=== PATIENT | female | born 2000 | race Caucasian/White ===

== ENCOUNTER 2020-10-17 14:01 | Emergency (ER) | payer OTHER, SELFPAY ==
--- NOTE | 2020-10-17 14:04 | ED.ABDPAIN ---
HPI - Abdominal Pain General Chief Complaint: Abdominal Pain Stated Complaint: STOMACH PAIN/VOMITING/BLOOD IN STOOL/DIARRHEA/ Time Seen by Provider: 10/17/20 14:04 Source: patient, family and RN notes reviewed History of Present Illness HPI narrative: Patient is a 19-year-old female who presents the urgent care with her mother with complaints of lower abdominal pain, nausea, vomiting and diarrhea. Patient states that she woke up last night with severe lower abdominal pains and bright red stool. Patient states that she has had loose stools all day and the blood has decreased . Patient is currently stating that her pain has improved but she still has 4 out of 10 lower abdominal pain. Patient states that she has had this pain in the past over the last 2 years, approximately 3 times and did go to the emergency room once for the pain. Patient states at that time they suspected she may have had a ruptured ovarian cyst. However, patient states that she has never had of the blood in the stool. Currently denies of any fevers. Patient did have Covid 1 month ago. Denies of any new medications. No other acute complaints. No acute distress noted. Patient and mother aware of the plan of care. Some parts of this dictation were generated by voice recognition software and may contain typographical and/or grammatical inaccuracies. Related Data Home Medications Medication Instructions Recorded Confirmed isotretinoin [Zenatane] 20 mg PO DAILY 10/17/20 10/17/20 Allergies Allergy/AdvReac Type Severity Reaction Status Date / Time No Known Allergies Allergy Unknown Verified 01/18/19 18:02 Review of Systems Review of Systems: CONSTITUTIONAL: Denies fever, chills, or sweats. EYES: Denies visual changes, redness, or discharge. ENT: Denies rhinorrhea, congestion, sore throat, or otalgia. CARDIOVASCULAR: Denies chest pain, palpitations, or edema. RESPIRATORY: Denies cough or dyspnea. GASTROINTESTINAL: Reports of nausea, vomiting, diarrhea and lower abdominal pain. Reports of blood in the stool GENITOURINARY: Denies dysuria or hematuria. SKIN: Denies rash or itching. MUSCULOSKELETAL: Denies back pain, joint pain, or myalgia. NEUROLOGIC: Denies headache, numbness, or weakness. All other systems reviewed are negative, except as documented in HPI. PMFSH Comments At the time of my signature, I reviewed and agree with the nursing past medical, surgical, social, and family history. There is no relevant family history pertinent to the patient complaint. Exam Narrative: GENERAL: This is a well-nourished, well-developed patient, in no apparent distress. HEAD: normocephalic, atraumatic. EYES: PERRL. Sclera clear/white. Vision is grossly intact. EARS: External ears normal NOSE: External nose normal with no obvious nasal discharge, nares without redness, no rhinorrhea. THROAT: Mucous membranes moist, posterior pharynx clear. NECK: Neck supple CARDIOVASCULAR: Regular rate and rhythm without murmurs, gallops, or rubs. RESPIRATORY: Clear to auscultation. Breath sounds equal bilaterally. No wheezes, rales, or rhonchi. GASTROINTESTINAL: Nondistended, diffuse lower abdominal tenderness/suprapubic region. SKIN: warm, intact with no suspicious lesions or rash, good texture and turgor. NEURO: awake, alert, and oriented to person, place and time. There were no obvious focal neurologic abnormalities. EXTREMITIES: No clubbing, cyanosis, or edema. BACK: Negative bilateral CVA tenderness Course Vital Signs Vital signs: Vital Signs Temperature 97.8 F 10/17/20 14:14 Pulse Rate 86 10/17/20 14:14 Respiratory Rate 16 10/17/20 14:14 Blood Pressure 132/75 10/17/20 14:14 Pulse Oximetry 100 10/17/20 14:14 Temperature 97.8 F 10/17/20 14:14 Pulse Rate 86 10/17/20 14:14 Respiratory Rate 16 10/17/20 14:14 Blood Pressure 132/75 10/17/20 14:14 Pulse Oximetry 100 10/17/20 14:14 Reviewed Transfer Transfered to: [facility]
[2020-10-17 14:14] VITALS: BP 132/75; PULSE 86; RESP 16; TEMP 36.6; O2SAT 100
== END 2020-10-17 14:30 | disposition short-term general hospital (02) ==
PROVIDERS: Emergency Provider Nurse Practitioner Family; PCP Nurse Practitioner Family
DX: K92.1 Melena (principal); R10.31 Right lower quadrant pain
CPT/HCPCS: 99212; G0463

== ENCOUNTER 2020-10-17 15:16 | Emergency (ER) | payer OTHER, SELFPAY ==
--- NOTE | ~2020-10-17 | US_ITS ---
EXAMINATION: US pelvic complete DATE: 10/17/2020 18:19 INDICATION: Pelvic pain TECHNIQUE: Multiple transabdominal and endovaginal sonographic images of the pelvis were obtained. COMPARISON: CT from today FINDINGS: The uterus measures 7.2 x 4.0 cm. An IUD is in expected position. The endometrial complex m easures 6 mm. The right ovary measures 8.7 x 6.6 x 8.1 cm and contains a 7.8 x 5.8 x 5.4 cm cyst. The left ovary measures 2.5 x 1.1 x 1.5 cm. There is normal vascular flow in the ovaries. There is no fr ee fluid in the pelvis. IMPRESSION: 1. Cystic lesion of the right ovary which may be benign or malignant. Vascular flow present in the ov alvarez. Follow-up by nonemergent MRI without and with contrast or surgical evaluation is recommended. Reviewed, dictated and finalized at location A. IMPRESSION: 1. Cystic lesion of the right ovary which may be benign or malignant. Vascular flow present in the ovaries. Follow-up by nonemergent MRI without and with cont rast or surgical evaluation is recommended.
--- NOTE | ~2020-10-17 | XR_ITS ---
EXAMINATION: XR chest 2V DATE: 10/17/2020 17:01 INDICATION: Transient alteration of awareness TECHNIQUE: PA and lateral views of the chest are obtained. COMPARISON: None available FINDINGS: The lungs are free of acute opacities. There is no pleural effusion or pneumothorax. The ca rdiomediastinal silhouette is normal. The visualized bones and soft tissues are unremarkable. IMPRESSION: 1. No acute cardiopulmonary abnormality. Reviewed, dictated and finalized at location A.
--- NOTE | ~2020-10-17 | CT_ITS ---
EXAMINATION: CT abdomen pelvis w con INDICATION: Lower abdominal pain TECHNIQUE: Computed tomographic images of the abdomen and pelvis were obtained after the administrati on of 100 cc of Omnipaque 350 intravenous contrast. The dose-length product (DLP) was 202.39 mGy-cm. Automated exposure control and iterative reconstruction technique were employed. COMPARISON: None available FINDINGS: The lung bases are clear. The heart size is normal. The liver, spleen, pancreas, gallbladde r, and adrenal glands are normal. The kidneys are unremarkable. The appendix is normal. No pathologic ally enlarged abdominal or pelvic lymph nodes are identified. There is no free intraperitoneal gas or evidence of bowel obstruction. There is an 8.4 x 6.7 cm cystic lesion of the right adnexa which exte nds into the midline pelvis. An IUD is present in expected position. There is mild circumferential wa ll thickening of the distal transverse/proximal descending colon at the splenic flexure. IMPRESSION: 1. Mild wall thickening of the colon near the splenic flexure which could reflect colitis. 2. 8.4 cm cystic lesion of the right adnexa coursing towards the midline. Further evaluation with pel ana ultrasound is recommended. These findings and recommendations were discussed with Kenyatta Armendariz PA-C in the Emergency Departm ent at 1815 hours on 10/17/2020. Reviewed, dictated and finalized at location A. IMPRESSION: 1. Mild wall thickening of the colon near the splenic flexure which could refle ct colitis. 2. 8.4 cm cystic lesion of the right adnexa coursing towards the midline. Furth er evaluation with pelvic ultrasound is recommended. These findings and recommendations were discussed with Kenyatta Armendariz PA-C in the Emergency Department at 1815 hours on 10/17/2020.
[2020-10-17 15:30] VITALS: BP 114/68; PULSE 88; RESP 16; TEMP 37.3; O2SAT 100
[2020-10-17 16:07] LABS: Basophils Percent Auto 0.3 % (0.2-1.2); Eosinophils Percent Auto 0.2 % (0-4.4); Hematocrit 39.7 % (37.0-47.0); Hemoglobin 13.7 g/dL (12.0-15.0); Immature Granulocyte Absolute 0.05 K/mm3 (0.00-0.031); Immature Granulocyte Percent A 0.3 % (0-0.5); Lymphocytes Absolute Auto 2.51 K/mm3 (0.9-3.2); Lymphocytes Percent Auto 16.5 % (18.3-44.2); Mean Corpuscular HGB Conc 34.5 g/dl (32-36); Mean Corpuscular Hemoglobin 30.3 pg (26-34); Mean Corpuscular Volume 87.8 fl (80-100); Mean Platelet Volume 10.1 fl (7.4-10.4); Monocytes Percent Auto 6.8 % (2.6-8.5); Neutrophils Absolute Auto 11.5 K/mm3 (1.3-6.7); Neutrophils Percent Auto 75.9 % (45.5-73.1); Platelet Count Result 266 k/mm3 (150-375); Red Blood Count 4.52 M/mm3 (4.2-5.4); Red Cell Distribution Width 12.9 % (11.5-14.5); White Blood Count 15.2 K/mm3 (4.5-10.0)
[2020-10-17 16:16] LABS: Partial Thromboplastin Time 25.8 SECONDS (22.3-36.8); Prothrombin Time 12.7 Seconds (11.1-14.7)
--- NOTE | 2020-10-17 16:16 | ECG_ITS ---
Measurements Intervals [place] Rate: 78 P: 47 WI: 120 QRS: 77 QRSD: 80 T: 10 QT: 371 QTc: 423 Interpretive Statements SINUS RHYTHM MINIMAL Q WAVES- INFERIOR LEADS BORDERLINE ST-T WAVE ABNORMALITY- INFERIOR LEADS BORDERLINE ECG Electronically Signed On 10-17-2020 17:36:45 CDT by Yury Nixon D.O.
--- NOTE | 2020-10-17 16:19 | PC.NURSE ---
Called lab to add troponin to labs
[2020-10-17 16:20] LABS: Alanine Aminotransferase 14 U/L (4-35); Albumin Level 4.8 g/dL (3.5-5.1); Alkaline Phosphatase 48 U/L (38-126); Anion Gap 14 mmol/L (8-16); Aspartate Amino Transferase 22 U/L (14-36); Bilirubin,Total 0.6 mg/dL (0.2-1.3); Blood Urea Nitrogen 8 mg/dL (7-17); Calcium 10.1 mg/dL (8.4-10.2); Carbon Dioxide 23 mmol/L (22-30); Chloride 102 mmol/L (98-107); Estimated CRCL calculation 91 ml/min; Estimated Glomerular Filt Rate > 60; Glucose 94 mg/dL (65-110); Lipase 58 U/L (23-300); Potassium 3.5 mmol/L (3.4-5.0); Sodium 139 mmol/L (137-145)
--- NOTE | 2020-10-17 16:21 | ED.ABDPAIN ---
HPI - Abdominal Pain General Chief Complaint: Abdominal Pain Stated Complaint: abdominal pain Time Seen by Provider: 10/17/20 15:37 Source: patient Mode of arrival: ambulatory Limitations: no limitations History of Present Illness HPI narrative: This is a 19 year old female that presents to the ER for low abdominal pain ongoing since last night. Associated with nausea and vomiting. Reports she has been seeing bright red blood in her stool since last night as well. Reports last night she was in so much pain that she started to feel hot and passed out. Has history of similar occurrences when she gets her blood drawn. Denies hitting her head, fever, vision changes, dysuria, hematuria, weakness, or numbness. Related Data Home Medications Medication Instructions Recorded Confirmed isotretinoin [Zenatane] 20 mg PO WEEKLY 10/17/20 10/17/20 Allergies Allergy/AdvReac Type Severity Reaction Status Date / Time No Known Allergies Allergy Unknown Verified 10/17/20 15:39 Review of Systems Review of Systems: CONSTITUTIONAL: Denies fever CARDIOVASCULAR: Denies chest pain RESPIRATORY: Denies dyspnea. GASTROINTESTINAL: Reports abdominal pain, nausea, vomiting GENITOURINARY: Denies dysuria or hematuria. All systems reviewed & are unremarkable except as noted in HPI and below PMFSH Past Medical History Medical History (Updated 10/17/20 @ 20:01 by Kenyatta Armendariz PA-C) No active medical problems Social History Social History (Updated 10/17/20 @ 16:39 by Kenyatta Armendariz PA-C) Substance use: never Exam Narrative: GENERAL: Well-appearing, well-nourished, and in no acute distress. HEAD: Normocephalic, atraumatic. EYES: PERRLA and EOMI. ENT: Nares clear, no rhinorrhea or epistaxis. Mucous membranes moist. Oropharynx without tonsillar hypertrophy exudate or other lesions. Bilateral TMs pearly chino non-bulging NECK: Supple. No adenopathy or masses. CHEST: Clear to auscultation. No respiratory distress. No wheezes rales or rhonchi HEART: Regular rate and rhythm. No murmur heard. Normal peripheral pulses. ABDOMEN: Soft, nondistended, normal active bowel sounds. Mild tenderness to palpation in the lower abdomen, without guarding. No CVA tenderness EXTREMITIES: Normal range of motion. No edema. SKIN: Warm, dry, no rash. NEURO: No focal deficits. Alert and oriented x3. PSYCH: Normal mood and affect RECTAL: Small fissure noted. No active bleeding. Hemoccult negative Course Consultations Consultation #1: Spoke with Dr. Londono about patient and workup who will follow up in clinic Date: 10/17/20 Time: 19:30 Vital Signs Vital signs: Vital Signs Temperature 99.1 F 10/17/20 15:30 Pulse Rate 88 10/17/20 15:30 Respiratory Rate 16 10/17/20 15:30 Blood Pressure 114/68 10/17/20 15:30 Pulse Oximetry 100 10/17/20 15:30 Temperature 99.1 F 10/17/20 15:30 Pulse Rate 86 10/17/20 18:36 Respiratory Rate 12 10/17/20 18:36 Blood Pressure 105/74 10/17/20 18:36 Pulse Oximetry 100 10/17/20 18:36 MDM - Abdominal Pain MDM Narrative Medical decision making narrative: Patient presents to the emergency department for abdominal pain, nausea and vomiting. Also reporting blood in stool. She is afebrile and nontoxic-appearing. Vitals are stable. CBC with leukocytosis to 15.2. Hemoglobin is normal. Metabolic panel and lipase without concerning findings. UA without evidence of infection. Patient also reporting a syncopal episode after being in pain last night. Patient does have history of vasovagal syncope. Denies any chest pain or shortness of breath. Chest x-ray without concerning findings. EKG with nonspecific changes. Baseline troponin is negative. CT scan of the abdomen and pelvis shows mild colitis. Also shows a 0.4 cm cystic lesion of the right adnexa. Recommend pelvic ultrasound. Pelvic ultrasound shows a cystic lesion of the right ovary which may be benign or malignant. Recommend nonemergent MRI and surgical consult. Vascula
[2020-10-17] MEDS: SODIUM CHLORIDE 0.9% IV 1,000 ML 999 ML IV CONT (16:33)
--- NOTE | 2020-10-17 16:40 | PC.NURSE ---
Pt unable to urinate at this time
[2020-10-17 16:42] LABS: Troponin I < 0.012 ng/mL (0.000-0.034)
[2020-10-17 16:44] VITALS: BP 105/65; BP 99/59; PULSE 84; PULSE 95
[2020-10-17 16:45] VITALS: BP 98/60; PULSE 95
--- NOTE | 2020-10-17 16:57 | PC.NURSE ---
Off floor to radiology
[2020-10-17 17:08] LABS: Add Urine Microscopic? YES; Appearance Urine Clear (Clear); Bilirubin Urine 1+ (Negative); Blood Urine Negative (Negative); Color Urine Amber (Yellow); Glucose Urine UA Negative (Negative); Ketones Urine 2+ mg/dL (Negative); Leukocyte Esterase Ur Negative LEU/UL (Negative); Mucus Urine Heavy /lpf; Nitrate Urine Negative (Negative); Protein Urine 2+ mg/dL (Negative); RBC Urine 0-2 /hpf (0-2); Squamous Epithelial Cell Urine Many /hpf (Few); Urobilinogen Urine Negative mg/dL (<2.0); WBC Urine 0-3 /hpf
[2020-10-17 17:09] LABS: Specific Grav Ur 1.035 (1.001-1.035)
--- NOTE | 2020-10-17 18:06 | PC.NURSE ---
Pt off floor to radiology
[2020-10-17 18:36] VITALS: BP 105/74; PULSE 86; RESP 12; O2SAT 100
[2020-10-17 20:20] VITALS: BP 110/70; PULSE 80; RESP 14; O2SAT 98
== END 2020-10-17 20:20 | disposition home or self-care (01) ==
PROVIDERS: Physician Assistant; Emergency Provider Emergency Medicine; PCP Nurse Practitioner Family
DX: K52.9 Noninfective gastroenteritis and colitis, unspecified (principal); N83.201 Unspecified ovarian cyst, right side; R55 Syncope and collapse
CPT/HCPCS: 36415; 71046; 74177; 76856; 80053; 81001; 81025; 83690; 84484; 85025; 85610; 85730; 93005; 96361; 96374; 99284; J0131; J7030; Q9967

== ENCOUNTER 2022-06-16 21:39 | Emergency (ER) | payer OTHER, SELFPAY ==
--- NOTE | ~2022-06-16 | XR_ITS ---
EXAMINATION: XR knee RT min 4V DATE: 06/16/2022 22:13 INDICATION: Right knee pain TECHNIQUE: Four views of the right knee were obtained. COMPARISON: 01/20/2016 FINDINGS: Alignment is normal. No fracture or osteochondral lesion. Joint spaces are normal with no e rosions. No joint effusion/synovitis. Soft tissues are unremarkable. IMPRESSION: 1. No acute osseous abnormality. Reviewed, dictated and finalized at location F.
[2022-06-16 21:43] VITALS: BP 122/75; PULSE 86; RESP 16; TEMP 37.3; O2SAT 100
--- NOTE | 2022-06-17 00:43 | PC.NURSE ---
Patient up to triage desk to notify this RN that her knee was feeling much better and she was able to walk without pain and no longer wanted to be seen. Patient ambulatory with steady gait and no limping upon departure from ER.
== END 2022-06-17 00:43 | disposition left against medical advice (07) ==
PROVIDERS: Emergency Provider Emergency Medicine; PCP Nurse Practitioner Family
DX: S89.91XA Unspecified injury of right lower leg, initial encounter (principal)
CPT/HCPCS: 73564; 99199

== ENCOUNTER 2024-03-20 11:57 | Emergency (ER) | payer OTHER, SELFPAY ==
[2024-03-20 11:59] VITALS: BP 137/74; PULSE 93; RESP 16; TEMP 36.6; O2SAT 100
[2024-03-20] MEDS: FLUCONAZOLE 150 MG TABLET PO (14:01)
[2024-03-20 14:04] LABS: BEDSIDEPREGUCG Negative (Negative)
--- NOTE | 2024-03-20 14:11 | ED.FEMALEGU ---
HPI - Female Genitourinary General Chief complaint: [employer] Stated complaint: i think i have a pelvic floor prolapse Time Seen by Provider: 03/20/24 13:00 Source: patient and RN notes reviewed Mode of arrival: ambulatory Limitations: no limitations History of Present Illness HPI Narrative: This is a 23 year old female who presents for evaluation of abnormal vaginal discharge. She reports she has been having painful sexual intercourse for 1 year and she had her boyfriend to take a look at her vagina yesterday. He states he saw tissue protruding from her vagina. Patient also reports thick yellow vaginal discharge. She reports mild vaginal itching and she completed antibiotics last week to treat UTI. She has appointment with [facility] on Related Data Allergies Allergy/AdvReac Type Severity Reaction Status Date / Time No Known Allergies Allergy Unknown Verified 03/20/24 11:57 PMFSH Past Medical History Medical History No active medical problems Social History Social History Smoking status: Never smoker Alcohol intake: never Substance use: never Exam Const: General: no acute distress and alert Nutritional Appearance: well nourished Orientation/consciousness: patient oriented x3 Limitations: no limitations HENMT: Head: normal to inspection Resp: Effort & Inspection: normal respiratory effort GI: GI Palp: Yes Soft to palpation, No Tenderness to palpation present (GI), No Guarding due to palpation present (GI) and No Rigid due to palpation Auscultation: normal bowel sounds : Speculum Exam - Vagina: abnormal vaginal discharge yellow Speculum Exam - Cervix: normal appearance of the cervix and Cervical os closed Bimanual exam- vagina & uterus: no cervical motion tenderness Bimanual Exam- Adnexa, other: no masses Skin: General skin exam: normal color Rashes: no rashes Wounds: no wounds Neuro: General: patient oriented x3 and moves all extremities Course Reevaluation(s) Reevaluation #1: I discussed with patient it will be 30 minutes for GC chlamydia swab to return but she does not want to wait. She has follow up with gynecology on . Date: 03/20/24 Time: 15:37 Vital Signs Vital signs: Vital Signs Temperature 97.9 F 03/20/24 11:59 Pulse Rate 93 03/20/24 11:59 Respiratory Rate 16 03/20/24 11:59 Blood Pressure 137/74 03/20/24 11:59 Pulse Oximetry 100 03/20/24 11:59 Oxygen Delivery Room Air 03/20/24 11:59 Temperature 97.9 F 03/20/24 11:59 Pulse Rate 93 03/20/24 11:59 Respiratory Rate 16 03/20/24 11:59 Blood Pressure 137/74 03/20/24 11:59 Pulse Oximetry 100 03/20/24 11:59 Oxygen Delivery Room Air 03/20/24 11:59 MDM - Female Genitourinary Differential Diagnosis Differential diagnosis: Likely bacterial vaginosis, trichomoniasis, cervicitis, ovarian cyst and vaginitis Lab Data Attestation: I reviewed the patient's lab results. Labs: Lab Results 03/20/24 03/20/24 Range/Units 14:02 14:08 POC Urine HCG, Qual Negative (Negative) C. trachomatis (PCR) Pending N. gonorrhoeae (PCR) Pending T. 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 You will given medication to treat yeast infection and possible bacterial vaginosis. Patient Language: Yoruba Prescriptions: New metronidazole 500 mg tablet 500 mg PO Q12H 7 Days Qty: 14 0RF Follow-up/Referrals: Angel Londono MD [Physician] - PHYSICIAN,ENGINEER SECOND ASSISTANT [Primary Care Provider] -
[2024-03-20 15:33] LABS: Trichomonas Vag PCR NOT DETECTED (NOT DETECTE)
--- OUTSIDE RECORDS SUMMARY | 2024-03-27 11:51 | XMS_ITS | Data Portability ---
Author Organization [facility] [place] Address [address] [place] [address] [place] [address] Care Team Providers Care Marzipan Molder Name Role Phone NARA MENDIOLA Primary Care Provider [phone] Assessment Encounter Date Assessment Date Assessment LastModified by Organization Details LastModified Time 12/18/2021 12/18/2021 we discussed that bleeding can be irregular with IUD, and on other BC also, or the first year of menses. we also discussed we can't diagnose pcos by labs or US while on BC. normal exam. declines std testing try more foreplay, relaxation techniques to start. discussed pelvic pt if needed. [email or web address] Not available 12/20/2021 19:39:04 Plan of Treatment Reminders Order Date Submit Date Provider Last Modified By Organization Details Last Modified Time Details Appointments None recorded. Lab urinalysis, dipstick 2022 023 [facility], [address], [address], [place], [address], 3 16:34:14 [facility], [facility] [address], [address], [place], [address], 3 16:34:39 unlisted lab - women's health swab plus, DENISE 2024 025 [facility]), [address], [place], [address], 5 15:37:24 Referral None recorded. Procedures None recorded. Surgeries None recorded. Imaging US, pelvis, complete 2022 023 [facility], [address], [address], [place], [address], 4 05:00:46 US, pelvis [address], [address], [place], [address], 3 21:14:11 US, transvagina l 2022 [address], [address], [place], [address], 3 21:14:11 Medication Orders fluconazole 150 mg tablet 2024 025 [facility], [address], [place], [place], [id number], 5 15:36:48 Patient TargetsNo targets recorded. Patient InstructionsNo instructions recorded. Reason for Referral None Reported. Results Created Date Observation Date Name Description Value Unit Range Abnormal Flag Note LastModifiedBy Organization Detail LastModifiedTime 02/06/2002/05/2023 pregn uzma test, urine HCG negati ve Not Available [place] [address], [place], [address], 02/05/2023 16:34:22 02/06/20 23 02/05/2023 urina lysis , dipst ick Leukocytes + Not Available Paulino moreno [address], [place], [address], 02/05/2023 16:33:14 02/06/20 23 02/05/2023 urina lysis , dipst ick Nitrite Negati ve Not Available [address], [place], [address], 02/05/2023 16:33:14 02/06/20 23 02/05/2023 urina lysis , dipst ick Urobilinogen Negati ve Not Available [place] [address], [place], [address], 02/05/2023 16:33:14 02/06/20 23 02/05/2023 urina lysis , dipst ick Protein Negati ve Not Available [place] [address], [place], [address], 02/05/2023 16:33:14 02/06/20 23 02/05/2023 urina lysis , dipst ick pH 7 Not Available [place] [address], [place], [address], 02/05/2023 16:33:14 02/06/20 23 02/05/2023 urina lysis , dipst ick Blood trace Not Available [place] [address], [place], [address], 02/05/2023 16:33:14 02/06/20 23 02/05/2023 urina lysis , dipst ick Specific [place] 1.010 Not Available [facility] [address], [place], [address], 02/05/2023 16:33:14 02/06/20 23 02/05/2023 urina lysis , dipst ick Ketone Negati ve Not Available [place] [address], [place], [address], 02/05/2023 16:33:14 02/06/20 23 02/05/2023 urina lysis , dipst ick Bilirubin Negati ve Not Available [place] [address], [place], [address], 02/05/2023 16:33:14 02/06/20 23 02/05/2023 urina lysis , dipst ick Glucose Negati ve Not Available [place] [address], [place], [address], 02/05/2023 16:33:14 02/06/20 23 02/05/2023 urina lysis , dipst ick Appearance Clear Not Available [facility] [address], [place], [address], 02/05/2023 16:33:14 02/06/2002/05/2023 urina lysis , dipst ick Color Yellow Not Available [place] [address], [place], [address], 02/05/2023 16:33:14 02/07/20 23 02/06/2023 US, pelvi s No observ ation record ed. [facility] [address], [place], [address], 02/06/2023 12:57:30 02/07/2002/06/2023 US, trans vagariella al No observ ation record ed. [facility] [address], [place], [address], 02/06/2023 12:57:53 02/07/2002/06/2023 US, pelvi s No observ ation record ed. matt Baez [address], [place], [address], 02/10/2023 12:11:14 Result Notes None recorded. Problems Name Problem SNOMED Code Status Onset Date Resolution Date Notes Provider Name and Address Organization Details Recorded Time Insertio n of intraute rine contrace ptive device Completed 201808/28/2020 Encounte r for insertio n of intraute rine contrace ptive device;R ecorded Elsewher e: No [facility]: E[facility] Decorative Engraver dilip: N Practi ce ID: 0001 Storm lable Time: 03:15:00 PM Cora Balbuena MD [address], [place], [address], [facility] 14:44:[address] Concept Completed 201808/28/2020 Encntr for routine child health exam w/o abnormal findings ;Recorde d Elsewher e: No [facility]: E[facility] Decorative Engraver dilip: N Practi ce ID: 0001 Storm lable Time: 03:30:00 PM Cora Balbuena MD [address], [place], [address], [facility] 14:44:13 Acute vaginiti s 58556949 Completed 201608/28/2020 Acute vaginiti s;Practi ce ID: [address], [place], [address], [facility] 14:43:55 Finding of pattern of menstrua l cycle 988983294 Completed 201608/28/2020 Excessiv e and frequent menstrua tion with irregula r cycle;Pr actice ID: [address], [place], [address], [facility] 14:44:[address] Concept Completed 201608/28/2020 Encntr for director of gift planning exam (general ) (routine ) w/o abn findings ;Practic e ID: [address], [place], [address], [facility] 14:44:15 Pregnanc y test negative [id number] Completed 201608/28/2020 Encounte r for pregnanc y test, result negative ;Practic e ID: 0001 Cora Balbuena MD [address], [place], [address], [facility] 14:44:07 Acne 17401214 Completed 201608/28/2020 Acne, unspecif ied;Prac tim ID: 0001 Coar Balbuena MD [address], [place], [address], [facility] 14:43:53 Contrace ptive sheath status 624196478 Completed 201808/28/2020 Encounte r for routine checking of intraute rine contrace p dev;Prac tim ID: 0001 Cora Balbuena MD [address], [place], [address], [facility] 14:44:00 Clinical finding Completed 201808/28/2020 Encounte r for surveill ance of injectab le contrace ptive;Pr actice ID: 0001 Cora Balbuena MD [address], [place], [address], [facility] 14:43:[address] Concept Completed 201608/28/2020 Encntr for general adult medical exam w/o abnormal findings ;Recorde d Elsewher e: No Locat ion: Raudel talavera [facility] S ource: EHR Decorative Engraver dilip: N Practi ce ID: 0001 Storm lable Time: 03:15:00 PM Cora Balbuena MD [address], [place], [address], [facility] 14:44:11 Problem Notes None recorded. Procedures Surgical History Date Name Laterality Status Provider Name and Address Organization Details Recorded Time tonsilectom y/adenoids completed [facility]cl[facility] 08/10/2020 08:56:47 Imaging Results Imaging Date Name Status LastModified by Organization Details LastModified Time 02/06/2023 US, pelvis completed lalo Murphy [address], [place], [address], 02/06/2023 12:57:30 02/06/2023 US, transvaginal completed lalo talavera [address], [place], [address], 02/06/2023 12:57:53 02/06/2023 US, pelvis completed llamaamari Sasha [address], [place], [address], 02/10/2023 12:11:14 Procedure Notes None recorded. Medical Equipment None Reported. Allergies No known drug allergies Medications Name Sig Start Date Stop Date Status Note LastModified by Organization Details LastModified Time Mirena 21 mcg/24 hr (up to 8 years) 52 mg intrauter ine device 2018 active Prescrib ed Elsewher e: Yes Loca tion: Raudel talavera [facility] odify By: kayli Talaver[address] ncounter DateTime : 07/28/19 03:15:00 PM Not Available Not Available Not Available fluconazo le 150 mg tablet Take 1 tablet by oral route for 1 day. 2024 active Not Available Not Available Not Avai lable spironola ctone 100 mg tablet 03/24 completed Not Available Not Available Not Available metronida zole 500 mg tablet active Not Available Not Available No t Available Depo-Prov era 150 mg/mL intramusc ular suspensio n inject 1 millilit er by intramus cular route every 3 months 08/10 completed Prescrib ed Elsewher e: No Locat ion: Raudel talavera [facility] odify By: mario stallworthunter DateTime : 09/11/19 12:41:08 PM Not Available Not Available Not Available isotretin oin 10 mg capsule take by oral route 2 times every day 12/18 completed Prescrib ed Elsewher e: Yes Loca tion: Raudel talavera [facility] odify By: [email or web address] E ncounter DateTime : 07/06/19 03:30:00 PM Not Available Not Available Not Available clobetaso l 0.05 % topical ointment 03/24 completed Not Available Not Available Not Available Ortho Tri-Cycle n LO (28) 0.18 mg/0.215 mg/0.25 mg-25 mcg tablet take 1 tablet by oral route every day 07/05 completed Prescrib ed Elsewher e: No Locat ion: [facility] odify By: haroon Talavera ncounter DateTime : 10/09/19 03:15:00 PM Not Available Not Available Not Available JENNIFER (28) 3 mg-0.02 mg tablet take 1 tablet by oral route every day 10/08 completed Prescrib ed Elsewher e: No Locat ion: [facility] odify By: [email or web address] tz Encou nter DateTime : 09/09/19 09:06:13 AM Not Available Not Available Not Available Vitals Date Recorded Body height Body mass index (BMI) Body weight Systolic blood pressure Diastolic blood pressure Provider Name and Address Organization Details Last Updated DateTime 12/18/2021 170.18 cm 17.5 kg/m2 35354.35 g 111 mm[Hg] 75 mm[Hg] Caitlin Mclaughlin [facility] 2 14:50:46 Date Recorded Body height Body mass index (BMI) Body weight Systolic blood pressure Diastolic blood pressure Provider Name and Address Organization Details Last Updated DateTime 02/05/2023 170.18 cm 17.2 kg/m2 47796.16 g 105 mm[Hg] 67 mm[Hg] Smitha Atwood [facility] 3 16:15:38 Date Recorded Body height Body mass index (BMI) Body weight Systolic blood pressure Diastolic blood pressure Provider Name and Address Organization Details Last Updated DateTime 02/10/2023 170.18 cm 18.2 kg/m2 21717.15 g 102 mm[Hg] 72 mm[Hg] Lizbeth Correia [facility] 3 11:35:01 Date Recorded Body height Body mass index (BMI) Body weight Systolic blood pressure Diastolic blood pressure Provider Name and Address Organization Details Last Updated DateTime 03/24/2024 170.18 cm 19.4 kg/m2 53630.74 g 107 mm[Hg] 66 mm[Hg] AUBREY Evans [facility] 15:19:07 Social History None recorded. Functional Status None recorded. Mental Status None recorded. Family History Nothing Reported. Medical History Condition Response Allergies (Food, seasonal, environmental ) N Other N Breast Cancer N Drug/Latex Allergies/Reactions N Blood Transfusion N Dermatologic Disorders N Lung Disease N Defects or Inherited Disease N Breast Problem N Gestational Diabetes N Hematologic disorders N Anesthesia Complications N History of STI N Deep Vein Thrombosis N Polycystic ovary syndrome N Anxiety Disorder N Autoimmune disease N Arthritis N Infertility N Polyps N Acid Reflux (GERD) N History of abnormal pap N Cancer N Stroke N Varicosities N Neurologic/Epilepsy N Endometriosis N High Cholesterol N Headaches N Fibromyalgia N Kidney Disease N Heart Problems N Kidney or Bladder Problems N Thyroid Problems N GI Problems N Eating Disorder N Anemia N Art (IVF or FET) N Psychiatric Illness N Ovarian Cancer N Diabetes N Pulmonary (TB, Asthma) N Hepatitis/Liver Disease N No Past Medical History N Eczema N Urinary Tract Infection N Abuse/Domestic Violence N Asthma N Trauma/Violence N Depression/ depression N Heart Disease N Pre-Eclampsia N Hypertension N Osteoporosis N Thrombophilias N Gynecological History Statement/Question Response Flow Moderate Date of LMP 02/24/2024 Sexually Active? Y Date of Last Pap Smear Sexual Problems? Y Duration of Flow (days) 15 Current Control Method IUD LMP Approximate Obstetrics History GPAL:G 0 P 0 0 0 0 Past Encounters Encounter ID Performer Location Encounter Start Date Encounter Closed Date Diagnosis/Indication Diagnosis SNOMED-CT Code Diagnosis ICD10 Code [id number] Cora Balbuena MD [place] [address] [address] 08/28/2020 14:35:15 08/29/2020 10:30:45 Break-through bleeding 01380684 N92.1 Venereal d isease screening 184913509 Z11.3 [id number] Angel Londono MD [place] [address] [address] 10/18/2020 18:00:51 10/19/2020 09:35:58 Pain in pelvis 97058755 R10.2 Cyst of ovary 24434956 N 83.209 Colitis 69766057 K52.9 [id number] Cora Balbuena MD [place] [address],[place] [address] 07/30/2021 13:59:00 07/30/2021 14:25:43 Intrauterine contraceptive device in situ 301310833 Z97.5 Lower abdominal pain 545 33305 R10.30 [id number] Cora Balbuena MD [place] [address],[place] [address] 12/18/2021 14:43:16 12/20/2021 16:58:54 Deep pain on intercourse 663044352 N94.12 Irregular periods 818369 07 N92.6 [id number] BRIA Hernández [place] [address],[place] [address] 02/05/2023 15:55:53 02/05/2023 16:51:00 Urinary symptoms 344666169 R39.9 Pain in pelvis 71247040 R10.2 Dyspareunia 72344322 N94 .10 [id number] Leanne Shankar [place] [address],[place] [address] 02/06/2023 09:52:27 02/06/2023 10:24:55 Pain in pelvis 25644906 R10.2 [id number] Saundra Monteiro MIKHAIL [place] [address],[place] [address] 02/10/2023 11:28:52 02/10/2023 11:54:50 Pain in pelvis 74348873 R10.2 Contracept ion care management 372637219 Z30.9 [id number] CASH BLANK NP [place] [address],[place] [address] 03/24/2024 14:58:19 03/24/2024 16:23:11 Vaginal discharge 694674648 N89.8 Venereal d isease screening 293375439 Z11.3 Health Concerns Section Related Observation LastModified by Organization Detai ls LastModified Time None Recorded Concern Status LastModified by Organization Details LastModified Time None Recorded Advance Directives Directive None Recorded Payers Encounter Date Sequence Insurance Name Policy Number Policy Manjarrez Covered Member ID Manjarrez Member ID Guarantor Name 12/18/2021 1 [employer] (PPO) [id number] Hipolito Avila Wolf [id number] America Wolf 02/05/2023 1 [employer]) [id number] Hipolito Avila Wolf [id number] America Wolf 02/06/2023 1 [employer]PPO) [id number] Hipolito Avila Wolf [id number] America Wolf 02/10/2023 1 [employer] (PPO) [id number] Hipolito Avila Wolf [id number] America Wolf 03/24/2024 1 [facility] [id number] Hpiolito Tianerlich [id number] America Wolf Notes Date Note Type Note Provider Name and Address Organization Details Recorded Time 12/18/2021 text/html America is a 21y o G0 here with a couple concerns. She has a history of irregular periods and is worried she has PCOS. She has a Mirena since 07/2018. She was last not on BC age 15. She started her period age 14. She had one gush of blood a month ago with a big cramp but otherwise no bleeding with Mirena. She is worried about why her periods are not regular. She also has a new partner for a few months and sometimes sex is painful- stabbing or cramping deeper. sometimes though it is fine. Cora Balbuena MD [address], [place], [address], [facility] 12/20/2021 19:39:45 02/05/2023 text/html 22yo [id number] for evaluation of pain with ICnoticed sharp pain during IC last night, pain has since resolved. Feels sore treated for a UTI 2 weeks agoMirena IUD for BC, inserted 07/2018SA with steady partnerneg n/v/fneg urinary symptomsneg d/c, odorsneg flank painsbowel movements often irregular (constipation/licha rrhea) BRIA Hernández [address], [place], [address], [facility] 02/05/2023 16:49:12 02/10/2023 text/html 22yopresents for u/s f/upelvic pain has resolved, feels back to normal BRIA Hernández [address], [place], [address], [facility] 02/10/2023 11:52:30 03/24/2024 text/html Patient here wit h c/o vaginal discharge. Patient finished antibiotics for a UTI two weeks ago.Patient states that after she finishing antibiotics, on 03/17 she had painful intercourse with cramping in abdomen.From 03/17 - 03/20 - patient reports that she had vulvar irritation and a lot of thin vaginal discharge.On 03/20 patient went to ER [facility] for copious vaginal discharge - treated for BV and yeast empirically - pt states that tests were negative for trich/BV/yeast and urinary infection per results, stopped Flagyl two days early due to AEs of metallic taste and arm pain. Patient now reports thick vaginal discharge. Denies current pelvic pain, GI/ sx. CASH BLANK, MIKHAIL [address], [place], [address], [facility] 03/24/2024 16:21:00 OBGyn Episode No OBEpisode recorded.
--- OUTSIDE RECORDS SUMMARY | 2024-03-27 11:51 | XMS_ITS | Data Portability ---
Author Organization [place] - [facility], [employer] Address [address] [place] [address] Care Team Providers Care Manager Apple Name Role Phone RENITA RICHMOND Vertical Lathe Operator RAGINI RENDON OTHER Assessment Encounter Date Assessment Date Assessment LastModified by Organization Details LastModified Time 11/10/2019 11/10/2019 Medication Changes Doxycycline 100 mg Vyvanse 30 mg Labs obtained at visit. RADHIKA Obtained. Records requested. Signs and symptoms of when to seek further care reviewed with patient. Patient to follow up with primary care provider or return to clinic for any worsening signs and symptoms. Always present to ER or Urgent Care with any progression of/alarming symptoms, significant changes in symptoms or any concerning or urgent matters. Patient verbalized agreement and understanding of treatment plan. F/U 4 weeks, sooner if needed [email or web address] Not available 11/10/2019 14:44:10 11/08/2020 11/08/2020 Medication Changes Accommodation letter accomplished for school. Discussed tx options regarding colitis. Waiting for GI to do colonoscopy to further differentiate. Signs and symptoms of when to seek further care reviewed with patient. Patient to follow up with primary care provider or return to clinic for any worsening signs and symptoms. Always present to ER or Urgent Care with any progression of/alarming symptoms, significant changes in symptoms or any concerning or urgent matters. Patient verbalized agreement and understanding of treatment plan. F/U as directed, sooner if needed [email or web address] Not available 11/08/2020 12:48:24 11/07/2021 11/07/2021 Medication Changes Needs TDAP for school. [facility]. Signs and symptoms of when to seek further care reviewed with patient. Patient to follow up with primary care provider or return to clinic for any worsening signs and symptoms. Always present to ER or Urgent Care with any progression of/alarming symptoms, significant changes in symptoms or any concerning or urgent matters. Patient verbalized agreement and understanding of treatment plan. F/U 1 year, sooner if needed [email or web address] Not available 11/07/2021 10:48:03 Plan of Treatment Reminders Order Date Submit Date Provider Last Modified By Organization Details Last Modified Time Details Appointments None recorded. Lab TSH + free T4, serum 2019 SRI Not available 0 15:03:57 T3, free, serum or plasma 2019 SRI Not available 0 17:17:14 thyroid peroxidase (tpo) Ab, serum 2019 [facility]RI Not available 0 17:17:13 hCG, qualitativ e, serum 2019 SRI Not available 0 15:03:57 CBC w/ diff 2019 SRI Not available 0 15:03:57 CMP, serum or plasma 2019 SRI Not available 0 17:17:12 lipid panel, serum 2019 SRI Not available 0 17:17:11 Referral None recorded. Procedures None recorded. Surgeries None recorded. Imaging None recorded. Medication Orders doxycyclin e hyclate 100 mg capsule 2019 INTERFACE [facility], [address] [place] [address] Sudheer Luis, [place], [place], [id number], 0 09:03:50 Vyvanse 30 mg capsule 2019 INTERFACE [facility], [address] [place] [address] Sudheer Luis, [place], [place], [id number], 0 09:13:19 Patient TargetsNo targets recorded. Patient Instructions Encounter Date Encounter Id Patient Instructions Last Modified By Organization Details Last Modified Time 11/08/2020 [id number] functional ovarian cysts in teens: care instructions Not available 11/08/2020 12:48:56 colitis: care instructions [email or web address] Not available 11/08/2020 12:48:56 Reason for Referral None Reported. Results Created Date Observation Date Name Description Value Unit Range Abnormal Flag Note LastModifiedBy Organization Detail LastModifiedTime 11/10/19 20 11/11/2019 lipid panel , serum cholesterol, total 166 mg/dL <170 normal Not Available [facility] [address], [address], 11/11/2019 17:17:16 11/10/19 20 11/11/2019 lipid panel , serum HDL cholesterol 71 mg/dL >45 normal Not Available [facility] [employer] [address], [address], 11/11/2019 17:17:16 11/10/19 20 11/11/2019 lipid panel , serum triglyceride s 89 mg/dL <90 normal Not Available [facility] [address] [place], [address], 11/11/2019 17:17:16 11/10/19 20 11/11/2019 lipid panel , serum LDL-choleste rol 78 mg/dL _(lynne c) <110 normal LDL-C is now calcu lated using the Francoise n-Hop [facility] felipeu janeen n, which is a valid ated novel metho d provi sherita trimble r accur acy than the Fried beltran equat ion in the estim ation of LDL-C . Francoise abbasi SS et al. MARIANO. 2013; 310(1 9): 2061- 2068 (http ://ed ucati on.Qu Blaise Firethorn. com/f aq/FA Q164) Not Available [facility] [id number] [place], [place] [id number], [address], 11/11/2019 17:17:16 11/10/19 20 11/11/2019 lipid panel , serum chol/HDLC ratio 2.3 (calc ) <5.0 normal Not Available [facility] [address], [address], 11/11/2019 17:17:16 11/10/19 20 11/11/2019 lipid panel , serum non HDL cholesterol 95 mg/dL _(lynne c) <120 normal For patie nts with diabe buzz plus 1 major ASCVD risk facto r, treat ing to a non-H DL-C goal of <100 mg/dL (LDL- C of <70 mg/dL ) is consi nishantd a ewaa mando ruiz optio n. Not Available [address] [address] [place], [address], 11/11/2019 17:17:16 11/10/19 20 11/11/2019 CMP, serum or plasm a glucose 87 mg/dL 65-139 normal Non-f astin g refer ence inter jaqueline Not Available [address] [address] [place], [address], 11/11/2019 17:17:17 11/10/19 20 11/11/2019 CMP, serum or plasm a urea nitrogen (BUN) 12 mg/dL 7-20 normal Not Available [address] [address] [place], [address], 11/11/2019 17:17:17 11/10/19 20 11/11/2019 CMP, serum or plasm a creatinine 0.76 mg/dL 0.50-1 .00 normal Not Available [address] [address] [place], [address], 11/11/2019 17:17:17 11/10/19 20 11/11/2019 CMP, serum or plasm a eGFR non-afr. sammarinese 114 mL/mi n/1.7 3m2 > or = 60 normal Not Available [facility] [address] [address] [place], [address], 11/11/2019 17:17:17 11/10/19 20 11/11/2019 CMP, serum or plasm a eGFR 132 mL/mi n/1.7 3m2 > or = 60 normal Not Available [facility] [address], [address], 11/11/2019 17:17:17 11/10/19 20 11/11/2019 CMP, serum or plasm a BUN/creatini ne ratio NOT APPLIC ABLE (calc ) 6-22 Not Available [address], [address], 11/11/2019 17:17:17 11/10/19 20 11/11/2019 CMP, serum or plasm a sodium 141 mmol/ L 135-14 6 normal Not Available [address], [address], 11/11/2019 17:17:17 11/10/19 20 11/11/2019 CMP, serum or plasm a potassium 4.5 mmol/ L 3.8-5. 1 normal Not Available [address], [address], 11/11/2019 17:17:17 11/10/19 20 11/11/2019 CMP, serum or plasm a chloride 103 mmol/ L 98-110 normal Not Available [address], [address], 11/11/2019 17:17:17 11/10/19 20 11/11/2019 CMP, serum or plasm a carbon dioxide 25 mmol/ L 20-32 normal Not Available [address], [address], 11/11/2019 17:17:17 11/10/19 20 11/11/2019 CMP, serum or plasm a calcium 10.6 mg/dL 8.9-10 .4 high Not Available [address], [address], 11/11/2019 17:17:17 11/10/19 20 11/11/2019 CMP, serum or plasm a protein, total 7.9 g/dL 6.3-8. 2 normal Not Available [address] [place], [address], 11/11/2019 17:17:17 11/10/19 20 11/11/2019 CMP, serum or plasm a albumin 5.2 g/dL 3.6-5. 1 high Not Available [address], [address], 11/11/2019 17:17:17 11/10/19 20 11/11/2019 CMP, serum or plasm a globulin 2.7 g/dL_ (calc ) 2.0-3. 8 normal Not Available [address], [address], 11/11/2019 17:17:17 11/10/19 20 11/11/2019 CMP, serum or plasm a albumin/glob ulin ratio 1.9 (calc ) 1.0-2. 5 normal Not Available [address], [address], 11/11/2019 17:17:17 11/10/19 20 11/11/2019 CMP, serum or plasm a bilirubin, total 0.7 mg/dL 0.2-1. 1 normal Not Available [address], [address], 11/11/2019 17:17:17 11/10/19 20 11/11/2019 CMP, serum or plasm a alkaline phosphatase 52 U/L 36-128 normal Not Available [facility] [employer] [address], [address], 11/11/2019 17:17:17 11/10/19 20 11/11/2019 CMP, serum or plasm a AST 14 U/L 12-32 normal Not Available [address], [address], 11/11/2019 17:17:17 11/10/19 20 11/11/2019 CMP, serum or plasm a ALT 8 U/L 5-32 normal Not Available [address], [address], 11/11/2019 17:17:17 11/10/19 20 11/11/2019 CBC w/ auto diff white blood cell count 8.4 thous and/u L 3.8-10 .8 normal Not Available [address], [address], 11/11/2019 17:17:17 11/10/19 20 11/11/2019 CBC w/ auto diff red blood cell count 4.82 kyleigh on/uL 3.80-5 .10 normal Not Available [address], [address], 11/11/2019 17:17:17 11/10/19 20 11/11/2019 CBC w/ auto diff hemoglobin 14.5 g/dL 11.7-1 5.5 normal Not Available [address], [address], 11/11/2019 17:17:17 11/10/19 20 11/11/2019 CBC w/ auto diff hematocrit 45.8 % 35.0-4 5.0 high Not Available [address], [address], 11/11/2019 17:17:17 11/10/19 20 11/11/2019 CBC w/ auto diff MCV 95.0 fL 80.0-1 00.0 normal Not Available [address], [address], 11/11/2019 17:17:17 11/10/19 20 11/11/2019 CBC w/ auto diff MCH 30.1 pg 27.0-3 3.0 normal Not Available [address], [address], 11/11/2019 17:17:17 11/10/19 20 11/11/2019 CBC w/ auto diff MCHC 31.7 g/dL 32.0-3 6.0 low Not Available [address], [address], 11/11/2019 17:17:17 11/10/19 20 11/11/2019 CBC w/ auto diff RDW 12.0 % 11.0-1 5.0 normal Not Available [address], [address], 11/11/2019 17:17:17 11/10/19 20 11/11/2019 CBC w/ auto diff platelet count 331 thous and/u L 140-40 0 normal Not Available [address], [address], 11/11/2019 17:17:17 11/10/19 20 11/11/2019 CBC w/ auto diff MPV 10.6 fL 7.5-12 .5 normal Not Available [address], [address], 11/11/2019 17:17:17 11/10/19 20 11/11/2019 CBC w/ auto diff absolute neutrophils 4141 cells /uL 1500-7 800 normal Not Available [address], [address], 11/11/2019 17:17:17 11/10/19 20 11/11/2019 CBC w/ auto diff absolute lymphocytes 3452 cells /uL 850-39 00 normal Not Available [address], [address], 11/11/2019 17:17:17 11/10/19 20 11/11/2019 CBC w/ auto diff absolute monocytes 580 cells /uL 200-95 0 normal Not Available [address], [address], 11/11/2019 17:17:17 11/10/19 20 11/11/2019 CBC w/ auto diff absolute eosinophils 160 cells /uL 15-500 normal Not Available [address] [address] [place], [address], 11/11/2019 17:17:17 11/10/19 20 11/11/2019 CBC w/ auto diff absolute basophils 67 cells /uL 0-200 normal Not Available [address] [address] [place], [address], 11/11/2019 17:17:17 11/10/1911/11/2019 CBC w/ auto diff neutrophils 49.3 % normal Not Available [address] [address] [place], [address], 11/11/2019 17:17:17 11/10/1911/11/2019 CBC w/ auto diff lymphocytes 41.1 % normal Not Available [address] [place], [address], 11/11/2019 17:17:17 11/10/19 20 11/11/2019 CBC w/ auto diff monocytes 6.9 % normal Not Available [address] [address] [place], [address], 11/11/2019 17:17:17 11/10/19 20 11/11/2019 CBC w/ auto diff eosinophils 1.9 % normal Not Available [address] [address] [place], [address], 11/11/2019 17:17:17 11/10/19 20 11/11/2019 CBC w/ auto diff basophils 0.8 % normal Not Available [address] [address] [place], [address], 11/11/2019 17:17:17 11/10/1911/11/2019 thyro id perox idase (tpo) Ab, serum thyroid peroxidase antibodies 14 IU/mL <9 high Not Available [address] [address] [place], [address], 11/11/2019 17:17:17 08/20/11/11/2019 T4, free, serum T4, free 1.4 NG/dL 0.8-1. 4 normal Not Available [address] [address] [place], [address], 11/11/2019 17:17:18 11/10/1911/11/2019 TSH, serum or plasm a TSH 1.28 mIU/L normal Refer ence Range 1-19 Years 0.50- 4.30 Pregn uzma Range s First trime ster 0.26- 2.66 Secon d trime ster 0.55- 2.73 Third trime ster 0.43- 2.91 Not Available [address] [address] [place], [address], 11/11/2019 17:17:18 11/10/1911/11/2019 beta- HCG, quali tativ e, serum or plasm a HCG, total, ql NEGATI VE see note: normal Refer ence Range : Refer ence Range Non-P regna nt: Negat keerthi Pregn ant: Posit keerthi Not Available [address] [address] [place], [address], 11/11/2019 17:17:18 11/10/1911/11/2019 T3, free, serum or plasm a T3, free 3.8 pg/mL 3.0-4. 7 normal Not Available [address], [address], 11/11/2019 17:17:18 01/25/2002/12/2021 ANACH OICE( R) PANEL 1 WITH REFLE XES anachoice(R) screen NEGATI VE negati ve A negat keerthi ANAch oice( TM) indic ates the absen ce of detec table antib odies to compo nent bull buzz consi sting of dsDNA , Chrom atin, BREAD SUPERVISOR, Sm/RN P, Sm, SSA, SSB, Jolene-1, Centr omere B, Scl-7 0 and Ribos omal P. A negat keerthi ANAch oice( TM) shoul d be inter prete d in the fadia xt of the clini lynne and labor atory findi ngs, and does not rule out autoi mmune disea se rachael cteri zed by other autoa ntibo dy speci ficit ies inclu ding autoi mmune hepat itis and prima ry bilia ry cirrh osis. For addit ional infor juvenal ureña e refer to http: //counts include 234 beds at the [facility] elroy.Que stDia gnost ics.c om/fa q/FAQ 177 (This link is being provi ded for infor maria isabel abbasi/[facility] cattal nal purpo ses only. ) Not Available [address], [address], 02/12/2021 01:10:31 01/25/20 21 02/12/2021 ANACH OICE( R) PANEL 1 WITH REFLE XES rheumatoid factor <14 IU/mL <14 Not Available [address], [address], 02/12/2021 01:10:31 01/25/20 21 02/12/2021 ANACH OICE( R) PANEL 1 WITH REFLE XES DNA Ab (ds) crithidia,if a NEGATI VE negati ve Not Available [address], [address], 02/12/2021 01:10:31 01/25/20 21 02/12/2021 ANACH OICE( R) PANEL 1 WITH REFLE XES sm antibody <1.0 NEG ai <1.0 negati ve Not Available [address], [address], 02/12/2021 01:10:31 01/25/20 21 02/12/2021 ANACH OICE( R) PANEL 1 WITH REFLE XES sm/logistics technician antibody <1.0 NEG ai <1.0 negati ve Not Available [address], [address], 02/12/2021 01:10:31 01/25/20 21 02/12/2021 ANACH OICE( R) PANEL 1 WITH REFLE XES sjogren's antibody (ss-A) <1.0 NEG ai <1.0 negati ve Not Available [address] [address] [place], [address], 02/12/2021 01:10:31 01/25/20 21 02/12/2021 ANACH OICE( R) PANEL 1 WITH REFLE XES sjogren's antibody (ss-B) <1.0 NEG ai <1.0 negati ve Not Available [address] [address] [place], [address], 02/12/2021 01:10:31 01/25/20 21 02/12/2021 ANACH OICE( R) PANEL 1 WITH REFLE XES scl-70 antibody <1.0 NEG ai <1.0 negati ve Not Available [address] [address] [place], [address], 02/12/2021 01:10:31 01/25/20 21 02/12/2021 INFLA MMATO RY BOWEL DISEA SE DIFFE RENTI ATION PANEL anca screen NEGATI VE negati ve ANCA Scree n inclu erica evalu ation for p-ANC A, c-ANC A and atypi lynne p-ANC A. A posit keerthi ANCA scree n refle xes to titer and amador rn(s) , e.g., cytop lasmi c amador rn (c-AN CA), perin uclea r amador rn (p-AN CA), or atypi lynne p-ANC A amador rn. c-ANC A and p-ANC A are obser [place] in vascu litis , where as atypi lynne p-ANC A is obser [place] in IBD (Infl ammat ory Bowel Disea se). Atypi lynne p-ANC A is detec beatris in about 55% to 80% of patie nts with ulcer ative colit is but only 5% to 25% of patie nts with Crohn 's disea se. Not Available [facility] [address] [place], [address], 02/12/2021 01:10:31 01/25/20 21 02/12/2021 INFLA MMATO RY BOWEL DISEA SE DIFFE RENTI ATION PANEL myeloperoxid ase antibody <1.0 ai <1.0 Value Inter preta tion <1.0 AI: No Antib den Detec beatris >or=1 .0 AI: Antib den Detec beatris Autoa ntibo dies to myelo perox idase (MPO) are commo nly assoc iated with the follo wing small -vess el vascu litid es: micro scopi c polya ngiit is, polya rteri tis nodos a, [place] -Stra uss syndr ome, necro tizin g and cresc entic glome rulon ephri tis and occas ional ly granu lomat osis with polya ngiit is (Sierra RENNER er's) . The perin uclea r SUZAN english rn, (p-AN CA) is based large ly on autoa ntibo dy to myelo perox idase which serve s as the prima ry antig en. These autoa ntibo dies are prese nt in activ e disea se. Not Available [facility] [id number], [place], [address], 02/12/2021 01:10:31 01/25/20 21 02/12/2021 INFLA MMATO RY BOWEL DISEA SE DIFFE RENTI ATION PANEL proteinase-3 antibody <1.0 ai <1.0 Value Inter preta tion <1.0 AI: No Antib den Detec beatris >or=1 .0 AI: Antib den Detec beatris Autoa ntibo dies to prote inase -3 (LA-3 ) are accep beatris as rachael cteri stic for granu lomat osis with polya ngiit is (Sierra RENNER er's) , and are detec table in 95% of the histo logic ally prove n cases . The cytop lasmi sara english rn, (c-AN CA), is based large ly on autoa ntibo dy to LA-3 which serve s as the prima ry antig en. These autoa ntibo dies are prese nt in activ e disea se. Not Available [facility] [address] [place], [address], 02/12/2021 01:10:31 01/25/20 21 02/12/2021 INFLA MMATO RY BOWEL DISEA SE DIFFE RENTI ATION PANEL saccharomyce s cerevisiae Ab (asca) (IgG) 10.6 U <=20.0 Refer ence range (s): Negat keerthi: <=20. 0 Equiv ocal: 20.1 - 29.9 Posit keerthi: >=30. 0 Antib odies to Sacch aromy nicolasa cerev isiae are found in appro ximat zoë 75% of patie nts with Crohn 's disea se, 15% of patie nts with ulcer ative colit is, and 5% of the healt hy popul ation . High antib den titer s incre ase the likel ihood of disea se, espec ially Crohn 's disea se, and are assoc iated with more aggre ssive disea se. As the infla mmati on in Crohn 's disea se is focus ed at the gut mucos a, most patie nts have IgA antib odies to S cerev isiae and half of these also have IgG antib odies . A minor ity of patie nts have only IgG antib odies to S cerev isiae . Not Available [facility] [address] [address], [place], [address], 02/12/2021 01:10:31 01/25/20 21 02/12/2021 INFLA MMATO RY BOWEL DISEA SE DIFFE RENTI ATION PANEL saccharomyce s cerevisiae Ab (asca) (IgA) 11.7 U <=20.0 Refer ence range (s): Negat keerthi : <=20. 0 Equiv ocal: 20.1 - 24.9 Posit keerthi: >=25. 0 Antib odies to Sacch aromy nicolasa cerev isiae are found in appro ximat zoë 75% of patie nts with Crohn 's disea se, 15% of patie nts with ulcer ative colit is, and 5% of the healt hy popul ation . High antib den titer s incre ase the likel ihood of disea se, espec ially Crohn 's disea se, and are assoc iated with more aggre ssive disea se. As the infla mmati on in Crohn 's disea se is focus ed at the gut mucos a, most patie nts have IgA antib odies to S cerev isiae and half of these also have IgG antib odies . A minor ity of patie nts have only IgG antib odies to S cerev isiae . Not Available [address] [place], [address], 02/12/2021 01:10:31 01/25/20 21 02/12/2021 SED RATE BY MODIF IED WESTNoam RGREN sed rate by modified westsofyren 8 mm/h < or = 20 normal Not Available [facility] [address] [address] [place], [address], 02/12/2021 01:10:32 01/25/20 21 02/12/2021 C-ANNA CTIVE PROTE IN C-reactive protein 1.1 mg/L <8.0 normal Not Available [facility] [address] [address] [place], [address], 02/12/2021 01:10:32 01/25/20 21 02/12/2021 T3, FREE T3, free 3.8 pg/mL 2.3-4. 2 normal Not Available [facility] [address] [place], [address], 02/12/2021 01:10:33 01/25/20 21 02/12/2021 VITAM IN D,25- OH,TO ADRY,I A vitamin D,25-oh,tota l,ia 63 NG/mL 30-100 normal Vitam in D Statu s 25-OH Vitam in D: Defic iency : <20 ng/mL Insuf ficie ncy: 20 - 29 ng/mL Optim al: > or = 30 ng/mL For 25-OH Vitam in D testi ng on patie nts on D2-li pplem entat ion and patie nts for whom quant itati on of D2 and D3 fract ions is requi red, the [facility](TM ) 25-OH VIT D, (D2,D 3), LC/MS /MS is recom lay d: order code 81032 (isa ents >2yrs ). See Note 1 Note 1 For addit ional infor juvenal ureña refer to http: //[facility] nanda Vaz gnmichele ics.c om/fa q/FAQ 199 (This link is being provi ded for infor maria isabel thomson/ [facility] kelly purpo ses only. ) Not Available [facility] [address] [address] [place], [address], 02/12/2021 01:10:33 01/25/20 21 02/12/2021 AMYLA SE amylase 57 U/L 21-101 normal Not Available [facility] [address] [address] [place], [address], 02/12/2021 01:10:34 01/25/20 21 02/12/2021 LIPAS E lipase 30 U/L 7-60 normal Not Available [facility] [address] [address] [place], [address], 02/12/2021 01:10:34 10/31/19 22 11/01/2021 LIPID PANEL , STAND FRANCOIS cholesterol, total 143 mg/dL <200 normal Not Available [facility] [address] [address] [place], [address], 11/02/2021 06:07:19 10/31/19 22 11/01/2021 LIPID PANEL , STAND FRANCOIS HDL cholesterol 51 mg/dL > or = 50 normal Not Available [facility] [address] [address] [place], [address], 11/02/2021 06:07:19 10/31/19 22 11/01/2021 LIPID PANEL , STAND FRANCOIS triglyceride s 55 mg/dL <150 normal Not Available [address], [address], 11/02/2021 06:07:19 10/31/19 22 11/01/2021 LIPID PANEL , STAND FRANCOIS LDL-choleste rol 78 mg/dL _(lynne c) normal Refer ence range : <100 Belle able range <100 mg/dL for prima ry preve ntion ; <70 mg/dL for patie nts with CHD or diabe tic patie nts with > or = 2 CHD risk facto rs. LDL-C is now calcu lated using the Francoise n-Hop kins calcu janeen n, which is a valid ated novel metho d provi ding nai r accur acy than the Fried beltran equat ion in the estim ation of LDL-C . Francoise abbasi SS et al. MARIANO. 2013; 310(1 9): 2061- 2068 (http ://ed ucati on.Qu esttipple.me. com/f aq/FA Q164) Not Available [address], [address], 11/02/2021 06:07:19 10/31/19 22 11/01/2021 LIPID PANEL , STAND FRANCOIS chol/HDLC ratio 2.8 (calc ) <5.0 normal Not Available [address], [address], 11/02/2021 06:07:19 10/31/19 22 11/01/2021 LIPID PANEL , STAND FRANCOIS non HDL cholesterol 92 mg/dL _(lynne c) <130 normal For patie nts with diabe buzz plus 1 major ASCVD risk facto r, treat ing to a non-H DL-C goal of <100 mg/dL (LDL- C of <70 mg/dL ) is consi dered a thera peuti c optio n. Not Available [address], [address], 11/02/2021 06:07:19 10/31/19 22 11/01/2021 TSH+F REE T4 TSH 1.16 mIU/L normal Refer ence Range > or = 20 Years 0.40- 4.50 Pregn uzma Range s First trime ster 0.26- 2.66 Secon d trime ster 0.55- 2.73 Third trime ster 0.43- 2.91 Not Available [address], [address], 11/02/2021 06:07:20 10/31/19 22 11/01/2021 TSH+F REE T4 T4, free 1.4 NG/dL 0.8-1. 8 normal Not Available [address], [address], 11/02/2021 06:07:20 10/31/19 22 11/01/2021 COMPR EHENS KEERTHI METAB OLIC PANEL glucose 85 mg/dL 65-139 normal Non-f astin g refer ence inter jaqueline Not Available [address], [address], 11/02/2021 06:07:21 10/31/19 22 11/01/2021 COMPR EHENS KEERTHI METAB OLIC PANEL urea nitrogen (BUN) 19 mg/dL 7-25 normal Not Available [address], [address], 11/02/2021 06:07:21 10/31/19 22 11/01/2021 COMPR EHENS KEERTHI METAB OLIC PANEL creatinine 0.78 mg/dL 0.50-0 .96 normal Not Available [address], [address], 11/02/2021 06:07:21 10/31/19 22 11/01/2021 COMPR EHENS KEERTHI METAB OLIC PANEL eGFR 111 mL/mi n/1.7 3m2 > or = 60 normal The eGFR is based on the CKD-E PI 2020 equat ion. To calcu late the new eGFR from a previ ous Creat inine or Cysta johnnie C resul t, go to https ://bertha fernandez.o bean/camelia parksal s/ kdoqi /gfr% 5Fcal culat or Not Available [address] [address] [place], [address], 11/02/2021 06:07:21 10/31/19 22 11/01/2021 COMPR EHENS KEERTHI METAB OLIC PANEL BUN/creatini ne ratio NOT APPLIC ABLE (calc ) 6-22 Not Available [address], [address], 11/02/2021 06:07:21 10/31/19 22 11/01/2021 COMPR EHENS KEERTHI METAB OLIC PANEL sodium 139 mmol/ L 135-14 6 normal Not Available [address] [place], [address], 11/02/2021 06:07:21 10/31/19 22 11/01/2021 COMPR EHENS KEERTHI METAB OLIC PANEL potassium 4.2 mmol/ L 3.5-5. 3 normal Not Available [address] [address] [place], [address], 11/02/2021 06:07:21 10/31/19 22 11/01/2021 COMPR EHENS KEERTHI METAB OLIC PANEL chloride 105 mmol/ L 98-110 normal Not Available [address], [address], 11/02/2021 06:07:21 10/31/19 22 11/01/2021 COMPR EHENS KEERTHI METAB OLIC PANEL carbon dioxide 28 mmol/ L 20-32 normal Not Available [address] [address] [place], [address], 11/02/2021 06:07:21 10/31/19 22 11/01/2021 COMPR EHENS KEERTHI METAB OLIC PANEL calcium 9.8 mg/dL 8.6-10 .2 normal Not Available [address], [address], 11/02/2021 06:07:21 10/31/19 22 11/01/2021 COMPR EHENS KEERTHI METAB OLIC PANEL protein, total 7.2 g/dL 6.1-8. 1 normal Not Available [address], [address], 11/02/2021 06:07:21 10/31/19 22 11/01/2021 COMPR EHENS KEERTHI METAB OLIC PANEL albumin 4.7 g/dL 3.6-5. 1 normal Not Available [address], [address], 11/02/2021 06:07:21 10/31/19 22 11/01/2021 COMPR EHENS KEERTHI METAB OLIC PANEL globulin 2.5 g/dL_ (calc ) 1.9-3. 7 normal Not Available [address], [address], 11/02/2021 06:07:21 10/31/19 22 11/01/2021 COMPR EHENS KEERTHI METAB OLIC PANEL albumin/glob ulin ratio 1.9 (calc ) 1.0-2. 5 normal Not Available [address], [address], 11/02/2021 06:07:21 10/31/19 22 11/01/2021 COMPR EHENS KEERTHI METAB OLIC PANEL bilirubin, total 0.4 mg/dL 0.2-1. 2 normal Not Available [address], [address], 11/02/2021 06:07:21 10/31/19 22 11/01/2021 COMPR EHENS KEERTHI METAB OLIC PANEL alkaline phosphatase 39 U/L 31-125 normal Not Available [address], [address], 11/02/2021 06:07:21 10/31/19 22 11/01/2021 COMPR EHENS KEERTHI METAB OLIC PANEL AST 14 U/L 10-30 normal Not Available [address], [address], 11/02/2021 06:07:21 10/31/19 22 11/01/2021 COMPR EHENS KEERTHI METAB OLIC PANEL ALT 11 U/L 6-29 normal Not Available [address], [address], 11/02/2021 06:07:21 10/31/19 22 11/01/2021 CBC (INCL UDES DIFF/ PLT) white blood cell count 6.5 thous and/u L 3.8-10 .8 normal Not Available [address], [address], 11/02/2021 06:07:21 10/31/19 22 11/01/2021 CBC (INCL UDES DIFF/ PLT) red blood cell count 4.31 kyleigh on/uL 3.80-5 .10 normal Not Available [address], [address], 11/02/2021 06:07:21 10/31/19 22 11/01/2021 CBC (INCL UDES DIFF/ PLT) hemoglobin 13.1 g/dL 11.7-1 5.5 normal Not Available [address], [address], 11/02/2021 06:07:21 10/31/19 22 11/01/2021 CBC (INCL UDES DIFF/ PLT) hematocrit 40.7 % 35.0-4 5.0 normal Not Available [address], [address], 11/02/2021 06:07:21 10/31/19 22 11/01/2021 CBC (INCL UDES DIFF/ PLT) MCV 94.4 fL 80.0-1 00.0 normal Not Available [address], [address], 11/02/2021 06:07:21 10/31/19 22 11/01/2021 CBC (INCL UDES DIFF/ PLT) MCH 30.4 pg 27.0-3 3.0 normal Not Available [address], [address], 11/02/2021 06:07:21 10/31/19 22 11/01/2021 CBC (INCL UDES DIFF/ PLT) MCHC 32.2 g/dL 32.0-3 6.0 normal Not Available [address], [address], 11/02/2021 06:07:21 10/31/19 22 11/01/2021 CBC (INCL UDES DIFF/ PLT) RDW 11.9 % 11.0-1 5.0 normal Not Available [address], [address], 11/02/2021 06:07:21 10/31/19 22 11/01/2021 CBC (INCL UDES DIFF/ PLT) platelet count 258 thous and/u L 140-40 0 normal Not Available [address], [address], 11/02/2021 06:07:21 10/31/19 22 11/01/2021 CBC (INCL UDES DIFF/ PLT) MPV 10.5 fL 7.5-12 .5 normal Not Available [address], [address], 11/02/2021 06:07:21 10/31/19 22 11/01/2021 CBC (INCL UDES DIFF/ PLT) absolute neutrophils 3367 cells /uL 1500-7 800 normal Not Available [address], [address], 11/02/2021 06:07:21 10/31/19 22 11/01/2021 CBC (INCL UDES DIFF/ PLT) absolute lymphocytes 2418 cells /uL 850-39 00 normal Not Available [address], [address], 11/02/2021 06:07:21 10/31/19 22 11/01/2021 CBC (INCL UDES DIFF/ PLT) absolute monocytes 507 cells /uL 200-95 0 normal Not Available [address], [address], 11/02/2021 06:07:21 10/31/19 22 11/01/2021 CBC (INCL UDES DIFF/ PLT) absolute eosinophils 150 cells /uL 15-500 normal Not Available [address], [address], 11/02/2021 06:07:21 10/31/19 22 11/01/2021 CBC (INCL UDES DIFF/ PLT) absolute basophils 59 cells /uL 0-200 normal Not Available [address], [address], 11/02/2021 06:07:21 10/31/19 22 11/01/2021 CBC (INCL UDES DIFF/ PLT) neutrophils 51.8 % normal Not Available [address], [address], 11/02/2021 06:07:21 10/31/19 22 11/01/2021 CBC (INCL UDES DIFF/ PLT) lymphocytes 37.2 % normal Not Available [address], [address], 11/02/2021 06:07:21 10/31/19 22 11/01/2021 CBC (INCL UDES DIFF/ PLT) monocytes 7.8 % normal Not Available [address], [address], 11/02/2021 06:07:21 10/31/19 22 11/01/2021 CBC (INCL UDES DIFF/ PLT) eosinophils 2.3 % normal Not Available [address], [address], 11/02/2021 06:07:21 10/31/19 22 11/01/2021 CBC (INCL UDES DIFF/ PLT) basophils 0.9 % normal Not Available [address], [address], 11/02/2021 06:07:21 10/31/19 22 11/01/2021 THYRO ID PEROX IDASE ANTIB ODIES thyroid peroxidase antibodies 6 IU/mL <9 normal Not Available [address], [address], 11/02/2021 06:07:22 10/31/19 22 11/01/2021 T3, FREE T3, free 3.7 pg/mL 2.3-4. 2 normal Not Available [address], [address], 11/02/2021 06:07:22 10/31/19 22 11/01/2021 QUANT IFERO N(R)- TB GOLD PLUS, 1 TUBE quantiferon( R)-TB gold plus, 1 tube NEGATI VE negati ve normal Negat keerthi test resul t. M. tuber culos is compl ex infec tion unlik zoë. Not Available [address], [address], 11/02/2021 06:07:22 10/31/19 22 11/01/2021 QUANT IFERO N(R)- TB GOLD PLUS, 1 TUBE nil 0.04 IU/mL normal Not Available [address] [address] [place], [address], 11/02/2021 06:07:22 10/31/19 22 11/01/2021 QUANT IFERO N(R)- TB GOLD PLUS, 1 TUBE mitogen-nil >10.00 IU/mL normal Not Available [address] [address] [place], [address], 11/02/2021 06:07:22 10/31/19 22 11/01/2021 QUANT IFERO N(R)- TB GOLD PLUS, 1 TUBE TB1-nil 0.00 IU/mL normal Not Available [facility] [address], [address], 11/02/2021 06:07:22 10/31/19 22 11/01/2021 QUANT IFERO N(R)- TB GOLD PLUS, 1 TUBE TB2-nil <0.00 IU/mL normal The Nil tube value refle cts the backg round inter feron gamma immun e respo nse of the patie nt's blood sampl e. This value has been subtr acted from the patie nt's displ ayed TB and Mitog en resul ts. Lower than expec beatris resul ts with the Mitog en tube preve nt false -nega tive Quant ifero n readi ngs by detec ting a patie nt with a poten tial immun e suppr essiv e condi tion and/o r subop timal pre-a nalyt ical speci men handl ing. The TB1 Antig en tube is coate d with the M. tuber culos is-sp ecifi c antig ens desig nav to elici t respo nses from TB antig en prime d CD4+ helpe r T-lym phocy buzz. The TB2 Antig en tube is coate d with the M. tuber culos is-sp ecifi c antig ens desig nav to elici t respo nses from TB antig en prime d CD4+ helpe r and CD8+ cytot oxic T-lym phocy buzz. For addit ional infor maria isabel n, juvenal e refer to https ://ed ucati on.qu blaise lamEvident Healths. com/f aq/FA Q204 (This link is being provi ded for simran thomson/ toshia kelly purpo ses only. ) Not Available [facility] [address], [place], [address], 11/02/2021 06:07:22 10/26/19 21 10/17/2020 XR, chest , 2 view No observ ation record ed. [email or web address] Not Available 2020 12:51:13 10/26/19 21 10/17/2020 US, pelvi s, compl ete No observ ation record ed. [email or web address] Not Available 2020 12:51:52 10/26/19 21 10/17/2020 CT, abdom en + pelvi s, w/ contr ast No observ ation record ed. [email or web address] Not Available 2020 12:52:31 06/18/19 23 06/16/2022 XR, knee, 4 or more view No observ ation record ed. [email or web address] [facility] [address], [place], [address], 06/17/2022 10:57:27 Result Notes None recorded. Problems Name Problem SNOMED Code Status Onset Date Resolution Date Notes Provider Name and Address Organization Details Recorded Time Colitis 60929406 Active 2020 DUANE Burnett, PMHNP-BC [address] [place], [address], [facility] 12:47:21 Cyst of right ovary [id number] 9108 Active 2020 DUANE Burnett, PMHNP-BC [address] [place], [address], [facility] 12:47:22 Hypothyroid ism due to Nehal's thyroiditis 893748303 Active 2021 DUANE Burnett, PMHNP-BC [address] [place], [address], [facility] 10:47:02 Problem Notes None recorded. Procedures Surgical History Date Name Laterality Status Provider Name and Address Organization Details Recorded Time Remove tonsils and adenoids completed Yamilet Villegas, CD MANUFACTURING SUPERVISOR-BC, PMHNP-BC [address] [place], [address], [facility] 11/09/2019 17:08:04 Myringotomy laser-assist completed Yamilet Villegas, [facility]-, PMHNP-BC [address] [place], [address], [facility] 11/09/2019 17:10:49 Imaging Results Imaging Date Name Status LastModified by Organiz ation Details LastModified Time 10/17/2020 XR, chest, 2 view completed [email or web address] Information not available 10/25/2020 12:51:13 10/17/2020 US, pelvis, complete completed Information not available 10/25/2020 12:51:52 10/17/2020 CT, abdomen + pelvis, w/ contrast completed [email or web address] Information not available 10/25/2020 12:52:31 06/16/2022 XR, knee, 4 or more view completed [address], [place], [address], 06/17/2022 10:57:27 Procedure Notes None recorded. Medical Equipment None Reported. Medications Name Sig Start Date Stop Date Status Note LastModified by Organization Details LastModified Time Mirena 21 mcg/24 hr (up to 8 years) 52 mg intrauterine device active Not Available Not Available Not Available doxycycline hyclate 100 mg capsule Take 1 capsule twice a day by oral route for 30 days. active Not Available Not Available No t Available metronidazol e 500 mg tablet active Not Available Not Available Not Available ciprofloxaci n 500 mg tablet active Not Available Not Available Not Available dextroamphet amine-amphet amine ER 20 mg 24hr capsule,exte nd release 11/09 completed Not Available Not Available Not Available dicyclomine 20 mg tablet 11/09 completed Not Available Not Available Not Available methylphenid ate ER 18 mg tablet,exten ded release 24 hr 11/09 completed Not Available Not Available Not Available clindamycin- tretinoin 1.2 %-0.025 % topical gel active Not Available Not Available Not Available Vyvanse 30 mg capsule Take 1 capsule every day by oral route for 30 days. active Not Available Not Available No t Available Gavilyte-C 240 gram-22.72 gram-6.72 gram-5.84 gram oral solution active Not Available Not Available Not Available Zenatane 20 mg capsule active Not Available Not Available N ot Available Onexton 1.2 % (1 % base)-3.75 % topical gel with pump active Not Available Not Available No t Available Vitals Date Recorded Body height Body mass index (BMI) Percentile per age and sex Body mass index (BMI) Body weight Heart rate Respiratory rate Oxygen saturation Oxygen saturation in Arterial blood by Pulse oximetry Body temperature Systolic blood pressure Diastolic blood pressure Provider Name and Address Organization Details Last Updated DateTime 0 172.72 cm 4 % 17.7 kg/m2 98235.1 5 g 88 /min 16 /min 98 % 98 % 98.1 [degF] 108 mm[Hg] 70 mm[Hg] Yamilet Villegas, CD MANUFACTURING SUPERVISOR-BC, PMHNP-BC [address] [place], [address] [place], [place] - [facility] 0 09:04:14 Social History Question Answer Notes LastModified by Organizat ion Details LastModified Time Tobacco Smoking Status Never Smoker Not Available [facility] 01/17/2020 03:13:59 Do You Have An Advance Directive? No [email or web address] Information not available 11/07/2021 What Is Your Level Of Alcohol Consumption? None [id number] Information not available 01/17/2020 Do You Wear A Helmet When Biking? Yes [email or web address] Information not available 11/07/2021 Are You Blind Or Do You Have Difficulty Seeing? No [email or web address] Information not available 11/07/2021 Is Blood Transfusion Acceptable In An Emergency? Yes [email or web address] Information not available 11/07/2021 What Is Your Level Of Caffeine Consumption? Occasional [id number] Information not available 01/17/2020 Can Child Swim? Yes [email or web address] Informati on not available 11/09/2019 How Much Tobacco Do You Chew? None [id number] Information not available 01/17/2020 What Type Of Administrative Sales Assistant Do You Use? None [email or web address] Information not available 11/07/2021 Are You Currently Employed? No [email or web address] Information not available 11/07/2021 Are You Deaf Or Do You Have Serious Difficulty Hearing? No [email or web address] Information not available 11/07/2021 What Type Of Diet Are You Following? REGULAR [id number] Information not available 01/17/2020 Which Illicit Or Recreational Drugs Have You Used? None [id number] Information not available 01/17/2020 Do You Or Have You Ever Used E-cigarettes Or Vape? Never Used Electronic Cigarettes [id number] Information not available 01/17/2020 Education 2 Year College [email or web address] Informatio n not available 11/09/2019 What Is The Highest Grade Or Level Of School You Have Completed Or The Highest Degree You Have Received? 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 Student [id number] Information not available 01/17/2020 How Many Times Per Week Do You Exercise? 1-2 Times Per Week [email or web address] Information not available 11/07/2021 Swimming/diving Yes [email or web address] Informati on not available 11/09/2019 Have There Been Any Changes To Your Family Or Social Situation? No [email or web address] Information no t available 11/07/2021 Hard Of Hearing Or Deaf In One Or Both Ears? No [email or web address] Information not available 11/09/2019 Legally Blind In One Or Both Eyes? No [email or web address] Information no t available 11/09/2019 Do You Have A Medical Power Of Refrigeration Mechanic Helper? No Information not available 11/07/2021 What Was The Date Of Your Most Recent Tobacco Screening? 11/07/2021 [email or web address] Information not available 11/07/2021 How Many Children Do You Have? 0 [id number] Information not available 01/17/2020 Do You Have Any Pets? Yes [email or web address] Information not available 11/07/2021 What Is Your Relationship Status? Single [email or web address] Information not available 11/07/2021 Do You Use Your Seat Belt Or Car Seat Routinely? Yes [email or web address] Information not available 11/07/2021 Seat Belts Used Routinely Yes [email or web address] Information not available 11/09/2019 Are You Sexually Active? No [id number] Information not available 01/17/2020 Smoke Alarm In Home Yes [email or web address] Information not available 11/09/2019 Do You Have Smoke And Carbon Monoxide Detectors In Your Home? Yes Information not available 11/07/2021 Are You Passively Exposed To Smoke? No [email or web address] Information no t available 11/09/2019 Do You Or Have You Ever Used Smokeless Tobacco? Never Used Smokeless Tobacco [id number] Information not available 01/17/2020 How Much Tobacco Do You Smoke? No [id number] Information not available 01/17/2020 Do You Participate In Social Media? Yes [email or web address] Information not available 11/07/2021 Do You Feel Stressed (tense, Restless, Nervous, Or Anxious, Or Unable To Sleep At Night)? [id number] Information not available 11/07/2021 Do You Use Any Illicit Or Recreational Drugs? No [email or web address] Information not available 11/07/2021 Do You Use Sunscreen Routinely? Yes [id number] Information not available 01/17/2020 How Many Years Have You Smoked Tobacco? 0 [id number] Information not available 01/17/2020 Are You Currently In School? Yes Information not available 11/07/2021 Do You Have Any Dietary Restrictions? No [email or web address] Information not available 11/07/2021 Do You Or Have You Ever Used Any Other Forms Of Tobacco Or Nicotine? No [email or web address] Information not available 11/07/2021 Sex: Female Functional Status Question Answer Note LastModified by Organizat ion Details LastModified Time Do you have difficulty walking or climbing stairs? No [email or web address] Information not available 11/07/2021 Do you have transportation difficulties? No [email or web address] Information not available 11/07/2021 Are you able to walk? YESWOREST [id number] Information not available 01/17/2020 Do you have difficulty doing errands alone? No [email or web address] Information not available 11/07/2021 Are you able to care for yourself? Yes [email or web address] Information n ot available 11/07/2021 Do you have difficulty dressing or bathing? No [email or web address] Information not available 11/07/2021 What is your exercise level? Occasional [id number] Information not available 01/17/2020 Mental Status Question Answer Note LastModified by Organization D etails LastModified Time Do you have difficulty concentrating, remembering or making decisions? No Information no t available 11/07/2021 Family History Relationship Description Onset Age of this Age Resolved Age Notes LastModified by Organization Details LastModified Time Unspecified Relation Family history of Neahl thyroiditis [email or web address] Not available 10/21 17:01:56 Father Atrial fibrillation [email or web address] Not available 17:03:12 Father Hyperlipidem ia [email or web address] Not available 2019 17:03:20 Father Essential hypertension Not available 17:03:37 Mother Fibromyalgia [email or web address] Not avail able 11/09/2019 17:04:01 Mother Small fiber neuropathy [email or web address] Not available 11/08 17:04:20 Mother Osteoarthrit is [email or web address] Not available 2019 17:04:38 Mother Rheumatoid arthritis [email or web address] Not available 2019 17:06:09 Brother Small fiber neuropathy [email or web address] Not available 11/08 17:04:20 Medical History Condition Response Gastrointestinal Diseases / Disorders Y Gynecological Diseases / Disorders Y Attention Deficit Disorder (ADD/ADHD) Y Skin Diseases / Disorders Y Gynecological HistoryNo gynecological history recorded. Obstetrics History GPAL:G 0 P 0 0 0 0 Immunizations Vaccine Type Date Status Note Provider Nam e and Address Organization Details Recorded Time DTaP 0 completed DUANE Burnett, PMHNP-BC [address] [address], [facility] 08/28/2021 19:44:51 DTaP 1 completed DUANE Burnett, PMHNP-BC [address], [place], [address] [place] [address], [facility] 08/28/2021 19:44:57 DTaP 1 completed DUANE Burnett, PMHNP-BC [address], [place], [address] [place] [address], [place] - [facility] 08/28/2021 19:45:08 Tdap 2 completed Crystal L. DESHAWN VillegasP-BC, PMHNP-BC [address], [place], [address] [place] [address], [facility] - [facility] 08/28/2021 19:45:20 IPV 0 completed Crystal L. DESHAWN VillegasP-BC, PMHNP-BC [address], [place], [address] [place] [address], [facility] - [facility] 08/28/2021 19:45:33 IPV 1 completed Crystal L. Bakari CD MANUFACTURING SUPERVISOR-BC, PMHNP-BC [address], [place], [address] [place] [address], [facility] 08/28/2021 19:45:40 IPV 1 completed Crystal L. DESHAWN VillegasP-BC, PMHNP-BC [address], [place], [address] [place] [address], [facility] 08/28/2021 19:45:45 IPV 4 completed Crystal L. DESHAWN VillegasP-BC, PMHNP-BC [address], [place], [address] [place] [address], [facility] 08/28/2021 19:45:49 Hib, unspecified formulation 0 completed Crystal L. DESHAWN VillegasP-BC, PMHNP-BC [address], [place], [address] [place] [address], [facility] - [facility] 08/28/2021 19:46:15 Hib, unspecified formulation 1 completed Crystal L. Bakari CD MANUFACTURING SUPERVISOR-BC, PMHNP-BC [address], [place], [address] [place] [address], [facility] - [facility] 08/28/2021 19:46:19 Hib, unspecified formulation 1 completed Crystal L. Bakari CD MANUFACTURING SUPERVISOR-BC, PMHNP-BC [address], [place], [address] [place] [address], [facility] - [facility] 08/28/2021 19:46:24 Hib, unspecified formulation 1 completed Crystal L. BakariNIKOLAI-BC, PMHNP-BC [address], [place], [address] [place] [address], [facility] 08/28/2021 19:46:29 Hep A, ped/adol, 2 dose 2 completed Crystal L. BakariDESHAWNP-BC, PMHNP-BC [address], [place], [address] [place] [address], [facility] 08/28/2021 19:49:37 Hep A, ped/adol, 2 dose 3 completed Crystal L. DESHAWN VillegasP-BC, PMHNP-BC [address], [place], [address] [place] [address], [facility] 08/28/2021 19:49:43 Hep B, adolescent or pediatric 0 completed Crystal L. DESHAWN VillegasP-BC, PMHNP-BC [address], [place], [address] [place] [address], [facility] 08/28/2021 19:50:02 Hep B, adolescent or pediatric 0 completed Crystal L. DESHAWN VillegasP-BC, PMHNP-BC [address], [place], [address] [place] [address], [facility] 08/28/2021 19:50:08 Hep B, adolescent or pediatric 1 completed Crystal L. DESHAWN VillegasP-BC, PMHNP-BC [address], [place], [address] [place] [address], [facility] 08/28/2021 19:50:15 HPV, quadrivalent 2 completed Crystal L. DESHAWN VillegasP-BC, PMHNP-BC [address], [place], [address] [place] [address], [facility] 08/28/2021 19:50:32 HPV, quadrivalent 3 completed Crystal L. DESHAWN VillegasP-BC, PMHNP-BC [address], [place], [address] [place] [address], [facility] 08/28/2021 19:50:38 HPV, quadrivalent 4 completed Yamilet Villegas CD MANUFACTURING SUPERVISOR-BC, PMHNP-BC [address], [place], [address] [place] [address], [facility] 08/28/2021 19:50:45 MMR 1 completed Yamilet Mccabe Bakari CD MANUFACTURING SUPERVISOR-BC, PMHNP-BC [address], [place], [address] [place] [address], [facility] 08/28/2021 19:50:59 MMR 4 completed Yamilet KellyAlysha Bakari CD MANUFACTURING SUPERVISOR-BC, PMHNP-BC [address], [place], [address] [place] [address], [facility] 08/28/2021 19:51:12 meningococcal ACWY, unspecified formulation 2 completed Yamilet KellyAlysha Bakari CD MANUFACTURING SUPERVISOR-BC, PMHNP-BC [address], [address] [place] [address], [facility] 08/28/2021 19:53:04 meningococcal ACWY, unspecified formulation 8 completed Yamilet Mccabe Bakari CD MANUFACTURING SUPERVISOR-BC, PMHNP-BC [address], [place], [address] [place] [address], [facility] 08/28/2021 19:53:13 pneumococcal conjugate PCV 7 0 completed Yamilet Estelle Bakari CD MANUFACTURING SUPERVISOR-BC, PMHNP-BC [address], [address] [place] [address], [facility] 08/28/2021 19:53:33 pneumococcal conjugate PCV 7 1 completed Yamilet KellyAlysha Bakari CD MANUFACTURING SUPERVISOR-BC, PMHNP-BC [address], [place], [address] [place] [address], [facility] 08/28/2021 19:53:39 pneumococcal conjugate PCV 7 1 completed Yamilet Villegas CD MANUFACTURING SUPERVISOR-BC, PMHNP-BC [address], [place], [address] [place] [address], [facility] 08/28/2021 19:53:47 Pneumococcal conjugate PCV 13 1 completed DESHAWN BurnettP-BC, PMHNP-BC [address] [place], [address], [facility] 08/28/2021 19:54:02 varicella 1 completed NIKOLAI Burnett-BC, PMHNP-BC [address] [place], [address], [facility] 08/28/2021 19:54:26 varicella 2 completed DESHAWN BurnettP-BC, PMHNP-BC [address] [place], [address], [facility] 08/28/2021 19:54:32 Past Encounters Encounter ID Performer Location Encounter Start Date Encounter Closed Date Diagnosis/Indication Diagnosis SNOMED-CT Code Diagnosis ICD10 Code [id number] Yamilet Villegas CD MANUFACTURING SUPERVISOR-BC, PMHNP-BC Main Office [address] [place] [address] 11/10/2019 07:05:12 11/10/2019 14:47:34 Hypothyroidism due to Nehal's thyroiditis [id number] E06.3 Adult [facility] th examination [id number] Z00.00 Acne vulgaris [id number] L 70.0 Attention deficit hyperactivity disorder [id number] F90.9 [id number] Yamilet VillegasDESHAWNP-BC, PMHNP-BC Main Office [address] [place] [address] 11/08/2020 11:58:26 11/08/2020 13:43:30 Colitis [id number] K52.9 Cyst of right ovary [id number] N83.201 [id number] Yamilet Villegas CD MANUFACTURING SUPERVISOR-BC, PMHNP-BC Telemedic ine [address] [place] [address] 11/07/2021 10:40:13 11/07/2021 11:07:30 Hypothyroidism due to Nehal's thyroiditis [id number] E06.3 Colitis [id number] K52.9 Health Concerns Section Related Observation LastModified by Organization Detai ls LastModified Time None Recorded Concern Status LastModified by Organization Details LastModified Time None Recorded Advance Directives Directive N: Payers Encounter Date Sequence Insurance Name Policy Number Policy Manjarrez Covered Member ID Manjarrez Member ID Guarantor Name 11/10/2019 1 [employer]PPO[employer] Hipolito Riversnderlich [id number] Sherin Tianerlich 11/08/2020 1 [employer] Hipolito Riversnderlich [id number] Sherin Wolf 11/07/2021 1 [employer]PP[employer]) Hipolito Tianerlich [id number] Sherin Wolf Notes Date Note Type Note Provider Name and Address Organization Details Recorded Time 11/10/2019 text/html 18 y/o female he re to establish care. Patient was previously seeing a machine quilt stuffer, & [facility]. ADHD - Patient c/o symptoms of inattention, restlessness, resulting in functional impairment. Reports symptoms since {{adolescence* ear ly adulthood}}. No attention to details, difficulty sustaining attention, forgetful. Often fidgets, unable to engage in leisure activities quietly, interrupts. Has been on Adderall and Ritalin previously without an improvement in symptoms. Acne - was seeing [facility] for severe acne. Patient had been on Accutane several times which had helped with clearing up her face as other things were not working. Reports has been having intermittent breakouts. Reports that would like to start and try low dose Accutane. Nehal's - Not on any medications. Denies any side effects like palpitations. Denies any fatigue, weight gain, cold intolerance, constipation, or dry skin. LMP - Mirena in place Yamilet Villegas, CD MANUFACTURING SUPERVISOR-BC, PMHNP-BC [address] [place], [address], [place] [facility] 11/10/2019 14:44:59 11/08/2020 text/html Patient Verification & Telemedicine Based Consent. Today's visit was conducted virtually due to COVID-19 countermeasures. The patient has given verbal consent to have today's visit conducted by this same means with treatment provided remotely. The patient verbally consents to the billing and collection practices of the provider's medical group. Requested telemedicine visit due to COVID-19 and provided verbal consent prior to visit. Video and audio conferencing performed. Sought care at [facility] 10/17/20 d/t low abd pain for almost 24 hours with N/V and BPR in stools. 8.4 cystic lesion found of the R adnexa along with colitis. Patient has appointments with [facility] OPERATOR and GI for further evaluation and tx. Patient is still having BPR. DUANE Burnett, YVETTE [address] [place], [address], [facility] 11/08/2020 12:50:57 11/07/2021 text/html Patient Verification & Telemedicine Based Consent. Today's visit was conducted virtually due to COVID-19 countermeasures. The patient has given verbal consent to have today's visit conducted by this same means with treatment provided remotely. The patient verbally consents to the billing and collection practices of the provider's medical group. Requested telemedicine visit due to COVID-19 and provided verbal consent prior to visit. Video and audio conferencing performed. Nehal's thyroiditis - labs done and were normal. no new sxs. not taking any medications and doing well.Colitis - has been doing better and to follow up with GI. DUANE Burnett, HERMES-DULCE [address] [place], [address], [facility] 11/07/2021 10:48:06 OBGyn Episode No OBEpisode recorded.
--- OUTSIDE RECORDS SUMMARY | 2024-03-27 11:52 | XMS_ITS | Referral Summary ---
Author Organization [facility] Address [address] [place] [address] Care Team Providers Care Director Franchise Sales Name Role Phone Yamilet Villegas NP Primary Care Provider [phone] Kimberlee Hernandez DO Unavailable [phone] Kaitlyn Puentes SVP MONETIZATION Unavailable [phone] Allergies No known active allergies Medications naproxen (NAPROSYN) 500 mg tabletIndication s:Pain Take 1 tablet (500 mg total) by mouth 2 (two) times a day with meals for 5 days 10 tablet 11/19/2023 Active Active Problems Problem Noted Date Diagnosed Date Rectal bleeding 10/19/2020 Overview (10/19/2020): Added automatically from request for surgery [id number] Assessment & Plan (03/12/2021 2:15 PM MAINS AND SERVICE SUPERVISOR): -will check CBC Deviated nasal septum 03/18/2019 Overview (03/18/2019): Added automatically from request for surgery [id number] Refractory obstruction of nasal airway 9 Overview (03/18/2019): Added automatically from request for surgery [id number] Encounter for cosmetic surgery 03/18/2019 Overview (03/18/2019): Added automatically from request for surgery [id number] Hypertriglyceridemia 11/03/2017 Dyslipidemia 11/03/2017 Abdominal pain 04/08/2016 Overview (07/03/2017): Description: --most likely related to IBS. Rule out Celiac disease. Doubt IBD. Assessment & Plan (03/12/2021 2:14 PM MAINS AND SERVICE SUPERVISOR): -chronic, associated with bloating and loose stools. -check celiac panel, CRP, stool calprotectin, ova and parasites and C diff. -will get EGD to evaluate nausea and abdominal pain. Nausea 04/08/2016 Overview (07/03/2017): Description: -consider acid peptic disease or nonulcer dypepsia. 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 2-4 times a month 05/06/2021 Q2: How many drinks containi ng alcohol do you have on a typical day when you are drinking? 5 or 6 05/06/2021 Q3: How often do you have si x or more drinks on one occasion? Monthly 05/06/2021 Personal Safety Answer Date Recorded Have you ever been in or are you currently in a harmful physical or emotional relationship or is someone making you feel afraid or unsafe? Denies 11/19/2023 Comments No Sex and Gender Information Value Date Recorded Sex Assigned at Not on file Legal Sex Female 11:02 AM MAINS AND SERVICE SUPERVISOR Gender Identity Not on file Sexual Orientation Not on file Last Filed Vital Signs Vital Sign Reading Time Taken Comments Blood Pressure 117/79 11/19/2023 7:55 PM CDT Pulse 91 11/19/2023 7:55 PM CDT Temperature 36.5 ??C (97.7 ??F) 11/19/2023 3:33 PM CD T Respiratory Rate 18 11/19/2023 6:15 PM CDT Oxygen Saturation 100% 11/19/2023 7:55 PM CDT Inhaled Oxygen Concentration - - Weight 55.9 kg (123 lb 3.8 oz) 11/19/2023 3:33 P M CDT Height 172.7 cm (5' 8 ) 05/06/2021 11:13 AM MAINS AND SERVICE SUPERVISOR Body Mass Index 18.74 05/06/2021 11:13 AM MAINS AND SERVICE SUPERVISOR Plan of Treatment Not on file Insurance Urge PPO Urge PPO [employer] PPO [employer] PPO Advance Directives For more information, please contact: [phone] * Full Code (Latest Code Status on File) Date Activated Date Inactivated Comments 05/06/2021 11:15 AM 05/06/2021 5:27 PM Care Teams Director Franchise Sales Relationship Specialty Start Date End Date Yamilet Villegas NP [address] [place] [address] PCP - General Nurse Practitioner 03/12/21 Kimberlee Hernandez DO [address] [place] [address] [facility] 11/21/22 Kaitlyn Puentes NP [address] [place] [id number] Nurse Practitioner Obstetrics and Gynecology 03/04/23
--- OUTSIDE RECORDS SUMMARY | 2024-03-27 11:52 | XMS_ITS | Encounter Summary ---
Author Organization [facility] Address [address] [place] [address] Care Team Providers Care Dirt Shoveler Name Role Phone Yamilet Villegas MANAGER OF COMPLIANCE Primary Care Provider [phone] Encounter Details Date Type Department Care Team (Late st Contact Info) Description 03/28/2021 5:35 PM ACADEMIC ADVISING DIRECTOR Lab [address] [address] Colitis; Rectal bleeding Social History Tobacco Use Types Packs/Day Years Used Date Smoking Tobacco: Never Smokeless Tobacco: Never AUDIT-C Answer Date Recorded Q1: How often do you have a drink containing alc ohol? 2-4 times a month 12/10/2020 Q2: How many drinks containi ng alcohol do you have on a typical day when you are drinking? 3 or 4 12/10/2020 Q3: How often do you have si x or more drinks on one occasion? Less than monthly 12/10/2020 Comments No Sex and Gender Information Value Date Recorded Sex Assigned at Not on file Legal Sex Female 11:02 AM ACADEMIC ADVISING DIRECTOR Gender Identity Not on file Sexual Orientation Not on file documented as of this encounter Miscellaneous Notes * Result Encounter Note - Shirin Mahmood MD - 04/01/2021 8:36 AM CST No evidence of infections based on testing above EMIC ADVISING DIRECTOR documented in this encounter Plan of Treatment Not on file documented as of this encounter Procedures Procedure Name Priority Date/Time Associated Diagnosis Comments CAlysha DIFFICILE TESTING Routine 03/28/2021 9:00 AM ACADEMIC ADVISING DIRECTOR Colitis Rectal bleeding CALPROTECTIN, FECAL Routine 03/28/2021 9 :00 AM ACADEMIC ADVISING DIRECTOR Colitis Rectal bleeding OVA AND PARASITE EXAMINATION Routine 03/28/2021 9:00 AM ACADEMIC ADVISING DIRECTOR Colitis Rectal bleeding CRYPTOSPORIDIUM AND GIARDIA ANTIGEN ASSAY Routine 03/28/2021 9:00 AM ACADEMIC ADVISING DIRECTOR Colitis Rectal bleeding documented in this encounter Results * Ova and parasite examination Stool (03/28/2021 9:00 AM ACADEMIC ADVISING DIRECTOR) Report Final Report: No parasites detected. Note: treatment with antibiotics; e.g., Clindamycin, Metronidazole, Tetracycline, and Trimethoprim-s ulfa can adversely affect the detection of ova and parasites. Test performed by [facility], [address] [place] [address], [id number]. [facility] Stool 03/28/2021 9:00 AM ACADEMIC ADVISING DIRECTOR 03/28/2021 6:04 PM ACADEMIC ADVISING DIRECTOR us Shirin Mahmood MD LAB MICROBIOLOGY - GENERAL ORD ERABLES Final Result [facility] [place] [address] * Cryptosporidium and giardia antigen assay Stool (03/28/2021 9:00 AM ACADEMIC ADVISING DIRECTOR) Report Final Report: Negative for Giardia lamblia antigen Negative for Cryptosporidium antigen [facility] Organism NEGATIVE FOR GIARDIA LAMBLIA ANTIGEN [facility] Organism NEGATIVE FOR CRYPTOSPORIDIUM ANTIGEN [facility] Stool 03/28/2021 9:00 AM ACADEMIC ADVISING DIRECTOR 03/28/2021 6:04 PM ACADEMIC ADVISING DIRECTOR Narrative [facility] - 03/29/2021 8:22 AM ACADEMIC ADVISING DIRECTOR Interpretive data: Testing performed by the [facility] using an immunoassay that detects Cryptosporidium and Giardia antigens in stool specimens. If comprehensive examination for ova and parasites is required, please request Ova and Parasite Examination . Current interpretative data was revised April 2020. Shirin Mahmood MD LAB MICROBIOLOGY - GENERAL ORD ERABLES Final Result Performing Organization Address [facility] Co [place] [address] * C. difficile testing Stool (03/28/2021 9:00 AM ACADEMIC ADVISING DIRECTOR) Pathologist [facility] C. diff result Negative, free toxin Negative , free toxin [facility] C. diff interp Negative for toxigenic Clostridioides (Clostridium) difficile. Analysis was performed using an enzyme immunoassay that detects C. difficile toxin(s) in feces. [facility] Stool 03/28/2021 9:00 AM ACADEMIC ADVISING DIRECTOR 03/28/2021 6:05 PM ACADEMIC ADVISING DIRECTOR Shirin Mahmood MD LAB MICROBIOLOGY - GENERAL ORD ERABLES Final Result Performing Organization Address [facility] de [place] [address] * Calprotectin, fecal (03/28/2021 9:00 AM ACADEMIC ADVISING DIRECTOR) Pathologist [facility] Calprotectin, fecal <50.0 <50.0 (Normal) mcg/g [facility] Comment: ADDITIONAL INFORMATION On 03/07/2021, [facility] implemented a new fecal calprotectin method with an expanded measuring range. If patient was tested on previous method and is undergoing serial monitoring, rebaselining may be indicated. Rebaselining, or testing the current sample on the previous method, is available at no charge, subject to reagent availability. The rebaseline result will be added to this report. Contact [facility] at within 7 days of initial report issuance to request this service. For [facility] patients, call [phone]. Test Performed by: [facility] [address] [place] [address] Quality Control Head: Jacob Quintanilla M.D. Ph.D.; CLIA# [id number] Stool 03/28/2021 9:00 AM ACADEMIC ADVISING DIRECTOR 03/28/2021 6:52 PM ACADEMIC ADVISING DIRECTOR us Shirin Mahmood MD LAB BODY FLUIDS AND STOOLS ORD ERABLES Final Result [facility] Department [place] [address] documented in this encounter Visit Diagnoses Diagnosis Colitis Other and unspecified noninfectious gastroenteritis and colitis Rectal bleeding Hemorrhage of rectum and anus documented in this encounter Care Teams Dirt Shoveler Relationship Specialty Start Date End Date Yamilet Villegas [place] [facility] [place] [address] PCP - General Nurse Practitioner 03/12/21 documented as of this encounter
--- OUTSIDE RECORDS SUMMARY | 2024-03-27 11:52 | XMS_ITS | Encounter Summary ---
Author Organization [facility] Healthcare Address [address] [place] [address] Care Team Providers Care Director Trade Name Role Phone Nunu Wilson MD Primary Care Provider + Encounter Details Date Type Department Care Team (Late st Contact Info) Description 12/10/2020 9:00 AM CDT - 12/10/2020 9:45 AM CDT Surgery [facility] [id number] [place] [address] Kaleb Negron MD [address] [facility] [phone] [place], [place] [id number] COLONOSCOPY Surgery Details Date/Time Status Location OR Service Patient Class Case Class Case Type Trauma Case? 12/10/2020 9:00 AM Posted [facility] ENDOSCOPY Endo 03 Colorectal Outpatient Elective Panel 1 Procedure LRB Anes Op Region Wound Class Comments COLONOSCOPY N/A Choice Colon N/A Surgeon Surgeon Role Service Panel Kaleb Negron MD Primary Colorectal 1 Abe Arias MD Fellow Colorectal 1 documented in this encounter Social History Tobacco Use Types Packs/Day Years [...] on file Legal Sex Female 11:02 AM CHIEF TECHNICAL OFFICER Gender Identity Not on file Sexual Orientation Not on file documented as of this encounter Last Filed Vital Signs Vital Sign Reading Time Taken Comments Blood Pressure 114/64 12/10/2020 9:40 AM CDT Pulse 74 12/10/2020 9:40 AM CDT Temperature 36.1 ??C (97 ??F) 12/10/2020 9:20 AM CDT Respiratory Rate 16 12/10/2020 9:40 AM CDT Oxygen Saturation 100% 12/10/2020 9:40 AM CDT Inhaled Oxygen Concentration - - Weight 52.2 kg (115 lb) 12/10/2020 8:03 AM CDT Height 175.3 cm (5' 9 ) 12/10/2020 8:03 AM CDT Body Mass Index 16.98 12/10/2020 8:03 AM CDT documented in this encounter Discharge Instructions * Discharge Instructions* Abe Arias MD - 12/10/2020 9:23 AM CDT SCOPE DISCHARGE INSTRUCTIONS You have had a Colonoscopy (Colon) procedure. Sedation: You were given medication for sedation. You may feel drowsy or tired for a few hours. We recommend you not be alone today. Please do not participate in activities that require good coordination or concentration such as driving a car or operating machinery for the next 24 hours. Protect yourself against falls, especially on the stairs or when walking long distances. Delay making businessdecisions that require the signing of legal documents for a minimum of 24 hours. No alcoholic beverages for 24 hours. IV: If the IV site swells or bleeds, please apply direct pressure for 5 minutes. If the site becomes red, you may apply warm, moist compresses to the site. Please see a healthcare professional if youhave concerns about your IV site. Abdomen: Following the procedure called colonoscopy, you may be aware of a bloated appearance andfeeling of your abdomen. You may also experience some cramping or gas pains . The distention and discomfort should subside as you pass the air. If you are unable to pass the air, please contact your physician. Pain/Bleeding: You have had no interventions performed during the procedure. You may expect a little bleeding from the site. Within the next 48 hours, if the bleeding becomes excessive or is accompanied by abdominal or chest pain, please call your physician immediately. If no follow-up appointment is required, you may receive a letter or phone call from the physician regarding your test/biopsy results within the next two weeks. A note will also be sent to your referring physician. If you have any questions, call your physician's office. documented in this encounter Medications at Time of Discharge ISOtretinoin (ABSORCA,ACCUTAN E) 40 mg capsule Take one tablet daily as directed 03/12/2021 polyethylene glycol (COLYTE) 240-22.72-6.72 -5.84 gram solution Drink first half of prep at 6:00pm the night before procedure. Drink second half of prep 4 hours prior to leaving home for procedure. 4000 mL 11/14/2020 03/12/2021 acetaminophen-co deine (TYLENOL with CODEINE #3) 300-30 mg per tablet Take 1-2 tablets by mouth every 4 (four) hours as needed. 0 08/18/2017 05/06/2021 drospirenone-eth inyl estradiol (SLAVA, 28,) 3-0.03 mg per tablet Take 1 tablet by mouth daily. 05/06/2021 sodium, potassium & mag sulfates (SUPREP BOWEL KIT) 17.5-3.13-1.6 gram recon solnIndications: Bowel Evacuation Drink first half of prep at 6:00pm the night before procedure. Drink second half of prep 4 hours prior to leaving home for procedure. 354 mL 10/19/2020 03/12/2021 documented as of this encounter Discharge Disposition Disposition Code Departure Means Destination Discharge to home or self care documented in this encounter H&P Notes * Abe Arias MD - 12/10/2020 8:42 AM CDT GI ENDOSCOPY HISTORY AND PHYSICAL Procedure: Colonoscopy Indication: History of chronic diarrhea. Recently having blood per rectum and symptomatic anemia. Significant Past Medical History: Allergies: Reviewed in EMR Current Medications: Reviewed in EMR Physical Exam: General: NAD Neuro: Alert and Oriented X 3 Pulmonary: Non-labored breathing Abdomen: Unremarkable ASA Scale: Refer to Anesthesia Record Plan for Sedation: Per Anesthesia I have discussed the risks, benefits, and alternatives in addition to sedation/anesthesia with the patient or his/her entry level marketing representative and have documented his/her understanding of these in the appropriate consent form. Abe Arias MD 12/10/2020 8:42 AM Cosigned by Kaleb Negron MD at 12/10/2020 10:52 AM CDT documented in this encounter Procedure Notes * Kaleb Negron MD - 12/10/2020 8:40 AM CDTAssociated Order(s): COLONOSCOPY ENDOSCOPY LAB Patient Name: America Bloom Procedure Date: 12/10/2020 8:40 AM Date of : 2000 Admit Type: Outpatient Age: 20 Gender: Female Attending MD: Kaleb Negron M.D. Room: [facility] ENDOSCOPY ROOM 03 Note Status: Finalized Procedure: Colonoscopy Indications: Rectal bleeding Providers: Kaleb Negron M.D. Referring MD: Nunu Wilson M.D. Medicines: Monitored Anesthesia Care Complications: No immediate complications. Estimated Blood Loss: Estimated blood loss: none. Procedure: Pre-Anesthesia Assessment: - Immediately prior to administration of medications, the patient was re-assessed for adequacy to receive sedatives. The benefits, risks and alternatives of the procedure and sedation were discussed and informed consent was obtained. All questions were answered. Please refer to the signed informed consent document in the medical record. The scope was passed under direct vision. The [id number] was introduced through the anus and advanced to the cecum, identified by appendiceal orifice and ileocecal valve. The colonoscopy was performed without difficulty. The patient tolerated the procedure well. The quality of the bowel preparation was evaluated using the BBPS ([place] Bowel Preparation Scale) with scores of: Right Colon = 3, Transverse Colon = 3 and Left Colon = 3 (entire mucosa seen well with no residual staining, small fragments of stool or opaque liquid). The total BBPS score equals 9. The bowel preparation used was SUPREP via split dose instruction. Findings: The entire examined colon appeared normal. Very small physiologic internal hemorrhoids. Impression: - The entire examined colon is normal. - No specimens collected. Recommendation: - Repeat colonoscopy for screening purposes at age 44. Kaleb Negron MD Kaleb Negron M.D. 12/10/2020 9:19:23 AM Number of Addenda: 0 Note Initiated On: 12/10/2020 8:40 AM documented in this encounter Miscellaneous Notes * Pre-Procedure Instructions - Ciara Aviles RN - 12/07/2020 9:44 AM CDT Please follow any instructions you were given re: Bowel prep When you arrive, come to [facility] hospital entrance. As you enter there will be an information desk, let them know you are here for a procedure and theywill direct you to the registration area. Dress comfortable, leave any valuables at home-specifically grace, jewelry. If you wear contacts, please wear eye glasses day of procedure. For your safety, due to the anesthesia you will not be able to drive. Please have a ride arranged to and from the hospital with a responsible adult(Must be at least 18y/o) Please no form of public transportation or medical transport by yourself will be allowed At any entrance to the building you will be screened for Covid symptoms, Covid exposure, and have your temp. taken. You are required to wear a mask at all times. I want to reassure you all staff are screened daily as we come in and we do wear masks at all times. You are allowed one person to accompany you into the building This person can chose to wait for you in the car if they do not want to come inside. If they come inside, they will be screened, required to wear mask at all times My number is [phone] documented in this encounter Plan of Treatment Not on file documented as of this encounter Procedures Procedure Name Priority Date/Time Associated Diagnosis Comments COLONOSCOPY 12/10/2020 8:45 AM CDT Rectal bleeding Screening for malignant neoplasm of colon COLONOSCOPY 12/10/2020 8:40 AM CDT POCT HCG, URINE Routine 12/10/2020 8:16 AM CDT documented in this encounter Results * COLONOSCOPY (12/10/2020 8:40 AM CDT) Anatomical Region Laterality Modality Other Narrative Procedure Note Silviera, Kaleb Evan, MD - 12/10/2020 8:40 AM CDT ENDOSCOPY LAB Patient Name: America Bloom Procedure Date: 12/10/2020 8:40 AM Date of : 2000 Admit Type: Outpatient Age: 20 Gender: Female Attending MD: Kaleb Negron M.D. Room: [facility] ENDOSCOPY ROOM 03 Note Status: Finalized Procedure: Colonoscopy Indications: Rectal bleeding Providers: Kaleb Negron M.D. Referring MD: Nunu Wilson M.D. Medicines: Monitored Anesthesia Care Complications: No immediate complications. Estimated Blood Loss: Estimated blood loss: none. Procedure: Pre-Anesthesia Assessment: - Immediately prior to administration ofmedications, the patient was re-assessed for adequacy to receive sedatives. The benefits, risks and alternatives of theprocedure and sedation were discussed and informed consentwas obtained. All questions were answered. Please referto the signed informed consent document in the medical record. The scope was passed under direct vision.The [id number] was introduced through the anusand advanced to the cecum, identified by appendiceal orifice and ileocecal valve. The colonoscopy was performed without difficulty. The patient tolerated the procedure well. The quality of the bowel preparation was evaluated using the BBPS (BostonBowel Preparation Scale) with scores of: Right Colon = 3, Transverse Colon = 3 and Left Colon = 3 (entiremucosa seen well with no residual staining, smallfragments of stool or opaque liquid). The total BBPS score equals 9. The bowel preparation used was SUPREP via split dose instruction. Findings: The entire examined colon appeared normal. Very small physiologic internal hemorrhoids. Impression: - The entire examined colon is normal. - No specimens collected. Recommendation: - Repeat colonoscopy for screening purposes at age44. Kaleb Negron MD Kaleb Negron M.D. 12/10/2020 9:19:23 AM Number of Addenda: 0 Note Initiated On: 12/10/2020 8:40 AM Kaleb Negron MD ENDOSCOPY PROCEDURES Fi nal Result * POCT hCG, urine (12/10/2020 8:16 AM CDT) HCG, ur, POC Negative Lot Number [id number] QC Backgroud Clear Acceptable QC Control Line Acceptable Urine 12/10/2020 8:16 AM CDT Kaleb Negron MD POINT OF CARE TEST GIUSEPPE REID Final Result documented in this encounter Visit Diagnoses Diagnosis Encounter for cosmetic surgery Rectal bleeding Hemorrhage of rectum and anus Rectal bleeding Hemorrhage of rectum and anus Screening for malignant neoplasm of colon documented in this encounter Admitting Diagnoses Diagnosis Encounter for cosmetic surgery Rectal bleeding Hemorrhage of rectum and anus documented in this encounter Administered Medications Inactive Administered Medications - up to 3 most recent administrations Medication Order MAR Action Action Date Dose Rate Site ondansetron (ZOFRAN) 4 mg/2 mL injection - ADS Override Pull Starting on 12/10/20 at 0830, For 1 dose, Created by cabinet override ondansetron (ZOFRAN) injection 4 mg 4 mg, intravenous, Administer over 2 Minutes, Once, On Thu12/10/20 at 0900, For 1 dose, Pre-Op Given 12/10/2020 8:37 AM CDT 4 mg sodium chloride 0.9% 0.9% infusion - ADS Override Pull Starting on Thu12/10/20 at 0810, For 1 dose, Created by cabinet override sodium chloride 0.9% infusion 50 mL/hr, intravenous, Continuous, Starting on Thu12/10/20 at 0900, Pre-Op New Bag 12/10/2020 8:37 AM CDT 50 mL/hr 50 mL/h r documented in this encounter Active and Recently Administered Medications Times are shown in CDT. Scheduled Medication Order 12/08/2020 12/09/2020 12/10/2020 ondansetron (ZOFRAN) injection 4 mg (COMPLETED) 4 mg, intravenous, Administer over 2 Minutes, Once, On Thu12/10/20 at 0900, For 1 dose, Pre-Op 0837 (Given - Provid er: Yaritza Vance RN) Continuous Medication Order 12/08/2020 12/09/2020 12/10/2020 sodium chloride 0.9% infusion 50 mL/hr, intravenous, Continuous, Starting on Thu12/10/20 at 0900, Pre-Op 0837 (New Bag - Prov ider: Yaritza Vance RN)0928 (Stopped - Provider: Amelia Waldrop RN) documented in this encounter Care Teams Director Trade Relationship Specialty Start Date End Date Nunu Wilson MD [address] [place] [address] PCP - General 12/10/20 03/11/21 documented as of this encounter
--- OUTSIDE RECORDS SUMMARY | 2024-03-27 11:52 | XMS_ITS | Encounter Summary ---
Author Organization [facility] Healthcare Address [address] [place] [address] Care Team Providers Care Knowledge Management Consultant Name Role Phone Yamilet Villegas MIKHAIL Primary Care Provider [phone]- [phone] Encounter Details Date Type Department Care Team (Late st Contact Info) Description 03/12/2021 1:50 PM ROVING TECHNICIAN Lab [facility] Advanced Medicine ([facility]) [address] [place] [id number] Shirin Mahmood MD [address] [facility] [address] [place] [address] Colitis; Rectal bleeding Discharge Disposition: Discharge to home or self care Social History Tobacco Use Types Packs/Day Years [...] on file Legal Sex Female 11:02 AM ROVING TECHNICIAN Gender Identity Not on file Sexual Orientation Not on file documented as of this encounter Discharge Disposition Disposition Code Departure Means Destination Discharge to home or self care documented in this encounter Miscellaneous Notes * Result Encounter Note - Shirin Mahmood MD - 03/13/2021 8:42 AM CST Please let her know All labs are normal. NG TECHNICIAN documented in this encounter Plan of Treatment Not on file documented as of this encounter Procedures Procedure Name Priority Date/Time Associated Diagnosis Comments EGFR Routine 03/12/2021 1:47 PM ROVING TECHNICIAN Colitis Rectal bleeding DIFFERENTIAL AUTO Routine 03/12/2021 1:4 7 PM ROVING TECHNICIAN Colitis Rectal bleeding CBC WITH AUTO DIFFERENTIAL Routine 03/12/2021 1:47 PM ROVING TECHNICIAN Colitis Rectal bleeding TISSUE TRANSGLUTAMINASE, IGA Routine 03/12/2021 1:47 PM ROVING TECHNICIAN Colitis Rectal bleeding CRP (ACUTE PHASE) Routine 03/12/2021 1:4 7 PM ROVING TECHNICIAN Colitis Rectal bleeding IGA Routine 03/12/2021 1:47 PM ROVING TECHNICIAN Colitis Rectal bleeding COMPREHENSIVE METABOLIC PANEL Routine 03/12/2021 1:47 PM ROVING TECHNICIAN Colitis Rectal bleeding documented in this encounter Results * eGFR (03/12/2021 1:47 PM ROVING TECHNICIAN) eGFR >90 90 - 130 mL/min/1. 73 m2 [facility] Comment: Interpretive Data Reference Interval Normal ?>/= 90 mL/min/1.73m2 Mildly decreased* ? 60 - 89 mL/min/1.73m2 Mildly to moderately decreased ?45 - 59 mL/min/1.73m2 Moderately to severely decreased ??30 - 44 mL/min/1.73m2 Severely decreased ?15 - 29 mL/min/1.73m2 Kidney Failure ?< 15 ??mL/min/1.73m2 *Relative to young adult level Estimated glomerular filtration rate is determined by the 2020 CKD-EPI equation recommended by the National Kidney Foundation (A Unifying Approach to GFR Estimation: Recommendations of the NKF-ASK Task Force on Reassessing the Inclusion of Race in Diagnosing Kidney Disease, JASN 2020). The CKD-EPI equation should not be used for patients with unstable renal function and has not been validated in children and those over 70. Current interpretive data was last reviewed 2021. Blood 03/12/2021 1:47 PM ROVING TECHNICIAN 03/12/2021 2:13 PM ROVING TECHNICIAN us Shirin Mahmood MD LAB BLOOD ORDERABLES Final Res ult [facility] One [facility] [place] [address] * Differential, auto (03/12/2021 1:47 PM ROVING TECHNICIAN) Neutrophil abs 4.1 1.7 - 6.5 K/cumm [facility] Imm gran abs 0.1 0.0 - 0.1 K/cumm [facility] Lymphocyte abs 1.9 0.8 - 3.3 K/cumm [facility] Monocyte abs 0.7 0.2 - 0.8 K/cumm [facility] Eosinophil abs 0.2 0.0 - 0.5 K/cumm [facility] Basophil abs 0.0 0.0 - 0.1 K/cumm [facility] Neutrophil pct 59.2 % [facility] Comment: Interpretive Data Percent cell count reference ranges are not reported, since discordance with absolute values may lead to misinterpretation of CBC data. Current Interpretive Data was last revised on 2017. Imm gran pct 0.7 % [facility] Comment: Interpretive Data Percent cell count reference ranges are not reported, since discordance with absolute values may lead to misinterpretation of CBC data. Current Interpretive Data was last revised on 2017. Lymphocyte pct 27.1 % [facility] Comment: Interpretive Data Percent cell count reference ranges are not reported, since discordance with absolute values may lead to misinterpretation of CBC data. Current Interpretive Data was last revised on 2017. Monocyte pct 9.7 % [facility] Comment: Interpretive Data Percent cell count reference ranges are not reported, since discordance with absolute values may lead to misinterpretation of CBC data. Current Interpretive Data was last revised on 2017. Eosinophil pct 2.7 % [facility] Comment: Interpretive Data Percent cell count reference ranges are not reported, since discordance with absolute values may lead to misinterpretation of CBC data. Current Interpretive Data was last revised on 2017. Basophil pct 0.6 % [facility] Comment: Interpretive Data Percent cell count reference ranges are not reported, since discordance with absolute values may lead to misinterpretation of CBC data. Current Interpretive Data was last revised on 2017. Blood 03/12/2021 1:47 PM ROVING TECHNICIAN 03/12/2021 2:01 PM ROVING TECHNICIAN Shirin Mahmood MD LAB BLOOD ORDERABLES Final Res ult Performing Organization Address City/[facility]/ZIP Co de Phone Number [facility] [place] [address] * CRP (acute phase) (03/12/2021 1:47 PM ROVING TECHNICIAN) CRP 1.0 <=10.0 mg/L [facility] Blood 03/12/2021 1:47 PM ROVING TECHNICIAN 03/12/2021 2:01 PM ROVING TECHNICIAN Shirin Mahmood MD LAB BLOOD ORDERABLES Final Res ult [facility] [place] [place] [address] * Comprehensive metabolic panel (03/12/2021 1:47 PM ROVING TECHNICIAN) Sodium 140 135 - 145 mmol/L [facility] Potassium, pl 4.1 3.3 - 4.9 mmol/L [facility] Chloride 103 97 - 110 mmol/L [facility] CO2 27 22 - 32 mmol/L [facility] Anion gap 10 2 - 15 mmol/L [facility] BUN 9 8 - 25 mg/dL [facility] Creatinine 0.72 0.60 - 1.10 mg/dL [facility] Glucose 97 70 - 199 mg/dL [facility] Comment: Interpretive Data Fasting glucose >/= 126 mg/dl is diagnostic for diabetes. ?? Fasting is defined as no caloric intake for at least 8 hours. Fasting glucose between 100 mg/dl to 125 mg/dl is diagnostic of prediabetes. In a patient with classic symptoms of hyperglycemia or hyperglycemic crisis, a random glucose >/= 200 mg/dl is diagnostic for diabetes. In the absence of unequivocal hyperglycemia, results should be confirmed by repeat testing. The classification and Diagnosis of Diabetes Diabetes Care 2017;40 (Suppl. 1):S11. Current interpretive data was last revised 2017. Calcium 9.5 8.5 - 10.3 mg/dL [facility] Bilirubin, total 0.6 0.1 - 1.2 mg/dL [facility] Protein, pl 8.0 6.5 - 8.5 g/dL [facility] Albumin 4.8 3.5 - 5.0 g/dL [facility] Alk phos 53 40 - 130 Units/L [facility] ALT 14 7 - 45 Units/L [facility] AST 22 10 - 45 Units/L [facility] Blood 03/12/2021 1:47 PM ROVING TECHNICIAN 03/12/2021 2:01 PM ROVING TECHNICIAN us Shirin Mahmood MD LAB BLOOD ORDERABLES Final Res ult [facility] One [facility] [place] [address] * IgA (03/12/2021 1:47 PM ROVING TECHNICIAN) Immunoglobulin A 148.0 70.0 - 400.0 mg/dL [facility] Blood 03/12/2021 1:47 PM ROVING TECHNICIAN 03/12/2021 2:01 PM ROVING TECHNICIAN Shirin Mahmood MD LAB BLOOD ORDERABLES Final Res ult Performing Organization Address [facility] Co de Phone Number [facility] [place] [address] * Tissue transglutaminase IgA (TGG-IgA Ab) (03/12/2021 1:47 PM ROVING TECHNICIAN) [facility] TTG ab, IgA <0.5 <=14.9 units/mL [facility] Comment: Interpretive data Negative: <15 units/mL Positive: > or equal to 15 units/mL Current interpretive data was last revised on 2016. Blood 03/12/2021 1:47 PM ROVING TECHNICIAN 03/12/2021 2:01 PM ROVING TECHNICIAN Shirin Mahmood MD LAB BLOOD ORDERABLES Final Res ult Performing Organization Address [facility] Co de Phone Number [facility] [place] [address] * CBC with auto differential (03/12/2021 1:47 PM ROVING TECHNICIAN) [facility] WBC 6.9 3.8 - 9.9 K/cumm [facility] Hgb 13.8 11.9 - 15.5 g/dL [facility] Hct 41.5 35.6 - 45.5 % [facility] Plt 299 150 - 400 K/cumm [facility] MPV 10.0 9.1 - 12.3 fL [facility] RBC 4.56 3.90 - 5.20 M/cumm [facility] MCV 91.0 81.3 - 96.4 fL [facility] MCH 30.3 27.1 - 33.3 pg [facility] MCHC 33.3 32.3 - 35.7 g/dL [facility] RDW CV 13.0 11.1 - 14.9 % [facility] RDW SD 42.7 35.7 - 48.1 fL [facility] NRBC abs 0.00 0.00 - 0.01 K/cumm [facility] Blood 03/12/2021 1:47 PM ROVING TECHNICIAN 03/12/2021 2:01 PM ROVING TECHNICIAN us Shirin Mahmood MD LAB BLOOD ORDERABLES Final Res ult [facility] One [facility] Department [place] [address] documented in this encounter Visit Diagnoses Diagnosis Colitis Other and unspecified noninfectious gastroenteritis and colitis Rectal bleeding Hemorrhage of rectum and anus documented in this encounter Care Teams Knowledge Management Consultant Relationship Specialty Start Date End Date Yamilet Villegas NP [facility] [place] [address] PCP - General Nurse Practitioner 03/12/21 documented as of this encounter
--- OUTSIDE RECORDS SUMMARY | 2024-03-27 11:52 | XMS_ITS | Encounter Summary ---
Author Organization [facility] Healthcare Address [address] [place] [address] Care Team Providers Care Transformer Maker Name Role Phone BakariYamilet NP Primary Care Provider +1- [phone] Encounter Details Date Type Department Care Team (Late st Contact Info) Description 05/06/2021 12:13 PM IS ARCHITECT Anesthesia Event [facility] [place] [address] [place] [address] Jaye Quispe MD [address] [place] [address] Kermit Boone CRNA [address] [place] [address] Anesthesia Record Procedure Summary Procedure Name Responsible Anesthesiologist Anesthesia Start Time Anesthesia Stop Time ESOPHAGOGASTRODUODENOSCOPY BIOPSY (Left) Jaye Quispe MD 05/06/21 1213 05/06/21 1242 Events Date Time Event Comment 05/06/2021 1131 1213 An Start 1214 An Start Data 1214 In Room 1216 Start Supplemental O2 1219 Patient Positioned Laterally 1219 Bite Block Placed 1219 An Induction The patient was reevaluated immediately before moderate or deep sedation use and before anesthesia induction. 1219 Anesthesia Ready 1220 Proc Start 1227 Proc Fin 1237 Out of Room 1237 an stop data 1242 Handoff to RN I completed my handoff to the receiving nurse during which we: 1. Patient identified 2. Responsible provider identified 3. Pertinent medical history reviewed 4. Procedure type and surgical course discussed 5. Intraoperative anesthetic management and any significant issues discussed 6. Expectations and concerns for postop period discussed 7. Questions solicited from receiving nurse 8. Patient disposition at the time of handoff: phase II 1242 An Stop 1300 Release from care Meds Name Total fentaNYL 50 mcg lidocaine (cardiac) syringe 2 % 60 mg propofol 100 mg propofol 49.9 mg sodium chloride 0.9% infusion 700 mL * Agents Name O2% N2O O2 * Blood No blood administrations on file. Lines, Drains, and Airways Type Details Placement Removal Peripheral IV Placement Date: 04/23 07/12; Placement Time: 1119; Catheter Size: 22 G; Orientation: Posterior, Right; Location: Forearm; Inserted by: crow; Patient Tolerance: Anxious; Removal Date: 05/06/21; Removal Time: 1303 05/06/21 1119 by Crow Cardona RN 05/06/21 1303 by Yossi Hawkins RN documented in this encounter Social History Tobacco [...] more drinks on one occasion? Monthly 05/06/2021 Comments No Sex and Gender Information Value Date Recorded Sex Assigned at Not on file Legal Sex Female 11:02 AM IS ARCHITECT Gender Identity Not on file Sexual Orientation Not on file documented as of this encounter OR Notes * Anesthesia Postprocedure Evaluation - Alison Zendejas MLT - 05/06/2021 1:00 PM CST Patient: America Bloom Procedure Summary Date: 05/06/21 Room / Location: [facility] ROOM 3 / [facility] Anesthesia Start: 1213 Anesthesia Stop: 1242 Procedure: ESOPHAGOGASTRODUODENOSCOPY BIOPSY (Left ) Diagnosis: Abdominal pain Nausea and vomiting, intractability of vomiting not specified, unspecified vomiting type (Abdominal pain [R10.9]) (Nausea and vomiting, intractability of vomiting not specified, unspecified vomiting type [R11.2]) Providers: Shirin Mahmood MD Responsible Provider: Jaye Quispe MD Anesthesia Type: MAC ASA Status: 1 Anesthesia Type: MAC Last vitals BP 93/64 (BP Location: Left arm, Patient Position: Lying) Pulse 83 Temp 36.2 ??C (97.2 ??F) (Temporal) Resp 17 SpO2 99% Anesthesia Post Evaluation Patient location during evaluation: PACU Patient participation: complete - patient participated Level of consciousness: fully awake Pain score: 0 Pain management: adequate Airway patency: adequate Evidence of recall: no Cardiovascular status: acceptable and hemodynamically stable Respiratory status: acceptable and room air Hydration status: acceptable Pt is: normothermic Nausea/Vomiting status: none No complications documented. Cosigned by Jaye Quispe MD at 05/06/2021 1:00 PM IS ARCHITECT ARCHITECT ARCHITECT * Anesthesia Preprocedure Evaluation - Jaye Quispe MD - 05/06/2021 11:31 AM CST Anesthesia Evaluation America Bloom is a 20 y.o. female Procedure(s): ESOPHAGOGASTRODUODENOSCOPY Pre-Op Diagnosis Codes: * Abdominal pain [R10.9] * Nausea and vomiting, intractability of vomiting not specified, unspecified vomiting type [R11.2] Patient Active Problem List Diagnosis ??? Anti-TPO antibodies present ??? Oligomenorrhea ??? Knee pain ??? Abdominal pain ??? Nausea ??? Tenesmus ??? Hypertriglyceridemia ??? Dyslipidemia ??? Deviated nasal septum ??? Refractory obstruction of nasal airway ??? Encounter for cosmetic surgery ??? Rectal bleeding Past Medical History: Diagnosis Date ??? Goiter ??? Ovarian cyst ??? Patellar dislocation 03/27/2016 ??? Personal history of other endocrine, nutritional and metabolic disease H/O Nehal thyroiditis - (Added by TW Conv) Past Surgical History: Procedure Laterality Date ??? COLONOSCOPY ??? TONSILECTOMY, ADENOIDECTOMY, BILATERAL MYRINGOTOMY AND TUBES ??? TONSILLECTOMY/ADENOIDECTOMY OB History No obstetric history on file. No Known Allergies No medications reported. Current Facility-Administered Medications: ??? ondansetron (ZOFRAN) injection 4 mg, 4 mg, intravenous, Q6H PRN ??? sodium chloride 0.9% flush 0.5-20 mL, 0.5-20 mL, intra-catheter, PRN ??? sodium chloride 0.9% infusion, 30 mL/hr, intravenous, Continuous, Last Rate: 30 mL/hr at 05/06/21 1120, 30 mL/hr at 05/06/21 1120 Social History Tobacco Use Smoking Status Never Smoker Smokeless Tobacco Never Used Substance and Sexual Activity Alcohol Use Not on file Substance and Sexual Activity Drug Use Never Family History Problem Relation Age of Onset ??? Nehal's thyroiditis Mother Family history of Nehal thyroiditis - (Added by TW Conv) ??? Autoimmune disease Mother Family history of autoimmune disorder - (Added by TW Conv) ??? Arthritis Mother Family history of arthritis - (Added by TW Conv) ??? Polycystic ovary syndrome Mother ??? Heart disease Father Family history of cardiac disorder - (Added by TW Conv) ??? Hypertension Father Family history of hypertension - (Added by TW Conv) ??? Hyperlipidemia Father ??? Heart disease Maternal Grandfather Family history of cardiac disorder - Relation: Grandfather (Added by TW Conv) ??? Hypertension Maternal Grandfather Family history of hypertension - Relation: Grandfather (Added by TW Conv) ??? Cancer Maternal Grandfather Family history of malignant neoplasm - Relation: Grandfather (Added by TW Conv) ??? Hypertension Other Family history of hypertension - Relation: Grandmother (Added by TW Conv) ??? Arthritis Other Family history of arthritis - Relation: Grandmother (Added by TW Conv) ??? Seizures Other Seizure - Relation: Grandmother (Added by TW Conv) Vitals: 05/06/21 1113 BP: 113/76 Pulse: 78 Resp: 16 Temp: 36.8 ??C (98.2 ??F) SpO2: 99% PT: No results found for requested labs within last 720 hours. INR: No results found for requested labs within last 720 hours. APTT: No results found for requested labs within last 720 hours. Hgb A1C: No results found for requested labs within last 720 hours. CBC RBC: No results found for requested labs within last 720 hours. RDW: No results found for requested labs within last 720 hours. MCHC: No results found for requested labs within last 720 hours. MCH: No results found for requested labs within last 720 hours. MCV: No results found for requested labs within last 720 hours. Hct: No results found for requested labs within last 720 hours. Hgb: No results found for requested labs within last 720 hours. WBC: No results found for requested labs within last 720 hours. MPV: No results found for requested labs within last 720 hours. Platelets: No results found for requested labs within last 720 hours. RDW CV: No results found for requested labs within last 720 hours. RDW Sd: No results found for requested labs within last 720 hours. BMP Glucose: No results found for requested labs within last 720 hours. Calcium: No results found for requested labs within last 720 hours. Sodium: No results found for requested labs within last 720 hours. Potassium: No results found for requested labs within last 720 hours. CO2: No results found for requested labs within last 720 hours. Chloride: No results found for requested labs within last 720 hours. BUN: No results found for requested labs within last 720 hours. Creatinine: No results found for requested labs within last 720 hours. DOS Physical Exam Medical history, medications, and allergies reviewed. Attestation: This PAT evaluation 05/06/2021. Airway Exam: Mallampati: II Cervical ROM: FROM TM distance: >4 Cardiovascular Exam: Rate: regular Rhythm: regular Negative for Murmur Pulmonary Exam: LCTA, bilat EENT Exam: trachea midline Dental Exam: Appears intact Current state: Patient's current state is cooperative. Anesthesia Plan ASA 1 My patient is approved for the Anesthesia Controlled Medication protocol when under care of a [facility] Planned anesthesia: MAC Informed Consent: Discussed plan with [facility]. Anesthesia plan and risks discussed with patient. Consent and Attending signature: I and/or my designee have discussed the anesthesia plan, benefits, possible alternatives, parental presence at time of induction (if indicated), and clinically relevant risks that may include dental injury, unintentional awareness, and/or other complications. The patient and/or parent/legal guardian understand, and agree to proceed. All questions answered. ARCHITECT documented in this encounter Plan of Treatment Not on file documented as of this encounter Visit Diagnoses Not on filedocumented in this encounter Administered Medications Inactive Administered Medications - up to 3 most recent administrations Medication Order MAR Action Action Date Dose Rate Site fentaNYL (SUBLIMAZE) preservative free injection intravenous, As needed, Starting on Thu05/06/21 at 1219, Anesthesia Intra-op Given 05/06/2021 12:19 PM IS ARCHITECT 50 mcg lidocaine (cardiac) (XYLOCAINE) preservative free injection intravenous, As needed, Starting on Thu05/06/21 at 1221, Anesthesia Intra-op, Indications: Ventricular ArrhythmiasIndications :Ventricular Arrhythmias Given 05/06/2021 12:21 PM IS ARCHITECT 60 mg propofoL (DIPRIVAN) 10 mg/mL IV intravenous, Continuous PRN, Starting on Thu05/06/21 at 1219, Anesthesia Intra-op New Bag 05/06/2021 12:19 PM IS ARCHITECT 125 mcg/kg/min 37.425 mL/hr propofoL (DIPRIVAN) 10 mg/mL IV intravenous, As needed, Starting on Thu05/06/21 at 1219, Anesthesia Intra-op Given 05/06/2021 12:19 PM IS ARCHITECT 100 mg sodium chloride 0.9% infusion 30 mL/hr, intravenous, Continuous, Starting on Thu05/06/21 at 1145, Pre-Procedure (GI) Rate/Dose Verify 05/06/2021 12:13 PM IS ARCHITECT 30 mL/hr New Bag 05/06/2021 11:20 AM IS ARCHITECT 30 mL/hr 30 mL/hr documented in this encounter Care Teams Transformer Maker Relationship Specialty Start Date End Date Yamilet Villegas [place] [address] PCP - General Nurse Practitioner 03/12/21 documented as of this encounter
--- OUTSIDE RECORDS SUMMARY | 2024-03-27 11:52 | XMS_ITS | Encounter Summary ---
Author Organization [facility] Address [address] [place] [address] Phone Care Team Providers Care Eviscerator Name Role Phone Nunu Wilson MD Primary Care Provider + Reason for Visit * Reason Onset Date Comments Colonoscopy 11/06/2020 Encounter Details Date Type Department Care Team (Late st Contact Info) Description 11/06/2020 Telephone [facility] Surgery [facility] [address] [place] [address] [place] [address] Natty Pinto B.A. Colonoscopy Social History Tobacco Use Types Packs/Day Years Used Date Smoking Tobacco: Never Smokeless Tobacco: Never Comments Unknown Sex and Gender Information Value Date Recorded Sex Assigned at Not on file Legal Sex Female 11:02 AM MILITARY LOGISTICS SPECIALIST Gender Identity Not on file Sexual Orientation Not on file documented as of this encounter Miscellaneous Notes * Telephone Encounter - Chyna Montgomery - 11/06/2020 10:16 AM CDT Cancelled 11/29/[address] Lori Dotson , rescheduled to 12/10/[address] Natividad Negron [address] [facility]. * Telephone Encounter - Natty Pinto B.A. - 11/06/2020 10:04 AM CDT Pt's mother called and wanted to know if there was any openings for scopes with another provider any day other than . She will call back if 12/10 works for her daughter with Dr. Negron. documented in this encounter Plan of Treatment Not on file documented as of this encounter Visit Diagnoses Not on filedocumented in this encounter Care Teams Eviscerator Relationship Specialty Start Date End Date Nunu Wilson MD [address] [place] [address] PCP - General 04/01/17 12/09/20 documented as of this encounter
--- OUTSIDE RECORDS SUMMARY | 2024-03-27 11:52 | XMS_ITS | Encounter Summary ---
Author Organization [facility] Address [address] [place] [address] Phone Care Team Providers Care Fire Prevention Engineer Name Role Phone Yamilet Villegas Ce ELIZONDO Primary Care Provider +1- [phone] Reason for Visit * Reason Onset Date Comments Scheduling Additional Testing 05/14/2021 Encounter Details Date Type Department Care Team (Late st Contact Info) Description 05/14/2021 Telephone [facility] Gastroenterology [address] [place] [address] [place] [address] Mary Lou Gan LPN Scheduling Additional Testing Social History Tobacco Use Types Packs/Day Years [...] on file Legal Sex Female 11:02 AM ZYGLO INSPECTOR Gender Identity Not on file Sexual Orientation Not on file documented as of this encounter Miscellaneous Notes * Telephone Encounter - Shirin Mahmood MD - 05/16/2021 1:32 PM CST Sounds good, thank you. O INSPECTOR * Telephone Encounter - Mary Lou Gan LPN - 05/16/2021 11:58 AM ZYGLO INSPECTOR Received call from mother stating that America does not wish to pursue further testing at this time. She was inquiring what additional testing was ordered so that maybe she could convince America to have them completed as America felt the EGD/Colon was too invasive of a procedure in addition to requiring IV's. Discussed with mother the imaging would not be invasive but would require an IV for contrast. Provided the names of the testing as well. Mother reports America feels frustrated that all of her testing has come back normal. Discussed that it can take time to find the right diagnosis and that patient's often have to undergo several tests in order to figure out what is wrong. Mother does understand this and tried to convey to America but she is unwilling to pursue anything further at this time. Mother requests future appointments be cancelled. Advised mother to contact our office if she needs anything. O INSPECTOR * Telephone Encounter - Mary Lou Gan LPN - 05/14/2021 2:54 PM ZYGLO INSPECTOR Received voicemail from mother, Sherin, who inquired if America's upcoming appointment should be cancelled with Dr. Mahmood until further testing obtained. She also states that America has no voicemail and that arrangements for testing should go through her to ensure they get scheduled. Left voicemail for mother to inquire if she would like our office to schedule the additional testing or if she would like the phone number to schedule herself. O INSPECTOR documented in this encounter Plan of Treatment Not on file documented as of this encounter Visit Diagnoses Not on filedocumented in this encounter Care Teams Fire Prevention Engineer Relationship Specialty Start Date End Date Yamilet Villegas NP [facility] [place] [address] PCP - General Nurse Practitioner 03/12/21 documented as of this encounter
--- OUTSIDE RECORDS SUMMARY | 2024-03-27 11:52 | XMS_ITS | Encounter Summary ---
Author Organization [facility] Healthcare Address [address] [place] [address] Care Team Providers Care Plane Tableman Name Role Phone Yamilet Villegas MIKHAIL Primary Care Provider [phone]- [phone] Encounter Details Date Type Department Care Team (Latest Contact Info) Description 05/06/2021 10:00 AM WHEEL INSPECTOR - 05/06/2021 1:20 PM WHEEL INSPECTOR Hospital Encounter [facility] [address] [facility] [place] [address] Shirin Mahmood MD [address] [facility] [address] [place], [place] [id number] Abdominal pain; Nausea and vomiting, intractability of vomiting not specified, unspecified vomiting type Discharge Disposition: Discharge to home or self [...] on file Legal Sex Female 11:02 AM WHEEL INSPECTOR Gender Identity Not on file Sexual Orientation Not on file documented as of this encounter Last Filed Vital Signs Vital Sign Reading Time Taken Comments Blood Pressure 101/62 05/06/2021 1:00 PM WHEEL INSPECTOR Pulse 79 05/06/2021 1:00 PM WHEEL INSPECTOR Temperature 36.2 ??C (97.2 ??F) 05/06/2021 12:[address] Respiratory Rate 19 05/06/2021 1:00 PM WHEEL INSPECTOR Oxygen Saturation 100% 05/06/2021 1:00 PM WHEEL INSPECTOR Inhaled Oxygen Concentration - - Weight 49.9 kg (110 lb) 05/06/2021 11:13 AM WHEEL INSPECTOR Height 172.7 cm (5' 8 ) 05/06/2021 11:13 AM WHEEL INSPECTOR Body Mass Index 16.73 05/06/2021 11:13 AM WHEEL INSPECTOR documented in this encounter Discharge Diagnoses Diagnosis Epigastric pain - EPIGASTRIC PAIN Abdominal pain, epigastric documented in this encounter Discharge Disposition Disposition Code Departure Means Destination Discharge to home or self care documented in this encounter Procedure Notes * Shirin Mahmood MD - 05/06/2021 11:01 AM CSTAssociated Order(s): EGD GI ENDOSCOPY [facility] Patient Name: America Garcia Procedure Date: 05/06/2021 11:01 AM Date of : 2000 Admit Type: Outpatient Age: 20 Gender: Female Attending MD: Shirin Mahmood M.D. Room: [facility] ENDOSCOPY ROOM 3 Note Status: Finalized Procedure: Upper GI endoscopy Indications: Epigastric abdominal pain Referring MD: Shirin Mahmood M.D. Providers: Shirin Mahmood M.D. Complications: No immediate complications. Estimated Blood Loss: Estimated blood loss: none. Procedure: Pre-Anesthesia Assessment: - Prior to the procedure, a History and Physical was performed, and patient medications and allergies were reviewed. The patient is competent. The risks and benefits of the procedure and the sedation options and risks were discussed with the patient. All questions were answered and informed consent was obtained. Patient identification and proposed procedure were verified by the physician. Mental Status Examination: alert and oriented. Airway Examination: normal oropharyngeal airway and neck mobility. Respiratory Examination: clear to auscultation. CV Examination: normal. Prophylactic Antibiotics: The patient does not require prophylactic antibiotics. Prior Anticoagulants: The patient has taken no previous anticoagulant or antiplatelet agents. ASA Grade Assessment: I - A normal, healthy patient. After reviewing the risks and benefits, the patient was deemed in satisfactory condition to undergo the procedure. The anesthesia plan was to use moderate sedation / analgesia (conscious sedation). Immediately prior to administration of medications, the patient was re-assessed for adequacy to receive sedatives. The heart rate, respiratory rate, oxygen saturations, blood pressure, adequacy of pulmonary ventilation, and response to care were monitored throughout the procedure. The physical status of the patient was re-assessed after the procedure. The benefits, risks, and alternatives to the procedure and sedation were discussed and informed consent was obtained. The scope was passed under direct vision. The GIF H190 [id number] endoscope was introduced through the mouth, and advanced to the second part of duodenum. The scope was passed under direct vision. The GIF Q180 [id number] endoscope was introduced through the mouth, and advanced to the second part of duodenum. The upper GI endoscopy was accomplished without difficulty. The patient tolerated the procedure well. Findings: The esophagus was normal. The stomach was normal. Biopsies were taken with a cold forceps for histology. The exam of the stomach was otherwise normal. Esophagogastric landmarks were identified: the gastroesophageal junction was found at 43 cm from the incisors. A moderate narrowing was found in the distal second portion of the duodenum. This appeared to be extrinsic. Recommendation: - Resume previous diet. - Continue present medications. - Will order imaging to rule out SMA syndrome given endoscopic appearance of duodenum and Meckel scan. Electronically signed by Shirin Mahmood MD Shirin Mahmood M.D. 05/06/2021 12:34:00 PM . Number of Addenda: 0 Note Initiated On: 05/06/2021 11:01 AM Recognized by the [place] for promoting quality in endoscopy L INSPECTOR documented in this encounter Plan of Treatment Not on file documented as of this encounter Procedures Procedure Name Priority Date/Time Associated Diagnosis Comments SURGICAL PATHOLOGY Routine 05/06/2021 12:24 PM WHEEL INSPECTOR Abdominal pain Nausea and vomiting, intractability of vomiting not specified, unspecified vomiting type ESOPHAGOGASTRODUODENOSCOPY BIOPSY 05/06/2021 12:14 PM WHEEL INSPECTOR Abdominal pain Nausea and vomiting, intractability of vomiting not specified, unspecified vomiting type POCT HCG, URINE Routine 05/06/2021 11:53 AM WHEEL INSPECTOR EGD 05/06/2021 11:01 AM WHEEL INSPECTOR documented in this encounter Results * Surgical pathology (05/06/2021 12:24 PM WHEEL INSPECTOR) Tissue (Duodenum, Biopsy) 05/06/2021 12:24 PM WHEEL INSPECTOR Tissue (Gastric/Stomach biopsy) 05/06/2021 12:24 PM WHEEL INSPECTOR Narrative PATHOLOGY [facility] - 05/07/2021 2:18 PM WHEEL INSPECTOR EPIC results best viewed via link to PDF [facility] of Surgical [place] [address] Note to Patients: This report may contain a detailed description of human tissue sent by a health care provider to the laboratory for pathologic evaluation. The content of this report is essential for diagnosis and may provide important critical findings. This information may be unfamiliar to patients to review without a medical professional present. It is advised that the patient review this report in the presence of a health care provider who can answer questions and explain the details. SURGICAL PATHOLOGY REPORT FINAL Patient Name: ?? AMERICA GARCIA Gender: ??F : ??2000 (Age: 20) Address: ??[facility] [address] [place], [place] ??[address] Hospital #: ??[id number] Taken:05/06/2021 Received:05/06/2021 Reported: 05/07/2021 Patient Type: [facility] SDS ?? Service: Gastroenterology Location: [facility] Physician(s): ??Sayda Garcia RN,MSN Diagnosis: A. ??Small bowel, random duodenum, biopsy ? -Duodenal mucosa with no histopathologic abnormality B. ??Stomach, random, biopsy ? -Oxyntic and antral mucosa with no histopathologic abnormality axwe/05/07/2021 13:47 By this signature, I attest that the above diagnosis is based upon my personal examination of the slides(and/or other material indicated in the diagnosis). Hesham Lopez M.D. Report Electronically Reviewed and Signed Out By ??Hesham Lopez M.D. 05/07/2021 14:18:44 Microscopic Description and Comment: Microscopic examination substantiates the above cited diagnosis. Dave Morales M.D., PhD History: The patient is a 20-year-old woman presenting a clinical history of abdominal pain and nausea and vomiting. ??Procedure: Upper GI endoscopy biopsy. Specimen(s) Received: A: Cold bxs random duodenum B: Cold bxs random gastric Gross Description: The specimens are received in two formalin filled containers each labeled with the patient's name. A. ??The first container is received labeled with A. cold biopsies random duodenum and consists of three connor-pink irregular fragment(s) of soft tissue measuring 0.3-0.5 cm in length by 0.1 cm in diameter. ??Labeled A1. ??Jar 0. B. ??The second container is received labeled with B. cold biopsies random gastric and consists of three connor-pink irregular fragment(s) of soft tissue measuring 0.2-0.4 cm in length by 0.1 cm in diameter. ??Labeled B1. ??Jar 0. [facility]/05/06/2021 14:59 PA(s): Ruddy Gomez By this signature, I attest that the above diagnosis is based upon my personal examination of the slides(and/or other material). Addenda/Procedures The performance characteristics of some immunohistochemical stains, fluorescence in-situ hybridization tests and immunophenotyping by flow cytometry cited in this report (if any) were determined by the Surgical Pathology and Flow Cytometry Departments at [facility] as part of an ongoing production quality manager program and in compliance with federally mandated regulations drawn from the Clinical Laboratory Improvement Act of 1988 (CLIA '88). ??Some of these tests rely on the use of analyte specific reagents and are subject to specific labeling requirements by the US Food and Drug Administration. ??Such diagnostic tests may only be performed in a facility that is certified by the Department of Health and Human Services as a high complexity laboratory under CLIA '88. ??The FDA has determined that such clearance or approval is not necessary. ??This test is used for clinical purposes. ??It should not be regarded as investigational or for research. ??Nevertheless, federal rules concerning the medical use of analyte specific reagents require that the following disclaimer be attached to the report: This test was developed and its performance characteristics determined by the Surgical Pathology and Flow Cytometry Departments of [facility]. ??It has not been cleared or approved by the U. S. Food and Drug Administration. IMAGES AND SCANNED DOCUMENTS, IF INCLUDED, ONLY VIEWABLE IN PDF VERSION OF REPORT us Shirin Mahmood MD LAB PATHOLOGY ORDERABLES Final Result PATHOLOGY [facility] 3rd Floor [place], [place] [phone] * POCT hCG, urine (05/06/2021 11:53 AM WHEEL INSPECTOR) HCG, ur, POC Negative Lot Number [id number] QC Backgroud Clear Acceptable QC Control Line Acceptable Urine 05/06/2021 11:5 3 AM WHEEL INSPECTOR us Shirin Mahmood MD POINT OF CARE TEST ORDERABLES Final Result * EGD (05/06/2021 11:01 AM WHEEL INSPECTOR) Anatomical Region Laterality Modality Other Narrative Procedure Note Shirin Mahmood MD - 05/06/2021 11:01 AM CST GI ENDOSCOPY [facility] Patient Name: America Garcia Procedure Date: 05/06/2021 11:01 AM Date of : 2000 Admit Type: Outpatient Age: 20 Gender: Female Attending MD: Shirin Mahmood M.D. Room: [facility] ENDOSCOPY ROOM 3 Note Status: Finalized Procedure: Upper GI endoscopy Indications: Epigastric abdominal pain Referring MD: Shirin Mahmood M.D. Providers: Shirin Mahmood M.D. Complications: No immediate complications. Estimated Blood Loss: Estimated blood loss: none. Procedure: Pre-Anesthesia Assessment: - Prior to the procedure, a History and Physicalwas performed, and patient medications and allergieswere reviewed. The patient is competent. The risks and benefits of the procedure and the sedation optionsand risks were discussed with the patient. Allquestions were answered and informed consent was obtained. Patient identification and proposed procedure were verified by the physician. Mental StatusExamination: alert and oriented. Airway Examination: normal oropharyngeal airway and neck mobility. Respiratory Examination: clear to auscultation. CV Examination: normal. Prophylactic Antibiotics: The patient doesnot require prophylactic antibiotics. Prior Anticoagulants: The patient has taken no previous anticoagulant or antiplatelet agents. ASA Grade Assessment: I - A normal, healthy patient. After reviewing the risks and benefits, the patient was deemed in satisfactory condition to undergo the procedure. The anesthesia plan was to use moderate sedation / analgesia (conscious sedation).Immediately prior to administration of medications, the patient was re-assessed for adequacy to receive sedatives.The heart rate, respiratory rate, oxygen saturations, blood pressure, adequacy of pulmonary ventilation,and response to care were monitored throughout the procedure. The physical status of the patient was re-assessed after the procedure. The benefits, risks, and alternatives to theprocedure and sedation were discussed and informed consentwas obtained. The scope was passed under direct vision. The GIF H190 [id number] endoscope was introducedthrough the mouth, and advanced to the second part of duodenum. The scope was passed under direct vision. The GIF Q180 [id number] endoscope was introducedthrough the mouth, and advanced to the second part of duodenum. The upper GI endoscopy was accomplished without difficulty. The patient tolerated the procedure well. Findings: The esophagus was normal. The stomach was normal. Biopsies were taken with a cold forceps for histology. The exam of the stomach was otherwise normal. Esophagogastric landmarks were identified: the gastroesophagealjunction was found at 43 cm from the incisors. A moderate narrowing was found in the distal second portion of the duodenum. This appeared to be extrinsic. Recommendation: - Resume previous diet. - Continue present medications. - Will order imaging to rule out SMA syndrome given endoscopic appearance of duodenum and Meckelscan. Electronically signed by Shirin Mahmood MD Shirin Mahmood M.D. 05/06/2021 12:34:00 PM . Number of Addenda: 0 Note Initiated On: 05/06/2021 11:01 AM Recognized by the [place] [employer] for promoting quality in endoscopy Shirin Mahmood MD ENDOSCOPY PROCEDURES Final Res ult documented in this encounter Visit Diagnoses Diagnosis Abdominal pain Abdominal pain, unspecified site Nausea and vomiting, intractability of vomiting not specified, unspecified vomiting type Nausea Nausea alone documented in this encounter Admitting Diagnoses Diagnosis Lower abdominal pain Abdominal pain, other specified site Nausea Nausea alone documented in this encounter Administered Medications Inactive Administered Medications - up to 3 most recent administrations Medication Order MAR Action Action Date Dose Rate Site ondansetron (ZOFRAN) injection 4 mg 4 mg, intravenous, Administer over 2 Minutes, Every 6 hours PRN, nausea, vomiting, Starting on Thu05/06/21 at 1114, Pre-Procedure (GI) sodium chloride 0.9% flush 0.5-20 mL 0.5-20 mL, intra-catheter, As needed, line care, Starting on Thu05/06/21 at 1114, Pre-Procedure (GI), Flush volume based on line type and size. Flush before and after each use. , Indications: FlushingIndications:Flushin g sodium chloride 0.9% infusion 30 mL/hr, intravenous, Continuous, Starting on Thu05/06/21 at 1145, Pre-Procedure (GI) Rate/Dose Verify 05/06/2021 12:13 PM WHEEL INSPECTOR 30 mL/hr New Bag 05/06/2021 11:20 AM WHEEL INSPECTOR 30 mL/hr 30 mL/hr documented in this encounter Discontinued Medications Medication Sig Discontinue Reason Start Date End Da te acetaminophen-codeine (TYLENOL with CODEINE #3) 300-30 mg per tablet Take 1-2 tablets by mouth every 4 (four) hours as needed. Therapy completed 08/18/2017 05/06/2021 drospirenone-ethinyl estradiol (SLAVA, 28,) 3-0.03 mg per tablet Take 1 tablet by mouth daily. Alternate therapy 05/06/2021 documented as of this encounter Active and Recently Administered Medications Times are shown in WHEEL INSPECTOR. Continuous Medication Order 05/04/2021 05/05/2021 05/06/2021 sodium chloride 0.9% infusion 30 mL/hr, intravenous, Continuous, Starting on Thu05/06/21 at 1145, Pre-Procedure (GI) 1120 (New Bag - Prov ider: Renetta Cardona RN)1213 (Rate/Dose Verify - Provider: Kermit Boone CRNA)1227 (Stopped - Provider: Kermit Boone CRNA) PRN Medication Order 05/04/2021 05/05/2021 05/06/2021 ondansetron (ZOFRAN) injection 4 mg 4 mg, intravenous, Administer over 2 Minutes, Every 6 hours PRN, nausea, vomiting, Starting on Thu05/06/21 at 1114, Pre-Procedure (GI) sodium chloride 0.9% flush 0.5-20 mL 0.5-20 mL, intra-catheter, As needed, line care, Starting on Thu05/06/21 at 1114, Pre-Procedure (GI), Flush volume based on line type and size. Flush before and after each use. , Indications: Flushing documented in this encounter Orders Medications Ordered That Juan ht Not Have Been Administered Count Last Ordered Date First Ordered Date ondansetron (ZOFRAN) injection 4 mg 1 05/06 sodium chloride 0.9% flush 0.5-20 mL 1 04/23 documented in this encounter Care Teams Plane Tableman Relationship Specialty Start Date End Date Yamilet Villegas NP [address] [place] [address] PCP - General Nurse Practitioner 03/12/21 documented as of this encounter
--- OUTSIDE RECORDS SUMMARY | 2024-03-27 11:52 | XMS_ITS | Encounter Summary ---
Author Organization [facility] Address [address] [place] [address] Phone Care Team Providers Care Hvac Lead Name Role Phone Yamilet Villegas MIKHAIL Primary Care Provider [phone]- [phone] Encounter Details Date Type Department Care Team (Late st Contact Info) Description 05/08/2021 Orders Only [facility] Gastroenterology [address] [facility] [address] [place] [address] [place] [address] Mary Lou Gan LPN Abdominal pain (Primary Dx) Social History Tobacco Use Types Packs/Day Years [...] on file Legal Sex Female 11:02 AM PROJECT GEOPHYSICIST Gender Identity Not on file Sexual Orientation Not on file documented as of this encounter Progress Notes * Mary Lou Gan LPN - 05/08/2021 8:09 AM CST Images from the original note were not included. Shirin Mahmood MD Ford, Shawna Nicole, LPN Can we please order CT angiogram of the abdomen to rule out SMA syndrome given duodenal narrowing seen on endoscopy as well as Meckel's scan to rule out Meckel diverticulum ?? ECT GEOPHYSICIST documented in this encounter Plan of Treatment Not on file documented as of this encounter Visit Diagnoses Diagnosis Abdominal pain- Primary Abdominal pain, unspecified site documented in this encounter Care Teams Hvac Lead Relationship Specialty Start Date End Date Yamilet Villegas NP [address] [place] [id number] PCP - General Nurse Practitioner 03/12/21 documented as of this encounter
--- OUTSIDE RECORDS SUMMARY | 2024-03-27 11:52 | XMS_ITS | Encounter Summary ---
Author Organization [facility] Healthcare Address [address] [place] [address] Care Team Providers Care Floor And Wall Applier Liquid Name Role Phone Bakari Yamilet Aguiarelroy ELIZONDO Primary Care Provider [phone] Encounter Details Date Type Department Care Team (Latest Contact Info) Description 05/06/2021 11:00 AM HEALTH DIAGNOSTICS TEACHER - 05/06/2021 11:30 AM HEALTH DIAGNOSTICS TEACHER Surgery [facility] [address] [facility] [address] [place] [address] Shirin Mahmood MD [address] [facility] [address] [place], [place] [id number] ESOPHAGOGASTRODUODENOSCOPY BIOPSY Surgery Details Date/Time Status Location OR Service Patient Class Case Class Case Type Trauma Case? 05/06/2021 11:00 AM Posted [facility] 03 Gastroenterology Outpatient Elective Panel 1 Procedure LRB Anes Op Region Wound Class Comments ESOPHAGOGASTRODUODENOSCOPY BIOPSY Left Monitor Anesthesia Care N/A Surgeon Surgeon Role Service Panel Shirin Mamhood MD Primary Gastroenterology 1 documented in this encounter Social History [...] on file Legal Sex Female 11:02 AM HEALTH DIAGNOSTICS TEACHER Gender Identity Not on file Sexual Orientation Not on file documented as of this encounter Last Filed Vital Signs Vital Sign Reading Time Taken Comments Blood Pressure 113/76 05/06/2021 11:13 AM HEALTH DIAGNOSTICS TEACHER Pulse 78 05/06/2021 11:13 AM HEALTH DIAGNOSTICS TEACHER Temperature 36.8 ??C (98.2 ??F) 05/06/2021 11:[address] Respiratory Rate 16 05/06/2021 11:13 AM HEALTH DIAGNOSTICS TEACHER Oxygen Saturation 99% 05/06/2021 11:13 AM HEALTH DIAGNOSTICS TEACHER Inhaled Oxygen Concentration - - Weight 49.9 kg (110 lb) 05/06/2021 11:13 AM HEALTH DIAGNOSTICS TEACHER Height 172.7 cm (5' 8 ) 05/06/2021 11:13 AM HEALTH DIAGNOSTICS TEACHER Body Mass Index 16.73 05/06/2021 11:13 AM HEALTH DIAGNOSTICS TEACHER documented in this encounter Discharge Disposition Disposition Code Departure Means Destination Discharge to home or self care documented in this encounter Procedure Notes * Shirin Mahmood MD - 05/06/2021 11:01 AM CSTAssociated Order(s): EGD GI ENDOSCOPY [facility] Patient Name: America Garcia Procedure Date: 05/06/2021 11:01 AM Date of : 2000 Admit Type: Outpatient Age: 20 Gender: Female Attending MD: Shirin Mahmood M.D. Room: [facility] 3 Note Status: Finalized Procedure: [...] passed under direct vision. The [id number] endoscope was introduced through the mouth, and [...] On: 05/06/2021 11:01 AM Recognized by the [employer] for promoting quality in endoscopy TH DIAGNOSTICS TEACHER documented in this encounter Plan of Treatment Not on file documented as of this encounter Procedures Procedure Name Priority Date/Time Associated Diagnosis Comments SURGICAL PATHOLOGY Routine 05/06/2021 12:24 PM HEALTH DIAGNOSTICS TEACHER Abdominal pain Nausea and vomiting, intractability of vomiting not specified, unspecified vomiting type ESOPHAGOGASTRODUODENOSCOPY BIOPSY 05/06/2021 12:14 PM HEALTH DIAGNOSTICS TEACHER Abdominal pain Nausea and vomiting, intractability of vomiting not specified, unspecified vomiting type POCT HCG, URINE Routine 05/06/2021 11:53 AM HEALTH DIAGNOSTICS TEACHER EGD 05/06/2021 11:01 AM HEALTH DIAGNOSTICS TEACHER documented in this encounter Results * Surgical pathology (05/06/2021 12:24 PM HEALTH DIAGNOSTICS TEACHER) Tissue (Duodenum, Biopsy) 05/06/2021 12:24 PM HEALTH DIAGNOSTICS TEACHER Tissue (Gastric/Stomach biopsy) 05/06/2021 12:24 PM HEALTH DIAGNOSTICS TEACHER Narrative PATHOLOGY [facility] - 05/07/2021 2:18 PM HEALTH DIAGNOSTICS TEACHER EPIC results best viewed via link to PDF [facility] [place] [address] Note to Patients: This report may contain [...] Gender: ??F : ??2000 (Age: 20) Address: ??[facility] [address], [place], [place] ??[address] Hospital #: ??[id number] Taken:05/06/2021 Received:05/06/2021 Reported: 05/07/2021 Patient Type: BJ SDS ?? Service: Gastroenterology Location: [facility] Physician(s): ??Sayda Garcia RN,MSN Diagnosis: A. ??Small [...] cm in diameter. ??Labeled B1. ??Jar 0. [facility]/05/06/2021 14:59 PA(s): Ruddy Gomez By this signature, I attest that the above diagnosis is based upon my personal examination of the slides(and/or other material). Addenda/Procedures The performance characteristics of some immunohistochemical stains, fluorescence in-situ hybridization tests and immunophenotyping by flow cytometry cited in this report (if any) were determined by the Surgical Pathology and Flow Cytometry Departments at [facility] as part of an ongoing quality review trainer program and in compliance with federally mandated [...] Surgical Pathology and Flow Cytometry Departments of [facility]. ??It has not been cleared or approved by the U. S. Food and Drug Administration. IMAGES AND SCANNED DOCUMENTS, IF INCLUDED, ONLY VIEWABLE IN PDF VERSION OF REPORT us Shirin Mahmood MD LAB PATHOLOGY ORDERABLES Final Result PATHOLOGY [facility] 3rd Floor [place], [place] [phone] * POCT hCG, urine (05/06/2021 11:53 AM HEALTH DIAGNOSTICS TEACHER) [facility], ur, POC Negative Lot Number [id number]\ QC Backgroud Clear Acceptable QC Control Line Acceptable Urine 05/06/2021 11:5 3 AM HEALTH DIAGNOSTICS TEACHER us Shirin Mahmood MD POINT OF CARE TEST ORDERABLES Final Result * EGD (05/06/2021 11:01 AM HEALTH DIAGNOSTICS TEACHER) Anatomical Region Laterality Modality Other Narrative Procedure Note Shirin Mahmood MD - 05/06/2021 11:01 AM CST [facility] ENDOSCOPY [facility] Patient Name: America Garcia Procedure Date: 05/06/2021 11:01 AM Date of : 2000 Admit Type: Outpatient Age: 20 Gender: Female Attending MD: Shirin Mahmood M.D. Room: [facility] 3 Note Status: Finalized Procedure: [...] On: 05/06/2021 11:01 AM Recognized by the [employer] G[employer]oscopy for promoting quality in endoscopy Shirin Mahmood MD ENDOSCOPY PROCEDURES Final Res ult documented in this encounter Visit Diagnoses Diagnosis Abdominal pain Abdominal pain, unspecified site Nausea and vomiting, intractability of vomiting not specified, unspecified vomiting type Nausea Nausea alone Abdominal pain Abdominal pain, unspecified site Nausea and vomiting, intractability of vomiting not specified, unspecified vomiting type documented in this encounter Admitting Diagnoses Diagnosis [...] Pre-Procedure (GI) Rate/Dose Verify 05/06/2021 12:13 PM HEALTH DIAGNOSTICS TEACHER 30 mL/hr New Bag 05/06/2021 11:20 AM HEALTH DIAGNOSTICS TEACHER 30 mL/hr 30 mL/hr documented in this [...] Recently Administered Medications Times are shown in HEALTH DIAGNOSTICS TEACHER. Continuous Medication Order 05/04/2021 05/05/2021 05/06/2021 sodium [...] 04/23 documented in this encounter Care Teams Floor And Wall Applier Liquid Relationship Specialty Start Date End Date Yamilet Villegas NP [facility] [place] [address] PCP - General Nurse Practitioner 03/12/21 documented as of this encounter
--- OUTSIDE RECORDS SUMMARY | 2024-03-27 11:52 | XMS_ITS | Encounter Summary ---
Author Organization [facility] Address [address] [place] [address] Phone Care Team Providers Care Executive Staff Assistant Name Role Phone Yamilet Villegas NP Primary Care Provider [phone] Encounter Details Date Type Department Care Team (Late st Contact Info) Description 02/04/2022 Telephone [facility] Gastroenterology [address] [place] [address] 12th [place] [address] [place] [address] Priscilla Ferreira Social History Tobacco Use Types Packs/Day Years [...] on file Legal Sex Female 11:02 AM DOUGHNUT GLAZIER Gender Identity Not on file Sexual Orientation Not on file documented as of this encounter Miscellaneous Notes * Telephone Encounter - Mary Lou Gan LPN - 02/04/2022 2:39 PM DOUGHNUT GLAZIER CTA abdomen ordered. Left detailed voicemail on mother's phone that order placed, would require an IV and left phone number to radiology scheduling. HNUT GLAZIER * Telephone Encounter - Priscilla Diaz - 02/04/2022 11:42 AM CST Mom called. Would like to complete the prior recommended testing. Do you want to see her in clinic first? HNUT GLAZIER documented in this encounter Plan of Treatment Not on file documented as of this encounter Visit Diagnoses Not on filedocumented in this encounter Care Teams Executive Staff Assistant Relationship Specialty Start Date End Date Yamilet Villegas NP [facility] [place] [address] PCP - General Nurse Practitioner 03/12/21 documented as of this encounter
--- OUTSIDE RECORDS SUMMARY | 2024-03-27 11:52 | XMS_ITS | Clinical Summary ---
Author Organization [facility] Address [address] [place] [address] Care Team Providers Care Hooker On Name Role Phone Yamilet Villegas NP Primary Care Provider [phone] Kimberlee Hernandez DO Unavailable [phone] Kaitlyn Puentes FLATWORK ASSEMBLER Unavailable [phone] Allergies No known active allergies Medications naproxen (NAPROSYN) 500 mg tabletIndication s:Pain Take 1 tablet (500 mg total) by mouth 2 (two) times a day with meals for 5 days 10 tablet 11/19/2023 Active Active Problems Problem Noted Date Diagnosed Date Rectal bleeding 10/19/2020 Overview (10/19/2020): Added automatically from request for surgery [id number] Assessment & Plan (03/12/2021 2:15 PM GRAPHIC ART DESIGNER): -will check CBC Deviated nasal septum 03/18/2019 Overview (03/18/2019): Added automatically from request for surgery [id number] Refractory obstruction of nasal airway 9 Overview (03/18/2019): Added automatically from request for surgery [id number] Encounter for cosmetic surgery 03/18/2019 Overview (03/18/2019): Added automatically from request for surgery [id number] Hypertriglyceridemia 11/03/2017 Dyslipidemia 11/03/2017 Abdominal pain 04/08/2016 Overview (07/03/2017): Description: --most likely related to IBS. Rule out Celiac disease. Doubt IBD. Assessment & Plan (03/12/2021 2:14 PM GRAPHIC ART DESIGNER): -chronic, associated with bloating and loose stools. -check celiac panel, CRP, stool calprotectin, ova and parasites and C diff. -will get EGD to evaluate nausea and abdominal pain. Nausea 04/08/2016 Overview (07/03/2017): Description: -consider acid peptic disease or nonulcer dypepsia. 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 Resolved Problems Problem Noted Date Diagnosed Date Resolved Date Loss of hair 08/16/2014 11/02/2017 Fatigue 08/16/2014 11/02/2017 Surgical History Surgery Date Site/Laterality Comments TONSILECTOMY, ADENOIDECTOMY, BILATERAL MYRINGOTOMY AND TUBES TONSILLECTOMY/ADENOIDECTOMY COLONOSCOPY Medical History Medical History Date Comments Personal history of other en docrine, nutritional and metabolic disease H/O Nehal thyroi ditis - (Added by TW Conv) Goiter Patellar dislocation 03/27/2016 Ovarian cyst Family History Medical History Relation Name Comments Heart disease Father Family history of cardiac disorder - (Added by TW Conv) Hyperlipidemia Father Hypertension Father Family history of hypertension - (Added by TW Conv) Cancer Maternal Grandfather Family history of malignant neoplasm - Relation: Grandfather (Added by TW Conv) Heart disease Maternal Grandfather Family history of cardiac disorder - Relation: Grandfather (Added by TW Conv) Hypertension Maternal Grandfather Family history of hypertension - Relation: Grandfather (Added by TW Conv) Arthritis Mother Family history of arthritis - (Added by TW Conv) Autoimmune disease Mother Family hi story of autoimmune disorder - (Added by TW Conv) Nehal's thyroiditis Mother Fami ly history of Nehal thyroiditis - (Added by TW Conv) Polycystic ovary syndrome Mother Hypertension Other 1 Family history of hypertension - Relation: Grandmother (Added by TW Conv) Arthritis Other 2 Family history of arthritis - Relation: Grandmother (Added by TW Conv) Seizures Other 3 Seizure - Relat ion: Grandmother (Added by TW Conv) Relation Name Status Comments Father Maternal Grandfather Mother Other 1 Other 2 Other 3 Social History Tobacco Use Types Packs/Day Years [...] on file Legal Sex Female 11:02 AM GRAPHIC ART DESIGNER Gender Identity Not on file Sexual Orientation Not on file History Length Weight Head Circum Date/Time Gestation Age D/C Weight APGARs Delivery Method Feeding 18.25 (46.4 cm) 7 lb 2 oz (3.232 kg) 2000 36 wks Vaginal, Spontaneous Obstetrics History Last Filed Vital Signs Vital Sign Reading [...] cm (5' 8 ) 05/06/2021 11:13 AM GRAPHIC ART DESIGNER Body Mass Index 18.74 05/06/2021 11:13 AM GRAPHIC ART DESIGNER Plan of Treatment Health Maintenance Due Date Last Done Comments Cervical Cancer Screening 2000 Depression Screening 2000 Hepatitis C Screening 2000 Regular Well Visit/Exam 18-64 11/22/2017 DTaP/Tdap/Td Vaccine (5 - Td or Tdap) 08/07/2021 08/08/2011, 03/17/2001, 05/27/2000, Additional history exists Influenza Vaccine (#1) 2023 Pneumococcal vaccine <65 Completed 001, 05/27/2000, 03/25/2000, Additional history exists Varicella Vaccines Completed 08/08/2011, 11/24/2000 HPV Vaccines Completed 10/05/2013, 08/22, 08/08/2011 Insurance [employer] PPO [employer] PPO [employer] PPO [employer] PPO Advance Directives For more information, please contact: [phone] * Full Code (Latest Code Status on File) Date Activated Date Inactivated Comments 05/06/2021 11:15 AM 05/06/2021 5:27 PM Care Teams Hooker On Relationship Specialty Start Date End Date Yamilet Villegas NP [address] [place] [address] PCP - General Nurse Practitioner 03/12/21 Kimberlee Hernandez DO [address] [place] [address] Toll Patrolman Obstetrics and Gynecology 11/21/22 Kaitlyn Puentes NP [address] [place] [id number] Nurse Practitioner Obstetrics and Gynecology 03/04/23
--- OUTSIDE RECORDS SUMMARY | 2024-03-27 11:52 | XMS_ITS | Encounter Summary ---
Author Organization [facility] Healthcare Address [address] [place] [address] Care Team Providers Care Production Recorder Name Role Phone Nunu Wilson MD Primary Care Provider + Encounter Details Date Type Department Care Team (Latest Contact Info) Description 12/10/2020 7:49 AM CDT - 12/10/2020 10:01 AM CDT Hospital Encounter [facility] Endoscopy [address] [place] [place] [address] Kaleb Negron MD [address] [facility] [phone] [place], [place] [id number] Discharge Disposition: Discharge to home or self [...] on file Legal Sex Female 11:02 AM RUBBER MOLDER Gender Identity Not on file Sexual Orientation [...] AM CDT documented in this encounter Discharge Diagnoses Diagnosis Hemorrhage of anus and rectum - HEMORRHAGE OF ANUS AND RECTUM Hemorrhage of rectum and anus Other hemorrhoids - OTHER HEMORRHOIDS documented in this encounter Discharge Instructions * [...] to sedation/anesthesia with the patient or his/her event sales representative and have documented his/her understanding of these in the appropriate consent form. Abe Arias MD 12/10/2020 8:42 AM Cosigned by Kaleb Nergon MD at 12/10/2020 10:52 AM CDT documented in this encounter Procedure Notes * Kaleb Negron MD - 12/10/2020 8:40 AM CDTAssociated Order(s): COLONOSCOPY ENDOSCOPY LAB Patient Name: America Bloom Procedure Date: 12/10/2020 8:40 AM Date of : 2000 Admit Type: Outpatient Age: 20 Gender: Female Attending MD: Kaleb Negron M.D. Room: [facility] ROOM 03 Note Status: Finalized [...] scope was passed under direct vision. The [id number] was introduced through the anus and advanced to the cecum, identified by appendiceal orifice and ileocecal valve. The colonoscopy was performed without difficulty. The patient tolerated the procedure well. The quality of the bowel preparation was evaluated using the BBPS ([place] Bowel Preparation Scale) with scores of: Right [...] Bowel prep When you arrive, come to [facility] hospital entrance. As you enter there [...] mask at all times My number is [phone] documented in this encounter Plan of Treatment [...] Region Laterality Modality Other Narrative Procedure Note Kaleb Negron MD - 12/10/2020 8:40 AM CDT ENDOSCOPY LAB Patient Name: America Bloom Procedure Date: 12/10/2020 8:40 AM Date of : 2000 Admit Type: Outpatient Age: 20 Gender: Female Attending MD: Kaleb Negron M.D. Room: [facility] 03 Note Status: Finalized [...] The scope was passed under direct vision.The [id number] was introduced through the anusand advanced to [...] Kaleb Negron MD POINT OF CARE TEST ORDNoam REID Final Result documented in this encounter Visit Diagnoses Diagnosis Encounter for cosmetic surgery Rectal bleeding Hemorrhage of rectum and anus documented in this encounter Admitting Diagnoses Diagnosis Encounter for cosmetic surgery Rectal bleeding Hemorrhage of rectum and anus documented in this encounter Administered Medications Inactive Administered Medications - up to 3 most recent administrations Medication Order MAR Action Action Date Dose Rate Site ondansetron (ZOFRAN) 4 mg/2 mL injection - ADS Override Pull Starting on Thu12/10/20 at 0830, For 1 dose, Created by [...] RN) documented in this encounter Care Teams Production Recorder Relationship Specialty Start Date End Date Nunu Wilson MD [address] [place] [address] PCP - General 12/10/20 03/11/21 documented as of this encounter
--- OUTSIDE RECORDS SUMMARY | 2024-03-27 11:52 | XMS_ITS | Encounter Summary ---
Author Organization [facility] Address [address] [facility] [address] [place] [address] Phone Care Team Providers Care Assistant Professor Of Anthropology Name Role Phone Nunu Wilson MD Primary Care Provider + Encounter Details Date Type Department Care Team (Late st Contact Info) Description 11/14/2020 Orders Only [facility] Surgery [address] [place] [address] Kaleb Negron MD [address] [facility] [phone] [place] [address] Social History Tobacco Use Types Packs/Day Years Used Date Smoking Tobacco: Never Smokeless Tobacco: Never Comments Unknown Sex and Gender Information Value Date Recorded Sex Assigned at Not on file Legal Sex Female 11:02 AM MOLDER PIPE COVERING Gender Identity Not on file Sexual Orientation Not on file documented as of this encounter Ordered Prescriptions Prescription Sig Dispense Quantity Refills Last Filled Start Date End Date polyethylene glycol (COLYTE) 240-22.72-6.72 -5.84 gram solution Drink first half of prep at 6:00pm the night before procedure. Drink second half of prep 4 hours prior to leaving home for procedure. 4000 mL 11/14/2020 documented in this encounter Plan of Treatment Not on file documented as of this encounter Visit Diagnoses Not on filedocumented in this encounter Care Teams Assistant Professor Of Anthropology Relationship Specialty Start Date End Date Didriksen, Nunu H., MD [address] [place] [address] PCP - General 04/01/17 12/09/20 documented as of this encounter
--- OUTSIDE RECORDS SUMMARY | 2024-03-27 11:52 | XMS_ITS | Encounter Summary ---
Author Organization [facility] Healthcare Address [address] [place] [address] Care Team Providers Care Reporter Name Role Phone Nunu Wilson MD Primary Care Provider + Encounter Details Date Type Department Care Team (Late st Contact Info) Description 12/10/2020 8:44 AM CDT Anesthesia Event [facility] Endoscopy [address] [place] [address] Dave Lopez MD [address] [place] [address] Connor Santos MD [address] [place] [address] Anesthesia Record Procedure Summary Procedure Name Responsible Anesthesiologist Anesthesia Start Time Anesthesia Stop Time COLONOSCOPY (Colon) Dave Lopez MD 12/10/20 0 844 12/10/20 0921 Events Date Time Event Comment 12/10/2020 0828 0837 AN Equip Check 0844 An Start 0845 In Room 0845 An Start Data 0846 Start Supplemental O2 0848 Patient Positioned Laterally 0849 An Induction The patient was reevaluated immediately before moderate or deep sedation use and before anesthesia induction. 0850 Anesthesia Ready 0850 Proc Start 0916 Proc Fin 0917 an stop data 0918 Out of Room 0921 Handoff to RN I completed my handoff [...] Patient disposition at the time of handoff: No value filed. 920 An Stop Meds Name Total propofol 550 mg Lidocaine IV 2 % 5 mL * Agents Name O2 * Blood No blood administrations on file. 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 Gender Identity Not on file Sexual Orientation Not on file documented as of this encounter OR Notes * Anesthesia Postprocedure Evaluation - Dave Lopez MD - 12/10/2020 10:48 AM CDT Patient: America Bloom Procedure Summary Date: 12/10/20 Room / Location: [facility] ENDOSCOPY ROOM [facility] END[facility]COPY Anesthesia Start: 843 Anesthesia Stop: 920 Procedure: COLONOSCOPY (N/A Colon) Diagnosis: Rectal bleeding Screening for malignant neoplasm of colon (Rectal bleeding [K62.5]) (Screening for malignant neoplasm of colon [Z12.11]) Providers: Kaleb Negron MD Responsible Provider: Dave Lopez MD Anesthesia Type: general ASA Status: 2 Anesthesia Type: general Last vitals BP 114/64 Pulse 74 Temp 36.1 ??C (97 ??F) (Temporal) Resp 16 SpO2 100% Anesthesia Post Evaluation Patient location during evaluation: PACU Patient participation: complete - patient participated Level of consciousness: fully awake Pain score: 0 Pain management: adequate Airway patency: adequate Evidence of recall: no Cardiovascular status: hemodynamically stable and acceptable Respiratory status: acceptable and room air Hydration status: acceptable Pt is: normothermic Nausea/Vomiting status: none No complications documented. * Anesthesia Preprocedure Evaluation - Connor Santos MD - 12/10/2020 8:28 AM CDT Images from the original note were not included. Anesthesia Evaluation America Bloom is a 20 y.o. female Procedure(s): COLONOSCOPY Pre-Op Diagnosis Codes: * Rectal bleeding [K62.5] * Screening for malignant neoplasm of colon [Z12.11] Patient Active Problem List Diagnosis ??? Anti-TPO antibodies present ??? Oligomenorrhea ??? Knee pain ??? Lower abdominal pain ??? Nausea ??? Tenesmus ??? Hypertriglyceridemia ??? Dyslipidemia ??? Deviated nasal septum ??? Refractory obstruction of nasal airway ??? Encounter for cosmetic surgery ??? Rectal bleeding Past Medical History: Diagnosis Date ??? Goiter ??? Patellar dislocation 03/27/2016 ??? Personal history of other endocrine, nutritional and metabolic disease H/O Nehal thyroiditis - (Added by TW Conv) Past Surgical History: Procedure Laterality Date ??? TONSILECTOMY, ADENOIDECTOMY, BILATERAL MYRINGOTOMY AND TUBES ??? TONSILLECTOMY/ADENOIDECTOMY OB History No obstetric history on file. No Known Allergies Med List Status: Nurse Complete Set By: Yaritza Vance RN at 12/10/2020 8:22 AM Taking? Last Dose Start Date End Date Provider acetaminophen-codeine (TYLENOL with CODEINE #3) 300-30 mg per tablet Unknown 08/18/17 -- Moises Martinez MD ISOtretinoin (ABSORCA,ACCUTANE) 40 mg capsule Past Week -- -- ProviderMoises MD polyethylene glycol (COLYTE) 240-22.72-6.72 -5.84 gram solution 12/10/2020 11/14/20 -- Kaleb Negron MD Drink first half of prep at 6:00pm the night before procedure. Drink second half of prep 4 hours prior to leaving home for procedure. Notes: May substitute for any available PEG 3350 bowel prep. sodium, potassium & mag sulfates (SUPREP BOWEL KIT) 17.5-3.13-1.6 gram recon soln 10/19/20 -- Abby Dotson MD Drink first half of prep at 6:00pm the night before procedure. Drink second half of prep 4 hours prior to leaving home for procedure. Flag for Review Taking? Last Dose Start Date End Date Provider drospirenone-ethinyl estradiol (SLAVA, 28,) 3-0.03 mg per tablet -- -- ProviderMoises MD Current Facility-Administered Medications: ??? sodium chloride 0.9% 0.9% infusion - ADS Override Pull, , , Social History Tobacco Use Smoking Status Never Smoker Smokeless Tobacco Never Used Substance and Sexual Activity Alcohol Use Not on file Substance and Sexual Activity Drug Use Not on file Family History Problem Relation Age of Onset [...] Relation: Grandmother (Added by TW Conv) Vitals: 12/10/20 0803 12/10/20 0810 12/10/20 0815 BP: 124/79 Pulse: 86 90 Resp: 10 16 Temp: 36.2 ??C (97.2 ??F) SpO2: 100% 98% PT: No results found for requested labs [...] for requested labs within last 720 hours. STOP-Bang Total Score: 0 DOS Physical Exam Medical history, medications, and allergies reviewed. Attestation: This PAT evaluation Airway Exam: Mallampati: III Cervical ROM: FROM Cardiovascular Exam: Rate: regular Rhythm: regular Pulmonary Exam: LCTA, bilat Anesthesia Plan ASA 2 My patient is approved for the Anesthesia Controlled Medication protocol when under care of a LANDSCAPE HORTICULTURE INSTRUCTOR Planned anesthesia: General Informed Consent: Anesthesia plan and risks discussed with patient. Consent and Attending signature: I and/or my designee have discussed the anesthesia plan, benefits, possible alternatives, parental presence at time of induction (if indicated), and clinically relevant risks that may include dental injury, unintentional awareness, and/or other complications. The patient and/or parent/legal guardian understand, and agree to proceed. All questions answered. documented in this encounter Plan of Treatment Not on file documented as of this encounter Visit Diagnoses Not on filedocumented in this encounter Administered Medications Inactive Administered Medications - up to 3 most recent administrations Medication Order MAR Action Action Date Dose Rate Site lidocaine (XYLOCAINE) 20 mg/mL (2 %) injection intravenous, As needed, Starting on Thu12/10/20 at 0849, Anesthesia Intra-op, Indications: Administration of Local AnesthesiaIndications:Administratio n of Local Anesthesia Given 12/10/2020 8:49 AM CDT 5 mL propofoL (DIPRIVAN) 10 mg/mL IV intravenous, As needed, Starting on Thu12/10/20 at 0849, Anesthesia Intra-op Given 12/10/2020 9:14 AM CDT 50 mg Given 12/10/2020 9:08 AM CDT 100 mg Given 12/10/2020 9:05 AM CDT 50 mg documented in this encounter Care Teams Reporter Relationship Specialty Start Date End Date Nunu Wilson MD [address] [place] [address] PCP - General 12/10/20 03/11/21 documented as of this encounter
--- OUTSIDE RECORDS SUMMARY | 2024-03-27 11:52 | XMS_ITS | Encounter Summary ---
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 [facility] Advanced Medicine [facility] Advanced Medicine ([facility]) [address] [place] [phone] Social History Tobacco Use Types Packs/Day Years [...] on file 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
--- OUTSIDE RECORDS SUMMARY | 2024-03-27 11:52 | XMS_ITS | Encounter Summary ---
Author Organization [facility] Address [address] [place] [address] Phone Care Team Providers Care Boom Master Name Role Phone Yamilet Villegas NP Primary Care Provider +1- [phone] Encounter Details Date Type Department Care Team (Late st Contact Info) Description 02/04/2022 Orders Only [facility] Gastroenterology [address] [facility] Advanced Medicine 12th [place] [address] Shirin Mhamood MD [address] [place] [address] Abdominal pain (Primary Dx) Social History Tobacco [...] on file 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
--- OUTSIDE RECORDS SUMMARY | 2024-03-27 11:52 | XMS_ITS | Encounter Summary ---
Author Organization [facility] Address [address] [place] [address] Phone Care Team Providers Care Half Section Ironer Name Role Phone Nunu Wilson MD Primary Care Provider + Encounter Details Date Type Department Care Team (Late st Contact Info) Description 12/06/2020 Telephone 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 Calling to confirm her scope on Thursday w/Dr Conrad. documented in this encounter Plan of Treatment Not on file documented as of this encounter Visit Diagnoses Not on filedocumented in this encounter Care Teams Half Section Ironer Relationship Specialty Start Date End Date Nunu Wilson MD [address] [place] [address] PCP - General 04/01/17 12/09/20 documented as of this encounter
--- OUTSIDE RECORDS SUMMARY | 2024-03-27 11:52 | XMS_ITS | Encounter Summary ---
Author Organization [facility] Address [address] [place] [address] Phone Care Team Providers Care Used Building Materials Yard Worker Name Role Phone Yamilet Villegas NP Primary Care Provider +1- [phone] Reason for Visit * Consultation (Routine) - Closed Specialty Diagnoses / Procedures Referred By Nelly t Referred To Contact Gastroenterology Diagnoses Colitis Rectal bleeding Abdominal pain Referral, Self [facility] (All Locations) Referral ID Status Reason Start Date Expiration Date V isits Requested Visits Authorized [id number] Closed Specialty Services Required 01/04/2021 02/03/2022 1 1 Encounter Details Date Type Department Care Team (Latest Contact Info) Description 03/12/2021 1:00 PM INDUSTRIAL TRAINING SPECIALIST Office Visit [facility] Gastroenterology [address] [facility] 12th [place] [address] [place] [address] Shirin Mahmood MD [address] [place] [address] Nausea and vomiting, intractability of vomiting not specified, unspecified vomiting type (Primary Dx); Colitis; Rectal bleeding; Abdominal pain Social History Tobacco Use Types Packs/Day Years [...] on file Legal Sex Female 11:02 AM INDUSTRIAL TRAINING SPECIALIST Gender Identity Not on file Sexual Orientation Not on file documented as of this encounter Last Filed Vital Signs Vital Sign Reading Time Taken Comments Blood Pressure 132/79 03/12/2021 12:46 PM INDUSTRIAL TRAINING SPECIALIST Pulse 75 03/12/2021 12:46 PM INDUSTRIAL TRAINING SPECIALIST Temperature 36.8 ??C (98.2 ??F) 03/12/2021 12:[address] Respiratory Rate - - Oxygen Saturation 100% 03/12/2021 12:46 PM INDUSTRIAL TRAINING SPECIALIST Inhaled Oxygen Concentration - - Weight 51.3 kg (113 lb) 03/12/2021 12:46 PM INDUSTRIAL TRAINING SPECIALIST Height 175.3 cm (5' 9 ) 03/12/2021 12:46 PM INDUSTRIAL TRAINING SPECIALIST Body Mass Index 16.69 03/12/2021 12:46 PM INDUSTRIAL TRAINING SPECIALIST documented in this encounter Progress Notes * Shirin Mahmood MD - 03/12/2021 1:00 PM CST Images from the original note were not included. [facility] DEPARTMENT OF MEDICINE DIVISION OF GASTROENTEROLOGY Clinic Address: [address] [place] [address], [place] [address] Mailing [facility]: [facility] [place] [address] [place] [address] Consult Note NAME: America Bloom : 2000 DOS: 03/12/2021 Reason for referral: Consult requested by: Referral, Self Primary Care Physician: Yamilet Villegas NP Subjective Chief complaint: Abdominal pain, nausea, diarrhea, rectal bleeding HPI Ms. Bloom is a 20 y.o. female with history of Nehal's thyroiditis who presents evaluation of GI symptoms. She has been having these since the age of 6. Around twice a month she has an episode where she has stabbing lower abdominal pain, associated with loose stools, more recently she has begun to have rectal bleeding. Associated with unquantified weight loss. Also has bloating and increased flatulence. Has persistent, longstanding nausea, does not change with the time of the day. Symptoms are worse with dairy. She has tried cutting out gluten from her diet with no improvement in symptoms. More recently she went to the ER in [place] for persistent dizziness, chills, fevers and loose stools, she had a CT scan that she stays showed colitis, I do not have the report available. She was discharged on ciprofloxacin and metronidazole. She had a colonoscopy for these symptoms in November 2020, which was unremarkable. Patient Active Problem List Diagnosis ??? Anti-TPO [...] ADENOIDECTOMY, BILATERAL MYRINGOTOMY AND TUBES ??? TONSILLECTOMY/ADENOIDECTOMY Current Outpatient Medications: ??? acetaminophen-codeine (TYLENOL with CODEINE #3) 300-30 mg per tablet, Take 1-2 tablets by mouthevery 4 (four) hours as needed. , Disp: , Rfl: 0 ??? drospirenone-ethinyl estradiol (SLAVA, 28,) 3-0.03 mg per tablet, Take 1 tablet by mouth daily. (Patient not taking: Reported on 03/12/2021), Disp: , Rfl: No Known Allergies Family History Problem Relation Age of Onset [...] - Relation: Grandmother (Added by TW Conv) Social History Tobacco Use ??? Smoking status: Never Smoker ??? Smokeless tobacco: Never Used Substance Use Topics ??? Alcohol use: Not on file ??? Drug use: Not on file ROS As outlined in HPI. All other systems negative. Objective Vital Signs BP 132/79 Pulse 75 Temp 36.8 ??C (98.2 ??F) (Temporal) Ht 175.3 cm (5' 9 ) Wt 51.3 kg (113 lb) SpO2 100% BMI 16.69 kg/m?? Physical Exam GENERAL: Well-appearing, in no acute distress. HEENT: NC/AT/[place]ET[place] NECK: Supple without lymphadenopathy. LUNGS: Clear to auscultation bilaterally. CARDIOVASCULAR: Regular rate and rhythm with no murmur. ABDOMEN: soft, non-tender; bowel sounds normal; no masses, no organomegaly EXTREMITIES: No clubbing, cyanosis or edema SKIN: No rash or jaundice. NEUROLOGIC: Grossly nonfocal on simple observation with normal insight, memory, affect, and orientation, and no focal weakness evident Results: Labs Lab Results Component Value Date WBC 7.7 06/04/2016 HGB 13.3 06/04/2016 No results found for: SODIUM, POTASSIUM, CHLORIDE, CO2, BUNSER, CREATININE, GLUCOSE, CALCIUM No results found for: PROT, ALBUMIN, BILITOT, ALKPHOS, GGT, AST, ALT Imaging CT results not available, will obtain Endoscopy 12/11 The entire examined colon appeared normal. Very small physiologic internal hemorrhoids. Impression: - The entire examined colon is normal. - No specimens collected. Assessment/Plan 20-year-old female with longstanding history lower abdominal pain, nausea, bloating, loose stools and rectal bleeding, occurring with the cyclic pattern around twice a month. Differentials include irritable bowel syndrome, diarrhea subtype versus inflammatory bowel disease,especially Crohn's disease versus ? Less likely but Meckel's diverticulum Abdominal pain -chronic, associated with bloating and loose stools. -check celiac panel, CRP, stool calprotectin, ova and parasites and C diff. -will get EGD to evaluate nausea and abdominal pain. Nausea -upper GI endoscopy as above -consider empiric PPI trial Rectal bleeding -will check CBC Orders Orders Placed This Encounter Procedures ??? C. difficile testing Stool Standing Status: Future Standing Expiration Date: 03/12/2022 ??? Cryptosporidium and giardia antigen assay Stool Standing Status: Future Standing Expiration Date: 03/12/2022 ??? Ova and parasite examination Stool Standing Status: Future Standing Expiration Date: 03/12/2022 ??? CRP (acute phase) Standing Status: Future Number of Occurrences: 1 Standing Expiration Date: 03/12/2022 ??? Comprehensive metabolic panel Standing Status: Future Number of Occurrences: 1 Standing Expiration Date: 03/12/2022 ??? IgA Standing Status: Future Number of Occurrences: 1 Standing Expiration Date: 03/12/2022 ??? Tissue transglutaminase IgA (TGG-IgA Ab) Standing Status: Future Number of Occurrences: 1 Standing Expiration Date: 03/12/2022 ??? CBC with auto differential Standing Status: Future Number of Occurrences: 1 Standing Expiration Date: 03/12/2022 ??? Calprotectin, fecal Standing Status: Future Standing Expiration Date: 03/12/2022 Return to clinic in 2 months Shirin Mahmood MD Clinical Instructor in [facility] [address] [place] [address] insurance administrative assistant Academic office STRIAL TRAINING SPECIALIST documented in this encounter Miscellaneous Notes * Assessment & Plan Note - Shirin Mahmood MD - 03/12/2021 2:15 PM INDUSTRIAL TRAINING SPECIALIST Associated Problem(s): Rectal bleeding -will check CBC STRIAL TRAINING SPECIALIST * Assessment & Plan Note - Shirin Mahmood MD - 03/12/2021 2:14 PM INDUSTRIAL TRAINING SPECIALIST Associated Problem(s): Nausea -upper GI endoscopy as above -consider empiric PPI trial STRIAL TRAINING SPECIALIST * Assessment & Plan Note - Shirin Mahmood MD - 03/12/2021 2:14 PM INDUSTRIAL TRAINING SPECIALIST Associated Problem(s): Abdominal pain -chronic, associated with bloating and loose stools. -check celiac panel, CRP, stool calprotectin, ova and parasites and C diff. -will get EGD to evaluate nausea and abdominal pain. STRIAL TRAINING SPECIALIST documented in this encounter Plan of Treatment Not on file documented as of this encounter Results * Ova and parasite examination Stool (03/28/2021 9:00 AM INDUSTRIAL TRAINING SPECIALIST) Report Final Report: No parasites detected. Note: treatment with antibiotics; e.g., Clindamycin, Metronidazole, Tetracycline, and Trimethoprim-s ulfa can adversely affect the detection of ova and parasites. Test performed by [facility], [address] [place] [address], [id number]. [facility] Stool 03/28/2021 9:00 AM INDUSTRIAL TRAINING SPECIALIST 03/28/2021 6:04 PM INDUSTRIAL TRAINING SPECIALIST Shirin Mahmood MD LAB MICROBIOLOGY - GENERAL ORD ERABLES Final Result [facility] Department [place] [address] * Cryptosporidium and giardia antigen assay Stool (03/28/2021 9:00 AM INDUSTRIAL TRAINING SPECIALIST) Report Final Report: Negative for Giardia lamblia antigen Negative for Cryptosporidium antigen [facility] Organism NEGATIVE FOR GIARDIA LAMBLIA ANTIGEN [facility] Organism NEGATIVE FOR CRYPTOSPORIDIUM ANTIGEN [facility] Stool 03/28/2021 9:00 AM INDUSTRIAL TRAINING SPECIALIST 03/28/2021 6:04 PM INDUSTRIAL TRAINING SPECIALIST Narrative [facility] - 03/29/2021 8:22 AM INDUSTRIAL TRAINING SPECIALIST Interpretive data: Testing performed by the [facility] using an immunoassay that detects Cryptosporidium and Giardia antigens in stool specimens. If comprehensive examination for ova and parasites is required, please request Ova and Parasite Examination . Current interpretative data was revised April 2020. Shirin Mahmood MD LAB MICROBIOLOGY - GENERAL ORD ERABLES Final Result Performing Organization Address [facility] [place] [address] * C. difficile testing Stool (03/28/2021 9:00 AM INDUSTRIAL TRAINING SPECIALIST) Pathologist [facility] C. diff result Negative, free toxin Negative , free toxin [facility] C. diff interp Negative for toxigenic Clostridioides (Clostridium) difficile. Analysis was performed using an enzyme immunoassay that detects C. difficile toxin(s) in feces. [facility] Stool 03/28/2021 9:00 AM INDUSTRIAL TRAINING SPECIALIST 03/28/2021 6:05 PM INDUSTRIAL TRAINING SPECIALIST Shirin Mahmood MD LAB MICROBIOLOGY - GENERAL ORD ERABLES Final Result Performing Organization Address [facility] [place] [address] * Calprotectin, fecal (03/28/2021 9:00 AM INDUSTRIAL TRAINING SPECIALIST) Pathologist [facility] Calprotectin, fecal <50.0 <50.0 (Normal) mcg/g [facility] Comment: ADDITIONAL INFORMATION On 03/07/2021, [facility] [employer] implemented a new fecal calprotectin method with an expanded measuring range. If patient was tested on previous method and is undergoing serial monitoring, rebaselining may be indicated. Rebaselining, or testing the current sample on the previous method, is available at no charge, subject to reagent availability. The rebaseline result will be added to this report. Contact [facility] [employer] at within 7 days of initial report issuance to request this service. For [facility] patients, call [phone]. Test Performed by: [facility] [address] [place] [address] Cafeteria Manager: Jacob Quintanilla M.D. Ph.D.; IA# [id number] Stool 03/28/2021 9:00 AM INDUSTRIAL TRAINING SPECIALIST 03/28/2021 6:52 PM INDUSTRIAL TRAINING SPECIALIST us Shirin Mahmood MD LAB BODY FLUIDS AND STOOLS ORD ERABLES Final Result [facility] [address] [facility] Department [place] [address] * CBC with auto differential (03/12/2021 1:47 PM INDUSTRIAL TRAINING SPECIALIST) WBC 6.9 3.8 - 9.9 K/cumm [facility] Hgb 13.8 11.9 - 15.5 g/dL [facility] Hct 41.5 35.6 - 45.5 % [facility] Plt 299 150 - 400 K/cumm [facility] MPV 10.0 9.1 - 12.3 fL [facility] RBC 4.56 3.90 - 5.20 M/cumm [facility] MCV 91.0 81.3 - 96.4 fL [facility] MCH 30.3 27.1 - 33.3 pg [facility] MCHC 33.3 32.3 - 35.7 g/dL [facility] RDW CV 13.0 11.1 - 14.9 % [facility] RDW SD 42.7 35.7 - 48.1 fL [facility] NRBC abs 0.00 0.00 - 0.01 K/cumm [facility] Blood 03/12/2021 1:47 PM INDUSTRIAL TRAINING SPECIALIST 03/12/2021 2:01 PM INDUSTRIAL TRAINING SPECIALIST us Shirin Mahmood MD LAB BLOOD ORDERABLES Final Res ult Performing Organization Address [facility] de Phone Number [facility] [place] [place] [address] * Tissue transglutaminase IgA (TGG-IgA Ab) (03/12/2021 1:47 PM INDUSTRIAL TRAINING SPECIALIST) [facility] TTG ab, IgA <0.5 <=14.9 units/mL [facility] Comment: Interpretive data Negative: <15 units/mL Positive: > or equal to 15 units/mL Current interpretive data was last revised on 2016. Blood 03/12/2021 1:47 PM INDUSTRIAL TRAINING SPECIALIST 03/12/2021 2:01 PM INDUSTRIAL TRAINING SPECIALIST Shirin Mahmood MD LAB BLOOD ORDERABLES Final Res ult Performing Organization Address [facility] de Phone Number [facility] [place] [address] * IgA (03/12/2021 1:47 PM INDUSTRIAL TRAINING SPECIALIST) [facility] Immunoglobulin A 148.0 70.0 - 400.0 mg/dL [facility] Blood 03/12/2021 1:47 PM INDUSTRIAL TRAINING SPECIALIST 03/12/2021 2:01 PM INDUSTRIAL TRAINING SPECIALIST Result [facility] Shirin Mahmood MD LAB BLOOD ORDERABLES Final Res ult Performing Organization Address [facility] de Phone Number [facility] [place] [address] * Comprehensive metabolic panel (03/12/2021 1:47 PM INDUSTRIAL TRAINING SPECIALIST) [facility] Sodium 140 135 - 145 mmol/L [facility] Potassium, pl 4.1 3.3 - 4.9 mmol/L [facility] Chloride 103 97 - 110 mmol/L [facility] CO2 27 22 - 32 mmol/L [facility] Anion gap 10 2 - 15 mmol/L [facility] BUN 9 8 - 25 mg/dL [facility] Creatinine 0.72 0.60 - 1.10 mg/dL [facility] Glucose 97 70 - 199 mg/dL [facility] Comment: Interpretive Data Fasting [...] 2017. Calcium 9.5 8.5 - 10.3 mg/dL [facility] Bilirubin, total 0.6 0.1 - 1.2 mg/dL [facility] Protein, pl 8.0 6.5 - 8.5 g/dL [facility] Albumin 4.8 3.5 - 5.0 g/dL [facility] Alk phos 53 40 - 130 Units/L [facility] ALT 14 7 - 45 Units/L [facility] AST 22 10 - 45 Units/L [facility] Blood 03/12/2021 1:47 PM INDUSTRIAL TRAINING SPECIALIST 03/12/2021 2:01 PM INDUSTRIAL TRAINING SPECIALIST us Shirin Mahmood MD LAB BLOOD ORDERABLES Final Res ult Performing Organization Address [facility]/ZIP Co de Phone Number [facility] [address] [facility] Department [place] [address] * CRP (acute phase) (03/12/2021 1:47 PM INDUSTRIAL TRAINING SPECIALIST) CRP 1.0 <=10.0 mg/L [facility] Blood 03/12/2021 1:47 PM INDUSTRIAL TRAINING SPECIALIST 03/12/2021 2:01 PM INDUSTRIAL TRAINING SPECIALIST Shirin Mahmood MD LAB BLOOD ORDERABLES Final Res ult Performing Organization Address City/[facility]/ZIP Co de Phone Number [facility] [place] [address] documented in this encounter Visit Diagnoses Diagnosis Nausea and vomiting, intractability of vomiting not specified, unspecified vomiting type- Primary Colitis Other and unspecified noninfectious gastroenteritis and colitis Rectal bleeding Hemorrhage of rectum and anus Abdominal pain Abdominal pain, unspecified site Colitis Other and unspecified noninfectious gastroenteritis and colitis Rectal bleeding Hemorrhage of rectum and anus documented in this encounter Discontinued Medications Medication Sig Discontinue Reason Start Date End Da te polyethylene glycol (COLYTE) 240-22.72-6.72 -5.84 gram solution Drink first half of prep at 6:00pm the night before procedure. Drink second half of prep 4 hours prior to leaving home for procedure. 11/14/2020 03/12/2021 sodium, potassium & mag sulfates (SUPREP BOWEL KIT) 17.5-3.13-1.6 gram recon solnIndications:Bowel Evacuation Drink first half of prep at 6:00pm the night before procedure. Drink second half of prep 4 hours prior to leaving home for procedure. 10/19/2020 03/12/2021 ISOtretinoin (ABSORCA,ACCUTANE) 40 mg capsule Take one tablet daily as directed 03/12/2021 documented as of this encounter Orders Outpatient Referral Count Last Ordered Date Fir st Ordered Date AMB REFERRAL TO GASTROENTEROLOGY 1 03/12/20 Case Request Count Last Ordered Date First Orde red Date CASE REQUEST GI 1 03/12/2021 documented in this encounter Care Teams Used Building Materials Yard Worker Relationship Specialty Start Date End Date Yamilet Villegas NP [facility] [place] [address] PCP - General Nurse Practitioner 03/12/21 documented as of this encounter
--- OUTSIDE RECORDS SUMMARY | 2024-03-27 11:52 | XMS_ITS | Encounter Summary ---
Author Organization [facility] Address [address] [place] [address] Phone Care Team Providers Care Anesthesiology Technologist Name Role Phone Nunu Wilson MD Primary Care Provider + Encounter Details Date Type Department Care Team (Late st Contact Info) Description 12/06/2020 Telephone [facility] Surgery [facility] 8th [place] [address] [place] [id number] Micheline Edwards Social History Tobacco Use Types Packs/Day Years Used Date Smoking Tobacco: Never Smokeless Tobacco: Never Comments Unknown Sex and Gender Information Value Date Recorded Sex Assigned at Not on file Legal Sex Female 11:02 AM TANK BUILDER AND ERECTOR Gender Identity Not on file Sexual Orientation Not on file documented as of this encounter Miscellaneous Notes * Telephone Encounter - Micheline Edwards - 12/06/2020 3:40 PM CDT Spoke to patient and confirmed Colonoscopy and prep scheduled for 12/10/20. Confirmation Letter: Received via Mail Reviewed Letter: Yes Responsible individual available for day of procedure: Yes Bowel Prep: Suprep Blood Thinners: No Currently Taking: n/a Patient was made aware to stop taking all blood thinning medications prior to procedure. Confirmed arrival time of 8:00AM at [facility], report to Main Entrance. Patient was made aware of current visitor policy and verbalized understanding. documented in this encounter Plan of Treatment Not on file documented as of this encounter Visit Diagnoses Not on filedocumented in this encounter Care Teams Anesthesiology Technologist Relationship Specialty Start Date End Date Nunu Wilson MD [address] [facility] [place] [address] PCP - General 04/01/17 12/09/20 documented as of this encounter
--- OUTSIDE RECORDS SUMMARY | 2024-03-27 11:52 | XMS_ITS | Encounter Summary ---
Author Organization [facility] Address [address] [place] [address] Phone Care Team Providers Care Bar Machine Operator Production Name Role Phone Yamilet Villegas NP Primary Care Provider +1- [phone] Encounter Details Date Type Department Care Team (Late st Contact Info) Description 05/30/2021 Telephone [facility] Gastroenterology [facility] Medicine 12th [place] [address] [place] [address] Shirin Mahmood MD [address] [place] [address] Social History Tobacco Use Types Packs/Day Years [...] on file Legal Sex Female 11:02 AM IT SECURITY PROJECT MANAGER Gender Identity Not on file Sexual Orientation Not on file documented as of this encounter Miscellaneous Notes * Telephone Encounter - Shirin Mahmood MD - 05/30/2021 11:48 AM CST I attempted to call her to offer an ultrasound to evaluate for SMA syndrome which would not requireIV placement. My phone call went to [email or web address]. I will have my nurse try again SECURITY PROJECT MANAGER documented in this encounter Plan of Treatment Not on file documented as of this encounter Visit Diagnoses Not on filedocumented in this encounter Care Teams Bar Machine Operator Production Relationship Specialty Start Date End Date Yamilet Villegas NP [address] [place] [address] PCP - General Nurse Practitioner 03/12/21 documented as of this encounter
--- OUTSIDE RECORDS SUMMARY | 2024-03-27 11:52 | XMS_ITS | Encounter Summary ---
Author Organization [facility] Healthcare Address [address] [place] [address] Care Team Providers Care Lead Generation Specialist Name Role Phone Yamilet Villegas RESEARCH INTERN Primary Care Provider [phone] ReginoKimberlee jenkins DO Unavailable Kaitlyn Puentes RESEARCH INTERN Unavailable [phone] Reason for Visit * Reason Comments Abdominal Pain Back Pain Encounter Details Date Type Department Care Team (Late st Contact Info) Description 11/19/2023 3:57 PM CDT - 11/19/2023 7:59 PM CDT Emergency [facility] Emergency Department [address] [place] [id number] Cyst of right ovary (Primary Dx) Discharge Disposition: Discharge to home or self [...] on file 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 Your ultrasound shows that you do have a cyst on your right ovary. It is recommended you get a repeat follow-up ultrasound in 8-12 weeks. I have prescribed you some naproxen for pain. Please take as prescribed. Do not take this with ibuprofen. If you develop any worsening of symptoms please return to the emergency department. Follow up with your primary care doctor and OBGYN promptly. Follow-up as recommended is mandatory. You have received emergency care only at your visit today. This is not a substitute for ongoing care, further evaluation and treatment and therefore follow-up as directed is not optional but mandatory You MUST follow up for further evaluation of all incidental abnormal radiographic and laboratory findings, Have your physician obtain records from this visit and address all the incidental abnormal findings. This may include final results of lab testing, cultures, final x-ray reports which may nothave been available during the time of the visit. You must not drive or walk home. Besides the medical condition that may preclude this it is quite likely you may have been given medications that may impair your ability to do so causing a danger to yourself. Return immediately for any new symptoms, worsening of symptoms, or persistent symptoms documented in this encounter Medications at Time of Discharge naproxen (NAPROSYN) 500 mg tabletIndications :Pain Take 1 tablet (500 mg total) by mouth 2 (two) times a day with meals for 5 days 10 tablet 11/19/2023 documented as of this encounter Ordered Prescriptions Prescription Sig Dispense Quantity Refills Last Filled Start Date End Date naproxen (NAPROSYN) 500 mg tabletIndications:P ain Take 1 tablet (500 mg total) by mouth 2 (two) times a day with meals for 5 days 10 tablet 11/19/2023 documented in this encounter Discharge Disposition Disposition Code Departure Means Destination Comment s Discharge to home or self care documented in this encounter ED Notes * Kemi Corey PA - 11/19/2023 5:31 PM CDT CHIEF COMPLAINT: Chief Complaint Patient presents with Abdominal Pain Back Pain HPI 2:21 PM America Bloom is a 22 y.o. female ovarian cyst, Mirena IUD x 5 years presenting to the ED c/o pelvic pain x 2 days. Pt reports menstrual cycle started approximately 3 days ago and was having pelvic pain the following morning. States pain was 10/10 during onset that lasted 24 hours, without relief of Tylenol. She has not tried Ibuprofen. Periods are irregular with IUD. Reports pain with periods but goes away with Tylenol. Denies any possibility of STD. Denies any surgeries on abd.No changes to stool or blood in stool. Denies nausea, vomiting, fevers, chills, back pain, urinary symptoms. Has been eating and drinking normall. History provided by patient PCP: Yamilet Villegas NP PAST MEDICAL HISTORY Past Medical History: Diagnosis Date Goiter Ovarian cyst Patellar dislocation 03/27/2016 Personal history of other endocrine, nutritional and metabolic disease H/O Nehal thyroiditis - (Added by ODALYS Conv) PAST SURGICAL HISTORY Past Surgical History: Procedure Laterality Date COLONOSCOPY TONSILECTOMY, ADENOIDECTOMY, BILATERAL MYRINGOTOMY AND TUBES TONSILLECTOMY/ADENOIDECTOMY FAMILY HISTORY Family History Problem Relation Age of Onset Nehal's thyroiditis Mother Family history of Nehal thyroiditis - (Added by TW Conv) Autoimmune disease Mother Family history of autoimmune disorder - (Added by TW Conv) Arthritis Mother Family history of arthritis - (Added by TW Conv) Polycystic ovary syndrome Mother Heart disease Father Family history of cardiac disorder - (Added by TW Conv) Hypertension Father Family history of hypertension - (Added by TW Conv) Hyperlipidemia Father Heart disease Maternal Grandfather Family history of cardiac disorder - Relation: Grandfather (Added by TW Conv) Hypertension Maternal Grandfather Family history of hypertension - Relation: Grandfather (Added by TW Conv) Cancer Maternal Grandfather Family history of malignant neoplasm - Relation: Grandfather (Added by TW Conv) Hypertension Other Family history of hypertension - Relation: Grandmother (Added by TW Conv) Arthritis Other Family history of arthritis - Relation: Grandmother (Added by TW Conv) Seizures Other Seizure - Relation: Grandmother (Added by TW Conv) MEDICATIONS GIVEN IN THE ED Medications ketorolac (TORADOL) 30 mg/mL injection 15 mg (15 mg intravenous Given 11/19/231812) sodium chloride 0.9% bolus 1,000 mL (0 mL intravenous Stopped 11/19/231958) CURRENT HOME MEDICATIONS No current facility-administered medications for this encounter. Current Outpatient Medications: naproxen (NAPROSYN) 500 mg tablet, Take 1 tablet (500 mg total) by mouth 2 (two) times a day with meals for 5 days, Disp: 10 tablet, Rfl: 0 ALLERGIES No Known Allergies SOCIAL HISTORY Social History Tobacco Use Smoking status: Never Smokeless tobacco: Never Substance and Sexual Activity Drug use: Never Sexual activity: Not on file Alcohol Use: Alcohol Misuse (05/06/2021) AUDIT-C Frequency of Alcohol Consumption: 2-4 times a month Average Number of Drinks: 5 or 6 Frequency of Binge Drinking: Monthly PHYSICAL EXAM TRIAGE VITAL SIGNS: ED Triage Vitals [11/19/23 1533] Temp Pulse Resp BP SpO2 36.5 ??C (97.7 ??F) 77 18 108/75 98 % Temp src Heart Rate Source Patient Position BP Location FiO2 (%) Oral -- -- -- -- Height Height Method Weight Weight Method -- -- 55.9 kg (123 lb 3.8 oz) Standing scale Physical Exam Vitals and nursing note reviewed. Constitutional: General: She is not in acute distress. Appearance: Normal appearance. She is normal weight. She is not ill-appearing, toxic-appearing or diaphoretic. HENT: Head: Normocephalic and atraumatic. Eyes: Pupils: Pupils are equal, round, and reactive to light. Cardiovascular: Rate and Rhythm: Normal rate and regular rhythm. Heart sounds: No murmur heard. No friction rub. No gallop. Pulmonary: Effort: Pulmonary effort is normal. No respiratory distress. Breath sounds: Normal breath sounds. No stridor. No wheezing, rhonchi or rales. Abdominal: General: Abdomen is flat. There is no distension. Palpations: Abdomen is soft. There is no mass. Tenderness: There is abdominal tenderness in the right lower quadrant, suprapubic area and left lower quadrant. There is no guarding or rebound. Negative signs include Becker's sign, Rovsing's sign and McBurney's sign. Skin: General: Skin is warm and dry. Neurological: General: No focal deficit present. Mental Status: She is alert and oriented to person, place, and time. Mental status is at baseline. Psychiatric: Mood and Affect: Mood normal. LABS Labs Reviewed COMPREHENSIVE METABOLIC PANEL - Abnormal Result Value Sodium 140 Potassium, pl 4.0 Chloride 106 CO2 26 Anion gap 8 BUN 8 Creatinine 0.60 Glucose 91 Calcium 9.7 Bilirubin, total 0.5 Protein, pl 7.6 Albumin 4.5 Alk phos 35 (*) ALT 17 AST 17 URINALYSIS AND REFLEX TO MICROSCOPIC AND CULTURE Color, ur Straw Clarity, ur Clear Specific gravity, ur 1.008 pH, urine 5.5 Protein, ur ql Negative Glucose, ur ql Negative Ketones, ur Negative Bilirubin, ur Negative Blood, ur Negative Urobilinogen, ur <2.0 Nitrite, ur Negative Leukocyte esterase, ur Negative UA reflex comment Value: Reflex conditions for microscopic UA and culture not met. CBC WITH AUTO DIFFERENTIAL WBC 7.6 Hgb 13.7 Hct 40.6 Plt 267 MPV 9.8 RBC 4.55 MCV 89.2 MCH 30.1 MCHC 33.7 RDW CV 12.2 RDW SD 39.6 NRBC abs 0.00 LIPASE Lipase 37 DIFFERENTIAL AUTO Neutrophil abs 3.9 Imm gran abs 0.0 Lymphocyte abs 2.6 Monocyte abs 0.8 Eosinophil abs 0.2 Basophil abs 0.1 Neutrophil pct 51.7 Imm gran pct 0.4 Lymphocyte pct 34.5 Monocyte pct 10.1 Eosinophil pct 2.6 Basophil pct 0.7 EGFR eGFR >90 HCG, BLOOD, QUANTITATIVE hCG, quant <5.0 HCG, BLOOD, QUANTITATIVE RADIOLOGY No results found. ED COURSE/MEDICAL DECISION MAKING Differential diagnosis included but not limited to dysmenorrhea, ovarian torsion, follicular cyst rupture, , menstrual cramps, UTI, other Patient's medical records were reviewed. I discussed management or test interpretation with the following outside physician, caregiver, intermediate staff: n/a ED Course as of 11/20/23 1421 Time: 11/18 1929 Comment: Recheck on patient. Non toxic appearing, vitals stable. Patient stable for discharge home. Discussed with patient work up, relevant results, and plan for discharge. Patient was given ED warnings, discharge instructions, and follow up instructions. Patient understands and agrees with plan for discharge. Patient was informed and verbalizes understanding to return to ER immediately if sympto ms worsen or persist, new concerns arise, new symptoms develop or if follow up cannot be obtained. Any questions have been addressed. Patient feels comfortable going home at this time. By: Kemi Corey PA Time: 11/19 1416 Comment: The patient is a 22 year old female with a PMH of ovarian cysts who presented to the ED with complaints of pelvic pain. She has started her period a few days ago and has had pain since. Painis not worse on one side. Labs within normal limits. Transvaginal US shows cyst on the right side. She does not have exquisite tenderness on one side or the other. She has good doppler flow to both ovaries and pain completely resolved. Pt has been able to tolerate PO. She is stable for discharge home with close follow up with her PCP. Advised she will need repeat US in the next 8-12 weeks. Strictreturn precautions given for any worsening of sx. By: Kemi Corey PA Procedures FINAL IMPRESSION Cyst of right ovary DISPOSITION: Home PATIENT INSTRUCTED TO FOLLOW UP Yamilet Villegas, MIKHAIL [address] [facility] [address] Schedule an appointment as soon as possible for a visit in 3 days [facility] [place], OBGYN Schedule an appointment as soon as possible for a visit DISCHARGE MEDICATIONS Your medication list START taking these medications Instructions Last Dose Given Next Dose Due naproxen 500 mg tablet Commonly known as: NAPROSYN Take 1 tablet (500 mg total) by mouth 2 (two) times a day with meals for 5 days Where to Get Your Medications These medications were sent to [facility], [place] - [address] [facility] [id number] naproxen 500 mg tablet This examination was transcribed using the [employer] voice recognition system without human central melt specialist. In an effort to expedite patient care, this report has not been adjusted for typographical, grammatical, and syntax by a trained medical numerical control operator. Kemi Corey PA 11/20/23 1422 Cosigned by Shorty Arguello MD at 11/20/2023 4:07 PM CDT Associated attestation - Shorty Arguello MD - 11/20/2023 4:07 PM CDT ED Attestation I was present in the emergency department for consultation on this patient. This patient was not presented to me nor was I asked to evalute the patient before they were discharged. I reviewed the RESEARCH INTERN/PA note briefly. * Mely Clarke, RN - 11/19/2023 3:30 PM CDT Pt reports started period approx 2 days ago and noted the next day began having low abd pain that radiated into low back. Pt reports now feels bloated with tenderness upon palpation to low abd regionbilaterally and still has low back pain. Denies any vomiting or diarrhea. documented in this encounter Plan of Treatment Pending Results Name Type Priority Associated Diagnoses Date /Time hCG, blood, quantitative Lab STAT 11/19/2023 3:37 PM CDT Scheduled Orders Name Type Priority Associated Diagnoses Orde r Schedule hCG, blood, quantitative Lab STAT Once for 1 Occurrences starting 11/19/2023 until 11/19/2023 documented as of this encounter Procedures Procedure Name Priority Date/Time Associated Diagnosis Comments US TRANSVAGINAL ED 11/19/2023 6:45 PM CDT URINALYSIS AND REFLEX TO MICROSCOPIC AND CULTURE STAT 11/19/2023 4:57 PM CDT EGFR STAT 11/19/2023 3:37 PM CDT DIFFERENTIAL AUTO STAT 11/19/2023 3:3 7 PM CDT CBC WITH AUTO DIFFERENTIAL STAT 11/19/2023 3:37 PM CDT HCG, BLOOD, QUANTITATIVE STAT 11/19/2023 3:37 PM CDT LIPASE STAT 11/19/2023 3:37 PM CDT COMPREHENSIVE METABOLIC PANEL STAT 11/19/2023 3:37 PM CDT documented in this encounter Results * US Transvaginal (11/19/2023 6:45 PM CDT) Anatomical Region Laterality Modality Pelvis N/A Ultrasound 11/19/2023 7:06 PM CDT Narrative 11/19/2023 7:11 PM CDT EXAM DESCRIPTION: ?? US TRANSVAGINAL REASON FOR STUDY: ?? ovarian cyst ?Lower abdominal/back pain for 24 hours. ??Currently on menstrual cycle. ?? Patient has IUD. TECHNIQUE: Grayscale and color doppler ultrasound of the pelvic contents was performed with ??transvaginal ??transducer. ??Spectral doppler analysis was also utilized. ?? COMPARISON: None. FINDINGS: UTERUS: ?? Anteflexed. ?? Homogenous ??in echotexture and measures ??4.3 x 5.2 x 9.4 ??cm. ??No discrete measurable fibroid identified. ?? Intrauterine device in place. ENDOMETRIUM: Measures ??0.4 ??cm in thickness. RIGHT OVARY: Measures ??2.6 x 3.1 x 4.2 ??cm. ?? Mildly complex thick-walled cystic lesion with internal echogenicity measures 1.7 x 1.9 x 1.3 cm.. ? There is documentation of color Doppler flow in the right ovary. LEFT OVARY: Measures ??1.7 x 1.9 x 3.5 ??cm. ?? No concerning lesions. ?? There is documentation of color Doppler flow in the left ovary. PELVIC FLUID: ?? No significant free fluid identified. OTHER: ?? None. IMPRESSION: Probable corpus luteum versus hemorrhagic cyst within the right ovary. ??Consider follow-up pelvic ultrasound in 8-12 weeks to demonstrate resolution. ??Intrauterine device in place. ??Otherwise, unremarkable pelvic ultrasound. THIS IS AN ELECTRONICALLY VERIFIED FINAL REPORT 11/19/2023 7:11 PM - Electronically signed by ??Jeffry Mesa M.D. NS: LING D: ??11/19/2023 7:11 PM T: ??11/19/2023 7:11 PM Report ID: [id number] Reading Location: ??[id number] Procedure Note Jeffry Mesa MD - 11/19/2023 EXAM DESCRIPTION: US TRANSVAGINAL REASON FOR STUDY: ovarian cyst Lower abdominal/back pain for 24 hours. Currently on menstrual cycle. Patient has IUD. TECHNIQUE: Grayscale and color doppler ultrasound of the pelvic contentswas performed with transvaginal transducer. Spectral doppler analysis wasalso utilized. COMPARISON: None. FINDINGS: UTERUS: Anteflexed. Homogenous in echotexture and measures4.3 x 5.2 x 9.4 cm. No discrete measurable fibroid identified.Intrauterine device in place. ENDOMETRIUM: Measures 0.4 cm in thickness. RIGHT OVARY: Measures 2.6 x 3.1 x 4.2 cm. Mildly complex thick-walled cystic lesion with internal echogenicity measures 1.7 x 1.9 x 1.3 cm.. There is documentation of color Doppler flow in the right ovary. LEFT OVARY: Measures 1.7 x 1.9 x 3.5 cm. No concerning lesions.There is documentation of color Doppler flow in the left ovary. PELVIC FLUID: No significant free fluid identified. OTHER: None. IMPRESSION: Probable corpus luteum versus hemorrhagic cyst within theright ovary. Consider follow-up pelvic ultrasound in 8-12 weeks to demonstrate resolution. Intrauterine device in place. Otherwise, unremarkable pelvic ultrasound. THIS IS AN ELECTRONICALLY VERIFIED FINAL REPORT 11/19/2023 7:11 PM - Electronically signed by Jeffry Mesa M.D. NS: NS Report ID: [id number] Reading Location: [place] [address] us Kemi MONTALVO [facility] US PROCEDURES Final Result * Urinalysis reflex to microscopic and culture Urine (11/19/2023 4:57 PM CDT) Color, ur Straw Yellow Comment:Testing performed by : [address] [address] Clarity, ur Clear Clear OVIDIO Comment:Testing performed by : [address] [address] Specific gravity, ur 1.008 1.003 - 1.030 OVIDIO Comment:Testing performed by : [address] [address] pH, urine 5.5 OVIDIO Comment: Interpretive Data ? Urine pH is affected by diet, medications, systemic acid-base disturbances, and renal tubular function. ??pH may affect urinary stone formation. ??For example, urine pH below 6.0 may help reduce the tendency for calcium phosphate stones and pH greater than 6.0 may reduce the tendency for uric acid stone formation. Source: Enclarity Current Interpretive Data was last revised on 2017 Testing performed by: [facility], [address] [place] [address], [place]., [address] Protein, ur ql Negative Negative OVIDIO Comment:Testing performed by : [address], [place]., [address] Glucose, ur ql Negative Negative OVIDIO Comment:Testing performed by : [address], [place]., [address] Ketones, ur Negative Negative OVIDIO Comment:Testing performed by : [address], [place]., [address] Bilirubin, ur Negative Negative OVIDIO Comment:Testing performed by : [address], [place]., [address] Blood, ur Negative Negative OVIDIO Comment:Testing performed by : [address], [place]., [address] Urobilinogen, ur <2.0 <2.0 mg/dL OVIDIO Comment:Testing performed by : [address], [place]., [address] Nitrite, ur Negative Negative OVIDIO Comment:Testing performed by : [address], [place]., [address] Leukocyte esterase, ur Negative Negative OVIDIO Comment:Testing performed by : [address], [place]., [address] UA reflex comment Reflex conditions for microscopic UA and culture not met. OVIDIO Comment:Testing performed by : [address], [place]., [address] Urine 11/19/2023 4:57 PM CDT 11/19/2023 4:59 PM CDT us Kemi MONTALVO LAB MICROBIOLOGY - GENERAL ORDER SUDHAKAR Final Result OIVDIO MCCABE [address] [facility] Department of Laboratories [place], [place] [id number] * hCG, blood, quantitative (11/19/2023 3:37 PM CDT) hCG, quant <5.0 0.0 - 5.0 IUnits/L Comment: Interpretive Data Male: < 5 IU/L Non- premenopausal Female: <5 IU/L The Saman hCG Beta Quant assay procedure was used. Results from different manufacturers or methods may not be comparable. ??Serial testing should be performed using the same method. Interpretive Data was last revised on 2023 Testing performed by: [facility], [address] [place] [address], [place]., [address] Blood 11/19/2023 3:37 PM CDT 11/19/2023 3:41 PM CDT us Kemi MONTALVO LAB BLOOD ORDERABLES Final Resul t OVIDIO [address] [facility] Department [place] [address] * eGFR (11/19/2023 3:37 PM CDT) eGFR >90 >=60 mL/min/1. 73 m2 Comment: Interpretive Data Reference Interval Normal ?>/= [...] of Race in Diagnosing Kidney Disease, JASN 202). The CKD-EPI equation should not be used for patients with unstable renal function and has not been validated in children and those over 70. Current interpretive data was last reviewed 2021. Testing performed by: [address] [address] Blood 11/19/2023 3:37 PM CDT 11/19/2023 3:41 PM CDT us Kemi MONTALVO LAB BLOOD ORDERABLES Final Resul t [facility] [address] [facility] Department [place] [address] * Differential, auto (11/19/2023 3:37 PM CDT) Neutrophil abs 3.9 1.5 - 6.5 K/cumm Comment:Testing performed by : [address] [address] Imm gran abs 0.0 0.0 - 0.1 K/cumm OVIDIO Comment:Testing performed by : [address] [address] Lymphocyte abs 2.6 0.8 - 3.3 K/cumm OVIDIO Comment:Testing performed by : [address] [address] Monocyte abs 0.8 0.2 - 0.8 K/cumm OVIDIO Comment:Testing performed by : [address] [address] Eosinophil abs 0.2 0.0 - 0.5 K/cumm OVIDIO Comment:Testing performed by : [address] [address] Basophil abs 0.1 0.0 - 0.1 K/cumm OVIDIO Comment:Testing performed by : [address] [address] Neutrophil pct 51.7 % OVIDIO Comment: Interpretive Data Percent cell count reference ranges are not reported, since discordance with absolute values may lead to misinterpretation of CBC data. Current Interpretive Data was last revised on 2017. Testing performed by: [address] [address] Imm gran pct 0.4 % [facility] Comment: Interpretive Data Percent cell count reference ranges are not reported, since discordance with absolute values may lead to misinterpretation of CBC data. Current Interpretive Data was last revised on 2017. Testing performed by: [address] [address] Lymphocyte pct 34.5 % [facility] Comment: Interpretive Data Percent cell count reference ranges are not reported, since discordance with absolute values may lead to misinterpretation of CBC data. Current Interpretive Data was last revised on 2017. Testing performed by: [address] [address] Monocyte pct 10.1 % [facility] Comment: Interpretive Data Percent cell count reference ranges are not reported, since discordance with absolute values may lead to misinterpretation of CBC data. Current Interpretive Data was last revised on 2017. Testing performed by: [address] [address] Eosinophil pct 2.6 % [facility] Comment: Interpretive Data Percent cell count reference ranges are not reported, since discordance with absolute values may lead to misinterpretation of CBC data. Current Interpretive Data was last revised on 2017. Testing performed by: [address] [address] Basophil pct 0.7 % [facility] Comment: Interpretive Data Percent cell count reference ranges are not reported, since discordance with absolute values may lead to misinterpretation of CBC data. Current Interpretive Data was last revised on 2017. Testing performed by: [address] [address] Blood 11/19/2023 3:37 PM CDT 11/19/2023 3:41 PM CDT us Kemi MONTALVO LAB BLOOD ORDERABLES Final Resul t [place] [address] [facility] Department of Laboratories [place], [place] [id number] * Lipase (11/19/2023 3:37 PM CDT) Lipase 37 10 - 99 Units/L Comment:Testing performed by : [address] [address] Blood (Blood, Venous) 11/19/2023 3:37 PM CDT 11/19/2023 3:41 PM CDT us Kemi MONTALVO LAB BLOOD ORDERABLES Final Resul t [facility] [address] [facility] [place] [address] * (ABNORMAL) Comprehensive metabolic panel (11/19/2023 3:37 PM CDT) Pathologist [facility] Sodium 140 135 - 145 mmol/L Comment:Testing performed by : [address] [address] Potassium, pl 4.0 3.3 - 4.9 mmol/L OVIDIO Comment:Testing performed by : [address] [address] Chloride 106 97 - 110 mmol/L OVIDIO Comment:Testing performed by : [address] [address] CO2 26 22 - 32 mmol/L OVIDIO Comment:Testing performed by : [address] [address] Anion gap 8 2 - 15 mmol/L OVIDIO Comment:Testing performed by : [address] [address] BUN 8 6 - 25 mg/dL OVIDIO Comment:Testing performed by : [address] [address] Creatinine 0.60 0.60 - 1.10 mg/dL OVIDIO Comment:Testing performed by : [address] [address] Glucose 91 70 - 199 mg/dL OVIDIO Comment: Interpretive Data Fasting glucose >/= 126 [...] classification and Diagnosis of Diabetes Diabetes Care 2021; 46: S19-S40. Current interpretive data was last revised 2022. Testing performed by: [address] [address] Calcium 9.7 8.5 - 10.3 mg/dL OVIDIO Comment:Testing performed by : [address] [address] Bilirubin, total 0.5 0.1 - 1.2 mg/dL OVIDIO Comment:Testing performed by : [address] [address] Protein, pl 7.6 6.5 - 8.5 g/dL OVIDIO Comment:Testing performed by : [address] [address] Albumin 4.5 3.5 - 5.0 g/dL OVIDIO Comment:Testing performed by : [address] [address] Alk phos 35(L) 40 - 130 Units/L [facility] Comment:Testing performed by : [address] [address] ALT 17 7 - 45 Units/L [facility] Comment:Testing performed by : [address] [address] AST 17 10 - 45 Units/L [facility] Comment:Testing performed by : [address] [address] Blood 11/19/2023 3:37 PM CDT 11/19/2023 3:41 PM CDT us Kemi MONTALVO LAB BLOOD ORDERABLES Final Resul t [facility] [address] [facility] [place] [address] * CBC with auto differential (11/19/2023 3:37 PM CDT) [facility] WBC 7.6 3.8 - 9.9 K/cumm Comment:Testing performed by : [address] [address] Hgb 13.7 11.9 - 15.5 g/dL [facility] Comment:Testing performed by : [address] [address] Hct 40.6 35.6 - 45.5 % [facility] Comment:Testing performed by : [address] [address] Plt 267 150 - 400 K/cumm [facility] Comment:Testing performed by : [address] [address] MPV 9.8 9.1 - 12.3 fL [facility] Comment:Testing performed by : [address], [address] RBC 4.55 3.90 - 5.20 M/cumm [facility] Comment:Testing performed by : [address] [address] MCV 89.2 81.3 - 96.4 fL [facility] Comment:Testing performed by : [address], [address] MCH 30.1 27.1 - 33.3 pg [facility] Comment:Testing performed by : [address], [address] MCHC 33.7 32.3 - 35.7 g/dL [facility] Comment:Testing performed by : [address], [address] RDW CV 12.2 11.1 - 14.9 % [facility] Comment:Testing performed by : [address], [address] RDW SD 39.6 35.7 - 48.1 fL [facility] Comment:Testing performed by : [address], [address] NRBC abs 0.00 0.00 - 0.01 K/cumm [facility] Comment:Testing performed by : [place] [address], [place]., [address] Blood (Blood, Venous) 11/19/2023 3:37 PM CDT 11/19/2023 3:41 PM CDT us Kemi MONTALVO LAB BLOOD ORDERABLES Final Resul t [facility] [address] [facility] Department [place] [address] documented in this encounter Visit Diagnoses Diagnosis Cyst of right ovary- Primary Other and unspecified ovarian cyst documented in this encounter Administered Medications Inactive Administered Medications - up to 3 most recent administrations Medication Order MAR Action Action Date Dose Rate Site ketorolac (TORADOL) 30 mg/mL injection 15 mg 15 mg, intravenous, Once, On Stephanie 11/19/23 at 1801, For 1 dose, For Adult IV push, administer over 15 seconds Given 11/19/2023 6:13 PM CDT 15 mg sodium chloride 0.9% bolus 1,000 mL 1,000 mL, intravenous, Once, On Stephanie 11/19/23 at 1801, For 1 dose New Bag 11/19/2023 6:15 PM CDT 1,000 mL documented in this encounter Active and Recently Administered Medications Times are shown in CDT. Scheduled Medication Order 11/17/2023 11/18/2023 11/19/2023 ketorolac (TORADOL) 30 mg/mL injection 15 mg (COMPLETED) 15 mg, intravenous, Once, On Stephanie 11/19/23 at 1801, For 1 dose, For Adult IV push, administer over 15 seconds 1812 (Given - Provid er: MARY Formna) sodium chloride 0.9% bolus 1,000 mL (COMPLETED) 1,000 mL, intravenous, Once, On Stephanie 11/19/23 at 1801, For 1 dose 1814 (New Bag - Prov ider: MARY oFrman)1958 (Stopped - Provider: Harsh Eduardo RN) documented in this encounter Orders Nursing Count Last Ordered Date First Orde red Date MISCELLANEOUS NURSING CARE ORDER (SPECIFY) 1 11/19/2023 IV Count Last Ordered Date First Orde red Date SALINE LOCK IV 1 11/19/2023 documented in this encounter Care Teams Lead Generation Specialist Relationship Specialty Start Date End Date Yamilet Villegas NP [address] [place] [address] PCP - General Nurse Practitioner 03/12/21 Kimberlee Hernandez DO [address] [place] [id number] Net Wpf Developer Obstetrics and Gynecology 11/21/22 Kaitlyn Puentes NP [address] [place] [address] Nurse Practitioner Obstetrics and Gynecology 03/04/23 documented as of this encounter
--- OUTSIDE RECORDS SUMMARY | 2024-03-27 11:53 | XMS_ITS | Encounter Summary ---
Author Organization [facility] Address [address] [facility] [address] [place] [address] Phone Care Team Providers Care Director Corporate Compliance Name Role Phone Nunu Wilson MD Primary Care Provider + Encounter Details Date Type Department Care Team (Late st Contact Info) Description 10/19/2020 Orders Only [facility] [address] [facility] [address] 2nd [address] [place] [address] Abby Dotson MD [address] [facility] [phone] [place] [address] Social History Tobacco Use Types Packs/Day Years Used Date Smoking Tobacco: Never Smokeless Tobacco: Never Comments Unknown Sex and Gender Information Value Date Recorded Sex Assigned at Not on file 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 Drink second half of prep 4 hours prior to leaving home for procedure. 354 mL 10/19/2020 documented in this encounter Plan of Treatment Not on file documented as of this encounter Visit Diagnoses Not on filedocumented in this encounter Care Teams Director Corporate Compliance Relationship Specialty Start Date End Date Nunu Wilson MD [address] [place] [address] PCP - General 04/01/17 12/09/20 documented as of this encounter
--- OUTSIDE RECORDS SUMMARY | 2024-03-27 11:53 | XMS_ITS | Encounter Summary ---
Author Organization [facility] Address [address] [place] [address] Phone Care Team Providers Care Internet Retailer Name Role Phone Nunu Wilson MD Primary Care Provider + Encounter Details Date Type Department Care Team (Late st Contact Info) Description 03/25/2019 Telephone [place] [facility] [address] [facility] Advanced Medicine 11th [place] [address] [place] [address] Erin Hoover Social History Tobacco Use Types Packs/Day Years Used Date Smoking Tobacco: Never Smokeless Tobacco: Never Comments Unknown Sex and Gender Information Value Date Recorded Sex Assigned at Not on file Legal Sex Female 11:02 AM RECONSTRUCTIVE SURGEON Gender Identity Not on file Sexual Orientation Not on file documented as of this encounter Miscellaneous Notes * Telephone Encounter - Erin Hoover - 03/25/2019 9:03 AM CST TT PT SCHEDULED SX AND POV MAILED PACKET AND UPDATED CALENDAR. By Erin Hoover NSTRUCTIVE SURGEON documented in this encounter Plan of Treatment Not on file documented as of this encounter Visit Diagnoses Not on filedocumented in this encounter Care Teams Internet Retailer Relationship Specialty Start Date End Date Nunu Wilson MD [address] [place] [address] PCP - General 04/01/17 12/09/20 documented as of this encounter
--- OUTSIDE RECORDS SUMMARY | 2024-03-27 11:53 | XMS_ITS | Encounter Summary ---
Author Organization [facility] Address [address] [place] [address] Phone Care Team Providers Care Terminal Gauger Supervisor Name Role Phone Nunu Wilson MD Primary Care Provider + Encounter Details Date Type Department Care Team (Late st Contact Info) Description 04/06/2019 Telephone [place] [facility] [address] [facility] Advanced Medicine 11th [place] [address] [place] [address] Erin Hoover Social History Tobacco Use Types Packs/Day Years Used Date Smoking Tobacco: Never Smokeless Tobacco: Never Comments Unknown Sex and Gender Information Value Date Recorded Sex Assigned at Not on file Legal Sex Female 11:02 AM LIVESTOCK AUCTIONEER Gender Identity Not on file Sexual Orientation Not on file documented as of this encounter Miscellaneous Notes * Telephone Encounter - Erin Hoover - 04/06/2019 9:21 AM CST left 2nd vm for pt to call and set up sx. By Erin Hoover STOCK AUCTIONEER documented in this encounter Plan of Treatment Not on file documented as of this encounter Visit Diagnoses Not on filedocumented in this encounter Care Teams Terminal Gauger Supervisor Relationship Specialty Start Date End Date Nuun Wilson MD [address] [place] [address] PCP - General 04/01/17 12/09/20 documented as of this encounter
--- OUTSIDE RECORDS SUMMARY | 2024-03-27 11:53 | XMS_ITS | Encounter Summary ---
Author Organization [facility] Address [address] [place] [address] Phone Care Team Providers Care Embalmer Apprentice Name Role Phone Nunu Wilson MD Primary Care Provider + Encounter Details Date Type Department Care Team (Late st Contact Info) Description 04/26/2019 Telephone [place] [facility] [address] [facility] Advanced Medicine [address]th [place] [address] [place] [address] Erin Hoover Social History Tobacco Use Types Packs/Day Years Used Date Smoking Tobacco: Never Smokeless Tobacco: Never Comments Unknown Sex and Gender Information Value Date Recorded Sex Assigned at Not on file Legal Sex Female 11:02 AM FRAME COVERER Gender Identity Not on file Sexual Orientation Not on file documented as of this encounter Miscellaneous Notes * Telephone Encounter - Erin Hoover - 04/26/2019 10:06 AM CST tt pt mom, states they arent ready to set up sx. they have another DrAlysha to consult with next week, then they will make a decision as to who to proceed with. By Erin Hoover E COVERER documented in this encounter Plan of Treatment Not on file documented as of this encounter Visit Diagnoses Not on filedocumented in this encounter Care Teams Embalmer Apprentice Relationship Specialty Start Date End Date Nunu Wilson MD [address] [place] [address] PCP - General 04/01/17 12/09/20 documented as of this encounter
--- OUTSIDE RECORDS SUMMARY | 2024-03-27 11:53 | XMS_ITS | Encounter Summary ---
Author Organization [facility] Address [address] [place] [address] Phone Care Team Providers Care Shadow Graph Weight Operator Name Role Phone Nunu Wilson MD Primary Care Provider + Encounter Details Date Type Department Care Team (Late st Contact Info) Description 04/21/[address] [place] [facility] [address] [facility] Advanced Medicine 11th [place] [address] [place] [address] Erin Hoover Social History Tobacco Use Types Packs/Day Years Used Date Smoking Tobacco: Never Smokeless Tobacco: Never Comments Unknown Sex and Gender Information Value Date Recorded Sex Assigned at Not on file Legal Sex Female 11:02 AM FAIRGROUND OPERATOR Gender Identity Not on file Sexual Orientation Not on file documented as of this encounter Miscellaneous Notes * Telephone Encounter - Erin Hoover - 04/21/2019 11:25 AM CST Left Message - left vm for pt to call and set up sx. By Erin Hoover GROUND OPERATOR documented in this encounter Plan of Treatment Not on file documented as of this encounter Visit Diagnoses Not on filedocumented in this encounter Care Teams Shadow Graph Weight Operator Relationship Specialty Start Date End Date Nunu Wilson MD [address] [place] [address] PCP - General 04/01/17 12/09/20 documented as of this encounter
--- OUTSIDE RECORDS SUMMARY | 2024-03-27 11:53 | XMS_ITS | Encounter Summary ---
Author Organization [facility] Address [address] [place] [address] Phone Care Team Providers Care Clerk Rating Name Role Phone Nunu Wilson MD Primary Care Provider + Encounter Details Date Type Department Care Team (Late st Contact Info) Description 03/31/2019 Telephone [place] [facility] [address] [facility] Advanced Medicine [address]th [place] [address] [place] [address] Erin Hoover Social History Tobacco Use Types Packs/Day Years Used Date Smoking Tobacco: Never Smokeless Tobacco: Never Comments Unknown Sex and Gender Information Value Date Recorded Sex Assigned at Not on file Legal Sex Female 11:02 AM FORMING MACHINE UPKEEP MECHANIC HELPER Gender Identity Not on file Sexual Orientation Not on file documented as of this encounter Miscellaneous Notes * Telephone Encounter - Erin Hoover - 03/31/2019 11:07 AM CST Left Message - left vm for pt to call and set up sx. By Erin Hoover ING MACHINE UPKEEP MECHANIC HELPER documented in this encounter Plan of Treatment Not on file documented as of this encounter Visit Diagnoses Not on filedocumented in this encounter Care Teams Clerk Rating Relationship Specialty Start Date End Date Nunu Wilson MD [address] [place] [address] PCP - General 04/01/17 12/09/20 documented as of this encounter
--- OUTSIDE RECORDS SUMMARY | 2024-03-27 11:53 | XMS_ITS | Encounter Summary ---
Author Organization [facility] Address [address] [place] [address] Phone Care Team Providers Care Director Of Dance Name Role Phone Nunu Wilson MD Primary Care Provider + Encounter Details Date Type Department Care Team (Late st Contact Info) Description 09/09/2019 Telephone [place] [facility] [address] [facility] Advanced Medicine [address]th [place] [address] [place] [address] Erin Hoover Social History Tobacco Use Types Packs/Day Years Used Date Smoking Tobacco: Never Smokeless Tobacco: Never Comments Unknown Sex and Gender Information Value Date Recorded Sex Assigned at Not on file Legal Sex Female 11:02 AM AIRPORT MAINTENANCE LABORER Gender Identity Not on file Sexual Orientation Not on file documented as of this encounter Miscellaneous Notes * Telephone Encounter - Erin Hoover - 09/09/2019 9:27 AM CDT Left Message - left vm for mom to let mek now if they have chosen another surgeon or not.?will cancel until she calls back. By Erin Hoover documented in this encounter Plan of Treatment Not on file documented as of this encounter Visit Diagnoses Not on filedocumented in this encounter Care Teams Director Of Dance Relationship Specialty Start Date End Date Nunu Wilson MD [address] [place] [address] PCP - General 04/01/17 12/09/20 documented as of this encounter
--- OUTSIDE RECORDS SUMMARY | 2024-03-27 11:53 | XMS_ITS | Encounter Summary ---
Author Organization [facility] Address [address] [place] [address] Phone Care Team Providers Care Dictaphone Transcriber Name Role Phone Nunu Wilson MD Primary Care Provider + Encounter Details Date Type Department Care Team (Late st Contact Info) Description 05/18/2019 Telephone [place] [facility] [address] [facility] Advanced Medicine 11th [place] [address] [place] [address] Erin Hoover Social History Tobacco Use Types Packs/Day Years Used Date Smoking Tobacco: Never Smokeless Tobacco: Never Comments Unknown Sex and Gender Information Value Date Recorded Sex Assigned at Not on file Legal Sex Female 11:02 AM STRUCTURAL FITTER Gender Identity Not on file Sexual Orientation Not on file documented as of this encounter Miscellaneous Notes * Telephone Encounter - Erin Hoover - 05/18/2019 1:03 PM CST Left Message - left vm for mom to see if they were ready to proceed or if they had chosen to proceed with their other physician. By Erin Hoover CTURAL FITTER documented in this encounter Plan of Treatment Not on file documented as of this encounter Visit Diagnoses Not on filedocumented in this encounter Care Teams Dictaphone Transcriber Relationship Specialty Start Date End Date Nunu Wilson MD [address] [facility] [place] [address] PCP - General 04/01/17 12/09/20 documented as of this encounter
--- OUTSIDE RECORDS SUMMARY | 2024-03-27 11:53 | XMS_ITS | Encounter Summary ---
Author Organization [facility] Address [address] [place] [address] Phone Care Team Providers Care Research Quality Assurance Specialist Name Role Phone Nunu Wilson MD Primary Care Provider + Encounter Details Date Type Department Care Team (Late st Contact Info) Description 03/25/2019 Telephone [place] [facility] [facility] [address] [facility] Advanced Medicine 11th [place] [address] [place] [address] Erin Hoover Social History Tobacco Use Types Packs/Day Years Used Date Smoking Tobacco: Never Smokeless Tobacco: Never Comments Unknown Sex and Gender Information Value Date Recorded Sex Assigned at Not on file Legal Sex Female 11:02 AM CONCRETE PAVING SUPERVISOR Gender Identity Not on file Sexual Orientation Not on file documented as of this encounter Miscellaneous Notes * Telephone Encounter - Erin Hoover - 03/25/2019 11:20 AM CST Left Message - left vm for pt to call and set up photo review and sx. By Erin Hoover RETE PAVING SUPERVISOR documented in this encounter Plan of Treatment Not on file documented as of this encounter Visit Diagnoses Not on filedocumented in this encounter Care Teams Research Quality Assurance Specialist Relationship Specialty Start Date End Date Nunu Wilson MD [address] [place] [address] PCP - General 04/01/17 12/09/20 documented as of this encounter
--- OUTSIDE RECORDS SUMMARY | 2024-03-27 11:54 | XMS_ITS | Encounter Summary ---
Author Organization [facility] Address [address] [place] [address] Care Team Providers Care Special Projects Manager Name Role Phone Unavailable Primary Care Provider Unavailabl e Encounter Details Date Type Department Care Team (Latest Contact Info) Description 05/26/2016 4:17 PM CABLE MECHANIC - 05/26/2016 11:59 PM CABLE MECHANIC Hospital Encounter [facility] [phone] [place] [address] [place] [address] Discharge Disposition: Discharge to home or self care Social History Tobacco Use Types Packs/Day Years Used Date Smoking Tobacco: Never Assessed Comments Unknown Sex and Gender Information Value Date Recorded Sex Assigned at Not on file Legal Sex Female 11:02 AM CABLE MECHANIC Gender Identity Not on file Sexual Orientation Not on file documented as of this encounter Discharge Disposition Disposition Code Departure Means Destination Discharge to home or self care documented in this encounter Plan of Treatment Not on file documented as of this encounter Visit Diagnoses Not on filedocumented in this encounter
--- OUTSIDE RECORDS SUMMARY | 2024-03-27 11:54 | XMS_ITS | Encounter Summary ---
Author Organization [facility] Facility Care Team Providers Care Varnisher Plasticoater Name Role Phone Unavailable Primary Care Provider Unavailabl e Encounter Details Date Type Department Care Team (Late st Contact Info) Description 02/12/2016 2:56 PM SUPERVISOR PUMPING - 02/12/2016 11:59 PM SUPERVISOR PUMPING [facility] [place] [id number] [place] [address] Lateral dislocation of right patella; Exposure to other specified factors, initial encounter; Engages in activity; Unspecified place or not applicable; Closed displaced fracture of lateral condyle of right femur (CMS/HCC); Strain of right quadriceps muscle, fascia and tendon, initial encounter; Closed fracture of right patella; Patellofemoral disorder of right knee Social History Tobacco Use Types Packs/Day Years Used Date Smoking Tobacco: Never Assessed Comments Unknown Sex and Gender Information Value Date Recorded Sex Assigned at Not on file Legal Sex Female 11:02 AM SUPERVISOR PUMPING Gender Identity Not on file Sexual Orientation Not on file documented as of this encounter Plan of Treatment Not on file documented as of this encounter Procedures Procedure Name Priority Date/Time Associated Diagnosis Comments MRI LOWER EXTREMITY JOINT WO CONTRAST Routine 02/12/2016 4:08 PM SUPERVISOR PUMPING documented in this encounter Results * MRI Lower Extremity Joint WO Contrast (02/12/2016 4:08 PM SUPERVISOR PUMPING) Anatomical Region Laterality Modality N/A Magnetic Resonan ce 02/12/2016 4:08 PM SUPERVISOR PUMPING Narrative 02/12/2016 4:34 PM SUPERVISOR PUMPING DOROTHY MIRAMONTES M.D. YANDEL SARGENT M.D. FINAL REPORT The radiology attending physician has personally reviewed this study, and has reviewed and/or edited this written report and agrees with it. ACC# ??Date Time ??Exam [id number] Feb 12, 2016 16:08:00 [id number] MR Knee without cont R ACC# ??Date Time ??Exam [id number] Feb 12, 2016 16:08:00 [id number] MR Knee without cont R EXAMINATION: ?? Right knee MRI without contrast HISTORY: Right lateral patellar dislocation-relocation injury FINDINGS: Comparison radiographs from 01/24/2016 demonstrate avulsion fracture of the medial patella. MR examination of the right knee is performed with an extremity coil. Sagittal fast spin-echo images, coronal short TR/TE and fast spin-echo images, and transverse fast spin-echo images are obtained. In the medial compartment, the meniscus is intact. There is no focal chondrosis or subchondral edema. In the lateral compartment, the meniscus is intact. ??There is no focal chondrosis or subchondral edema. In the patellofemoral compartment, the articular cartilage appears normal without subchondral edema. There is a sprain of the medial patellofemoral ligament, with minimally distracted avulsion fracture at its superomedial patellar origin. The medial patellofemoral ligament is intact at its femoral origin. There is a severe impaction fracture of the anterolateral lateral femoral condyle and mild impaction fracture of the inferomedial patella. 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 Tibial tubercle trochlear groove (TT-TG) measures 18 mm. The cruciate ligaments are normal. Remainder of collateral ligaments are intact. There is mild prepatellar and infrapatellar bursitis. There is a small knee joint effusion, without osteochondral loose body. ?? IMPRESSION: 1. Lateral right patellar dislocation-relocation injury, with matching impaction fractures of the anterolateral lateral femoral condyle and inferomedial patella. There is an associated sprain of the medial patellofemoral ligament, with minimally distracted avulsion fracture at its superomedial patellar origin. 2. Moderate right trochlear dysplasia. Tibial tubercle trochlear groove (TT-TG) measures 18 mm and the tibial tubercle posterior cruciate ligament interval (TT-PCL) measures 24 mm. 3. Small right knee effusion. ?? Requested By: Dictated By: ?? YANDEL SARGENT M.D. ??on Feb 12 2016 ??4:31P This document has been electronically signed by: DOROTHY MIRAMONTES M.D. on Feb 12 2016 ??4:34P [id number] Procedure Note Provider, MD Moises - 07/28/2016 DOROTHY MIRAMONTES M.D. YANDEL SARGENT M.D. FINAL REPORT The radiology attending physician has personally reviewed this study, and has reviewed and/or edited this written report and agrees with it. ACC# Date Time Exam [id number] Feb 12, 2016 16:08:00 [id number] MR Knee without cont R ACC# Date Time Exam [id number] Feb 12, 2016 16:08:00 [id number] MR Knee without cont R EXAMINATION: Right knee MRI without contrast HISTORY: Right lateral patellar dislocation-relocation injury FINDINGS: Comparison radiographs from 01/24/2016 demonstrate avulsion fracture of the medial patella. MR examination of the right knee is performed with an extremity coil. Sagittal fast spin-echo images, coronal short TR/TE and fast spin-echo images, and transverse fast spin-echo images are obtained. In the medial compartment, the meniscus is intact. There is no focal chondrosis or subchondral edema. In the lateral compartment, the meniscus is intact. There is no focal chondrosis or subchondral edema. In the patellofemoral compartment, the articular cartilage appears normal without subchondral edema. There is a sprain of the medial patellofemoral ligament, with minimally distracted avulsion fracture at its superomedial patellar origin. The medial patellofemoral ligament is intact at its femoral origin. There is a severe impaction fracture of the anterolateral lateral femoral condyle and mild impaction fracture of the inferomedial patella. 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 Tibial tubercle trochlear groove (TT-TG) measures 18 mm. The cruciate ligaments are normal. Remainder of collateral ligaments are intact. There is mild prepatellar and infrapatellar bursitis. There is a small knee joint effusion, without osteochondral loose body. IMPRESSION: 1. Lateral right patellar dislocation-relocation injury, with matching impaction fractures of the anterolateral lateral femoral condyle and inferomedial patella. There is an associated sprain of the medial patellofemoral ligament, with minimally distracted avulsion fracture at its superomedial patellar origin. 2. Moderate right trochlear dysplasia. Tibial tubercle trochlear groove (TT-TG) measures 18 mm and the tibial tubercle posterior cruciate ligament interval (TT-PCL) measures 24 mm. 3. Small right knee effusion. Requested By: Dictated By: YANDEL SARGENT M.D. on Feb 12 2016 4:31P This document has been electronically signed by: DOROTHY MIRAMONTES M.D. on Feb 12 2016 4:34P [id number] us Historical Provider MD [facility] MRI PROCEDURES Final Result documented in this encounter Visit Diagnoses Diagnosis Lateral dislocation of right patella Exposure to other specified factors, initial encounter Engages in activity Unspecified place or not applicable Closed displaced fracture of lateral condyle of right femur (HCC) Strain of right quadriceps muscle, fascia and tendon, initial encounter Closed fracture of right patella Patellofemoral disorder of right knee documented in this encounter
--- OUTSIDE RECORDS SUMMARY | 2024-03-27 11:54 | XMS_ITS | Encounter Summary ---
Author Organization [facility] Address [address] [place] [address] Phone Care Team Providers Care Tassel Making Machine Operator Name Role Phone Nunu Wilson MD Primary Care Provider + Reason for Visit * Reason Comments Cosmetic Surgery * ENT (Routine) - Closed Specialty Diagnoses / Procedures Referred By Contac t Referred To Contact Otolaryngology Diagnoses EVAL DEVATED SEPTUM/TROUBLE BREATHING-ALSO DISCUSS POSS NASAL SURGERY AWARE OF [facility] [place] LOC Procedures NEW Nunu Wilson MD [address] [place] [address] Phone: tel: fax: Chris Gordon MD [address] [place] [address] Phone: tel: fax: Referral ID Status Reason Start Date Expiration Date Visits Re quested Visits Authorized [id number] Closed 03/18/2019 09/26/2020 1 1 Encounter Details Date Type Department Care Team (Late st Contact Info) Description 03/18/2019 10:30 AM BOX BRANDER Office Visit [facility] Otolaryngology [facility] [address] [place] [address] Chris Gordon MD [address] [place] [address] Deviated nasal septum (Primary Dx); Refractory obstruction of nasal airway Social History Tobacco Use Types Packs/Day Years Used Date Smoking Tobacco: Never Smokeless Tobacco: Never Comments Unknown Sex and Gender Information Value Date Recorded Sex Assigned at Not on file Legal Sex Female 11:02 AM BOX BRANDER Gender Identity Not on file Sexual Orientation Not on file documented as of this encounter Last Filed Vital Signs Vital Sign Reading Time Taken Comments Blood Pressure 108/64 03/18/2019 10:57 AM BOX BRANDER Pulse - - Temperature - - Respiratory Rate - - Oxygen Saturation - - Inhaled Oxygen Concentration - - Weight 54.3 kg (119 lb 9.6 oz) 03/18/2019 10:57 AM BOX BRANDER Height 172.7 cm (5' 8 ) 03/18/2019 10:57 AM BOX BRANDER Body Mass Index 18.19 03/18/2019 10:57 AM BOX BRANDER documented in this encounter Progress Notes * Chris Gordon MD - 03/18/2019 10:30 AM CST Images from the original note were not included. Facial Plastic & Reconstructive Surgery Rhinoplasty Consultation Chief Complaint Rhinoplasty Consultation History of Present Illness America Bloom is a 18 y.o. female presenting with nasal airway obstruction worse on the left. This is been present for many years. Mother relates that when she was born her nose was shifted significantly off to the left. She has never had any nasal surgery she does not have allergies and takes no allergy medications. She did have allergy testing and was negative. She doesn't have frequent sinus infections. Past Medical History Past Medical History: Diagnosis Date ??? Goiter ??? Patellar dislocation 03/27/2016 ??? Personal history of other endocrine, nutritional and metabolic disease H/O Nehal thyroiditis - (Added by TW Conv) Past Surgical History Past Surgical History: Procedure Laterality Date ? ? [place] REMOVAL ADENOIDS,PRIMARY,<11 Y/O Adenoidectomy - (Added by TW Conv) ? ? [place] REMOVAL OF TONSILS,<11 Y/O Tonsillectomy - (Added by TW Conv) ??? TONSILECTOMY, ADENOIDECTOMY, BILATERAL MYRINGOTOMY AND TUBES Family History Family History Problem Relation Age of Onset [...] Grandmother (Added by TW Conv) Social History Social History Socioeconomic History ??? Marital status: Single Spouse name: Not on file ??? Number of children: Not on file ??? Years of education: Not on file ??? Highest education level: Not on file Occupational History ??? Not on file Social Needs ??? Financial resource strain: Not on file ??? Food insecurity: Worry: Not on file Inability: Not on file ??? Transportation needs: Medical: Not on file Non-medical: Not on file Tobacco Use ??? Smoking status: Never Smoker ??? Smokeless tobacco: Never Used Substance and Sexual Activity ??? Alcohol use: Not on file ??? Drug use: Not on file ??? Sexual activity: Not on file Lifestyle ??? Physical activity: Days per week: Not on file Minutes per session: Not on file ??? Stress: Not on file Relationships ??? Social connections: Talks on phone: Not on file Gets together: Not on file Attends congregation service: Not on file Active member of club or organization: Not on file Attends meetings of clubs or organizations: Not on file Relationship status: Not on file ??? Intimate partner violence: Fear of current or ex partner: Not on file Emotionally abused: Not on file Physically abused: Not on file Forced sexual activity: Not on file Other Topics Concern ??? Not on file Social History Narrative ??? Not on file Patient Active Problem List Diagnosis Date Noted ??? Hypertriglyceridemia 11/03/2017 ??? Dyslipidemia 11/03/2017 ??? Lower abdominal pain 04/08/2016 Class: Chronic Description: --most likely related to IBS. Rule out Celiac disease. Doubt IBD. ??? Nausea 04/08/2016 Class: Chronic Description: -consider acid peptic disease or nonulcer dypepsia. ??? Tenesmus 04/08/2016 Class: Chronic ??? Knee pain 01/23/2016 Class: Chronic ??? Oligomenorrhea 02/19/2015 Class: Chronic ??? 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 All review of systems not otherwise marked on the form are negative. The Patient History Form can be found in the electronic medical record as a scanned document. Review of Data / Films / Records Not applicable Physical Exam Physical Exam Constitutional: Appearance: Normal appearance. She is normal weight. HENT: Head: Normocephalic and atraumatic. Nose: Comments: Nasal deformity: Tip: deviated to the left with the slight widening of the nasal tip. Dorsum: deviated to left, Normal External Valve: collapses on inspiration Internal Valve: Normal SSTE:normal Nasal bones:deviated to left There is approximately 85% obstruction of the left nasal vault and 60% obstruction of the right nasal vault due to the septal deviation and turbinate hypertrophy. Mouth/Throat: Mouth: Mucous membranes are moist. Pharynx: Oropharynx is clear. Eyes: Extraocular Movements: Extraocular movements intact. Conjunctiva/sclera: Conjunctivae normal. Pupils: Pupils are equal, round, and reactive to light. Pulmonary: Effort: Pulmonary effort is normal. Skin: General: Skin is warm and dry. Neurological: General: No focal deficit present. Mental Status: She is alert. Psychiatric: Mood and Affect: Mood normal. Behavior: Behavior normal. Assessment: 18 y.o. female presenting with nasal septal deviation with inferior turbinate hypertrophy bilaterally. Patient does not have inhalant allergies. I recommended to her that she undergo septoplasty withbilateral inferior turbinate reduction for her structural deformities. Because she does not have recurrent sinusitis or nasal allergies trial of nasal steroids or antihistamine decongestants would not be medically indicated. It is my opinion that she would benefit from septoplasty with turbinate reduction to correct her nasal obstruction since this is structural in nature and not related to a mucosal defect such as allergic or nonallergic rhinitis. Patient has leftward deviated external nasal deformity that is both bony and cartilaginous in nature. She would like to have this corrected as well as a dorsal convexity. She understands that this iscosmetic in nature and would not be covered by insurance company. Plan: Will be seeing a predetermination of benefits for septoplasty and bilateral inferior turbinate reduction from her insurance company. Once approved of she will undergo computerized imaging and preop consultation for the cosmetic portion of her procedure. I have reviewed with extensively the proposedsurgical plan there is understanding and a desire to proceed. The risks, benefits, alternatives, wound healing, potential complications and postoperative healing course have been discussed with the patient and there is understanding verbalized by the patient of these. There was an opportunity to have all questions asked and answered by the patient. The note in its entirety has been confirmed by me, the attending physician. Parts of the note were initially recorded by my staff. Chris Gordon M.D. Professor and Chief Facial Plastic and Reconstructive Surgery [facility] 03/18/2019 BRANDER documented in this encounter Plan of Treatment Not on file documented as of this encounter Visit Diagnoses Diagnosis Deviated nasal septum- Primary Refractory obstruction of nasal airway documented in this encounter Care Teams Tassel Making Machine Operator Relationship Specialty Start Date End Date Nunu Wilson MD [address] [place] [address] PCP - General 04/01/17 12/09/20 documented as of this encounter
--- OUTSIDE RECORDS SUMMARY | 2024-03-27 11:54 | XMS_ITS | Encounter Summary ---
Author Organization [facility] Address [address] [place] [address] Phone Care Team Providers Care Fire Alarm Repairer Name Role Phone Nunu Wilson MD Primary Care Provider + Reason for Visit * Reason Comments Hyperlipidemia Thyroid Problem * Endocrinology (Routine) - Closed Specialty Diagnoses / Procedures Referred By Contac t Referred To Contact Pediatric Endocrinology Diagnoses Appt Comment: F/U Procedures ENDO RETURN Nunu Wilson MD Phone: tel: fax: Daysi Lopez MD [address] [place] [address] Phone: tel: fax: Referral ID Status Reason Start Date Expiration Date Visits Re quested Visits Authorized [id number] Closed 11/02/2017 05/14/2019 1 1 Encounter Details Date Type Department Care Team (Late st Contact Info) Description 11/02/2017 2:00 PM CDT Office Visit [facility] Pediatric Endocrinology [facility] 2nd [place] [address] [place] [phone] Daysi Lopez MD [address] [id number] Secondary oligomenorrhea (Primary Dx); Anti-TPO antibodies present; Hypertriglyceridemia; Dyslipidemia Social History Tobacco Use Types Packs/Day Years Used Date Smoking Tobacco: Never Smokeless Tobacco: Never Comments Unknown Sex and Gender Information Value Date Recorded Sex Assigned at Not on file Legal Sex Female 11:02 AM FAMILY PRACTICE MD Gender Identity Not on file Sexual Orientation Not on file documented as of this encounter Last Filed Vital Signs Vital Sign Reading Time Taken Comments Blood Pressure 108/64 11/02/2017 2:13 PM CDT Pulse 77 11/02/2017 2:13 PM CDT Temperature 36.6 ??C (97.8 ??F) 11/02/2017 2:13 PM CD T Respiratory Rate 21 11/02/2017 2:13 PM CDT Oxygen Saturation - - Inhaled Oxygen Concentration - - Weight 53.8 kg (118 lb 9.7 oz) 11/02/2017 2:13 P M CDT Height 172.1 cm (5' 7.76 ) 11/02/2017 3:10 PM CD T Body Mass Index 18.16 11/02/2017 2:13 PM CDT Body Mass Index Percentile 9.99% 11/02/2017 3:1 0 PM CDT Growth Chart: CDC (Girls, 2- 20 Years) documented in this encounter Progress Notes * Cinthya Husain, RD - 11/02/2017 2:00 PM CDT Demographics America Smiley Wolf 2000 11/02/2017 16 y.o. Assessment Diagnosis Plan 1. Secondary oligomenorrhea Reason for Nutrition Counseling: Lipid management Current Outpatient Prescriptions Medication Sig Dispense Refill ??? acetaminophen-codeine (TYLENOL with CODEINE #3) 300-30 mg per tablet Take 1- 2 tablets by mouth every 4 (four) hours as needed. 0 ??? drospirenone-ethinyl estradiol (SLAVA, 28,) 3-0.03 mg per tablet Take 1 tablet by mouth daily. ??? ISOtretinoin (ABSORCA,ACCUTANE) 40 mg capsule Take one tablet daily as directed No current facility-administered medications for this visit. Personal Hx Nutrition/Diet History America eats 2 meals per day. She skips meals. Typical daily intake: Skips breakfast, Lunch is grilled cheese, PM snack is smoothie or mac n cheese, Dinner last night was grilled cheese. Her fruit intake is adequate and vegetable intake is adequate. America Bloom gets her exercise/activity through no regular exercise . She participates in this activity 0 times a week. Results/Labs T Vital signs Vitals: 11/02/17 1413 BP: 108/64 Pulse: 77 Resp: 21 Temp: 36.6 ??C (97.8 ??F) Wt Readings from Last 3 Encounters: 11/02/17 53.8 kg (118 lb 9.7 oz) (39 %, Z= -0.28)* 04/27/17 54 kg (119 lb 0.8 oz) (43 %, Z= -0.19)* 04/08/16 52.4 kg (115 lb 8.3 oz) (41 %, Z= -0.23)* * Growth percentiles are based on CDC 2-20 Years data. Ht Readings from Last 3 Encounters: 11/02/17 172.1 cm (5' 7.76 ) (92 %, Z= 1.39)* 04/27/17 171.9 cm (5' 7.68 ) (92 %, Z= 1.37)* 04/08/16 172 cm (5' 7.72 ) (92 %, Z= 1.43)* * Growth percentiles are based on CDC 2-20 Years data. Body mass index is 18.16 kg/m??. 10 %ile (Z= -1.28) based on CDC 2-20 Years BMI-for-age data using vitals from 11/02/2017. 39 %ile (Z= -0.28) based on CDC 2-20 Years dyvfnf-zpr-sit data using vitals from 11/02/2017. 92 %ile (Z= 1.39) based on CDC 2-20 Years ppugvun-gwn-dmd data using vitals from 11/02/2017. [place] body weight: 63.3 kg (139 lb 10.2 oz) Weight change: 1.4 kg weight gain over the past 7 months Estimated Energy Needs: 6920-4245 kcal/day Counseling/Education Met with America and her mom in endocrine clinic to educate on heart healthy diet secondary to her elevated triglycerides. Provided handout on managing triglycerides by decreasing sugary drinks, sweets and refined grains. Mom states America eats healthier than anyone else in the family. Her weight for height is in the normal range so I encouraged her to continue staying within her calorie range. I did mention how alcohol can effect triglycerides, but am unsure if America drinks alcohol or not. I also provided a handout of foods to choose daily/weekly/monthly, but America didn't even look at it. America was very quiet during the education and did not ask any questions. Plan/Goals 1. Avoid sugary drinks and sweets 2. Ensure more [place]-3 fatty acids Time: :15 * Daysi Lopez MD - 11/02/2017 2:00 PM CDT NAME:America Bloom : 2000 DATE of VISIT:11/03/2017 REFERRING PHYSCIAN:Nunu Wilson MD Reason for Referral: America is a 16 y.o. 11 m.o. female sent for evaluation of Hyperlipidemia and Thyroid Problem HPI:Amreica is a 16 y.o. 11 m.o. female referred for evaluation of Hyperlipidemia and Thyroid Problem . She is accompanied to clinic today by her mother. America has been followed here for goiter and moderately positive anti thyroid antibodies. She has been euthryoid and is not on thyroid medications. She denies symptoms of hypo- or hyperthyroidism. They think that she has recently had thyroid labsdone, but don't have those with them. The last thyroid labs I have are from April and those werenormal. She was taking Accutane for acne and has been having lipids drawn as Accutane is known to elevate triglycerides and LDL. She had these on 09/08/17: Chol 170 Trig 242 LDL 90 She is going into 12th grade. She has not yet taken the ACT or started thinking where she might want to go to college, but says she does want to go. They say that she did poorly in school last year due to acne - she says she didn't want to go when her acne was visible. She says she likes to hang out with friends for fun and that they just drive around while hanging out. I attempted to get a diet history and it was not possible to nail them down on what she eats. Her mother says that she won't eat in front of the rest of the family, she says they eat at times that she doesn't prefer. Mom at times said she is the healthiest eater in the family, and at othert times that she picks up snacks with her friends instead of eating meals. In terms of exercise, as best I could determine she is mostly sedentary. She stays up all night andsleeps during the day. Review of Systems: Constitutional: No fevers, normal appetite, normal activity level, no significant weight change. Eyes: No eye complaints. Head, Ears, Nose, Throat: No rhinorrhea, congestion, ear ache, or sore throat. Respiratory: No cough, shortness of breath, tachypnea. Cardiovascular: No chest pain, palpitation, or syncope. Gastroenterology: No abdominal pain, nausea, emesis, or diarrhea. Female: Adequate urine output. No dysuria or hematuria. Menses: regular Musculoskeletal: No joint pain or swelling. No extremity pain. Skin: No rashes. Heme: No bruising or petechiae. Neuro: No headache. No visual changes. Denies weakness. Psychiatry: often argues with mother, refuses to answer questions, rolls eyes. Admits school refusal, says it is due to fear of going to school with acne. Past Medical History: Past Medical History: Diagnosis Date ??? Goiter ??? Patellar dislocation 03/27/2016 ??? Personal history of other endocrine, nutritional and metabolic disease H/O Nehal thyroiditis - (Added by Conv) Family History Family History Problem Relation Age [...] - Relation: Grandmother (Added by TW Conv) Past Surgical History: Past Surgical History: Procedure Laterality Date ? ? MA REMOVAL ADENOIDS,PRIMARY,<12 Y/O Adenoidectomy - (Added by TW Conv) ? ? MA REMOVAL OF TONSILS,<12 Y/O Tonsillectomy - (Added by TW Conv) ??? TONSILECTOMY, ADENOIDECTOMY, BILATERAL MYRINGOTOMY AND TUBES History: History ??? Length: 46.4 cm (18.25 ) Weight: 3.232 kg (7 lb 2 oz) ??? Delivery Method: Vaginal, Spontaneous Delivery ??? Gestation Age: 36 wks Immunization Status: stated as up to date, no records available There is no immunization history on file for this patient. Developmental History:normal, but had a bad year at school last year due to school refusal. Medications Current Outpatient Prescriptions Medication Sig Dispense Refill ??? acetaminophen-codeine (TYLENOL with CODEINE #3) 300-30 mg per tablet Take 1- 2 tablets by mouth every 4 (four) hours as needed. 0 ??? drospirenone-ethinyl estradiol (SLAVA, 28,) 3-0.03 mg per tablet Take 1 tablet by mouth daily. ??? ISOtretinoin (ABSORCA,ACCUTANE) 40 mg capsule Take one tablet daily as directed No current facility-administered medications for this visit. Physical Exam: Wt Readings from Last 1 Encounters: 11/02/17 53.8 kg (118 lb 9.7 oz) (39 %, Z= -0.28)* * Growth percentiles are based on [facility] 2-20 Years data. Ht Readings from Last 1 Encounters: 11/02/17 172.1 cm (5' 7.76 ) (92 %, Z= 1.39)* * Growth percentiles are based on CDC 2-20 Years data. Body mass index is 18.16 kg/m??. 10 %ile (Z= -1.28) based on CDC 2-20 Years BMI-for-age data using vitals from 11/02/2017. 39 %ile (Z= -0.28) based on CDC 2-20 Years dczdgu-bki-mei data using vitals from 11/02/2017. 92 %ile (Z= 1.39) based on CDC 2-20 Years shasagm-qrq-ede data using vitals from 11/02/2017. General: alert, well appearing and no acute distress Head: Normocephalic, atraumatic Eye: conjunctivae clear, PERRL Ear: normal Left TM and external ear canal and normal Right TM and external ear canal Nose: nares patent, no drainage Oropharynx: mucous membranes moist Neck: neck supple, no lymphadenopathy and thyroid palpable, soft, no nodules, 5 cm bilaterally Back: spine straight Lungs: clear to auscultation bilaterally, normal WOB and good air movement Breast: Nishant 5 Heart: regular rate and rhythm, normal S1 and S2 and no murmur, rubs, or gallops Abdomen: bowel sounds present, no masses, no organomegaly and non-distended : deferred Extremity: extremities warm and well perfused Pulses: radial 2/2 Skin: no rashes or lesions Lab/Radiology/Diagnostic Review: Laboratory review: Lipids: No results found for: CHOL, CHLPL, HDL, LDLCALC, TRIG, CHOLHDL They brought in labs from their assembler installer general. It was 4 lipid panels, three of which they were not sure if they were fasting. The most recent they think was fastin09/08/17: Chol 170 Trig 242 LDL 90 GGT 13 Laboratory Data: No results found for this or any previous visit (from the past 2688 hour(s)). Impression: America is a 16 y.o. 11 m.o. female here for an evaluation of : 1. Secondary oligomenorrhea 2. Anti-TPO antibodies present 3. Hypertriglyceridemia 4. Dyslipidemia She is clinically euthyroid and had labs 6 months ago that were normal. I advised that she should have a TSH and Free T4 or Total T4 once a year of if she develops symptoms of hypo- or hyperthyroidism. I reviewed those symptoms with her. For the lipids, she is not willing to take any medications and her levels are not in a range to require meds now. I had her meet with our RD to review heart healthy eating. She mostly has high triglycerides, but, it was not really clear that she was fasting when she had those and in addition, she had been recently on Accutane..I recommended 60 min a day of exercise. Plan: 1. Heart healthy diet 2. 60 min a day of exercise. 3. Labs: have a TSH and FT4 at primary care visits annually. 4. Return if labs abnormal 5. I am again concerned that she may have depression and anxiety but she declines to talk to a psychologist and says she has refused to take medication for anxiety. Return to Pediatric Endocrinology Clinic if her thyroid labs become abnormal on annual screening. The family has been provided with our contact information should they have any questions in the interim. Thank you for allowing us to assist in America Smiley Wolf's care. Sincerely yours John William M.D documented in this encounter Plan of Treatment Not on file documented as of this encounter Visit Diagnoses Diagnosis Secondary oligomenorrhea- Primary [place] or infrequent menstruation Anti-TPO antibodies present Hypertriglyceridemia Pure hyperglyceridemia Dyslipidemia Other and unspecified hyperlipidemia documented in this encounter Historical Medications * This list may reflect changes made after this encounter. drospirenone-eth inyl estradiol (SLAVA, 28,) 3-0.03 mg per tablet Take 1 tablet by mouth daily. 05/06/2021 acetaminophen-co deine (TYLENOL with CODEINE #3) 300-30 mg per tablet Take 1-2 tablets by mouth every 4 (four) hours as needed. 0 08/18/2017 05/06/2021 ISOtretinoin (ABSORCA,ACCUTAN E) 40 mg capsule Take one tablet daily as directed 03/12/2021 added in this encounter Care Teams Fire Alarm Repairer Relationship Specialty Start Date End Date Nunu Wilson MD [address] [place] [address] PCP - General 04/01/17 12/09/20 documented as of this encounter
--- OUTSIDE RECORDS SUMMARY | 2024-03-27 11:54 | XMS_ITS | Encounter Summary ---
Author Organization [facility] Care Team Providers Care Correctional Therapy Director Name Role Phone Unavailable Primary Care Provider Unavailabl e Encounter Details Date Type Department Care Team (Latest Contact Info) Description 01/24/2016 9:15 AM CDT - 01/24/2016 11:59 PM CDT 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 FINAL REPORT ACC# ??Date Time ??Exam [id number] Jan 24, 2016 09:34:00 [id number] Knee 1 or 2 views R EXAMINATION: ?Right knee 1 or 2 views HISTORY: ??Right knee pain FINDINGS: ?? A single merchant view of the right knee is obtained including the left knee in the dwobc-fa-xhlf. There are no prior studies available for comparison. Patellofemoral joint spaces appear intact. Alignment appears anatomic on this single view examination. The trochlear grooves appear shallow bilaterally. There is a small osseous fragment seen just medial to the medial margin of the right patella. IMPRESSION: ?? 1. Small osseous fragment just medial to the medial margin of the right patella. This is suspicious for an avulsion fracture in the setting of prior patellar dislocation relocation injury. Please correlate with the patient's clinical presentation. 2. Shallow bilateral trochlear grooves. Requested By: Dictated By: ?? JAVIER OLIVAS M.D. ??on Jan ??2015 ??9:55A This document has been electronically signed by: JAVIER OLIVAS M.D. on Jan?2015 ??9:55A [id number] Procedure Note Provider, MD Moises - 07/28/2016 JAVIER OLIVAS M.D. FINAL REPORT ACC# Date Time Exam [id number] Jan 24, 2016 09:34:00 [id number] Knee 1 or 2 views R EXAMINATION: Right knee 1 or 2 views HISTORY: Right knee pain FINDINGS: A single merchant view of the right knee is obtained including the left knee in the obezj-np-bgbo. There are no prior studies available for comparison. Patellofemoral joint spaces appear intact. Alignment appears anatomic on this single view examination. The trochlear grooves appear shallow bilaterally. There is a small osseous fragment seen just medial to the medial margin of the right patella. IMPRESSION: 1. Small osseous fragment just medial to the medial margin of the right patella. This is suspicious for an avulsion fracture in the setting of prior patellar dislocation relocation injury. Please correlate with the patient's clinical presentation. 2. Shallow bilateral trochlear grooves. Requested By: Dictated By: JAVIER OLIVAS M.D. on Jan 24 2016 9:55A This document has been electronically signed by: JAVIER OLIVAS M.D. on Jan 24 2016 9:55A [id number] us Historical Provider MD MCKEON XR PROCEDURES Final R esult documented in this encounter Visit Diagnoses Diagnosis Abnormal findings on diagnostic imaging of other parts of musculoskeletal system documented in this encounter
--- OUTSIDE RECORDS SUMMARY | 2024-03-27 11:56 | XMS_ITS | Encounter Summary ---
Author Organization [facility] Address [address] [place] [address] Care Team Providers Care Efficiency Expert Name Role Phone Unavailable Primary Care Provider Unavailabl e Encounter Details Date Type Department Care Team (Late st Contact Info) Description 12/08/2023 External Device Data [facility] ABSTRACTION Provider, Abstract NO ADDRESS ON FILE Social History Tobacco Use Types Packs/Day Years Used Date Smoking Tobacco: Never Assessed Sex and Gender Information Value Date Recorded Sex Assigned at Not on file Gender Identity Not on file Sexual Orientation Not on file documented as of this encounter Plan of Treatment Not on file documented as of this encounter Visit Diagnoses Not on filedocumented in this encounter
--- OUTSIDE RECORDS SUMMARY | 2024-03-27 11:56 | XMS_ITS | Encounter Summary ---
Author Organization [facility] Address [address] [place] [address] Care Team Providers Care Founding Partner Name Role Phone Unavailable Primary Care Provider Unavailabl e Encounter Details Date Type Department Care Team (Late st Contact Info) Description 11/11/2023 External Device Data STL ABSTRACTION Provider, Abstract [...]
--- OUTSIDE RECORDS SUMMARY | 2024-03-27 11:56 | XMS_ITS | Clinical Summary ---
Author Organization [facility] e Building Address [address] [place] [address] Care Team Providers Care Cloth Mercerizer Back Tender Name Role Phone Unavailable Primary Care Provider Unavailabl e Medications Medication Sig Dispensed Refills Start Date End Date Status spironolactone (ALDACTONE) 100 mg tablet Take 1 Tablet (100 mg) by mouth daily. 90 Tablet 3 07/09/2022 Active tretinoin (RETIN-A) 0.025 % Gel Apply a pea sized amount to whole face at bedtime ( start slow ). 45 Gram 11 07/09/2022 Active clobetasoL (TEMOVATE) 0.05 % Ointment Apply to rash areas on leg 2 times daily for 4 weeks for flare ups, then apply 2 times weekly for maintenance for 2 months. (No face) 45 Gram 1 04/01/2023 Active naproxen (NAPROSYN) 500 mg tablet Take 1 tablet (500 mg total) by mouth 2 (two) times a day with meals for 5 days 10 Tablet 11/19/2023 Active metroNIDAZOLE (FLAGYL) 500 mg tablet Take 1 Tablet (500 mg) by mouth every 12 hours for 7 days. 14 Tablet 03/20/2024 03/28/2024 Active fluconazole (DIFLUCAN) 150 mg tablet Take 1 Tablet (150 mg) by mouth one time only for 1 dose. 1 Tablet 03/24/2024 03/25/2024 Social History Tobacco Use Types Packs/Day Years Used Date Smoking Tobacco: Never Assessed Sex and Gender Information Value Date Recorded Sex Assigned at Not on file Gender Identity Not on file Sexual Orientation Not on file Plan of Treatment Health Maintenance Due Date Last Done Comments HPV VACCINES (1 - 3-dose series) 11/22/2014 DTAP/TDAP/TD VACCINES (1 - Tdap) 11/22/2018 HEPATITIS B VACCINES (1 of 3 - 19+ 3-dose series) 11/22/2018 CERVICAL CANCER SCREENING 11/22/2020 INFLUENZA VACCINE (#1) 2023 PNEUMOCOCCAL VACCINE 0-64 YEARS Aged Out No longer eligible based on patient's age to complete [place] [address]
--- OUTSIDE RECORDS SUMMARY | 2024-03-27 11:56 | XMS_ITS | Encounter Summary ---
Author Organization [facility] Address [address] [place] [address] Care Team Providers Care Inspector Air Carrier Name Role Phone Unavailable Primary Care Provider Unavailabl e Encounter Details Date Type Department Care Team (Late st Contact Info) Description 11/12/2023 External Device Data STL ABSTRACTION Provider, Abstract [...]
--- OUTSIDE RECORDS SUMMARY | 2024-03-27 11:56 | XMS_ITS | Encounter Summary ---
Author Organization [facility] Address [address] [place] [address] Care Team Providers Care Facilities Manager Name Role Phone Unavailable Primary Care [...]
--- OUTSIDE RECORDS SUMMARY | 2024-03-27 11:56 | XMS_ITS | Encounter Summary ---
Author Organization [facility] Address [address] [place] [address] Care Team Providers Care Mental Health Orderly Name Role Phone Unavailable Primary Care Provider [...]
--- OUTSIDE RECORDS SUMMARY | 2024-03-27 11:56 | XMS_ITS | Encounter Summary ---
Author Organization [facility] Address [address] [place] [address] Care Team Providers Care Auto Clocks Repairer Name Role Phone Unavailable Primary Care Provider [...]
--- OUTSIDE RECORDS SUMMARY | 2024-03-27 11:57 | XMS_ITS | Encounter Summary ---
Author Organization [facility] Address [address] [place] [address] Care Team Providers Care Member Service Representative Name Role Phone Noah Santos DO Primary Care Provider Unavail able Encounter Details Date Type Department Care Team (Late st Contact Info) Description 12/11/2003 Outpatient Historical [facility] [address] [place] [phone] Priscilla Raines MD NO ADDRESS ON FILE Social History Tobacco [...] on filedocumented in this encounter Care Teams Member Service Representative Relationship Specialty Start Date End Date Noah Santos DO NO ADDRESS ON FILE PCP - General 06/17/02 08/04/18 documented as of this encounter
--- OUTSIDE RECORDS SUMMARY | 2024-03-27 11:57 | XMS_ITS | Encounter Summary ---
Author Organization [facility] Address [address] [place] [address] Care Team Providers Care Contact Printer Dry Film Name Role Phone Unavailable Primary Care Provider Unavailabl e Encounter Details Date Type Department Care Team (Late st Contact Info) Description 03/31/2023 External Device Data STL ABSTRACTION Provider, Abstract [...]
--- OUTSIDE RECORDS SUMMARY | 2024-03-27 11:57 | XMS_ITS | Encounter Summary ---
Author Organization [facility] Address [address] [place] [address] Care Team Providers Care Pump Installer Name Role Phone Noah Santos DO Primary Care Provider Unavail able Encounter Details Date Type Department Care Team (Late st Contact Info) Description 01/09/2003 Outpatient Historical [facility] [id number] [place] [address] [place] [phone] [place] [id number] [place] [address] [address] [place] [address] Social History Tobacco Use Types Packs/Day Years Used Date Smoking Tobacco: Never Assessed Sex and Gender Information Value Date Recorded Sex Assigned at Not on file Gender Identity Not on file Sexual Orientation Not on file documented as of this encounter Plan of Treatment Not on file documented as of this encounter Visit Diagnoses Not on filedocumented in this encounter Care Teams Pump Installer Relationship Specialty Start Date End Date Noah Santos DO NO ADDRESS ON FILE PCP - General 06/17/02 08/04/18 documented as of this encounter
--- OUTSIDE RECORDS SUMMARY | 2024-03-27 11:57 | XMS_ITS | Encounter Summary ---
Author Organization [facility] Address [address] [place] [address] Care Team Providers Care Clay Preparation Supervisor Name Role Phone Noah Santos DO Primary Care Provider Unavail able Encounter Details Date Type Department Care Team (Late st Contact Info) Description 01/11/2003 Outpatient Historical [facility] [address] [place] [address] [place] [address] [place]ito [place] [id number] [place] [address] [address] [place] [address] Social History Tobacco Use Types [...] on filedocumented in this encounter Care Teams Clay Preparation Supervisor Relationship Specialty Start Date End Date Noah Santos DO NO ADDRESS ON FILE PCP - General 06/17/02 08/04/18 documented as of this encounter
--- OUTSIDE RECORDS SUMMARY | 2024-03-27 11:57 | XMS_ITS | Encounter Summary ---
Author Organization [facility] Address [address] [place] [address] Care Team Providers Care Chief Executive Or Managing Director Name Role Phone Unavailable Primary Care Provider Unavailabl e Encounter Details Date Type Department Care Team (Late st Contact Info) Description 09/22/2023 External Device Data STL ABSTRACTION Provider, Abstract [...]
--- OUTSIDE RECORDS SUMMARY | 2024-03-27 11:57 | XMS_ITS | Encounter Summary ---
Author Organization [facility] Address [address] [place] [address] Care Team Providers Care Bobbin Winder Name Role Phone Noah Santos DO Primary Care Provider Unavail able Encounter Details Date Type Department Care Team (Late st Contact Info) Description 02/10/2003 Outpatient Historical [facility] [address] [place] [address] [place] [address] Hip[place]ito Benjamin [place] [id number] [place] [address] [address] [place] [address] Social History Tobacco Use Types [...] on filedocumented in this encounter Care Teams Bobbin Winder Relationship Specialty Start Date End Date Noah Santos DO NO ADDRESS ON FILE PCP - General 06/17/02 08/04/18 documented as of this encounter
--- OUTSIDE RECORDS SUMMARY | 2024-03-27 11:57 | XMS_ITS | Encounter Summary ---
Author Organization [facility] Address [address] [place] [address] Care Team Providers Care Quality Measurement Specialist Name Role Phone Noah Santos DO Primary Care Provider Unavail able Encounter Details Date Type Department Care Team (Late st Contact Info) Description 04/24/2003 Outpatient Historical [facility] [address] [place] [address] [place] [address] Hipolito Benjamin [place] [id number] [place] [address] [address] [place] [address] Social History Tobacco Use Types [...] on filedocumented in this encounter Care Teams Quality Measurement Specialist Relationship Specialty Start Date End Date Noah Santos DO NO ADDRESS ON FILE PCP - General 06/17/02 08/04/18 documented as of this encounter
--- OUTSIDE RECORDS SUMMARY | 2024-03-27 11:57 | XMS_ITS | Encounter Summary ---
Author Organization [facility] Address [address] [place] [address] Care Team Providers Care Outpatient Phlebotomist Name Role Phone Noah Santos DO Primary Care Provider Unavail able Encounter Details Date Type Department Care Team (Late st Contact Info) Description 01/31/2004 Outpatient Historical [facility] [address] [place] [phone] Priscilla Raines MD NO ADDRESS ON FILE [...] on filedocumented in this encounter Care Teams Outpatient Phlebotomist Relationship Specialty Start Date End Date Noah Santos DO NO ADDRESS ON FILE PCP - General 06/17/02 08/04/18 documented as of this encounter
--- OUTSIDE RECORDS SUMMARY | 2024-03-27 11:57 | XMS_ITS | Encounter Summary ---
Author Organization [facility] Address [address] [place] [address] Care Team Providers Care Assembler Tubing Name Role Phone Noah Santos DO Primary Care Provider Unavail able Encounter Details Date Type Department Care Team (Late st Contact Info) Description 01/10/2005 Outpatient Historical [facility] Pediatrics [address] [place] [phone] Priscilla Raines MD NO ADDRESS ON FILE [...] on filedocumented in this encounter Care Teams Assembler Tubing Relationship Specialty Start Date End Date Noah Santos DO NO ADDRESS ON FILE PCP - General 06/17/02 08/04/18 documented as of this encounter
--- OUTSIDE RECORDS SUMMARY | 2024-03-27 11:57 | XMS_ITS | Encounter Summary ---
Author Organization [facility] Address [address] [place] [address] Care Team Providers Care Sole Trimmer Name Role Phone Noah Santos DO Primary Care Provider Unavail able Encounter Details Date Type Department Care Team (Late st Contact Info) Description 07/06/2000 Outpatient Historical [facility] [address] [place] [address] [place] [address] Hipolito Benjamin MD [id number] [place] [address] [address] [place] [address] Social History Tobacco Use Types [...] on filedocumented in this encounter Care Teams Sole Trimmer Relationship Specialty Start Date End Date Noah Santos DO NO ADDRESS ON FILE PCP - General 06/17/02 08/04/18 documented as of this encounter
--- OUTSIDE RECORDS SUMMARY | 2024-03-27 11:57 | XMS_ITS | Encounter Summary ---
Author Organization [facility] Address [address] [place] [address] Care Team Providers Care Instrumentation Technologist Name Role Phone Noah Santos DO Primary Care Provider Unavail able Encounter Details Date Type Department Care Team (Late st Contact Info) Description 09/03/2004 Outpatient Historical [facility] [address] [place] [address] [place] [address] [place]ito Benjamin [place] [address] [place] [address] [address] [place] [address] Social History Tobacco Use Types [...] on filedocumented in this encounter Care Teams Instrumentation Technologist Relationship Specialty Start Date End Date Noah Santos DO NO ADDRESS ON FILE PCP - General 06/17/02 08/04/18 documented as of this encounter
--- OUTSIDE RECORDS SUMMARY | 2024-03-27 11:57 | XMS_ITS | Encounter Summary ---
Author Organization [facility] Address [address] [place] [address] Care Team Providers Care Pay Agent Name Role Phone Noah Santos DO Primary Care Provider Unavail able Encounter Details Date Type Department Care Team (Late st Contact Info) Description 12/11/2003 Outpatient Historical [facility] Pediatrics [address] [place] [phone] Priscilla Raines MD NO ADDRESS ON FILE [...] on filedocumented in this encounter Care Teams Pay Agent Relationship Specialty Start Date End Date Noah Santos DO NO ADDRESS ON FILE PCP - General 06/17/02 08/04/18 documented as of this encounter
--- OUTSIDE RECORDS SUMMARY | 2024-03-27 11:57 | XMS_ITS | Encounter Summary ---
Author Organization [facility] Address [address] [place] [address] Care Team Providers Care Auditor Internal Name Role Phone Unavailable Primary Care Provider [...]
--- OUTSIDE RECORDS SUMMARY | 2024-03-27 11:57 | XMS_ITS | Encounter Summary ---
Author Organization [facility] Address [address] [place] [address] Care Team Providers Care Cork Tile Floor Layer Name Role Phone Unavailable Primary Care Provider Unavailabl e Encounter Details Date Type Department Care Team (Late st Contact Info) Description 11/10/2023 External Device Data STL ABSTRACTION Provider, Abstract [...]
--- OUTSIDE RECORDS SUMMARY | 2024-03-27 11:57 | XMS_ITS | Encounter Summary ---
Author Organization [facility] Address [address] [place] [address] Care Team Providers Care Field Service Analyst Name Role Phone Noah Santos DO Primary Care Provider Unavail able Encounter Details Date Type Department Care Team (Late st Contact Info) Description 10/22/2006 Outpatient Historical [facility] Ermias Bryant MD [address] [facility] [address] [place] [address] Unspecified Conductive Hearing Loss (Primary Dx) Social History Tobacco Use Types Packs/Day Years Used Date Smoking Tobacco: Never Assessed Sex and Gender Information Value Date Recorded Sex Assigned at Not on file Gender Identity Not on file Sexual Orientation Not on file documented as of this encounter Plan of Treatment Not on file documented as of this encounter Visit Diagnoses Diagnosis Unspecified conductive hearing loss- Primary documented in this encounter Care Teams Field Service Analyst Relationship Specialty Start Date End Date Noah Santos DO NO ADDRESS ON FILE PCP - General 06/17/02 08/04/18 documented as of this encounter
--- OUTSIDE RECORDS SUMMARY | 2024-03-27 11:57 | XMS_ITS | Encounter Summary ---
Author Organization [facility] Address [address] [place] [address] Care Team Providers Care Rn Trauma Name Role Phone Noah Santos DO Primary Care Provider Unavail able Encounter Details Date Type Department Care Team (Late st Contact Info) Description 07/04/2000 Outpatient Historical [facility] [address] [place] [address] [place] [address] Hipolito Benjamin [place] [address] [place] [address] [address] [place] [address] Social History Tobacco Use Types [...] on filedocumented in this encounter Care Teams Rn Trauma Relationship Specialty Start Date End Date Noah Santos DO NO ADDRESS ON FILE PCP - General 06/17/02 08/04/18 documented as of this encounter
--- OUTSIDE RECORDS SUMMARY | 2024-03-27 11:57 | XMS_ITS | Encounter Summary ---
Author Organization [facility] Address [address] [place] [address] Care Team Providers Care Grinding Wheel Inspector Name Role Phone Noah Santos DO Primary Care Provider Unavail able Encounter Details Date Type Department Care Team (Late st Contact Info) Description 02/12/2004 Outpatient Historical [facility] Pediatrics [address] [place] [address] Priscilla Raines MD NO ADDRESS ON FILE [...] on filedocumented in this encounter Care Teams Grinding Wheel Inspector Relationship Specialty Start Date End Date Noah Santos DO NO ADDRESS ON FILE PCP - General 06/17/02 08/04/18 documented as of this encounter
--- OUTSIDE RECORDS SUMMARY | 2024-03-27 11:57 | XMS_ITS | Encounter Summary ---
Author Organization [facility] Address [address] [place] [address] Care Team Providers Care Pathology Lab Technician Name Role Phone Noah Santos DO Primary Care Provider Unavail able Encounter Details Date Type Department Care Team (Late st Contact Info) Description 08/27/2000 Outpatient Historical [facility] [address] [place] [address] [place] [address] Hipolito Benjamin [place] [address] [place] [address] [address] [place] [address] Social History Tobacco Use Types [...] on filedocumented in this encounter Care Teams Pathology Lab Technician Relationship Specialty Start Date End Date Noah Santos DO NO ADDRESS ON FILE PCP - General 06/17/02 08/04/18 documented as of this encounter
--- OUTSIDE RECORDS SUMMARY | 2024-03-27 11:57 | XMS_ITS | Encounter Summary ---
Author Organization [facility] Address [address] [place] [address] Care Team Providers Care Service Desk Agent Name Role Phone Noah Santos DO Primary Care Provider Unavail able Encounter Details Date Type Department Care Team (Late st Contact Info) Description 11/02/2002 Outpatient Historical [facility] [address] [place] [phone] [place] [address] [place], [place] [phone] Social History Tobacco Use Types Packs/Day Years Used Date Smoking Tobacco: Never Assessed Sex and Gender Information Value Date Recorded Sex Assigned at Not on file Gender Identity Not on file Sexual Orientation Not on file documented as of this encounter Plan of Treatment Not on file documented as of this encounter Visit Diagnoses Not on filedocumented in this encounter Care Teams Service Desk Agent Relationship Specialty Start Date End Date Noah Santos DO NO ADDRESS ON FILE PCP - General 06/17/02 08/04/18 documented as of this encounter
--- OUTSIDE RECORDS SUMMARY | 2024-03-27 11:57 | XMS_ITS | Encounter Summary ---
Author Organization [facility] Address [address] [place] [address] Care Team Providers Care Special Diet Cook Name Role Phone Noah Santos DO Primary Care Provider Unavail able Encounter Details Date Type Department Care Team (Late st Contact Info) Description 06/23/2000 Outpatient Historical [facility] [address] [place] [address] [place] [address] Hipolito Benjamin [place] [address] [place] [address] [address] [place] [address] Social History Tobacco Use Types [...] on filedocumented in this encounter Care Teams Special Diet Cook Relationship Specialty Start Date End Date Noah Santos DO NO ADDRESS ON FILE PCP - General 06/17/02 08/04/18 documented as of this encounter
--- OUTSIDE RECORDS SUMMARY | 2024-03-27 11:57 | XMS_ITS | Encounter Summary ---
Author Organization [facility] Address [address] [place] [address] Care Team Providers Care Digital Specialist Name Role Phone Noah Santos DO Primary Care Provider Unavail able Encounter Details Date Type Department Care Team (Late st Contact Info) Description 11/20/2004 Outpatient Historical [facility] [address] [place] [address] [place] [address] Hipolito Benjamin MD [address] [place] [address] [address] [place] [address] Social History Tobacco Use Types [...] on filedocumented in this encounter Care Teams Digital Specialist Relationship Specialty Start Date End Date Noah Santos DO NO ADDRESS ON FILE PCP - General 06/17/02 08/04/18 documented as of this encounter
--- OUTSIDE RECORDS SUMMARY | 2024-03-27 11:57 | XMS_ITS | Encounter Summary ---
Author Organization [facility] Address [address] [place] [address] Care Team Providers Care Spindle Setter Name Role Phone Unavailable Primary Care Provider [...]
--- OUTSIDE RECORDS SUMMARY | 2024-03-27 11:57 | XMS_ITS | Encounter Summary ---
Author Organization [facility] Address [address] [place] [address] Care Team Providers Care Club Director Name Role Phone Noah Santos DO Primary Care Provider Unavail able Encounter Details Date Type Department Care Team (Late st Contact Info) Description 01/27/2005 Outpatient Historical [facility] [address] [place] [address] [place] [address] Hipolito Benjamin MD [address] [place] [address] [address] [place] [address] Social History Tobacco Use Types [...] on filedocumented in this encounter Care Teams Club Director Relationship Specialty Start Date End Date Noah Santos DO NO ADDRESS ON FILE PCP - General 06/17/02 08/04/18 documented as of this encounter
--- OUTSIDE RECORDS SUMMARY | 2024-03-27 11:57 | XMS_ITS | Encounter Summary ---
Author Organization [facility] Address [address] [place] [address] Care Team Providers Care Resaw Machine Operator Name Role Phone Noah Santos DO Primary Care Provider Unavail able Encounter Details Date Type Department Care Team (Latest Contact Info) Description 12/03/2006 Outpatient Historical [facility] Bryant, Ermias Avila MD [address] [facility] [address] [place] [address] Follow-Up Examination, Following Other Surgery (Primary Dx) Social History Tobacco Use Types Packs/Day Years Used Date Smoking Tobacco: Never Assessed Sex and Gender Information Value Date Recorded Sex Assigned at Not on file Gender Identity Not on file Sexual Orientation Not on file documented as of this encounter Plan of Treatment Not on file documented as of this encounter Visit Diagnoses Diagnosis Follow-up examination, following other surgery- Primary documented in this encounter Care Teams Resaw Machine Operator Relationship Specialty Start Date End Date Noah Santos DO NO ADDRESS ON FILE PCP - General 06/17/02 08/04/18 documented as of this encounter
--- OUTSIDE RECORDS SUMMARY | 2024-03-27 11:57 | XMS_ITS | Encounter Summary ---
Author Organization [facility] Address [address] [place] [address] Care Team Providers Care Welt Edge Rounder Name Role Phone Noah Santos DO Primary Care Provider Unavail able Encounter Details Date Type Department Care Team (Latest Contact Info) Description 06/17/2002 Outpatient Historical [place] [address] [facility] [address] [place] [address] CHR SEROUS OM SIMP/NOS (Primary Dx) Social History Tobacco Use Types Packs/Day Years Used Date Smoking Tobacco: Never Assessed Sex and Gender Information Value Date Recorded Sex Assigned at Not on file Gender Identity Not on file Sexual Orientation Not on file documented as of this encounter Plan of Treatment Not on file documented as of this encounter Visit Diagnoses Diagnosis Simple or unspecified chronic serous otitis media- Primary documented in this encounter Care Teams Welt Edge Rounder Relationship Specialty Start Date End Date Noah Santos DO NO ADDRESS ON FILE PCP - General 06/17/02 08/04/18 documented as of this encounter
--- OUTSIDE RECORDS SUMMARY | 2024-03-27 11:58 | XMS_ITS | Encounter Summary ---
Author Organization [facility] Address [address] [place] [address] Care Team Providers Care Family Preservation Caseworker Name Role Phone Noah Santos DO Primary Care Provider Unavail able Encounter Details Date Type Department Care Team (Late st Contact Info) Description 05/01/2000 Outpatient Historical [facility] Pediatrics [facility] [address] [place] [address] [address] [place] [phone] [place] [address] [place] [address] Social History Tobacco Use Types Packs/Day Years Used Date Smoking Tobacco: Never Assessed Sex and Gender Information Value Date Recorded Sex Assigned at Not on file Gender Identity Not on file Sexual Orientation Not on file documented as of this encounter Plan of Treatment Not on file documented as of this encounter Visit Diagnoses Not on filedocumented in this encounter Care Teams Family Preservation Caseworker Relationship Specialty Start Date End Date Noah Santos DO NO ADDRESS ON FILE PCP - General 06/17/02 08/04/18 documented as of this encounter
--- OUTSIDE RECORDS SUMMARY | 2024-03-27 11:58 | XMS_ITS | Encounter Summary ---
Author Organization [facility] Address [address] [place] [address] Care Team Providers Care Ict Customer Support Officer Name Role Phone Noah Santos DO Primary Care Provider Unavail able Encounter Details Date Type Department Care Team (Late st Contact Info) Description 06/09/2000 Outpatient Historical [facility] [address] [place] [address] [address] [place] [phone] [place] [address] [place] [address] Social History Tobacco Use Types [...] on filedocumented in this encounter Care Teams Ict Customer Support Officer Relationship Specialty Start Date End Date Noah Santos DO NO ADDRESS ON FILE PCP - General 06/17/02 08/04/18 documented as of this encounter
--- OUTSIDE RECORDS SUMMARY | 2024-03-27 11:58 | XMS_ITS | Encounter Summary ---
Author Organization [facility] Address [address] [place] [address] Care Team Providers Care Cleaning Validation Consultant Name Role Phone Noah Santos DO Primary Care Provider Unavail able Encounter Details Date Type Department Care Team (Late st Contact Info) Description 02/27/2000 Outpatient Historical [facility] [address] [place] [address] [address] [place] [phone] [place] [address] [place], [place] [phone] Social History Tobacco Use Types Packs/Day Years Used Date Smoking Tobacco: Never Assessed Sex and Gender Information Value Date Recorded Sex Assigned at Not on file Gender Identity Not on file Sexual Orientation Not on file documented as of this encounter Plan of Treatment Not on file documented as of this encounter Visit Diagnoses Not on filedocumented in this encounter Care Teams Cleaning Validation Consultant Relationship Specialty Start Date End Date Noah Santos DO NO ADDRESS ON FILE PCP - General 06/17/02 08/04/18 documented as of this encounter
--- OUTSIDE RECORDS SUMMARY | 2024-03-27 11:58 | XMS_ITS | Encounter Summary ---
Author Organization [facility] Address [address] [place] [address] Care Team Providers Care Tree Feller Operator Name Role Phone Noah Santos DO Primary Care Provider Unavail able Encounter Details Date Type Department Care Team (Late st Contact Info) Description 03/25/2000 Outpatient Historical [facility] [address] [place] [address] [place] [address] Hipolito Benjamin [place] [address] [place] [address] [address] [place] [address] Social History Tobacco Use Types [...] on filedocumented in this encounter Care Teams Tree Feller Operator Relationship Specialty Start Date End Date Noah Santos DO NO ADDRESS ON FILE PCP - General 06/17/02 08/04/18 documented as of this encounter
--- OUTSIDE RECORDS SUMMARY | 2024-03-27 11:58 | XMS_ITS | Encounter Summary ---
Author Organization [facility] Address [address] [place] [address] Care Team Providers Care Utility Accounts Director Name Role Phone Noah Santos DO Primary Care Provider Unavail able Encounter Details Date Type Department Care Team (Late st Contact Info) Description 02/14/2000 Outpatient Historical [facility] [address] [place] [address] [address] [place] [phone] [place] [address] [place] [address] Social History Tobacco Use Types [...] on filedocumented in this encounter Care Teams Utility Accounts Director Relationship Specialty Start Date End Date Noah Santos DO NO ADDRESS ON FILE PCP - General 06/17/02 08/04/18 documented as of this encounter
--- OUTSIDE RECORDS SUMMARY | 2024-03-27 11:58 | XMS_ITS | Encounter Summary ---
Author Organization [facility] Address [address] [place] [address] Care Team Providers Care Behavioral Health Associate Name Role Phone Noah Santos DO Primary Care Provider Unavail able Encounter Details Date Type Department Care Team (Late st Contact Info) Description 03/25/2000 Outpatient Historical [facility] [address] [place] [address] [place] [address] Hip[place]ito Benjamin [place] [address] [place] [address] [address] [place] [address] Social History Tobacco Use Types [...] on filedocumented in this encounter Care Teams Behavioral Health Associate Relationship Specialty Start Date End Date Noah Santos DO NO ADDRESS ON FILE PCP - General 06/17/02 08/04/18 documented as of this encounter
--- OUTSIDE RECORDS SUMMARY | 2024-03-27 11:58 | XMS_ITS | Encounter Summary ---
Author Organization [facility] Address [address] [place] [address] Care Team Providers Care Medical Dermatologist Name Role Phone Noah Santos DO Primary Care Provider Unavail able Encounter Details Date Type Department Care Team (Late st Contact Info) Description 05/27/2000 Outpatient Historical [facility] [address] [place] [address] [place] [phone] Hip[place]ito Benjamin [place] [id number] [place] [address] [address] [place] [address] Social History Tobacco Use Types [...] on filedocumented in this encounter Care Teams Medical Dermatologist Relationship Specialty Start Date End Date Noah Santos DO NO ADDRESS ON FILE PCP - General 06/17/02 08/04/18 documented as of this encounter
--- OUTSIDE RECORDS SUMMARY | 2024-03-27 11:58 | XMS_ITS | Encounter Summary ---
Author Organization [facility] Address [address] [place] [address] Care Team Providers Care Alterations Tailor Name Role Phone Noah Santos DO Primary Care Provider Unavail able Encounter Details Date Type Department Care Team (Late st Contact Info) Description 01/22/2000 Outpatient Historical [facility] [address] [place] [address] [place] [phone] Hip[place]ito Benjamin [place] [address] [place] [address] [address] [place] [address] Social History Tobacco Use Types [...] on filedocumented in this encounter Care Teams Alterations Tailor Relationship Specialty Start Date End Date Noah Santos DO NO ADDRESS ON FILE PCP - General 06/17/02 08/04/18 documented as of this encounter
--- OUTSIDE RECORDS SUMMARY | 2024-03-27 11:58 | XMS_ITS | Encounter Summary ---
Author Organization [facility] Address [address] [place] [address] Care Team Providers Care Shale Miner Name Role Phone Noah Santos DO Primary Care Provider Unavail able Encounter Details Date Type Department Care Team (Late st Contact Info) Description 1999 Outpatient Historical [facility] [address] [place] [address] [place] [address] Hipolito Benjamin MD [id number] [place] [address] [address] [place] [address] Social History Tobacco Use Types [...] on filedocumented in this encounter Care Teams Shale Miner Relationship Specialty Start Date End Date Noah Santos DO NO ADDRESS ON FILE PCP - General 06/17/02 08/04/18 documented as of this encounter
--- OUTSIDE RECORDS SUMMARY | 2024-03-27 11:58 | XMS_ITS | Encounter Summary ---
Author Organization [facility] Address [address] [place] [address] Care Team Providers Care Investigation Division Lieutenant Name Role Phone Noah Santos DO Primary Care Provider Unavail able Encounter Details Date Type Department Care Team (Late st Contact Info) Description 05/11/2000 Outpatient Historical [facility] [address] [place] [address] [place] [address] Hipolito Benjamin MD [address] [place] [address] [address] [place] [address] Social History Tobacco Use Types [...] on filedocumented in this encounter Care Teams Investigation Division Lieutenant Relationship Specialty Start Date End Date Noah Santos DO NO ADDRESS ON FILE PCP - General 06/17/02 08/04/18 documented as of this encounter
--- OUTSIDE RECORDS SUMMARY | 2024-03-27 11:58 | XMS_ITS | Encounter Summary ---
Author Organization [facility] Address [address] [place] [address] Care Team Providers Care Office Messenger Name Role Phone Noah Santos DO Primary Care Provider Unavail able Encounter Details Date Type Department Care Team (Late st Contact Info) Description 05/05/2000 Outpatient Historical [facility] [address] [place] [address] [place] [address] Hipolito Benjamin MD [phone] [place] [address] [address] [place] [address] Social History Tobacco Use Types [...] on filedocumented in this encounter Care Teams Office Messenger Relationship Specialty Start Date End Date Noah Santos DO NO ADDRESS ON FILE PCP - General 06/17/02 08/04/18 documented as of this encounter
--- OUTSIDE RECORDS SUMMARY | 2024-03-27 11:58 | XMS_ITS | Encounter Summary ---
Author Organization [facility] Address [address] [place] [address] Care Team Providers Care Batch Dumper Name Role Phone Noah Santos DO Primary Care Provider Unavail able Encounter Details Date Type Department Care Team (Late st Contact Info) Description 04/17/2000 Outpatient Historical [facility] [address] [place] [phone] [place] [address] [place] [address] Social History Tobacco Use Types [...] on filedocumented in this encounter Care Teams Batch Dumper Relationship Specialty Start Date End Date Noah Santos DO NO ADDRESS ON FILE PCP - General 06/17/02 08/04/18 documented as of this encounter
--- OUTSIDE RECORDS SUMMARY | 2024-03-27 11:58 | XMS_ITS | Encounter Summary ---
Author Organization [facility] Address [address] [place] [address] Care Team Providers Care Supplies Packer Name Role Phone Noah Santos DO Primary Care Provider Unavail able Encounter Details Date Type Department Care Team (Late st Contact Info) Description 06/01/2000 Outpatient Historical [facility] [address] [place] [address] [place] [phone] Hipolito Benjamin MD [id number] [place] [address] [address] [place] [address] Social History Tobacco Use Types [...] on filedocumented in this encounter Care Teams Supplies Packer Relationship Specialty Start Date End Date Noah Santos DO NO ADDRESS ON FILE PCP - General 06/17/02 08/04/18 documented as of this encounter
--- OUTSIDE RECORDS SUMMARY | 2024-03-27 11:58 | XMS_ITS | Encounter Summary ---
Author Organization [facility] Address [address] [place] [address] Care Team Providers Care Registered Nurse Renal Name Role Phone Noah Santos DO Primary Care Provider Unavail able Encounter Details Date Type Department Care Team (Late st Contact Info) Description 1999 Outpatient Historical [facility] [address] [place] [address] [place] [phone] Hipolito Benjamin MD [address] [place] [address] [address] [place] [address] Social History Tobacco Use Types [...] on filedocumented in this encounter Care Teams Registered Nurse Renal Relationship Specialty Start Date End Date Noah Santos DO NO ADDRESS ON FILE PCP - General 06/17/02 08/04/18 documented as of this encounter
--- OUTSIDE RECORDS SUMMARY | 2024-03-27 11:58 | XMS_ITS | Encounter Summary ---
Author Organization [facility] Address [address] [place] [address] Care Team Providers Care Motor Vehicles Inspector Name Role Phone Noah Santos DO Primary Care Provider Unavail able Encounter Details Date Type Department Care Team (Late st Contact Info) Description 06/13/2000 Outpatient Historical [facility] [address] [place] [address] [place] [address] Hipolito Benjamin MD [id number] [place] [address] [address] [place] [address] Social History Tobacco Use Types [...] on filedocumented in this encounter Care Teams Motor Vehicles Inspector Relationship Specialty Start Date End Date Noah Santos DO NO ADDRESS ON FILE PCP - General 06/17/02 08/04/18 documented as of this encounter
--- OUTSIDE RECORDS SUMMARY | 2024-03-27 11:58 | XMS_ITS | Encounter Summary ---
Author Organization [facility] Address [address] [place] [address] Care Team Providers Care Assistant Chief Engineer Name Role Phone Noah Santos DO Primary Care Provider Unavail able Encounter Details Date Type Department Care Team (Late st Contact Info) Description 1999 Outpatient Historical [facility] [address] [place] [address] [place] [address] Hipolito Benjamin MD [phone] [place] [address] [address] [place] [address] Social History Tobacco Use Types [...] filedocumented in this encounter Care Teams Assistant Chief Engineer Relationship Specialty Start Date End Date Noah Santos DO NO ADDRESS ON FILE PCP - General 06/17/02 08/04/18 documented as of this encounter
--- OUTSIDE RECORDS SUMMARY | 2024-03-27 11:58 | XMS_ITS | Encounter Summary ---
Author Organization [facility] Address [address] [place] [address] Care Team Providers Care Gauge Machine Operator Name Role Phone Noah Santos DO Primary Care Provider Unavail able Encounter Details Date Type Department Care Team (Late st Contact Info) Description 01/22/2000 Outpatient Historical [facility] [address] [place] [address] [place] [address] Hipolito Benjamin [place] [id number] [place] [address] [address] [place] [address] Social History Tobacco Use Types [...] on filedocumented in this encounter Care Teams Gauge Machine Operator Relationship Specialty Start Date End Date Noah Santos DO NO ADDRESS ON FILE PCP - General 06/17/02 08/04/18 documented as of this encounter
--- OUTSIDE RECORDS SUMMARY | 2024-03-27 14:43 | XMS_ITS | Encounter Summary ---
Author Organization [facility] Address [address] [place] [address] Care Team Providers Care Diamond Sorter Name Role Phone Unavailable Primary Care Provider [...]
--- OUTSIDE RECORDS SUMMARY | 2024-03-27 14:43 | XMS_ITS | Encounter Summary ---
Author Organization [facility] Address [address] [place] [address] Care Team Providers Care Forestry Professor Name Role Phone Unavailable Primary Care Provider [...]
--- OUTSIDE RECORDS SUMMARY | 2024-03-27 14:43 | XMS_ITS | Clinical Summary ---
Author Organization [facility] Address [address] [place] [address] Care Team Providers Care Library Services Assistant Name Role Phone Unavailable Primary Care Provider [...] age to complete [place] [address]
--- OUTSIDE RECORDS SUMMARY | 2024-03-27 14:43 | XMS_ITS | Encounter Summary ---
Author Organization [facility] Address [address] [place] [address] Care Team Providers Care Recycler Forklift Driver Truck Driver Name Role Phone Unavailable Primary Care Provider [...]
--- OUTSIDE RECORDS SUMMARY | 2024-03-27 14:43 | XMS_ITS | Encounter Summary ---
Author Organization [facility] Address [address] [place] [address] Care Team Providers Care District Associate Judge Name Role Phone Unavailable Primary Care Provider [...]
--- OUTSIDE RECORDS SUMMARY | 2024-03-27 14:43 | XMS_ITS | Encounter Summary ---
Author Organization [facility] Address [address] [place] [address] Care Team Providers Care Enterprise Manager Name Role Phone Unavailable Primary Care [...]
--- OUTSIDE RECORDS SUMMARY | 2024-03-27 14:43 | XMS_ITS | Encounter Summary ---
Author Organization [facility] Address [address] [place] [address] Care Team Providers Care Court Stenographer Name Role Phone Unavailable Primary Care Provider [...]
--- OUTSIDE RECORDS SUMMARY | 2024-03-27 14:43 | XMS_ITS | Encounter Summary ---
Author Organization [facility] Address [address] [place] [address] Care Team Providers Care Black Belt Name Role Phone Unavailable Primary Care Provider [...]
--- OUTSIDE RECORDS SUMMARY | 2024-03-27 14:43 | XMS_ITS | Encounter Summary ---
Author Organization [facility] Address [address] [place] [address] Care Team Providers Care Crystal Lapper Name Role Phone Unavailable Primary Care Provider [...]
--- OUTSIDE RECORDS SUMMARY | 2024-03-27 14:43 | XMS_ITS | Encounter Summary ---
Author Organization [facility] Address [address] [place] [address] Care Team Providers Care Telesales Supervisor Name Role Phone Unavailable Primary Care Provider [...]
--- OUTSIDE RECORDS SUMMARY | 2024-03-27 14:43 | XMS_ITS | Encounter Summary ---
Author Organization [facility] Address [address] [place] [address] Care Team Providers Care Federal District Clerk Name Role Phone Unavailable Primary Care Provider [...]
--- OUTSIDE RECORDS SUMMARY | 2024-03-27 14:43 | XMS_ITS | Encounter Summary ---
Author Organization [facility] Address [address] [place] [address] Care Team Providers Care Mortgage Lender Name Role Phone Unavailable Primary Care Provider [...]
--- OUTSIDE RECORDS SUMMARY | 2024-03-27 14:44 | XMS_ITS | Encounter Summary ---
Author Organization [facility] Address [address] [place] [address] Care Team Providers Care Fuselage Framer Name Role Phone Noah Santos DO Primary Care Provider Unavail able Encounter Details Date Type Department Care Team (Late st Contact Info) Description 09/03/2004 Outpatient Historical [facility] [address] [place] [address] [place] [address] Hipolito Benjamin MD [address] [place] [address] [address] [place] [address] Social History Tobacco Use Types [...] on filedocumented in this encounter Care Teams Fuselage Framer Relationship Specialty Start Date End Date Noah Santos DO NO ADDRESS ON FILE PCP - General 06/17/02 08/04/18 documented as of this encounter
--- OUTSIDE RECORDS SUMMARY | 2024-03-27 14:44 | XMS_ITS | Encounter Summary ---
Author Organization [facility] Address [address] [place] [address] Care Team Providers Care Cushion Mat Maker Name Role Phone Noah Santos DO Primary Care Provider Unavail able Encounter Details Date Type Department Care Team (Late st Contact Info) Description 12/11/2003 Outpatient Historical [facility] Pediatrics [address] [place] [address] Priscilla Raines MD NO ADDRESS ON FILE [...] on filedocumented in this encounter Care Teams Cushion Mat Maker Relationship Specialty Start Date End Date Noah Santos DO NO ADDRESS ON FILE PCP - General 06/17/02 08/04/18 documented as of this encounter
--- OUTSIDE RECORDS SUMMARY | 2024-03-27 14:44 | XMS_ITS | Encounter Summary ---
Author Organization [facility] Address [address] [place] [address] Care Team Providers Care Cylinder Steamer Name Role Phone Noah Santos DO Primary Care Provider Unavail able Encounter Details Date Type Department Care Team (Late st Contact Info) Description 06/09/2000 Outpatient Historical [facility] [address] [place] [address] [address] [place] [phone] [place] [address] [place] [address] Social History Tobacco Use Types [...] on filedocumented in this encounter Care Teams Cylinder Steamer Relationship Specialty Start Date End Date Noah Santos DO NO ADDRESS ON FILE PCP - General 06/17/02 08/04/18 documented as of this encounter
--- OUTSIDE RECORDS SUMMARY | 2024-03-27 14:44 | XMS_ITS | Encounter Summary ---
Author Organization [facility] Address [address] [place] [address] Care Team Providers Care Marketing Budget Analyst Name Role Phone Noah Santos DO Primary Care Provider Unavail able Encounter Details Date Type Department Care Team (Latest Contact Info) Description 12/03/2006 Outpatient Historical [facility] Bryant, Ermias Avila MD [address] [facility] [address] [place] [address] Follow-Up Examination, Following Other Surgery [...] Primary documented in this encounter Care Teams Marketing Budget Analyst Relationship Specialty Start Date End Date Noah Santos DO NO ADDRESS ON FILE PCP - General 06/17/02 08/04/18 documented as of this encounter
--- OUTSIDE RECORDS SUMMARY | 2024-03-27 14:44 | XMS_ITS | Encounter Summary ---
Author Organization [facility] Address [address] [place] [address] Care Team Providers Care Rolls Mill Operator Name Role Phone Noah Santos DO Primary Care Provider Unavail able Encounter Details Date Type Department Care Team (Late st Contact Info) Description 02/10/2003 Outpatient Historical [facility] [address] [place] [address] [place] [address] Hipolito Benjamin [place] [address] [place] [address] [address] [place] [address] Social History Tobacco Use Types [...] on filedocumented in this encounter Care Teams Rolls Mill Operator Relationship Specialty Start Date End Date Noah Santos DO NO ADDRESS ON FILE PCP - General 06/17/02 08/04/18 documented as of this encounter
--- OUTSIDE RECORDS SUMMARY | 2024-03-27 14:44 | XMS_ITS | Encounter Summary ---
Author Organization [facility] Address [address] [place] [address] Care Team Providers Care Irrigation Manager Name Role Phone Noah Santos DO Primary Care Provider Unavail able Encounter Details Date Type Department Care Team (Late st Contact Info) Description 01/11/2003 Outpatient Historical [facility] [address] [place] [address] [place] [address] Hipolito Benjamin [place] [address] [place] [address] [address] [place] [address] Social History Tobacco Use Types [...] on filedocumented in this encounter Care Teams Irrigation Manager Relationship Specialty Start Date End Date Noah Santos DO NO ADDRESS ON FILE PCP - General 06/17/02 08/04/18 documented as of this encounter
--- OUTSIDE RECORDS SUMMARY | 2024-03-27 14:44 | XMS_ITS | Encounter Summary ---
Author Organization [facility] Address [address] [place] [address] Care Team Providers Care Fabrication Manager Name Role Phone Noah Santos DO Primary Care Provider Unavail able Encounter Details Date Type Department Care Team (Late st Contact Info) Description 07/04/2000 Outpatient Historical [facility] [address] [place] [address] [place] [address] Hipolito Benjamin MD [address] [place] [address] [address] [place] [address] Social History Tobacco Use Types [...] on filedocumented in this encounter Care Teams Fabrication Manager Relationship Specialty Start Date End Date Noah Santos DO NO ADDRESS ON FILE PCP - General 06/17/02 08/04/18 documented as of this encounter
--- OUTSIDE RECORDS SUMMARY | 2024-03-27 14:44 | XMS_ITS | Encounter Summary ---
Author Organization [facility] Address [address] [place] [address] Care Team Providers Care Restaurant Server Name Role Phone Noah Santos DO Primary Care Provider Unavail able Encounter Details Date Type Department Care Team (Late st Contact Info) Description 01/22/2000 Outpatient Historical [facility] [address] [place] [address] [place] [address] Hipolito Benjamin MD [address] [place] [address] [address] [place] [address] Social History Tobacco Use Types [...] on filedocumented in this encounter Care Teams Restaurant Server Relationship Specialty Start Date End Date Noah Santos DO NO ADDRESS ON FILE PCP - General 06/17/02 08/04/18 documented as of this encounter
--- OUTSIDE RECORDS SUMMARY | 2024-03-27 14:44 | XMS_ITS | Encounter Summary ---
Author Organization [facility] Address [address] [place] [address] Care Team Providers Care Washer Assembler Name Role Phone Noah Santos DO Primary Care Provider Unavail able Encounter Details Date Type Department Care Team (Late st Contact Info) Description 1999 Outpatient Historical [facility] [address] [place] [address] [place] [address] [place]ito Benjamin [place] [address] [place] [address] [address] [place] [address] Social History Tobacco Use [...] on filedocumented in this encounter Care Teams Washer Assembler Relationship Specialty Start Date End Date Noah Santos DO NO ADDRESS ON FILE PCP - General 06/17/02 08/04/18 documented as of this encounter
--- OUTSIDE RECORDS SUMMARY | 2024-03-27 14:44 | XMS_ITS | Encounter Summary ---
Author Organization [facility] Address [address] [place] [address] Care Team Providers Care Angledozer Operator Name Role Phone Noah Santos DO Primary Care Provider Unavail able Encounter Details Date Type Department Care Team (Late st Contact Info) Description 05/05/2000 Outpatient Historical [facility] [address] [place] [address] [place] [address] Hipolito Benjamin MD [address] [place] [address] [address] [place] [address] Social History Tobacco Use Types [...] on filedocumented in this encounter Care Teams Angledozer Operator Relationship Specialty Start Date End Date Noah Santos DO NO ADDRESS ON FILE PCP - General 06/17/02 08/04/18 documented as of this encounter
--- OUTSIDE RECORDS SUMMARY | 2024-03-27 14:44 | XMS_ITS | Encounter Summary ---
Author Organization [facility] Address [address] [place] [address] Care Team Providers Care Mine Wedge Sawyer Name Role Phone Noah Santos DO Primary Care Provider Unavail able Encounter Details Date Type Department Care Team (Late st Contact Info) Description 02/14/2000 Outpatient Historical [facility] [address] [place] [address] [address] [place] [phone] [place] [address] [place] [address] Social History Tobacco Use Types [...] on filedocumented in this encounter Care Teams Mine Wedge Sawyer Relationship Specialty Start Date End Date Noah Santos DO NO ADDRESS ON FILE PCP - General 06/17/02 08/04/18 documented as of this encounter
--- OUTSIDE RECORDS SUMMARY | 2024-03-27 14:44 | XMS_ITS | Encounter Summary ---
Author Organization [facility] Address [address] [place] [address] Care Team Providers Care Can Tester Name Role Phone Noah Santos DO Primary Care Provider Unavail able Encounter Details Date Type Department Care Team (Late st Contact Info) Description 01/10/[address] [facility] Pediatrics [address] [place] [address] Priscilla Raines MD NO ADDRESS ON FILE [...] on filedocumented in this encounter Care Teams Can Tester Relationship Specialty Start Date End Date Noah Santos DO NO ADDRESS ON FILE PCP - General 06/17/02 08/04/18 documented as of this encounter
--- OUTSIDE RECORDS SUMMARY | 2024-03-27 14:44 | XMS_ITS | Encounter Summary ---
Author Organization [facility] Address [address] [place] [address] Care Team Providers Care Regulatory Compliance Engineer Name Role Phone Noah Santos DO Primary Care Provider Unavail able Encounter Details Date Type Department Care Team (Late st Contact Info) Description 01/22/2000 Outpatient Historical [facility] [address] [place] [address] [place] [address] Hipolito Benjamin MD [address] [place] [address] [address] [place] [address] Social History Tobacco Use Types [...] on filedocumented in this encounter Care Teams Regulatory Compliance Engineer Relationship Specialty Start Date End Date Noah Santos DO NO ADDRESS ON FILE PCP - General 06/17/02 08/04/18 documented as of this encounter
--- OUTSIDE RECORDS SUMMARY | 2024-03-27 14:44 | XMS_ITS | Encounter Summary ---
Author Organization [facility] Address [address] [place] [address] Care Team Providers Care Medicaid Eligibility Specialist Name Role Phone Noah Santos DO Primary Care Provider Unavail able Encounter Details Date Type Department Care Team (Late st Contact Info) Description 06/01/2000 Outpatient Historical [facility] [address] [place] [address] [place] [address] Hipolito Benjamin [place] [id number] [place] [address] [address] [place] [address] Social History Tobacco Use Types [...] on filedocumented in this encounter Care Teams Medicaid Eligibility Specialist Relationship Specialty Start Date End Date Noah Santos DO NO ADDRESS ON FILE PCP - General 06/17/02 08/04/18 documented as of this encounter
--- OUTSIDE RECORDS SUMMARY | 2024-03-27 14:44 | XMS_ITS | Encounter Summary ---
Author Organization [facility] Address [address] [place] [address] Care Team Providers Care Change Control Analyst Name Role Phone Noah Santos DO Primary Care Provider Unavail able Encounter Details Date Type Department Care Team (Late st Contact Info) Description 10/22/2006 Outpatient Historical [facility] Ermias Bryant MD [address] [facility] [address] [place] [address] Unspecified Conductive Hearing Loss (Primary [...] Primary documented in this encounter Care Teams Change Control Analyst Relationship Specialty Start Date End Date Noah Santos DO NO ADDRESS ON FILE PCP - General 06/17/02 08/04/18 documented as of this encounter
--- OUTSIDE RECORDS SUMMARY | 2024-03-27 14:44 | XMS_ITS | Encounter Summary ---
Author Organization [facility] Address [address] [place] [address] Care Team Providers Care Bottle House Pumper Name Role Phone Noah Santos DO Primary Care Provider Unavail able Encounter Details Date Type Department Care Team (Late st Contact Info) Description 12/11/2003 Outpatient Historical [facility] [address] [place] [phone] Priscilla Raines MD NO ADDRESS ON FILE [...] on filedocumented in this encounter Care Teams Bottle House Pumper Relationship Specialty Start Date End Date Noah Santos DO NO ADDRESS ON FILE PCP - General 06/17/02 08/04/18 documented as of this encounter
--- OUTSIDE RECORDS SUMMARY | 2024-03-27 14:44 | XMS_ITS | Encounter Summary ---
Author Organization [facility] Address [address] [place] [address] Care Team Providers Care Gardening Manager Name Role Phone Noah Santos DO Primary Care Provider Unavail able Encounter Details Date Type Department Care Team (Late st Contact Info) Description 08/27/2000 Outpatient Historical [facility] [address] [place] [address] [place] [phone] Hipolito Benjamin MD [id number] [place] [address] [address] [place] [address] Social History Tobacco Use Types [...] on filedocumented in this encounter Care Teams Gardening Manager Relationship Specialty Start Date End Date Noah Santos DO NO ADDRESS ON FILE PCP - General 06/17/02 08/04/18 documented as of this encounter
--- OUTSIDE RECORDS SUMMARY | 2024-03-27 14:44 | XMS_ITS | Encounter Summary ---
Author Organization [facility] Address [address] [place] [address] Care Team Providers Care Ethnic Origins Teacher Name Role Phone Noah Santos DO Primary Care Provider Unavail able Encounter Details Date Type Department Care Team (Late st Contact Info) Description 01/31/2004 Outpatient Historical [facility] [address] [place] [phone] Priscilla Raines MD NO ADDRESS ON FILE [...] on filedocumented in this encounter Care Teams Ethnic Origins Teacher Relationship Specialty Start Date End Date Noah Santos DO NO ADDRESS ON FILE PCP - General 06/17/02 08/04/18 documented as of this encounter
--- OUTSIDE RECORDS SUMMARY | 2024-03-27 14:44 | XMS_ITS | Encounter Summary ---
Author Organization [facility] Address [address] [place] [address] Care Team Providers Care Ultrasonic Cleaner Name Role Phone Noah Santos DO Primary Care Provider Unavail able Encounter Details Date Type Department Care Team (Late st Contact Info) Description 05/27/2000 Outpatient Historical [facility] [address] [place] [address] [place] [phone] Hipolito Benjamin MD [id number] [place] [address] [address] [place] [address] Social History Tobacco Use Types [...] on filedocumented in this encounter Care Teams Ultrasonic Cleaner Relationship Specialty Start Date End Date Noah Santos DO NO ADDRESS ON FILE PCP - General 06/17/02 08/04/18 documented as of this encounter
--- OUTSIDE RECORDS SUMMARY | 2024-03-27 14:44 | XMS_ITS | Encounter Summary ---
Author Organization [facility] Address [address] [place] [address] Care Team Providers Care Assistant Professor Surgical Technology Name Role Phone Noah Santos DO Primary Care Provider Unavail able Encounter Details Date Type Department Care Team (Late st Contact Info) Description 01/09/2003 Outpatient Historical [facility] [address] [place] [address] [place] [phone] Hipolito Benjamin [place] [id number] [place] [address] [address] [place] [address] Social History Tobacco Use Types [...] in this encounter Care Teams Assistant Professor Surgical Technology Relationship Specialty Start Date End Date Noah Santos DO NO ADDRESS ON FILE PCP - General 06/17/02 08/04/18 documented as of this encounter
--- OUTSIDE RECORDS SUMMARY | 2024-03-27 14:44 | XMS_ITS | Encounter Summary ---
Author Organization [facility] Address [address] [place] [address] Care Team Providers Care Black Ash Worker Name Role Phone Noah Santos DO Primary Care Provider Unavail able Encounter Details Date Type Department Care Team (Late st Contact Info) Description 01/27/2005 Outpatient Historical [facility] [address] [place] [address] [place] [phone] Hipolito Benjamin MD [id number] [place] [address] [address] [place] [address] Social History Tobacco Use Types [...] on filedocumented in this encounter Care Teams Black Ash Worker Relationship Specialty Start Date End Date Noah Santos DO NO ADDRESS ON FILE PCP - General 06/17/02 08/04/18 documented as of this encounter
--- OUTSIDE RECORDS SUMMARY | 2024-03-27 14:44 | XMS_ITS | Encounter Summary ---
Author Organization [facility] Address [address] [place] [address] Care Team Providers Care Stone Polisher Hand Name Role Phone Noah Santos DO Primary Care Provider Unavail able Encounter Details Date Type Department Care Team (Late st Contact Info) Description 1999 Outpatient Historical [facility] [address] [place] [address] [place] [phone] Hipolito Benjamin MD [id number] [place] [address] [address] [place] [address] Social History Tobacco Use Types [...] on filedocumented in this encounter Care Teams Stone Polisher Hand Relationship Specialty Start Date End Date Noah Santos DO NO ADDRESS ON FILE PCP - General 06/17/02 08/04/18 documented as of this encounter
--- OUTSIDE RECORDS SUMMARY | 2024-03-27 14:44 | XMS_ITS | Encounter Summary ---
Author Organization [facility] Address [address] [place] [address] Care Team Providers Care Policy Checker Name Role Phone Noah Santos DO Primary Care Provider Unavail able Encounter Details Date Type Department Care Team (Late st Contact Info) Description 03/25/2000 Outpatient Historical [facility] [address] [place] [address] [place] [phone] Hipolito Benjamin [place] [id number] [place] [address] [address] [place] [address] Social History Tobacco Use Types [...] on filedocumented in this encounter Care Teams Policy Checker Relationship Specialty Start Date End Date Noah Santos DO NO ADDRESS ON FILE PCP - General 06/17/02 08/04/18 documented as of this encounter
--- OUTSIDE RECORDS SUMMARY | 2024-03-27 14:44 | XMS_ITS | Encounter Summary ---
Author Organization [facility] Address [address] [place] [address] Care Team Providers Care Credit Control Manager Name Role Phone Noah Santos DO Primary Care Provider Unavail able Encounter Details Date Type Department Care Team (Late st Contact Info) Description 03/25/2000 Outpatient Historical [facility] [address] [place] [address] [place] [phone] Hipolito Benjamin MD [phone] [place] [address] [address] [place] [address] Social History Tobacco Use Types [...] on filedocumented in this encounter Care Teams Credit Control Manager Relationship Specialty Start Date End Date Noah Santos DO NO ADDRESS ON FILE PCP - General 06/17/02 08/04/18 documented as of this encounter
--- OUTSIDE RECORDS SUMMARY | 2024-03-27 14:44 | XMS_ITS | Encounter Summary ---
Author Organization [facility] Address [address] [place] [address] Care Team Providers Care Vacuum Pan Tender Name Role Phone Noah Santos DO Primary Care Provider Unavail able Encounter Details Date Type Department Care Team (Late st Contact Info) Description 05/01/2000 Outpatient Historical [facility] [address] [place] [address] [address] [place] [phone] [place] [address] [place] [address] Social History Tobacco Use Types [...] on filedocumented in this encounter Care Teams Vacuum Pan Tender Relationship Specialty Start Date End Date Noah Santos DO NO ADDRESS ON FILE PCP - General 06/17/02 08/04/18 documented as of this encounter
--- OUTSIDE RECORDS SUMMARY | 2024-03-27 14:44 | XMS_ITS | Encounter Summary ---
Author Organization [facility] Address [address] [place] [address] Care Team Providers Care Stockroom Worker Name Role Phone Noah Santos DO Primary Care Provider Unavail able Encounter Details Date Type Department Care Team (Late st Contact Info) Description 11/20/2004 Outpatient Historical [facility] [address] [place] [address] [place] [phone] Hipolito Benjamin MD [address] [place] [address] [address] [place] [address] Social History Tobacco Use Types [...] on filedocumented in this encounter Care Teams Stockroom Worker Relationship Specialty Start Date End Date Noah Santos DO NO ADDRESS ON FILE PCP - General 06/17/02 08/04/18 documented as of this encounter
--- OUTSIDE RECORDS SUMMARY | 2024-03-27 14:44 | XMS_ITS | Encounter Summary ---
Author Organization [facility] Address [address] [place] [address] Care Team Providers Care Supervisor Fishing Name Role Phone Noah Santos DO Primary Care Provider Unavail able Encounter Details Date Type Department Care Team (Late st Contact Info) Description 02/12/2004 Outpatient Historical [facility] [address] [place] [address] Priscilla Raines MD NO ADDRESS ON FILE [...] on filedocumented in this encounter Care Teams Supervisor Fishing Relationship Specialty Start Date End Date Noah Santos DO NO ADDRESS ON FILE PCP - General 06/17/02 08/04/18 documented as of this encounter
--- OUTSIDE RECORDS SUMMARY | 2024-03-27 14:44 | XMS_ITS | Encounter Summary ---
Author Organization [facility] Address [address] [place] [address] Care Team Providers Care Flame Hardening Machine Operator Name Role Phone Noah Santos DO Primary Care Provider Unavail able Encounter Details Date Type Department Care Team (Late st Contact Info) Description 04/24/2003 Outpatient Historical [facility] [address] [place] [address] [place] [address] Hipolito Benjamin [place] [address] [place] [address] [address] [place] [address] Social History Tobacco Use Types [...] on filedocumented in this encounter Care Teams Flame Hardening Machine Operator Relationship Specialty Start Date End Date Noah Santos DO NO ADDRESS ON FILE PCP - General 06/17/02 08/04/18 documented as of this encounter
--- OUTSIDE RECORDS SUMMARY | 2024-03-27 14:44 | XMS_ITS | Encounter Summary ---
Author Organization [facility] Address [address] [place] [address] Care Team Providers Care Wrapper Layer And Examiner Soft Work Name Role Phone Noah Santos DO Primary Care Provider Unavail able Encounter Details Date Type Department Care Team (Late st Contact Info) Description 07/06/2000 Outpatient Historical [facility] [address] [place] [address] [place] [address] Hipolito Benjamin [place] [phone] [place] [address] [address] [place] [address] Social History Tobacco Use Types [...] on filedocumented in this encounter Care Teams Wrapper Layer And Examiner Soft Work Relationship Specialty Start Date End Date Noah Santos DO NO ADDRESS ON FILE PCP - General 06/17/02 08/04/18 documented as of this encounter
--- OUTSIDE RECORDS SUMMARY | 2024-03-27 14:44 | XMS_ITS | Encounter Summary ---
Author Organization [facility] Address [address] [place] [address] Care Team Providers Care Business Support Manager Name Role Phone Noah Santos DO Primary Care Provider Unavail able Encounter Details Date Type Department Care Team (Late st Contact Info) Description 05/11/2000 Outpatient Historical [facility] [address] [place] [address] [place] [address] Hipolito Benjamin [place] [id number] [place] [address] [address] [place] [address] Social History Tobacco Use Types [...] on filedocumented in this encounter Care Teams Business Support Manager Relationship Specialty Start Date End Date Noah Santos DO NO ADDRESS ON FILE PCP - General 06/17/02 08/04/18 documented as of this encounter
--- OUTSIDE RECORDS SUMMARY | 2024-03-27 14:44 | XMS_ITS | Encounter Summary ---
Author Organization [facility] Address [address] [place] [address] Care Team Providers Care Project Program Manager Name Role Phone Noah Santos DO Primary Care Provider Unavail able Encounter Details Date Type Department Care Team (Late st Contact Info) Description 02/27/2000 Outpatient Historical [facility] [address] [place] [address] [address] [place] [phone] [place] [address] [place], [place] [phone] Social History Tobacco Use Types Packs/Day Years Used Date Smoking Tobacco: Never Assessed Sex and Gender Information Value Date Recorded Sex Assigned at Not on file Gender Identity Not on file Sexual Orientation Not on file documented as of this encounter Plan of Treatment Not on file documented as of this encounter Visit Diagnoses Not on filedocumented in this encounter Care Teams Project Program Manager Relationship Specialty Start Date End Date Noah Santos DO NO ADDRESS ON FILE PCP - General 06/17/02 08/04/18 documented as of this encounter
--- OUTSIDE RECORDS SUMMARY | 2024-03-27 14:44 | XMS_ITS | Encounter Summary ---
Author Organization [facility] Address [address] [place] [address] Care Team Providers Care Desktop Analyst Name Role Phone Noah Santos DO Primary Care Provider Unavail able Encounter Details Date Type Department Care Team (Late st Contact Info) Description 06/23/2000 Outpatient Historical [facility] [address] [place] [address] [place] [address] Hipolito Benjamin [place] [address] [place] [address] [address] [place] [address] Social History Tobacco Use Types [...] on filedocumented in this encounter Care Teams Desktop Analyst Relationship Specialty Start Date End Date Noah Santos DO NO ADDRESS ON FILE PCP - General 06/17/02 08/04/18 documented as of this encounter
--- OUTSIDE RECORDS SUMMARY | 2024-03-27 14:44 | XMS_ITS | Encounter Summary ---
Author Organization [facility] Address [address] [place] [address] Care Team Providers Care Field Kiln Burner Name Role Phone Noah Santos DO Primary Care Provider Unavail able Encounter Details Date Type Department Care Team (Late st Contact Info) Description 04/17/2000 Outpatient Historical [facility] [address] [place] [phone] [place] [address] [place] [address] Social History Tobacco Use Types [...] on filedocumented in this encounter Care Teams Field Kiln Burner Relationship Specialty Start Date End Date Noah Santos DO NO ADDRESS ON FILE PCP - General 06/17/02 08/04/18 documented as of this encounter
--- OUTSIDE RECORDS SUMMARY | 2024-03-27 14:44 | XMS_ITS | Encounter Summary ---
Author Organization [facility] Address [address] [place] [address] Care Team Providers Care Store Loss Prevention Manager Name Role Phone Noah Santos DO Primary Care Provider Unavail able Encounter Details Date Type Department Care Team (Late st Contact Info) Description 11/02/2002 Outpatient Historical [facility] [address] [place] [phone] [place] [address] [place], [place] [phone] Social History Tobacco Use Types Packs/Day Years Used Date Smoking Tobacco: Never Assessed Sex and Gender Information Value Date Recorded Sex Assigned at Not on file Gender Identity Not on file Sexual Orientation Not on file documented as of this encounter Plan of Treatment Not on file documented as of this encounter Visit Diagnoses Not on filedocumented in this encounter Care Teams Store Loss Prevention Manager Relationship Specialty Start Date End Date Noah Santos DO NO ADDRESS ON FILE PCP - General 06/17/02 08/04/18 documented as of this encounter
--- OUTSIDE RECORDS SUMMARY | 2024-03-27 14:44 | XMS_ITS | Encounter Summary ---
Author Organization [facility] Address [address] [place] [address] Care Team Providers Care Office Machine Servicer Name Role Phone Noah Santos DO Primary Care Provider Unavail able Encounter Details Date Type Department Care Team (Late st Contact Info) Description 1999 Outpatient Historical [facility] [address] [place] [address] [place] [address] Hipolito Benjamin [place] [address] [place] [address] [address] [place] [address] Social History Tobacco Use [...] filedocumented in this encounter Care Teams Office Machine Servicer Relationship Specialty Start Date End Date Noah Santos DO NO ADDRESS ON FILE PCP - General 06/17/02 08/04/18 documented as of this encounter
--- OUTSIDE RECORDS SUMMARY | 2024-03-27 14:44 | XMS_ITS | Encounter Summary ---
Author Organization [facility] Address [address] [place] [address] Care Team Providers Care Vocational Trainer Name Role Phone Noah Santos DO Primary Care Provider Unavail able Encounter Details Date Type Department Care Team (Latest Contact Info) Description 06/17/2002 Outpatient Historical [place] [address] [facility] [address] [place] [address] CHR SEROUS OM SIMP/NOS (Primary [...] Primary documented in this encounter Care Teams Vocational Trainer Relationship Specialty Start Date End Date Noah Santos DO NO ADDRESS ON FILE PCP - General 06/17/02 08/04/18 documented as of this encounter
--- OUTSIDE RECORDS SUMMARY | 2024-03-27 14:45 | XMS_ITS | Encounter Summary ---
Author Organization [facility] Healthcare Address [address] [place] [address] Care Team Providers Care Machine Maintenance Servicer Name Role Phone Yamilet Villegas PLAY READER Primary Care Provider [phone]- [phone] Encounter Details Date Type Department Care Team (Late st Contact Info) Description 03/28/2021 5:35 PM SOUNDING DEVICE OPERATOR Lab [address] [address] Colitis; Rectal bleeding Social History Tobacco Use [...] on file Legal Sex Female 11:02 AM SOUNDING DEVICE OPERATOR Gender Identity Not on file Sexual Orientation Not on file documented as of this encounter Miscellaneous Notes * Result Encounter Note - Shirin Mahmood MD - 04/01/2021 8:36 AM CST No evidence of infections based on testing above DING DEVICE OPERATOR documented in this encounter Plan of Treatment Not on file documented as of this encounter Procedures Procedure Name Priority Date/Time Associated Diagnosis Comments CAlysha DIFFICILE TESTING Routine 03/28/2021 9:00 AM SOUNDING DEVICE OPERATOR Colitis Rectal bleeding CALPROTECTIN, FECAL Routine 03/28/2021 9 :00 AM SOUNDING DEVICE OPERATOR Colitis Rectal bleeding OVA AND PARASITE EXAMINATION Routine 03/28/2021 9:00 AM SOUNDING DEVICE OPERATOR Colitis Rectal bleeding CRYPTOSPORIDIUM AND GIARDIA ANTIGEN ASSAY Routine 03/28/2021 9:00 AM SOUNDING DEVICE OPERATOR Colitis Rectal bleeding documented in this encounter Results * Ova and parasite examination Stool (03/28/2021 9:00 AM SOUNDING DEVICE OPERATOR) Report Final Report: No parasites detected. Note: treatment with antibiotics; e.g., Clindamycin, Metronidazole, Tetracycline, and Trimethoprim-s ulfa can adversely affect the detection of ova and parasites. Test performed by [facility], [address] [place] [address], [id number]. [facility] Stool 03/28/2021 9:00 AM SOUNDING DEVICE OPERATOR 03/28/2021 6:04 PM SOUNDING DEVICE OPERATOR us Shirin Mahmood MD LAB MICROBIOLOGY - GENERAL ORD ERABLES Final Result [facility] Department [place] [address] * Cryptosporidium and giardia antigen assay Stool (03/28/2021 9:00 AM SOUNDING DEVICE OPERATOR) Report Final Report: Negative for Giardia lamblia antigen Negative for Cryptosporidium antigen [facility] Organism NEGATIVE FOR GIARDIA LAMBLIA ANTIGEN [facility] Organism NEGATIVE FOR CRYPTOSPORIDIUM ANTIGEN [facility] Stool 03/28/2021 9:00 AM SOUNDING DEVICE OPERATOR 03/28/2021 6:04 PM SOUNDING DEVICE OPERATOR Narrative [facility] - 03/29/2021 8:22 AM SOUNDING DEVICE OPERATOR Interpretive data: Testing performed by the [facility] Microbiology Laboratory using an immunoassay that detects Cryptosporidium and Giardia antigens in stool specimens. If comprehensive examination for ova and parasites is required, please request Ova and Parasite Examination . Current interpretative data was revised April 2020. Shirin Mahmood MD LAB MICROBIOLOGY - GENERAL ORD ERABLES Final Result Performing Organization Address [facility] [place] [address] * C. difficile testing Stool (03/28/2021 9:00 AM SOUNDING DEVICE OPERATOR) Pathologist [facility] C. diff result Negative, free toxin Negative , free toxin [facility] C. diff interp Negative for toxigenic Clostridioides (Clostridium) difficile. Analysis was performed using an enzyme immunoassay that detects C. difficile toxin(s) in feces. [facility] Stool 03/28/2021 9:00 AM SOUNDING DEVICE OPERATOR 03/28/2021 6:05 PM SOUNDING DEVICE OPERATOR Shirin Mahmood MD LAB MICROBIOLOGY - GENERAL ORD ERABLES Final Result Performing Organization Address [facility] [place] [address] * Calprotectin, fecal (03/28/2021 9:00 AM SOUNDING DEVICE OPERATOR) Pathologist [facility] Calprotectin, fecal <50.0 <50.0 (Normal) mcg/g [facility] Comment: ADDITIONAL INFORMATION On 03/07/2021, [facility] implemented a new fecal calprotectin method with an expanded measuring range. If patient was tested on previous method and is undergoing serial monitoring, rebaselining may be indicated. Rebaselining, or testing the current sample on the previous method, is available at no charge, subject to reagent availability. The rebaseline result will be added to this report. Contact [facility] at within 7 days of initial report issuance to request this service. For [facility] patients, call [phone]. Test Performed by: [facility] Laboratories - [facility] [address] [place] [address] Crane Operator Cab: Jacob Quintanilla M.D. Ph.D.; CLIA# [id number] Stool 03/28/2021 9:00 AM SOUNDING DEVICE OPERATOR 03/28/2021 6:52 PM SOUNDING DEVICE OPERATOR us Shirin Mahmood MD LAB BODY FLUIDS AND STOOLS ORD ERABLES Final Result [facility] [place] [address] documented in this encounter Visit Diagnoses Diagnosis Colitis Other and unspecified noninfectious gastroenteritis and colitis Rectal bleeding Hemorrhage of rectum and anus documented in this encounter Care Teams Machine Maintenance Servicer Relationship Specialty Start Date End Date Yamilet Villegas NP formerly [facility] [place] [address] PCP - General Nurse Practitioner 03/12/21 documented as of this encounter
--- OUTSIDE RECORDS SUMMARY | 2024-03-27 14:45 | XMS_ITS | Encounter Summary ---
Author Organization [facility] Healthcare Address [address] [place] [address] Care Team Providers Care Crm Developer Name Role Phone Yamilet Villegas MIKHAIL Primary Care Provider [phone]- [phone] Encounter Details Date Type Department Care Team (Late st Contact Info) Description 03/12/2021 1:50 PM GUIDE DOG TRAINER Lab [facility] ([facility]) [address] [place] [phone] Shirin Mahmood MD [address] [facility] [address] [place] [address] Colitis; Rectal bleeding Discharge Disposition: [...] on file Legal Sex Female 11:02 AM GUIDE DOG TRAINER Gender Identity Not on file Sexual Orientation Not on file documented as of this encounter Discharge Disposition Disposition Code Departure Means Destination Discharge to home or self care documented in this encounter Miscellaneous Notes * Result Encounter Note - Shirin Mahmood MD - 03/13/2021 8:42 AM CST Please let her know All labs are normal. E DOG TRAINER documented in this encounter Plan of Treatment Not on file documented as of this encounter Procedures Procedure Name Priority Date/Time Associated Diagnosis Comments EGFR Routine 03/12/2021 1:47 PM GUIDE DOG TRAINER Colitis Rectal bleeding DIFFERENTIAL AUTO Routine 03/12/2021 1:4 7 PM GUIDE DOG TRAINER Colitis Rectal bleeding CBC WITH AUTO DIFFERENTIAL Routine 03/12/2021 1:47 PM GUIDE DOG TRAINER Colitis Rectal bleeding TISSUE TRANSGLUTAMINASE, IGA Routine 03/12/2021 1:47 PM GUIDE DOG TRAINER Colitis Rectal bleeding CRP (ACUTE PHASE) Routine 03/12/2021 1:4 7 PM GUIDE DOG TRAINER Colitis Rectal bleeding IGA Routine 03/12/2021 1:47 PM GUIDE DOG TRAINER Colitis Rectal bleeding COMPREHENSIVE METABOLIC PANEL Routine 03/12/2021 1:47 PM GUIDE DOG TRAINER Colitis Rectal bleeding documented in this encounter Results * eGFR (03/12/2021 1:47 PM GUIDE DOG TRAINER) eGFR >90 90 - 130 mL/min/1. 73 m2 [facility] Comment: Interpretive Data Reference Interval Normal ?>/= [...] last reviewed 2021. Blood 03/12/2021 1:47 PM GUIDE DOG TRAINER 03/12/2021 2:13 PM GUIDE DOG TRAINER us Shirin Mahmood MD LAB BLOOD ORDERABLES Final Res ult [facility] Department [place] [address] * Differential, auto (03/12/2021 1:47 PM GUIDE DOG TRAINER) Neutrophil abs 4.1 1.7 - 6.5 K/cumm [facility] Imm gran abs 0.1 0.0 - 0.1 K/cumm [facility] Lymphocyte abs 1.9 0.8 - 3.3 K/cumm [facility] Monocyte abs 0.7 0.2 - 0.8 K/cumm [facility] Eosinophil abs 0.2 0.0 - 0.5 K/cumm [facility] Basophil abs 0.0 0.0 - 0.1 K/cumm [facility] Neutrophil pct 59.2 % [facility] Comment: Interpretive Data Percent cell count reference ranges are not reported, since discordance with absolute values may lead to misinterpretation of CBC data. Current Interpretive Data was last revised on 2017. Imm gran pct 0.7 % [facility] Comment: Interpretive Data Percent cell count reference ranges are not reported, since discordance with absolute values may lead to misinterpretation of CBC data. Current Interpretive Data was last revised on 2017. Lymphocyte pct 27.1 % [facility] Comment: Interpretive Data Percent cell count reference ranges are not reported, since discordance with absolute values may lead to misinterpretation of CBC data. Current Interpretive Data was last revised on 2017. Monocyte pct 9.7 % [facility] Comment: Interpretive Data Percent cell count reference ranges are not reported, since discordance with absolute values may lead to misinterpretation of CBC data. Current Interpretive Data was last revised on 2017. Eosinophil pct 2.7 % [facility] Comment: Interpretive Data Percent cell count reference ranges are not reported, since discordance with absolute values may lead to misinterpretation of CBC data. Current Interpretive Data was last revised on 2017. Basophil pct 0.6 % [facility] Comment: Interpretive Data Percent cell count reference ranges are not reported, since discordance with absolute values may lead to misinterpretation of CBC data. Current Interpretive Data was last revised on 2017. Blood 03/12/2021 1:47 PM GUIDE DOG TRAINER 03/12/2021 2:01 PM GUIDE DOG TRAINER Shirin Mahmood MD LAB BLOOD ORDERABLES Final Res ult Performing Organization Address City/[facility]/ZIP Co de Phone Number [facility] [place] [address] * CRP (acute phase) (03/12/2021 1:47 PM GUIDE DOG TRAINER) CRP 1.0 <=10.0 mg/L [facility] Blood 03/12/2021 1:47 PM GUIDE DOG TRAINER 03/12/2021 2:01 PM GUIDE DOG TRAINER Shirin Mahmood MD LAB BLOOD ORDERABLES Final Res ult [facility] [place] [address] * Comprehensive metabolic panel (03/12/2021 1:47 PM GUIDE DOG TRAINER) Sodium 140 135 - 145 mmol/L [facility] Potassium, pl 4.1 3.3 - 4.9 mmol/L [facility] Chloride 103 97 - 110 mmol/L [facility] CO2 27 22 - 32 mmol/L [facility] Anion gap 10 2 - 15 mmol/L [facility] BUN 9 8 - 25 mg/dL [facility] Creatinine 0.72 0.60 - 1.10 mg/dL [facility] Glucose 97 70 - 199 mg/dL [facility] Comment: Interpretive Data Fasting glucose >/= 126 [...] 2017. Calcium 9.5 8.5 - 10.3 mg/dL [facility] Bilirubin, total 0.6 0.1 - 1.2 mg/dL [facility] Protein, pl 8.0 6.5 - 8.5 g/dL [facility] Albumin 4.8 3.5 - 5.0 g/dL [facility] Alk phos 53 40 - 130 Units/L [facility] ALT 14 7 - 45 Units/L [facility] AST 22 10 - 45 Units/L [facility] Blood 03/12/2021 1:47 PM GUIDE DOG TRAINER 03/12/2021 2:01 PM GUIDE DOG TRAINER us Shirin Mahmood MD LAB BLOOD ORDERABLES Final Res ult [facility] [place] [address] * IgA (03/12/2021 1:47 PM GUIDE DOG TRAINER) Immunoglobulin A 148.0 70.0 - 400.0 mg/dL [facility] Blood 03/12/2021 1:47 PM GUIDE DOG TRAINER 03/12/2021 2:01 PM GUIDE DOG TRAINER Shirin Mahmood MD LAB BLOOD ORDERABLES Final Res ult Performing Organization Address [facility] Co de Phone Number [facility] [place] [address] * Tissue transglutaminase IgA (TGG-IgA Ab) (03/12/2021 1:47 PM GUIDE DOG TRAINER) [facility] TTG ab, IgA <0.5 <=14.9 units/mL [facility] Comment: Interpretive data Negative: <15 units/mL Positive: > or equal to 15 units/mL Current interpretive data was last revised on 2016. Blood 03/12/2021 1:47 PM GUIDE DOG TRAINER 03/12/2021 2:01 PM GUIDE DOG TRAINER Shirin Mahmood MD LAB BLOOD ORDERABLES Final Res ult Performing Organization Address [facility] Co de Phone Number [facility] [place] [address] * CBC with auto differential (03/12/2021 1:47 PM GUIDE DOG TRAINER) [facility] WBC 6.9 3.8 - 9.9 K/cumm [facility] Hgb 13.8 11.9 - 15.5 g/dL [facility] Hct 41.5 35.6 - 45.5 % [facility] Plt 299 150 - 400 K/cumm [facility] MPV 10.0 9.1 - 12.3 fL [facility] RBC 4.56 3.90 - 5.20 M/cumm [facility] MCV 91.0 81.3 - 96.4 fL [facility] MCH 30.3 27.1 - 33.3 pg [facility] MCHC 33.3 32.3 - 35.7 g/dL [facility] RDW CV 13.0 11.1 - 14.9 % [facility] RDW SD 42.7 35.7 - 48.1 fL [facility] NRBC abs 0.00 0.00 - 0.01 K/cumm [facility] Blood 03/12/2021 1:47 PM GUIDE DOG TRAINER 03/12/2021 2:01 PM GUIDE DOG TRAINER us Shirin Mahmood MD LAB BLOOD ORDERABLES Final Res ult [facility] [place] [address] documented in this encounter Visit Diagnoses Diagnosis Colitis Other and unspecified noninfectious gastroenteritis and colitis Rectal bleeding Hemorrhage of rectum and anus documented in this encounter Care Teams Crm Developer Relationship Specialty Start Date End Date Yamilet Villegas NP Formerly [facility] [place] [address] PCP - General Nurse Practitioner 03/12/21 documented as of this encounter
--- OUTSIDE RECORDS SUMMARY | 2024-03-27 14:45 | XMS_ITS | Encounter Summary ---
Author Organization [facility] Healthcare Address [address] [place] [address] Care Team Providers Care Care Process Manager Name Role Phone Yamilet Villegas ODD SHOE EXAMINER Primary Care Provider [phone] ReginoKimberlee jenkins DO Unavailable [phone] Kaitlyn Puentes ODD SHOE EXAMINER Unavailable [phone] Reason for Visit * Reason Comments Abdominal Pain Back Pain Encounter Details Date Type Department Care Team (Late st Contact Info) Description 11/19/2023 3:57 PM CDT - 11/19/2023 7:[address] [facility] Emergency Department [address] [place] [id number] Cyst of right ovary (Primary Dx) [...] on file Legal Sex Female 11:02 AM ENGINEERING MANAGER Gender Identity Not on file Sexual [...] Body Mass Index 18.74 05/06/2021 11:13 AM ENGINEERING MANAGER documented in this encounter Discharge Instructions * [...] interpretation with the following outside physician, caregiver, fpc staff: n/a ED Course as of 11/20/23 [...] DISPOSITION: Home PATIENT INSTRUCTED TO FOLLOW UP aYmilet Villegas, MIKHAIL [address] [facility] [address] Schedule an appointment as soon as possible for a visit in 3 days [facility] [place], OBGYN Schedule an appointment as soon as possible for a visit DISCHARGE MEDICATIONS Your medication list START taking these medications Instructions Last Dose Given Next Dose Due naproxen 500 mg tablet Commonly known as: NAPROSYN Take 1 tablet (500 mg total) by mouth 2 (two) times a day with meals for 5 days Where to Get Your Medications These medications were sent to [facility], [place] - [address] [facility] [address] [facility] [address] naproxen 500 mg tablet This examination was transcribed using the Awareness Card voice recognition system without human side stitching machine operator. In an effort to expedite patient care, this report has not been adjusted for typographical, grammatical, and syntax by a trained medical coding manager. Kemi Corey PA 11/20/23 1422 Cosigned by Shorty Arguello MD at 11/20/2023 4:07 PM CDT Associated attestation - Shorty Arguello MD - 11/20/2023 4:07 PM CDT ED Attestation I was present in the emergency department for consultation on this patient. This patient was not presented to me nor was I asked to evalute the patient before they were discharged. I reviewed the ODD SHOE EXAMINER/PA note briefly. * Mely Clarke, RN - [...] PM T: ??11/19/2023 7:11 PM Report ID: [id number] Reading Location: ??[id number] Procedure Note Jeffry Mesa MD - 11/19/2023 [...] Jeffry Mesa M.D. NS: NS Report ID: [id number] Reading Location: [place] [address] us Kemi MONTALVO IMStorm US PROCEDURES Final Result * Urinalysis reflex to microscopic and culture Urine (11/19/2023 4:57 PM CDT) Color, ur Straw Yellow Comment:Testing performed by : [address] [address] Clarity, ur Clear Clear OVIDIO Comment:Testing performed by : [address] [address] Specific gravity, ur 1.008 1.003 - 1.030 OVIDIO Comment:Testing performed by : [address] [address] pH, urine 5.5 OVIDIO Comment: Interpretive Data ? Urine pH is affected by diet, medications, systemic acid-base disturbances, and renal tubular function. ??pH may affect urinary stone formation. ??For example, urine pH below 6.0 may help reduce the tendency for calcium phosphate stones and pH greater than 6.0 may reduce the tendency for uric acid stone formation. Source: [employer] Current Interpretive Data was last revised on 2017 Testing performed by: [facility], [address] [place] [address], [place]., [address] Protein, ur ql Negative Negative OVIDIO Comment:Testing performed by : [address], [place]., [address] Glucose, ur ql Negative Negative OVIDIO Comment:Testing performed by : [address], [place]., [address] Ketones, ur Negative Negative OVIDIO Comment:Testing performed by : [address], [place]., [address] Bilirubin, ur Negative Negative OVIDIO Comment:Testing performed by : [address], [place]., [address] Blood, ur Negative Negative OVIDIO Comment:Testing performed by : [address], [place]., [address] Urobilinogen, ur <2.0 <2.0 mg/dL OVIDIO Comment:Testing performed by : [address], [place]., [address] Nitrite, ur Negative Negative OVIDIO Comment:Testing performed by : [address], [place]., [address] Leukocyte esterase, ur Negative Negative OVIDIO Comment:Testing performed by : [address], [place]., [address] UA reflex comment Reflex conditions for microscopic UA and culture not met. OVIDIO Comment:Testing performed by : [address], [place]., [address] Urine 11/19/2023 4:57 PM CDT 11/19/2023 4:59 PM CDT us Kemi MONTALVO LAB MICROBIOLOGY - GENERAL ORDER SUDHAKAR Final Result OVIDIO MCCABE [address] [facility] Department of Laboratories [place], [place] [id number] * hCG, blood, quantitative (11/19/2023 3:37 PM [...] last revised on 2023 Testing performed by: [facility], [address] [place] [address], [place]., [address] Blood 11/19/2023 3:37 PM CDT 11/19/2023 3:41 PM CDT us Kemi MONTALVO LAB BLOOD ORDERABLES Final Resul t OVIDIO [address] [facility] Department [place] [address] * eGFR (11/19/2023 3:37 PM [...] was last reviewed 2021. Testing performed by: [address] [address] Blood 11/19/2023 3:37 PM CDT 11/19/2023 3:41 PM CDT us Kemi MONTALVO LAB BLOOD ORDERABLES Final Resul t [facility] [address] [facility] Department [place] [address] * Differential, auto (11/19/2023 3:37 PM CDT) Neutrophil abs 3.9 1.5 - 6.5 K/cumm Comment:Testing performed by : [address] [address] Imm gran abs 0.0 0.0 - 0.1 K/cumm OVIDIO Comment:Testing performed by : [address] [address] Lymphocyte abs 2.6 0.8 - 3.3 K/cumm OVIDIO Comment:Testing performed by : [address] [address] Monocyte abs 0.8 0.2 - 0.8 K/cumm OVIDIO Comment:Testing performed by : [address] [address] Eosinophil abs 0.2 0.0 - 0.5 K/cumm OVIDIO Comment:Testing performed by : [address] [address] Basophil abs 0.1 0.0 - 0.1 K/cumm OVIDIO Comment:Testing performed by : [address] [address] Neutrophil pct 51.7 % OVIDIO Comment: Interpretive Data Percent cell count reference ranges are not reported, since discordance with absolute values may lead to misinterpretation of CBC data. Current Interpretive Data was last revised on 2017. Testing performed by: [address] [address] Imm gran pct 0.4 % [facility] Comment: Interpretive Data Percent cell count reference ranges are not reported, since discordance with absolute values may lead to misinterpretation of CBC data. Current Interpretive Data was last revised on 2017. Testing performed by: [address] [address] Lymphocyte pct 34.5 % [facility] Comment: Interpretive Data Percent cell count reference ranges are not reported, since discordance with absolute values may lead to misinterpretation of CBC data. Current Interpretive Data was last revised on 2017. Testing performed by: [address] [address] Monocyte pct 10.1 % [facility] Comment: Interpretive Data Percent cell count reference ranges are not reported, since discordance with absolute values may lead to misinterpretation of CBC data. Current Interpretive Data was last revised on 2017. Testing performed by: [address] [address] Eosinophil pct 2.6 % [facility] Comment: Interpretive Data Percent cell count reference ranges are not reported, since discordance with absolute values may lead to misinterpretation of CBC data. Current Interpretive Data was last revised on 2017. Testing performed by: [address] [address] Basophil pct 0.7 % [facility] Comment: Interpretive Data Percent cell count reference ranges are not reported, since discordance with absolute values may lead to misinterpretation of CBC data. Current Interpretive Data was last revised on 2017. Testing performed by: [address] [address] Blood 11/19/2023 3:37 PM CDT 11/19/2023 3:41 PM CDT us Kemi MONTALVO LAB BLOOD ORDERABLES Final Resul t OVIDIO [address] [facility] Department of Laboratories [place], [place] [id number] * Lipase (11/19/2023 3:37 PM CDT) Lipase 37 10 - 99 Units/L Comment:Testing performed by : [address] [address] Blood (Blood, Venous) 11/19/2023 3:37 PM CDT 11/19/2023 3:41 PM CDT us Kemi MONTALVO LAB BLOOD ORDERABLES Final Resul t [facility] [address] [facility] Department [place] [address] * (ABNORMAL) Comprehensive metabolic panel (11/19/2023 3:37 PM CDT) Pathologist [facility] Sodium 140 135 - 145 mmol/L Comment:Testing performed by : [address] [address] Potassium, pl 4.0 3.3 - 4.9 mmol/L OVIDIO Comment:Testing performed by : [address] [address] Chloride 106 97 - 110 mmol/L OVIDIO Comment:Testing performed by : [address] [address] CO2 26 22 - 32 mmol/L OVIDIO Comment:Testing performed by : [address] [address] Anion gap 8 2 - 15 mmol/L OVIDIO Comment:Testing performed by : [address] [address] BUN 8 6 - 25 mg/dL OVIDIO Comment:Testing performed by : [address] [address] Creatinine 0.60 0.60 - 1.10 mg/dL OVIDIO Comment:Testing performed by : [address] [address] Glucose 91 70 - 199 mg/dL OVIDIO [...] was last revised 2022. Testing performed by: [address] [address] Calcium 9.7 8.5 - 10.3 mg/dL OVIDIO Comment:Testing performed by : [address] [address] Bilirubin, total 0.5 0.1 - 1.2 mg/dL OVIDIO Comment:Testing performed by : [address] [address] Protein, pl 7.6 6.5 - 8.5 g/dL OVIDIO Comment:Testing performed by : [address] [address] Albumin 4.5 3.5 - 5.0 g/dL OVIDIO Comment:Testing performed by : [address] [address] Alk phos 35(L) 40 - 130 Units/L OVIDIO Comment:Testing performed by : [address] [address] ALT 17 7 - 45 Units/L OVIDIO Comment:Testing performed by : [address] [address] AST 17 10 - 45 Units/L [facility] Comment:Testing performed by : [address] [address] Blood 11/19/2023 3:37 PM CDT 11/19/2023 3:41 PM CDT us Kemi MONTALVO LAB BLOOD ORDERABLES Final [facility] t [facility] Department [place] [address] * CBC with auto differential (11/19/2023 3:37 PM CDT) [facility] WBC 7.6 3.8 - 9.9 K/cumm Comment:Testing performed by : [address] [address] Hgb 13.7 11.9 - 15.5 g/dL OVIDIO Comment:Testing performed by : [address] [address] Hct 40.6 35.6 - 45.5 % OVIDIO Comment:Testing performed by : [address] [address] Plt 267 150 - 400 K/cumm OVIDIO Comment:Testing performed by : [address] [address] MPV 9.8 9.1 - 12.3 fL OVIDIO Comment:Testing performed by : [address], [address] RBC 4.55 3.90 - 5.20 M/cumm OVIDIO Comment:Testing performed by : [address] [address] MCV 89.2 81.3 - 96.4 fL OVIDIO Comment:Testing performed by : [address], [address] MCH 30.1 27.1 - 33.3 pg OVIDIO Comment:Testing performed by : [address], [address] MCHC 33.7 32.3 - 35.7 g/dL OVIDIO Comment:Testing performed by : [address], [address] RDW CV 12.2 11.1 - 14.9 % OVIDIO Comment:Testing performed by : [address], [address] RDW SD 39.6 35.7 - 48.1 fL OVIDIO Comment:Testing performed by : [address], [address] NRBC abs 0.00 0.00 - 0.01 K/cumm OVIDIO Comment:Testing performed by : [place] [address], [place]., [address] Blood (Blood, Venous) 11/19/2023 3:37 PM CDT 11/19/2023 3:41 PM CDT us Kemi MONTALVO LAB BLOOD ORDERABLES Final Resul t [place] [address] [facility] Department [place] [address] documented in this encounter Visit [...] seconds 1812 (Given - Provid er: MARY Forman) sodium chloride 0.9% bolus 1,000 mL (COMPLETED) 1,000 mL, intravenous, Once, On Stephanie 11/19/23 at 1801, For 1 dose 1814 (New Bag - Prov ider: MARY Forman)1958 (Stopped - Provider: Harsh Eduardo RN) documented in this encounter Orders Nursing Count Last Ordered Date First Orde red Date MISCELLANEOUS NURSING CARE ORDER (SPECIFY) 1 11/19/2023 IV Count Last Ordered Date First Orde red Date SALINE LOCK IV 1 11/19/2023 documented in this encounter Care Teams Care Process Manager Relationship Specialty Start Date End Date Yamilet Villegas NP [address] [place] [address] PCP - General Nurse Practitioner 03/12/21 Kimberlee Hernandez DO [address] [place] [address] Manager Bar Obstetrics and Gynecology 11/21/22 Kaitlyn Puentes NP [address] [place] [address] Nurse Practitioner Obstetrics and Gynecology 03/04/23 documented as of this encounter
--- OUTSIDE RECORDS SUMMARY | 2024-03-27 14:45 | XMS_ITS | Referral Summary ---
Author Organization [facility] Address [address] [place] [address] Care Team Providers Care Cell Tower Climber Name Role Phone Yamilet Villegas NP Primary Care Provider [phone] Kimberlee Hernandez DO Unavailable [phone] Kaitlyn Puentes SIZE MARKER Unavailable [phone] Allergies No known active allergies Medications naproxen (NAPROSYN) 500 mg tabletIndication s:Pain Take 1 tablet (500 mg total) by mouth 2 (two) times a day with meals for 5 days 10 tablet 11/19/2023 Active Active Problems Problem Noted Date Diagnosed Date Rectal bleeding 10/19/2020 Overview (10/19/2020): Added automatically from request for surgery [id number] Assessment & Plan (03/12/2021 2:15 PM CHILDRENS CLUB ATTENDANT): -will check CBC Deviated nasal septum 03/18/2019 Overview (03/18/2019): Added automatically from request for surgery [id number] Refractory obstruction of nasal airway 9 Overview (03/18/2019): Added automatically from request for surgery [id number] Encounter for cosmetic surgery 03/18/2019 Overview (03/18/2019): Added automatically from request for surgery [id number] Hypertriglyceridemia 11/03/2017 Dyslipidemia 11/03/2017 Abdominal pain 04/08/2016 Overview (07/03/2017): Description: --most likely related to IBS. Rule out Celiac disease. Doubt IBD. Assessment & Plan (03/12/2021 2:14 PM CHILDRENS CLUB ATTENDANT): -chronic, associated with bloating and loose stools. -check celiac panel, CRP, stool calprotectin, ova and parasites and C diff. -will get EGD to evaluate nausea and abdominal pain. Nausea 04/08/2016 Overview (07/03/2017): Description: -consider acid peptic disease or nonulcer dypepsia. Assessment & Plan (03/12/2021 2:15 PM CHILDRENS CLUB ATTENDANT): -upper GI endoscopy as above -consider empiric [...] on file Legal Sex Female 11:02 AM CHILDRENS CLUB ATTENDANT Gender Identity Not on file Sexual Orientation [...] cm (5' 8 ) 05/06/2021 11:13 AM CHILDRENS CLUB ATTENDANT Body Mass Index 18.74 05/06/2021 11:13 AM CHILDRENS CLUB ATTENDANT Plan of Treatment Not on file Insurance [employer] [facility] [facility] Address: [facility] [id number] [place] [id number] [employer] P[employer] PPO [employer] PPO Advance Directives For more information, please contact: [phone] * Full Code (Latest Code Status on File) Date Activated Date Inactivated Comments 05/06/2021 11:15 AM 05/06/2021 5:27 PM Care Teams Cell Tower Climber Relationship Specialty Start Date End Date Yamilet Villegas NP [address] [place] [address] PCP - General Nurse Practitioner 03/12/21 Kimberlee Hernandez DO [address] [place] [address] Hydropulper Operator Obstetrics and Gynecology 11/21/22 Kaitlyn Puentes NP [address] [place] [address] Nurse Practitioner Obstetrics and Gynecology 03/04/23
--- OUTSIDE RECORDS SUMMARY | 2024-03-27 14:45 | XMS_ITS | Encounter Summary ---
Author Organization [facility] Healthcare Address [address] [place] [address] Care Team Providers Care Senior Talent Management Consultant Name Role Phone Nunu Wilson MD Primary Care Provider + Encounter Details Date Type Department Care Team (Late st Contact Info) Description 12/10/2020 8:44 AM CDT Anesthesia Event [facility] Endoscopy [address] [place] [address] Dave Lopez MD [address] [place] [address] Connor Santos MD [address] [place] [address] Anesthesia Record Procedure Summary Procedure Name Responsible [...] on file Legal Sex Female 11:02 AM FISH AND WILDLIFE WARDEN Gender Identity Not on file Sexual Orientation Not on file documented as of this encounter OR Notes * Anesthesia Postprocedure Evaluation - Dave Lopez MD - 12/10/2020 10:48 AM CDT Patient: America Bloom Procedure Summary Date: 12/10/20 Room / Location: [facility] ENDOSCOPY ROOM [facility] Anesthesia Start: 843 Anesthesia [...] Medication protocol when under care of a SALES RECRUITMENT SPECIALIST Planned anesthesia: General Informed Consent: Anesthesia plan [...] mg documented in this encounter Care Teams Senior Talent Management Consultant Relationship Specialty Start Date End Date Nunu Wilson MD [address] [place] [address] PCP - General 12/10/20 03/11/21 documented as of this encounter
--- OUTSIDE RECORDS SUMMARY | 2024-03-27 14:45 | XMS_ITS | Encounter Summary ---
Author Organization [facility] Healthcare Address [address] [place] [address] Care Team Providers Care Customer Account Technician Name Role Phone Yamilet Villegas MIKHAIL Primary Care Provider [phone] Encounter Details Date Type Department Care Team (Latest Contact Info) Description 05/06/2021 10:00 AM MEDIA PRODUCTION MANAGER - 05/06/2021 1:20 PM MEDIA PRODUCTION MANAGER Hospital Encounter [facility] [address] [facility] [address] [place] [address] Shirin Mahmood MD [address] [facility] [address] [place], [place] [id number] Abdominal pain; Nausea and vomiting, intractability of [...] on file Legal Sex Female 11:02 AM MEDIA PRODUCTION MANAGER Gender Identity Not on file Sexual Orientation Not on file documented as of this encounter Last Filed Vital Signs Vital Sign Reading Time Taken Comments Blood Pressure 101/62 05/06/2021 1:00 PM MEDIA PRODUCTION MANAGER Pulse 79 05/06/2021 1:00 PM MEDIA PRODUCTION MANAGER Temperature 36.2 ??C (97.2 ??F) 05/06/2021 12:[address] Respiratory Rate 19 05/06/2021 1:00 PM MEDIA PRODUCTION MANAGER Oxygen Saturation 100% 05/06/2021 1:00 PM MEDIA PRODUCTION MANAGER Inhaled Oxygen Concentration - - Weight 49.9 kg (110 lb) 05/06/2021 11:13 AM MEDIA PRODUCTION MANAGER Height 172.7 cm (5' 8 ) 05/06/2021 11:13 AM MEDIA PRODUCTION MANAGER Body Mass Index 16.73 05/06/2021 11:13 AM MEDIA PRODUCTION MANAGER documented in this encounter Discharge Diagnoses Diagnosis [...] Female Attending MD: Shirin Mahmood M.D. Room: [facility] ENDOSCOPY ROOM 3 Note Status: Finalized Procedure: [...] On: 05/06/2021 11:01 AM Recognized by the [employer] for promoting quality in endoscopy A PRODUCTION MANAGER documented in this encounter Plan of Treatment Not on file documented as of this encounter Procedures Procedure Name Priority Date/Time Associated Diagnosis Comments SURGICAL PATHOLOGY Routine 05/06/2021 12:24 PM MEDIA PRODUCTION MANAGER Abdominal pain Nausea and vomiting, intractability of vomiting not specified, unspecified vomiting type ESOPHAGOGASTRODUODENOSCOPY BIOPSY 05/06/2021 12:14 PM MEDIA PRODUCTION MANAGER Abdominal pain Nausea and vomiting, intractability of vomiting not specified, unspecified vomiting type POCT HCG, URINE Routine 05/06/2021 11:53 AM MEDIA PRODUCTION MANAGER EGD 05/06/2021 11:01 AM MEDIA PRODUCTION MANAGER documented in this encounter Results * Surgical pathology (05/06/2021 12:24 PM MEDIA PRODUCTION MANAGER) Tissue (Duodenum, Biopsy) 05/06/2021 12:24 PM MEDIA PRODUCTION MANAGER Tissue (Gastric/Stomach biopsy) 05/06/2021 12:24 PM MEDIA PRODUCTION MANAGER Narrative PATHOLOGY [facility] - 05/07/2021 2:18 PM MEDIA PRODUCTION MANAGER EPIC results best viewed via link to PDF [facility] of Surgical Pathology [place] [address] Note to Patients: This report may contain [...] Gender: ??F : ??2000 (Age: 20) Address: ??[facility] [address] [place], [place] ??[address] Hospital #: ??[id number] Taken:05/06/2021 Received:05/06/2021 Reported: 05/07/2021 Patient Type: [facility] SDS ?? Service: Gastroenterology Location: [facility] Physician(s): ??Sayda Garcia RN,MSN Diagnosis: A. [...] cm in diameter. ??Labeled B1. ??Jar 0. [facility]/05/06/2021 14:59 PA(s): Ruddy Gomez By this signature, I attest that the above diagnosis is based upon my personal examination of the slides(and/or other material). Addenda/Procedures The performance characteristics of some immunohistochemical stains, fluorescence in-situ hybridization tests and immunophenotyping by flow cytometry cited in this report (if any) were determined by the Surgical Pathology and Flow Cytometry Departments at as part of an ongoing quality control lead program and in compliance with federally mandated [...] Surgical Pathology and Flow Cytometry Departments of . ??It has not been cleared or approved by the U. S. Food and Drug Administration. IMAGES AND SCANNED DOCUMENTS, IF INCLUDED, ONLY VIEWABLE IN PDF VERSION OF REPORT us Shirin Mahmood MD LAB PATHOLOGY ORDERABLES Final Result PATHOLOGY [facility] 3rd Floor [place], [place] [phone] * POCT hCG, urine (05/06/2021 11:53 AM MEDIA PRODUCTION MANAGER) HCG, ur, POC Negative Lot Number [id number]\ QC Backgroud Clear Acceptable QC Control Line Acceptable Urine 05/06/2021 11:5 3 AM MEDIA PRODUCTION MANAGER us Shirin Mahmood MD POINT OF CARE TEST ORDERABLES Final Result * EGD (05/06/2021 11:01 AM MEDIA PRODUCTION MANAGER) Anatomical Region Laterality Modality Other Narrative Procedure Note Shirin Mahmood MD - 05/06/2021 11:01 AM [facility] Patient Name: America Garcia Procedure Date: 05/06/2021 11:01 AM Date of : 2000 Admit Type: Outpatient Age: 20 Gender: Female Attending MD: Shirin Mahmood M.D. Room: [facility] ENDOSCOPY ROOM 3 Note Status: Finalized Procedure: [...] On: 05/06/2021 11:01 AM Recognized by the [employer] for promoting quality [...] Pre-Procedure (GI) Rate/Dose Verify 05/06/2021 12:13 PM MEDIA PRODUCTION MANAGER 30 mL/hr New Bag 05/06/2021 11:20 AM MEDIA PRODUCTION MANAGER 30 mL/hr 30 mL/hr documented in this [...] Recently Administered Medications Times are shown in MEDIA PRODUCTION MANAGER. Continuous Medication Order 05/04/2021 05/05/2021 05/06/2021 sodium [...] 04/23 documented in this encounter Care Teams Customer Account Technician Relationship Specialty Start Date End Date Yamilet Villegas NP [address] [place] [address] PCP - General Nurse Practitioner 03/12/21 documented as of this encounter
--- OUTSIDE RECORDS SUMMARY | 2024-03-27 14:45 | XMS_ITS | Encounter Summary ---
Author Organization [facility] Healthcare Address [address] [place] [address] Care Team Providers Care Production Pattern Maker Name Role Phone Bakari Yamilet Aguiarelroy ELIZONDO Primary Care Provider +1- [phone] Encounter Details Date Type Department Care Team (Latest Contact Info) Description 05/06/2021 11:00 AM SOCIAL MEDIA MARKETING SPECIALIST - 05/06/2021 11:30 AM SOCIAL MEDIA MARKETING SPECIALIST Surgery [facility] [address] [facility] [address] [place] [address] Shirin Mahmood MD [address] [facility] [address] [place], [place] [id number] ESOPHAGOGASTRODUODENOSCOPY BIOPSY Surgery Details Date/Time Status Location OR Service Patient Class Case Class Case Type Trauma Case? 05/06/2021 11:00 AM Posted [facility] 03 Gastroenterology Outpatient Elective Panel 1 Procedure LRB Anes Op Region Wound Class Comments ESOPHAGOGASTRODUODENOSCOPY BIOPSY Left Monitor Anesthesia Care N/A Surgeon Surgeon Role Service Panel Shirin Mahmood MD Primary Gastroenterology 1 documented in this [...] on file Legal Sex Female 11:02 AM SOCIAL MEDIA MARKETING SPECIALIST Gender Identity Not on file Sexual Orientation Not on file documented as of this encounter Last Filed Vital Signs Vital Sign Reading Time Taken Comments Blood Pressure 113/76 05/06/2021 11:13 AM SOCIAL MEDIA MARKETING SPECIALIST Pulse 78 05/06/2021 11:13 AM SOCIAL MEDIA MARKETING SPECIALIST Temperature 36.8 ??C (98.2 ??F) 05/06/2021 11:[address] Respiratory Rate 16 05/06/2021 11:13 AM SOCIAL MEDIA MARKETING SPECIALIST Oxygen Saturation 99% 05/06/2021 11:13 AM SOCIAL MEDIA MARKETING SPECIALIST Inhaled Oxygen Concentration - - Weight 49.9 kg (110 lb) 05/06/2021 11:13 AM SOCIAL MEDIA MARKETING SPECIALIST Height 172.7 cm (5' 8 ) 05/06/2021 11:13 AM SOCIAL MEDIA MARKETING SPECIALIST Body Mass Index 16.73 05/06/2021 11:13 AM SOCIAL MEDIA MARKETING SPECIALIST documented in this encounter Discharge Disposition Disposition Code Departure Means Destination Discharge to home or self care documented in this encounter Procedure Notes * Shirin Mahmood MD - 05/06/2021 11:01 AM CSTAssociated Order(s): EGD GI ENDOSCOPY [facility] Patient Name: America Garcia Procedure Date: 05/06/2021 11:01 AM Date of : 2000 Admit Type: Outpatient Age: 20 Gender: Female Attending MD: Shirin Mahmood M.D. Room: [facility] 3 Note Status: Finalized [...] passed under direct vision. The GIF [id number] endoscope was introduced through the mouth, and [...] On: 05/06/2021 11:01 AM Recognized by the [place] [employer] for promoting quality in endoscopy AL MEDIA MARKETING SPECIALIST documented in this encounter Plan of Treatment Not on file documented as of this encounter Procedures Procedure Name Priority Date/Time Associated Diagnosis Comments SURGICAL PATHOLOGY Routine 05/06/2021 12:24 PM SOCIAL MEDIA MARKETING SPECIALIST Abdominal pain Nausea and vomiting, intractability of vomiting not specified, unspecified vomiting type ESOPHAGOGASTRODUODENOSCOPY BIOPSY 05/06/2021 12:14 PM SOCIAL MEDIA MARKETING SPECIALIST Abdominal pain Nausea and vomiting, intractability of vomiting not specified, unspecified vomiting type POCT HCG, URINE Routine 05/06/2021 11:53 AM SOCIAL MEDIA MARKETING SPECIALIST EGD 05/06/2021 11:01 AM SOCIAL MEDIA MARKETING SPECIALIST documented in this encounter Results * Surgical pathology (05/06/2021 12:24 PM SOCIAL MEDIA MARKETING SPECIALIST) Tissue (Duodenum, Biopsy) 05/06/2021 12:24 PM SOCIAL MEDIA MARKETING SPECIALIST Tissue (Gastric/Stomach biopsy) 05/06/2021 12:24 PM SOCIAL MEDIA MARKETING SPECIALIST Narrative PATHOLOGY [facility] - 05/07/2021 2:18 PM SOCIAL MEDIA MARKETING SPECIALIST EPIC results best viewed via link to PDF [facility] [place] [address] Note to Patients: This report may contain [...] Gender: ??F : ??2000 (Age: 20) Address: ??Replaced by [facility] [address], [place], [place] ??[address] Hospital #: ??[id number] Taken:05/06/2021 Received:05/06/2021 Reported: 05/07/2021 Patient Type: BJ SDS ?? Service: Gastroenterology Location: [facility] Physician(s): ??Sayda Garcia RN,MSN Diagnosis: A. ??Small [...] cm in diameter. ??Labeled B1. ??Jar 0. [facility]/05/06/2021 14:59 PA(s): Ruddy Gomez By this signature, I attest that the above diagnosis is based upon my personal examination of the slides(and/or other material). Addenda/Procedures The performance characteristics of some immunohistochemical stains, fluorescence in-situ hybridization tests and immunophenotyping by flow cytometry cited in this report (if any) were determined by the Surgical Pathology and Flow Cytometry Departments at [facility] as part of an ongoing quality assurance lead program and in compliance with federally [...] Surgical Pathology and Flow Cytometry Departments of [facility]. ??It has not been cleared or approved by the U. S. Food and Drug Administration. IMAGES AND SCANNED DOCUMENTS, IF INCLUDED, ONLY VIEWABLE IN PDF VERSION OF REPORT us Shirin Mahmood MD LAB PATHOLOGY ORDERABLES Final Result PATHOLOGY [facility] 3rd Floor [place], [place] [phone] * POCT hCG, urine (05/06/2021 11:53 AM SOCIAL MEDIA MARKETING SPECIALIST) [facility], ur, POC Negative Lot Number \[id number]\ QC Backgroud Clear Acceptable QC Control Line Acceptable Urine 05/06/2021 11:5 3 AM SOCIAL MEDIA MARKETING SPECIALIST us Shirin Mahmood MD POINT OF CARE TEST ORDERABLES Final Result * EGD (05/06/2021 11:01 AM SOCIAL MEDIA MARKETING SPECIALIST) Anatomical Region Laterality Modality Other Narrative Procedure Note Shirin Mahmood MD - 05/06/2021 11:01 AM CST GI ENDOSCOPY [facility] Patient Name: America Garcia Procedure Date: 05/06/2021 11:01 AM Date of : 2000 Admit Type: Outpatient Age: 20 Gender: Female Attending MD: Shirin Mahmood M.D. Room: [facility] 3 Note Status: Finalized [...] On: 05/06/2021 11:01 AM Recognized by the [place] for promoting quality [...] Pre-Procedure (GI) Rate/Dose Verify 05/06/2021 12:13 PM SOCIAL MEDIA MARKETING SPECIALIST 30 mL/hr New Bag 05/06/2021 11:20 AM SOCIAL MEDIA MARKETING SPECIALIST 30 mL/hr 30 mL/hr documented in this [...] Recently Administered Medications Times are shown in SOCIAL MEDIA MARKETING SPECIALIST. Continuous Medication Order 05/04/2021 05/05/2021 05/06/2021 sodium [...] 04/23 documented in this encounter Care Teams Production Pattern Maker Relationship Specialty Start Date End Date Yamilet Villegas NP [place] [address] PCP - General Nurse Practitioner 03/12/21 documented as of this encounter
--- OUTSIDE RECORDS SUMMARY | 2024-03-27 14:45 | XMS_ITS | Encounter Summary ---
Author Organization [facility] Healthcare Address [address] [place] [address] Care Team Providers Care Heavy Equipment Supervisor Name Role Phone Nunu Wilson MD Primary Care Provider + Encounter Details Date Type Department Care Team (Latest Contact Info) Description 12/10/2020 7:49 AM CDT - 12/10/2020 10:01 AM CDT Hospital Encounter [facility] [address] [place] [address] Kaleb Negron MD [address] [facility] [phone] [place], [place] [id number] Discharge Disposition: Discharge to home or self [...] on file Legal Sex Female 11:02 AM COMMUNICATIONS CONSULTANT Gender Identity Not on file Sexual Orientation [...] this encounter Medications at Time of Discharge acetaminophen-co deine (TYLENOL with CODEINE #3) 300-30 mg per tablet Take 1-2 tablets by mouth every 4 (four) hours as needed. 0 08/18/2017 05/06/2021 drospirenone-eth inyl estradiol (SLAVA, 28,) 3-0.03 mg per tablet Take 1 tablet by mouth daily. 05/06/2021 ISOtretinoin (ABSORCA,ACCUTAN E) 40 mg capsule Take one tablet daily as directed 03/12/2021 polyethylene glycol (COLYTE) 240-22.72-6.72 -5.84 gram solution Drink first half of prep at 6:00pm the night before procedure. Drink second half of prep 4 hours prior to leaving home for procedure. 4000 mL 11/14/2020 03/12/2021 sodium, potassium & mag sulfates [...] to sedation/anesthesia with the patient or his/her veterans contact representative and have documented his/her understanding of [...] Female Attending MD: Kaleb Negron M.D. Room: [facility] ENDOSCOPY ROOM 03 Note Status: Finalized [...] scope was passed under direct vision. The [id number] was introduced through the anus and advanced to the cecum, identified by appendiceal orifice and ileocecal valve. The colonoscopy was performed without difficulty. The patient tolerated the procedure well. The quality of the bowel preparation was evaluated using the BBPS ([place] Bowel Preparation Scale) with scores of: Right [...] Bowel prep When you arrive, come to [facility] hospital entrance. As you enter there [...] mask at all times My number is [phone] documented in this encounter Plan of Treatment [...] Female Attending MD: Kaleb Negron M.D. Room: [facility] ENDOSCOPY ROOM 03 Note Status: Finalized [...] The scope was passed under direct vision.The [id number] was introduced through the anusand advanced to [...] RN) documented in this encounter Care Teams Heavy Equipment Supervisor Relationship Specialty Start Date End Date Nunu Wilson MD [address] [place] [address] PCP - General 12/10/20 03/11/21 documented as of this encounter
--- OUTSIDE RECORDS SUMMARY | 2024-03-27 14:45 | XMS_ITS | Encounter Summary ---
Author Organization [facility] Healthcare Address [address] [place] [address] Care Team Providers Care Baggage Inspector Name Role Phone BakariYamilet NP Primary Care Provider +1- [phone] Encounter Details Date Type Department Care Team (Late st Contact Info) Description 05/06/2021 12:13 PM SURGICAL CODER Anesthesia Event [facility] [place] [address] [facility] [address] [place] [address] Jaye Quispe MD [address] [place] [address] Kermit Boone CRNA [address] [place] [address] Anesthesia Record Procedure Summary Procedure Name Responsible [...] on file Legal Sex Female 11:02 AM SURGICAL CODER Gender Identity Not on file Sexual Orientation Not on file documented as of this encounter OR Notes * Anesthesia Postprocedure Evaluation - Alison Zendejas MLT - 05/06/2021 1:00 PM CST Patient: America Bloom Procedure Summary Date: 05/06/21 Room / Location: [facility] ENDOSCOPY ROOM 3 / [facility] ENDOSCOPY Anesthesia Start: 1213 Anesthesia Stop: 1242 [...] Jaye Quispe MD at 05/06/2021 1:00 PM SURGICAL CODER ICAL CODER ICAL CODER * Anesthesia Preprocedure Evaluation - Jaye Quispe [...] Medication protocol when under care of a BAG FILLER Planned anesthesia: MAC Informed Consent: Discussed plan with BAG FILLER. Anesthesia plan and risks discussed with patient. Consent and Attending signature: I and/or my designee have discussed the anesthesia plan, benefits, possible alternatives, parental presence at time of induction (if indicated), and clinically relevant risks that may include dental injury, unintentional awareness, and/or other complications. The patient and/or parent/legal guardian understand, and agree to proceed. All questions answered. ICAL CODER documented in this encounter Plan of Treatment Not on file documented as of this encounter Visit Diagnoses Not on filedocumented in this encounter Administered Medications Inactive Administered Medications - up to 3 most recent administrations Medication Order MAR Action Action Date Dose Rate Site fentaNYL (SUBLIMAZE) preservative free injection intravenous, As needed, Starting on Thu05/06/21 at 1219, Anesthesia Intra-op Given 05/06/2021 12:19 PM SURGICAL CODER 50 mcg lidocaine (cardiac) (XYLOCAINE) preservative free injection intravenous, As needed, Starting on Thu05/06/21 at 1221, Anesthesia Intra-op, Indications: Ventricular ArrhythmiasIndications :Ventricular Arrhythmias Given 05/06/2021 12:21 PM SURGICAL CODER 60 mg propofoL (DIPRIVAN) 10 mg/mL IV intravenous, Continuous PRN, Starting on Thu05/06/21 at 1219, Anesthesia Intra-op New Bag 05/06/2021 12:19 PM SURGICAL CODER 125 mcg/kg/min 37.425 mL/hr propofoL (DIPRIVAN) 10 mg/mL IV intravenous, As needed, Starting on Thu05/06/21 at 1219, Anesthesia Intra-op Given 05/06/2021 12:19 PM SURGICAL CODER 100 mg sodium chloride 0.9% infusion 30 mL/hr, intravenous, Continuous, Starting on Thu05/06/21 at 1145, Pre-Procedure (GI) Rate/Dose Verify 05/06/2021 12:13 PM SURGICAL CODER 30 mL/hr New Bag 05/06/2021 11:20 AM SURGICAL CODER 30 mL/hr 30 mL/hr documented in this encounter Care Teams Baggage Inspector Relationship Specialty Start Date End Date Yamilet Villegas NP [facility] [place] [address] PCP - General Nurse Practitioner 03/12/21 documented as of this encounter
--- OUTSIDE RECORDS SUMMARY | 2024-03-27 14:45 | XMS_ITS | Encounter Summary ---
Author Organization [facility] Address [address] [place] [address] Phone Care Team Providers Care Film Producer Name Role Phone Yamilet Villegas Ce ELIZONDO Primary Care Provider +1- [phone] Reason for Visit * Reason Onset Date Comments Scheduling Additional Testing 05/14/2021 Encounter Details Date Type Department Care Team (Late st Contact Info) Description 05/14/2021 Telephone [facility] Gastroenterology [address] [facility] Medicine 8th [place] [address] [place] [address] Mary Lou Gan LPN Scheduling [...] on file Legal Sex Female 11:02 AM MEDICAL TECHNOLOGIST PRN Gender Identity Not on file Sexual Orientation Not on file documented as of this encounter Miscellaneous Notes * Telephone Encounter - Shirin Mahmood MD - 05/16/2021 1:32 PM CST Sounds good, thank you. CAL TECHNOLOGIST PRN * Telephone Encounter - Mary Lou Gan LPN - 05/16/2021 11:58 AM MEDICAL TECHNOLOGIST PRN Received call from mother stating that America [...] contact our office if she needs anything. CAL TECHNOLOGIST PRN * Telephone Encounter - Mary Lou Gan LPN - 05/14/2021 2:54 PM MEDICAL TECHNOLOGIST PRN Received voicemail from mother, Sherin, who inquired [...] like the phone number to schedule herself. CAL TECHNOLOGIST PRN documented in this encounter Plan of Treatment Not on file documented as of this encounter Visit Diagnoses Not on filedocumented in this encounter Care Teams Film Producer Relationship Specialty Start Date End Date Yamilet Villegas [place] [address] PCP - General Nurse Practitioner 03/12/21 documented as of this encounter
--- OUTSIDE RECORDS SUMMARY | 2024-03-27 14:45 | XMS_ITS | Encounter Summary ---
Author Organization [facility] Healthcare Address [address] [place] [address] Care Team Providers Care Industrial Garage Servicer Name Role Phone Yamilet Villegas NP Primary Care Provider +1- [phone] Encounter Details Date Type Department Care Team ([facility] st Contact Info) Description 03/28/2021 12:55 PM UNIT AID Lab [facility] Advanced Medicine [facility] Advanced Medicine ([facility]) [address] [place] [phone] Social History Tobacco Use Types Packs/Day Years [...] on file Legal Sex Female 11:02 AM UNIT AID Gender Identity Not on file Sexual Orientation Not on file documented as of this encounter Plan of Treatment Not on file documented as of this encounter Visit Diagnoses Not on filedocumented in this encounter Care Teams Industrial Garage Servicer Relationship Specialty Start Date End Date Yamilet Villegas NP [address] [place] [address] PCP - General Nurse Practitioner 03/12/21 documented as of this encounter
--- OUTSIDE RECORDS SUMMARY | 2024-03-27 14:45 | XMS_ITS | Encounter Summary ---
Author Organization [facility] Address [address] [place] [address] Phone Care Team Providers Care Manager Service Desk Name Role Phone Yamilet Villegas MIKHAIL Primary Care Provider +1- [phone] Encounter Details Date Type Department Care Team (Late st Contact Info) Description 05/08/2021 Orders Only [facility] Gastroenterology [address] [facility] Advanced Medicine 8th [place] [address] [place] [address] Mary Lou Gan LPN Abdominal pain (Primary [...] file Legal Sex Female 11:02 AM INDUSTRIAL DIAMOND POLISHER Gender Identity Not on file Sexual Orientation [...] scan to rule out Meckel diverticulum ?? STRIAL DIAMOND POLISHER documented in this encounter Plan of Treatment Not on file documented as of this encounter Visit Diagnoses Diagnosis Abdominal pain- Primary Abdominal pain, unspecified site documented in this encounter Care Teams Manager Service Desk Relationship Specialty Start Date End Date Yamilet Villegas NP [address] [place] [address] PCP - General Nurse Practitioner 03/12/21 documented as of this encounter
--- OUTSIDE RECORDS SUMMARY | 2024-03-27 14:45 | XMS_ITS | Encounter Summary ---
Author Organization [facility] Address [address] [place] [address] Phone Care Team Providers Care Wash And Greaser Name Role Phone Yamilet Villegas NP Primary Care Provider +1- [phone] Encounter Details Date Type Department Care Team (Late st Contact Info) Description 02/04/2022 Telephone [facility] Gastroenterology [address] [place] [address] 12th [place] [address] [place] [address] Priscilla Ferreira Social History Tobacco [...] on file Legal Sex Female 11:02 AM WELDING SYSTEMS AND EQUIPMENT REPAIRER Gender Identity Not on file Sexual Orientation Not on file documented as of this encounter Miscellaneous Notes * Telephone Encounter - Mary Lou Gan LPN - 02/04/2022 2:39 PM WELDING SYSTEMS AND EQUIPMENT REPAIRER CTA abdomen ordered. Left detailed voicemail on mother's phone that order placed, would require an IV and left phone number to radiology scheduling. ING SYSTEMS AND EQUIPMENT REPAIRER * Telephone Encounter - Priscilla Diaz - 02/04/2022 11:42 AM CST Mom called. Would like to complete the prior recommended testing. Do you want to see her in clinic first? ING SYSTEMS AND EQUIPMENT REPAIRER documented in this encounter Plan of Treatment Not on file documented as of this encounter Visit Diagnoses Not on filedocumented in this encounter Care Teams Wash And Greaser Relationship Specialty Start Date End Date Yamilet Villegas NP [facility] [place] [address] PCP - General Nurse Practitioner 03/12/21 documented as of this encounter
--- OUTSIDE RECORDS SUMMARY | 2024-03-27 14:45 | XMS_ITS | Encounter Summary ---
Author Organization [facility] Address [address] [place] [address] Phone Care Team Providers Care X Ray Nurse Name Role Phone Yamilet Villegas NP Primary Care Provider +1- [phone] Reason for Visit * Consultation (Routine) - Closed Specialty Diagnoses / Procedures Referred By Nelly t Referred To Contact Gastroenterology Diagnoses Colitis Rectal bleeding Abdominal pain Referral, Self [facility] (All Locations) Referral ID Status Reason Start Date Expiration Date V isits Requested Visits Authorized [id number] Closed Specialty Services Required 01/04/2021 02/03/2022 1 1 Encounter Details Date Type Department Care Team (Latest Contact Info) Description 03/12/2021 1:00 PM POUCH MAKING MACHINE OPERATOR Office Visit [facility] Gastroenterology [address] [facility] Advanced [facility] 12th [place] [address] [place] [address] Shirin Mahmood MD [address] [place] [address] Nausea and vomiting, intractability of vomiting not [...] on file Legal Sex Female 11:02 AM POUCH MAKING MACHINE OPERATOR Gender Identity Not on file Sexual Orientation Not on file documented as of this encounter Last Filed Vital Signs Vital Sign Reading Time Taken Comments Blood Pressure 132/79 03/12/2021 12:46 PM POUCH MAKING MACHINE OPERATOR Pulse 75 03/12/2021 12:46 PM POUCH MAKING MACHINE OPERATOR Temperature 36.8 ??C (98.2 ??F) 03/12/2021 12:[address] Respiratory Rate - - Oxygen Saturation 100% 03/12/2021 12:46 PM POUCH MAKING MACHINE OPERATOR Inhaled Oxygen Concentration - - Weight 51.3 kg (113 lb) 03/12/2021 12:46 PM POUCH MAKING MACHINE OPERATOR Height 175.3 cm (5' 9 ) 03/12/2021 12:46 PM POUCH MAKING MACHINE OPERATOR Body Mass Index 16.69 03/12/2021 12:46 PM POUCH MAKING MACHINE OPERATOR documented in this encounter Progress Notes * Shirin Mahmood MD - 03/12/2021 1:00 PM CST Images from the original note were not included. [facility] DEPARTMENT OF MEDICINE DIVISION OF GASTROENTEROLOGY Clinic Address: [address] [place] [address], [place] [address] Mailing Address: [facility] [place] [address] [place] [address] Consult Note NAME: America Bloom : 2000 [...] recently she went to the ER in [place] for persistent dizziness, chills, fevers and loose [...] months Shirin Mahmood MD Clinical Instructor in [facility] [address] [place] [address] research assistant member Academic office H MAKING MACHINE OPERATOR documented in this encounter Miscellaneous Notes * Assessment & Plan Note - Shirin Mahmood MD - 03/12/2021 2:15 PM POUCH MAKING MACHINE OPERATOR Associated Problem(s): Rectal bleeding -will check CBC H MAKING MACHINE OPERATOR * Assessment & Plan Note - Shirin Mahmood MD - 03/12/2021 2:14 PM POUCH MAKING MACHINE OPERATOR Associated Problem(s): Nausea -upper GI endoscopy as above -consider empiric PPI trial H MAKING MACHINE OPERATOR * Assessment & Plan Note - Shirin Mahmood MD - 03/12/2021 2:14 PM POUCH MAKING MACHINE OPERATOR Associated Problem(s): Abdominal pain -chronic, associated with bloating and loose stools. -check celiac panel, CRP, stool calprotectin, ova and parasites and C diff. -will get EGD to evaluate nausea and abdominal pain. H MAKING MACHINE OPERATOR documented in this encounter Plan of Treatment Not on file documented as of this encounter Results * Ova and parasite examination Stool (03/28/2021 9:00 AM POUCH MAKING MACHINE OPERATOR) Report Final Report: No parasites detected. Note: treatment with antibiotics; e.g., Clindamycin, Metronidazole, Tetracycline, and Trimethoprim-s ulfa can adversely affect the detection of ova and parasites. Test performed by [facility], [address] [place] [address], [id number] [facility] Stool 03/28/2021 9:00 AM POUCH MAKING MACHINE OPERATOR 03/28/2021 6:04 PM POUCH MAKING MACHINE OPERATOR Shirin Mahmood MD LAB MICROBIOLOGY - GENERAL ORD ERABLES Final Result [facility] Department [place] [address] * Cryptosporidium and giardia antigen assay Stool (03/28/2021 9:00 AM POUCH MAKING MACHINE OPERATOR) Report Final Report: Negative for Giardia lamblia antigen Negative for Cryptosporidium antigen [facility] Organism NEGATIVE FOR GIARDIA LAMBLIA ANTIGEN [facility] Organism NEGATIVE FOR CRYPTOSPORIDIUM ANTIGEN [facility] Stool 03/28/2021 9:00 AM POUCH MAKING MACHINE OPERATOR 03/28/2021 6:04 PM POUCH MAKING MACHINE OPERATOR Narrative [facility] - 03/29/2021 8:22 AM POUCH MAKING MACHINE OPERATOR Interpretive data: Testing performed by the [facility] using an immunoassay that detects Cryptosporidium and Giardia antigens in stool specimens. If comprehensive examination for ova and parasites is required, please request Ova and Parasite Examination . Current interpretative data was revised April 2020. Shirin Mahmood MD LAB MICROBIOLOGY - GENERAL ORD ERABLES Final Result Performing Organization Address [facility] [place] [address] * C. difficile testing Stool (03/28/2021 9:00 AM POUCH MAKING MACHINE OPERATOR) Pathologist [facility] C. diff result Negative, free toxin Negative , free toxin [facility] C. diff interp Negative for toxigenic Clostridioides (Clostridium) difficile. Analysis was performed using an enzyme immunoassay that detects C. difficile toxin(s) in feces. [facility] Stool 03/28/2021 9:00 AM POUCH MAKING MACHINE OPERATOR 03/28/2021 6:05 PM POUCH MAKING MACHINE OPERATOR Shirin Mahmood MD LAB MICROBIOLOGY - GENERAL ORD ERABLES Final Result Performing Organization Address [facility] [place] [address] * Calprotectin, fecal (03/28/2021 9:00 AM POUCH MAKING MACHINE OPERATOR) Pathologist [facility] Calprotectin, fecal <50.0 <50.0 (Normal) mcg/g [facility] Comment: ADDITIONAL INFORMATION On 03/07/2021, [facility] [employer] implemented a new fecal calprotectin method with an expanded measuring range. If patient was tested on previous method and is undergoing serial monitoring, rebaselining may be indicated. Rebaselining, or testing the current sample on the previous method, is available at no charge, subject to reagent availability. The rebaseline result will be added to this report. Contact [facility] [employer] at within 7 days of initial report issuance to request this service. For [facility] patients, call [phone]. Test Performed by: [facility] [address] [place] [address] Partnership Manager: Jacob Quintanilla M.D. Ph.D.; IA# [id number] Stool 03/28/2021 9:00 AM POUCH MAKING MACHINE OPERATOR 03/28/2021 6:52 PM POUCH MAKING MACHINE OPERATOR us Shirin Mahmood MD LAB BODY FLUIDS AND STOOLS ORD ERABLES Final Result [facility] Department [place] [address] * CBC with auto differential (03/12/2021 1:47 PM POUCH MAKING MACHINE OPERATOR) WBC 6.9 3.8 - 9.9 K/cumm [facility] Hgb 13.8 11.9 - 15.5 g/dL [facility] Hct 41.5 35.6 - 45.5 % [facility] Plt 299 150 - 400 K/cumm [facility] MPV 10.0 9.1 - 12.3 fL [facility] RBC 4.56 3.90 - 5.20 M/cumm [facility] MCV 91.0 81.3 - 96.4 fL [facility] MCH 30.3 27.1 - 33.3 pg [facility] MCHC 33.3 32.3 - 35.7 g/dL [facility] RDW CV 13.0 11.1 - 14.9 % [facility] RDW SD 42.7 35.7 - 48.1 fL [facility] NRBC abs 0.00 0.00 - 0.01 K/cumm [facility] Blood 03/12/2021 1:47 PM POUCH MAKING MACHINE OPERATOR 03/12/2021 2:01 PM POUCH MAKING MACHINE OPERATOR us Shirin Mahmood MD LAB BLOOD ORDERABLES Final Res ult Performing Organization Address [facility] de Phone Number [facility] [place] [address] * Tissue transglutaminase IgA (TGG-IgA Ab) (03/12/2021 1:47 PM POUCH MAKING MACHINE OPERATOR) [facility] TTG ab, IgA <0.5 <=14.9 units/mL [facility] Comment: Interpretive data Negative: <15 units/mL Positive: > or equal to 15 units/mL Current interpretive data was last revised on 2016. Blood 03/12/2021 1:47 PM POUCH MAKING MACHINE OPERATOR 03/12/2021 2:01 PM POUCH MAKING MACHINE OPERATOR Shirin Mahmood MD LAB BLOOD ORDERABLES Final Res ult Performing Organization Address [facility] de Phone Number [facility] [place] [address] * IgA (03/12/2021 1:47 PM POUCH MAKING MACHINE OPERATOR) [facility] Immunoglobulin A 148.0 70.0 - 400.0 mg/dL [facility] Blood 03/12/2021 1:47 PM POUCH MAKING MACHINE OPERATOR 03/12/2021 2:01 PM POUCH MAKING MACHINE OPERATOR Result [facility] Shirin Mahmood MD LAB BLOOD ORDERABLES Final Res ult Performing Organization Address [facility] de Phone Number [facility] [place] [address] * Comprehensive metabolic panel (03/12/2021 1:47 PM POUCH MAKING MACHINE OPERATOR) [facility] Sodium 140 135 - 145 mmol/L [facility] Potassium, pl 4.1 3.3 - 4.9 mmol/L [facility] Chloride 103 97 - 110 mmol/L [facility] CO2 27 22 - 32 mmol/L [facility] Anion gap 10 2 - 15 mmol/L [facility] BUN 9 8 - 25 mg/dL [facility] Creatinine 0.72 0.60 - 1.10 mg/dL [facility] Glucose 97 70 - 199 mg/dL [facility] Comment: Interpretive Data Fasting glucose >/= [...] 2017. Calcium 9.5 8.5 - 10.3 mg/dL [facility] Bilirubin, total 0.6 0.1 - 1.2 mg/dL [facility] Protein, pl 8.0 6.5 - 8.5 g/dL [facility] Albumin 4.8 3.5 - 5.0 g/dL [facility] Alk phos 53 40 - 130 Units/L [facility] ALT 14 7 - 45 Units/L [facility] AST 22 10 - 45 Units/L [facility] Blood 03/12/2021 1:47 PM POUCH MAKING MACHINE OPERATOR 03/12/2021 2:01 PM POUCH MAKING MACHINE OPERATOR us Shirin Mahmood MD LAB BLOOD ORDERABLES Final Res ult Performing Organization Address [facility]/ZIP Co de Phone Number [facility] Department [place] [address] * CRP (acute phase) (03/12/2021 1:47 PM POUCH MAKING MACHINE OPERATOR) CRP 1.0 <=10.0 mg/L [facility] Blood 03/12/2021 1:47 PM POUCH MAKING MACHINE OPERATOR 03/12/2021 2:01 PM POUCH MAKING MACHINE OPERATOR Shirin Mahmood MD LAB BLOOD ORDERABLES Final Res ult Performing Organization Address City/[facility]/ZIP Co de Phone Number [facility] Department [place] [address] documented in this encounter Visit Diagnoses Diagnosis [...] 03/12/2021 documented in this encounter Care Teams X Ray Nurse Relationship Specialty Start Date End Date Yamilet Villegas NP [facility] [place] [address] PCP - General Nurse Practitioner 03/12/21 documented as of this encounter
--- OUTSIDE RECORDS SUMMARY | 2024-03-27 14:45 | XMS_ITS | Clinical Summary ---
Author Organization [facility] Address [address] [place] [address] Care Team Providers Care Umbrella Mender Name Role Phone Yamilet Villegas NP Primary Care Provider [phone]- [phone] Kimberlee Hernandez DO Unavailable [phone] Kaitlyn Puentes FILLING STATION ATTENDANT Unavailable [phone] Allergies No known active allergies Medications naproxen (NAPROSYN) 500 mg tabletIndication s:Pain Take 1 tablet (500 mg total) by mouth 2 (two) times a day with meals for 5 days 10 tablet 11/19/2023 Active Active Problems Problem Noted Date Diagnosed Date Rectal bleeding 10/19/2020 Overview (10/19/2020): Added automatically from request for surgery [id number] Assessment & Plan (03/12/2021 2:15 PM SUPERVISOR SPECIALTY PLANT): -will check CBC Deviated nasal septum 03/18/2019 Overview (03/18/2019): Added automatically from request for surgery [id number] Refractory obstruction of nasal airway 9 Overview (03/18/2019): Added automatically from request for surgery [id number] Encounter for cosmetic surgery 03/18/2019 Overview (03/18/2019): Added automatically from request for surgery [id number] Hypertriglyceridemia 11/03/2017 Dyslipidemia 11/03/2017 Abdominal pain 04/08/2016 Overview (07/03/2017): Description: --most likely related to IBS. Rule out Celiac disease. Doubt IBD. Assessment & Plan (03/12/2021 2:14 PM SUPERVISOR SPECIALTY PLANT): -chronic, associated with bloating and loose stools. -check celiac panel, CRP, stool calprotectin, ova and parasites and C diff. -will get EGD to evaluate nausea and abdominal pain. Nausea 04/08/2016 Overview (07/03/2017): Description: -consider acid peptic disease or nonulcer dypepsia. Assessment & Plan (03/12/2021 2:15 PM SUPERVISOR SPECIALTY PLANT): -upper GI endoscopy as above -consider empiric [...] file Legal Sex Female 11:02 AM SUPERVISOR SPECIALTY PLANT Gender Identity Not on file Sexual Orientation [...] cm (5' 8 ) 05/06/2021 11:13 AM SUPERVISOR SPECIALTY PLANT Body Mass Index 18.74 05/06/2021 11:13 AM SUPERVISOR SPECIALTY PLANT Plan of Treatment Health Maintenance Due Date [...] HPV Vaccines Completed 10/05/2013, 08/22, 08/08/2011 Insurance Vitals ([email or web address].com) PPO Vitals ([email or web address].com) PPO [employer] PPO [employer] PPO Advance Directives For more information, please contact: [phone] * Full Code (Latest Code Status on File) Date Activated Date Inactivated Comments 05/06/2021 11:15 AM 05/06/2021 5:27 PM Care Teams Umbrella Mender Relationship Specialty Start Date End Date Yamilet Villegas NP [address] [place] [address] PCP - General Nurse Practitioner 03/12/21 Kimberlee Hernandez DO [address] [place] [address] [employer] Internship Obstetrics and Gynecology 11/21/22 Kaitlyn Puentes NP [address] [place] [address] Nurse Practitioner Obstetrics and Gynecology 03/04/23
--- OUTSIDE RECORDS SUMMARY | 2024-03-27 14:45 | XMS_ITS | Encounter Summary ---
Author Organization [facility] Healthcare Address [address] [place] [address] Care Team Providers Care Treasury Analyst Name Role Phone Nunu Wilson MD Primary Care Provider + Encounter Details Date Type Department Care Team (Late st Contact Info) Description 12/10/2020 9:00 AM CDT - 12/10/2020 9:45 AM CDT Surgery [facility] Endoscopy [address] [place] [address] Kaleb Negron MD [address] [facility] [phone] [place], [place] [id number] COLONOSCOPY Surgery Details Date/Time Status Location OR Service Patient Class Case Class Case Type Trauma Case? 12/10/2020 9:00 AM Posted [facility] Endo 03 Colorectal Outpatient Elective [...] on file Legal Sex Female 11:02 AM PREPARATION SUPERVISOR CANNING Gender Identity Not on file Sexual Orientation [...] to sedation/anesthesia with the patient or his/her independent sales representative and have documented his/her understanding [...] Female Attending MD: Kaleb Negron M.D. Room: [facility] ENDOSCOPY ROOM 03 Note Status: Finalized [...] scope was passed under direct vision. The [id number] was introduced through the anus and advanced to the cecum, identified by appendiceal orifice and ileocecal valve. The colonoscopy was performed without difficulty. The patient tolerated the procedure well. The quality of the bowel preparation was evaluated using the BBPS ([place] Bowel Preparation Scale) with scores of: Right [...] Bowel prep When you arrive, come to [facility] hospital entrance. As you enter there [...] mask at all times My number is [phone] documented in this encounter Plan of Treatment [...] Female Attending MD: Kaleb Negron M.D. Room: [facility] ENDOSCOPY ROOM 03 Note Status: Finalized [...] The scope was passed under direct vision.The [id number] was introduced through the anusand advanced to [...] RN) documented in this encounter Care Teams Treasury Analyst Relationship Specialty Start Date End Date Nunu Wilson MD [address] [place] [address] PCP - General 12/10/20 03/11/21 documented as of this encounter
--- OUTSIDE RECORDS SUMMARY | 2024-03-27 14:45 | XMS_ITS | Encounter Summary ---
Author Organization [facility] Address [address] [place] [address] Phone Care Team Providers Care Cutting Inspector Name Role Phone Nunu Wilson MD Primary Care Provider + Encounter Details Date Type Department Care Team (Late st Contact Info) Description 12/06/2020 Telephone [facility] Surgery [facility] 8th [place] [address] [place] [address] Micheline Edwards Social History Tobacco Use Types Packs/Day Years Used Date Smoking Tobacco: Never Smokeless Tobacco: Never Comments Unknown Sex and Gender Information Value Date Recorded Sex Assigned at Not on file Legal Sex Female 11:02 AM RAG SORTER Gender Identity Not on file Sexual Orientation [...] procedure. Confirmed arrival time of 8:00AM at [facility], report to Main Entrance. Patient was made aware of current visitor policy and verbalized understanding. documented in this encounter Plan of Treatment Not on file documented as of this encounter Visit Diagnoses Not on filedocumented in this encounter Care Teams Cutting Inspector Relationship Specialty Start Date End Date Nunu Wilson MD [address] [facility] [place] [address] PCP - General 04/01/17 12/09/20 documented as of this encounter
--- OUTSIDE RECORDS SUMMARY | 2024-03-27 14:45 | XMS_ITS | Encounter Summary ---
Author Organization [facility] Address [address] [place] [address] Phone Care Team Providers Care Manager Golf Name Role Phone Yamilet Villegas NP Primary Care Provider [phone] Encounter Details Date Type Department Care Team (Late st Contact Info) Description 02/04/2022 Orders Only [facility] Gastroenterology [address] [facility] Advanced Medicine 12th [place] [address] [place] [address] Shirin Mahmood MD [address] [place] [address] Abdominal pain (Primary Dx) Social [...] on file Legal Sex Female 11:02 AM MOUNTER SAXOPHONES Gender Identity Not on file Sexual Orientation Not on file documented as of this encounter Plan of Treatment Not on file documented as of this encounter Visit Diagnoses Diagnosis Abdominal pain- Primary Abdominal pain, unspecified site documented in this encounter Care Teams Manager Golf Relationship Specialty Start Date End Date Yamilet Villegas [place] [address] PCP - General Nurse Practitioner 03/12/21 documented as of this encounter
--- OUTSIDE RECORDS SUMMARY | 2024-03-27 14:45 | XMS_ITS | Encounter Summary ---
Author Organization [facility] Address [address] [place] [address] Phone Care Team Providers Care Pensionholder Information Clerk Name Role Phone Yamilet Villegas NP Primary Care Provider [phone] Encounter Details Date Type Department Care Team (Late st Contact Info) Description 05/30/2021 Telephone [facility] Gastroenterology [facility] Medicine 12th [place] [address] Shirin Mahmood MD [address] [place] [address] Social History Tobacco Use Types [...] on file Legal Sex Female 11:02 AM CHAINMAN Gender Identity Not on file Sexual Orientation Not on file documented as of this encounter Miscellaneous Notes * Telephone Encounter - Shirin Mahmood MD - 05/30/2021 11:48 AM CST I attempted to call her to offer an ultrasound to evaluate for SMA syndrome which would not requireIV placement. My phone call went to [employer]. I will have my nurse try again NMAN documented in this encounter Plan of Treatment Not on file documented as of this encounter Visit Diagnoses Not on filedocumented in this encounter Care Teams Pensionholder Information Clerk Relationship Specialty Start Date End Date Yamilet Villegas NP [address] [place] [address] PCP - General Nurse Practitioner 03/12/21 documented as of this encounter
--- OUTSIDE RECORDS SUMMARY | 2024-03-27 14:46 | XMS_ITS | Encounter Summary ---
Author Organization [facility] Address [address] [place] [address] Phone Care Team Providers Care Clinical Educator Name Role Phone Nunu Wilson MD Primary Care Provider + Encounter Details Date Type Department Care Team (Late st Contact Info) Description 05/18/2019 Telephone [facility] [address] [facility] Advanced Medicine 11th [place] [address] [place] [address] Erin Hoover Social History Tobacco Use Types Packs/Day Years Used Date Smoking Tobacco: Never Smokeless Tobacco: Never Comments Unknown Sex and Gender Information Value Date Recorded Sex Assigned at Not on file Legal Sex Female 11:02 AM STEM ROLLER Gender Identity Not on file Sexual Orientation Not on file documented as of this encounter Miscellaneous Notes * Telephone Encounter - Erin Hoover - 05/18/2019 1:03 PM CST Left Message - left vm for mom to see if they were ready to proceed or if they had chosen to proceed with their other physician. By Erin Hoover ROLLER documented in this encounter Plan of Treatment Not on file documented as of this encounter Visit Diagnoses Not on filedocumented in this encounter Care Teams Clinical Educator Relationship Specialty Start Date End Date Nunu Wilson MD [address] [facility] [place] [address] PCP - General 04/01/17 12/09/20 documented as of this encounter
--- OUTSIDE RECORDS SUMMARY | 2024-03-27 14:46 | XMS_ITS | Encounter Summary ---
Author Organization [facility] School of [facility] Address [address] [place] [address] Phone Care Team Providers Care Wood Boring Machine Operator Name Role Phone Nunu Wilson MD Primary Care Provider + Encounter Details Date Type Department Care Team (Late st Contact Info) Description 03/25/2019 Telephone [place] [facility] [address] [facility] Advanced Medicine 11th [place] [address] [place] [address] Erin Hoover Social History Tobacco Use Types Packs/Day Years Used Date Smoking Tobacco: Never Smokeless Tobacco: Never Comments Unknown Sex and Gender Information Value Date Recorded Sex Assigned at Not on file Legal Sex Female 11:02 AM CANDY ATTENDANT Gender Identity Not on file Sexual Orientation Not on file documented as of this encounter Miscellaneous Notes * Telephone Encounter - Erin Hoover - 03/25/2019 9:03 AM CST TT PT SCHEDULED SX AND POV MAILED PACKET AND UPDATED CALENDAR. By Erin Hoover Y ATTENDANT documented in this encounter Plan of Treatment Not on file documented as of this encounter Visit Diagnoses Not on filedocumented in this encounter Care Teams Wood Boring Machine Operator Relationship Specialty Start Date End Date Nunu Wilson MD [address] [place] [address] PCP - General 04/01/17 12/09/20 documented as of this encounter
--- OUTSIDE RECORDS SUMMARY | 2024-03-27 14:46 | XMS_ITS | Encounter Summary ---
Author Organization [facility] of [facility] Address [address] [place] [address] Phone Care Team Providers Care Linux Solaris Administrator Name Role Phone Nunu Wilson MD Primary Care Provider + Encounter Details Date Type Department Care Team (Late st Contact Info) Description 09/09/2019 Telephone [place] [facility] [address] [facility] Advanced Medicine 11th [place] [address] [place] [address] Erin Hoover Social History Tobacco Use Types Packs/Day Years Used Date Smoking Tobacco: Never Smokeless Tobacco: Never Comments Unknown Sex and Gender Information Value Date Recorded Sex Assigned at Not on file Legal Sex Female 11:02 AM TRAIN INSPECTOR Gender Identity Not on file Sexual [...] on filedocumented in this encounter Care Teams Linux Solaris Administrator Relationship Specialty Start Date End Date Nunu Wilson MD [address] [place] [address] PCP - General 04/01/17 12/09/20 documented as of this encounter
--- OUTSIDE RECORDS SUMMARY | 2024-03-27 14:46 | XMS_ITS | Encounter Summary ---
Author Organization [facility] School of [facility] Address [address] [place] [address] Phone Care Team Providers Care Computer Forwarding System Markup Clerk Name Role Phone Nunu Wilson MD Primary Care Provider + Reason for Visit * Reason Comments Hyperlipidemia Thyroid Problem * Endocrinology (Routine) - Closed Specialty Diagnoses / Procedures Referred By Contac t Referred To Contact Pediatric Endocrinology Diagnoses Appt Comment: F/U Procedures ENDO RETURN Nunu Wilson MD Phone: tel: fax: Daysi Lopez MD [address] [place] [address] Phone: tel: fax: Referral ID Status Reason Start Date Expiration Date Visits Re quested Visits Authorized [id number] Closed 11/02/2017 05/14/2019 1 1 Encounter Details Date Type Department Care Team (Late st Contact Info) Description 11/02/2017 2:00 PM CDT Office Visit [facility] Pediatric Endocrinology [facility] 2nd [place] [address] [place] [id number] Daysi Lopez MD [address] [id number] Secondary oligomenorrhea (Primary Dx); Anti-TPO antibodies present; Hypertriglyceridemia; Dyslipidemia Social History Tobacco Use Types Packs/Day Years Used Date Smoking Tobacco: Never Smokeless Tobacco: Never Comments Unknown Sex and Gender Information Value Date Recorded Sex Assigned at Not on file Legal Sex Female 11:02 AM HONEYCOMB BLANKET MAKER Gender Identity Not on file Sexual Orientation [...] (Z= -0.28) based on CDC 2-20 Years wqtqwh-qou-hyi data using vitals from 11/02/2017. 92 %ile (Z= 1.39) based on CDC 2-20 Years lnzwpim-ksh-vjk data using vitals from 11/02/2017. [place] body weight: 63.3 kg (139 lb 10.2 oz) Weight change: 1.4 kg weight gain over the past 7 months Estimated Energy Needs: [id number] kcal/day Counseling/Education Met with America and her [...] sugary drinks and sweets 2. Ensure more Cherokee-3 fatty acids Time: :15 * Daysi Lopez MD - 11/02/2017 2:00 PM CDT NAME:America Bloom : 2000 DATE of VISIT:11/03/2017 REFERRING PHYSCIAN:Nunu Wilson MD Reason for Referral: America is a 16 y.o. 11 m.o. female sent for evaluation of Hyperlipidemia and Thyroid Problem HPI:America is a 16 y.o. 11 m.o. female [...] Surgical History: Procedure Laterality Date ? ? [place] REMOVAL ADENOIDS,PRIMARY,<12 Y/O Adenoidectomy - (Added by TW Conv) ? ? SC REMOVAL OF TONSILS,<12 Y/O Tonsillectomy - (Added [...] -0.28)* * Growth percentiles are based on [facility] 2-20 Years data. Ht Readings from Last 1 Encounters: 11/02/17 172.1 cm (5' 7.76 ) (92 %, Z= 1.39)* * Growth percentiles are based on CDC 2-20 Years data. Body mass index is 18.16 kg/m??. 10 %ile (Z= -1.28) based on CDC 2-20 Years BMI-for-age data using vitals from 11/02/2017. 39 %ile (Z= -0.28) based on CDC 2-20 Years ojmnjz-huy-gly data using vitals from 11/02/2017. 92 %ile (Z= 1.39) based on CDC 2-20 Years gqzigui-zxa-igu data using vitals from 11/02/2017. General: alert, [...] CHOLHDL They brought in labs from their embroidery assistant. It was 4 lipid panels, three of [...] 03/12/2021 added in this encounter Care Teams Computer Forwarding System Markup Clerk Relationship Specialty Start Date End Date Nunu Wilson MD [address] [place] [address] PCP - General 04/01/17 12/09/20 documented as of this encounter
--- OUTSIDE RECORDS SUMMARY | 2024-03-27 14:46 | XMS_ITS | Encounter Summary ---
Author Organization [facility] Facility Care Team Providers Care Social Media Analyst Name Role Phone Unavailable Primary Care Provider Unavailabl e Encounter Details Date Type Department Care Team (Late st Contact Info) Description 02/12/2016 2:56 PM HOOKER UP - 02/12/2016 11:59 PM HOOKER UP [facility] [place] [address] [place] [address] Lateral dislocation of right patella; Exposure to [...] on file Legal Sex Female 11:02 AM HOOKER UP Gender Identity Not on file Sexual Orientation Not on file documented as of this encounter Plan of Treatment Not on file documented as of this encounter Procedures Procedure Name Priority Date/Time Associated Diagnosis Comments MRI LOWER EXTREMITY JOINT WO CONTRAST Routine 02/12/2016 4:08 PM HOOKER UP documented in this encounter Results * MRI Lower Extremity Joint WO Contrast (02/12/2016 4:08 PM HOOKER UP) Anatomical Region Laterality Modality N/A Magnetic Resonan ce 02/12/2016 4:08 PM HOOKER UP Narrative 02/12/2016 4:34 PM HOOKER UP DOROTHY MIRAMONTES M.D. YANDEL SARGENT M.D. FINAL REPORT The radiology attending physician has personally reviewed this study, and has reviewed and/or edited this written report and agrees with it. ACC# ??Date Time ??Exam [id number] Feb 12, 2016 16:08:00 [id number] MR Knee without cont R ACC# ??Date Time ??Exam [id number] Feb 12, 2016 16:08:00 [id number] MR Knee without cont R EXAMINATION: ?? [...] MIRAMONTES M.D. on Feb 12 2016 ??4:34P [id number] Procedure Note Provider, MD Moises - 07/28/2016 DOROTHY MIRAMONTES M.D. YANDEL SARGENT M.D. FINAL REPORT The radiology attending physician has personally reviewed this study, and has reviewed and/or edited this written report and agrees with it. ACC# Date Time Exam [id number] Feb 12, 2016 16:08:00 [id number] MR Knee without cont R ACC# Date Time Exam [id number] Feb 12, 2016 16:08:00 [id number] MR Knee without cont R EXAMINATION: Right [...] MIRAMONTES M.D. on Feb 12 2016 4:34P [id number] us Historical Provider MD MCKEON MRI PROCEDURES [...]
--- OUTSIDE RECORDS SUMMARY | 2024-03-27 14:46 | XMS_ITS | Encounter Summary ---
Author Organization [facility] School of [facility] Address [address] [place] [address] Phone Care Team Providers Care Steam Fitter Supervisor Name Role Phone Nunu Wilson MD Primary Care Provider + Reason for Visit * Reason Comments Cosmetic Surgery * ENT (Routine) - Closed Specialty Diagnoses / Procedures Referred By Contac t Referred To Contact Otolaryngology Diagnoses EVAL DEVATED SEPTUM/TROUBLE BREATHING-ALSO DISCUSS POSS NASAL SURGERY AWARE OF [facility] Procedures NEW Nunu Wilson MD [address] [place] [address] Phone: tel: fax: Chris Gordon MD [address] [place] [address] Phone: tel: fax: Referral ID Status Reason Start Date Expiration Date Visits Re quested Visits Authorized [id number] Closed 03/18/2019 09/26/2020 1 1 Encounter Details Date Type Department Care Team (Late st Contact Info) Description 03/18/2019 10:30 AM THREAD WINDER Office Visit [facility] Otolaryngology [facility] [address] [place] [address] Chris Gordon MD [address] [place] [address] Deviated nasal septum (Primary Dx); Refractory obstruction of nasal airway Social History Tobacco Use Types Packs/Day Years Used Date Smoking Tobacco: Never Smokeless Tobacco: Never Comments Unknown Sex and Gender Information Value Date Recorded Sex Assigned at Not on file Legal Sex Female 11:02 AM THREAD WINDER Gender Identity Not on file Sexual Orientation Not on file documented as of this encounter Last Filed Vital Signs Vital Sign Reading Time Taken Comments Blood Pressure 108/64 03/18/2019 10:57 AM THREAD WINDER Pulse - - Temperature - - Respiratory Rate - - Oxygen Saturation - - Inhaled Oxygen Concentration - - Weight 54.3 kg (119 lb 9.6 oz) 03/18/2019 10:57 AM THREAD WINDER Height 172.7 cm (5' 8 ) 03/18/2019 10:57 AM THREAD WINDER Body Mass Index 18.19 03/18/2019 10:57 AM THREAD WINDER documented in this encounter Progress Notes * [...] Surgical History: Procedure Laterality Date ? ? [place] REMOVAL ADENOIDS,PRIMARY,<12 Y/O Adenoidectomy - (Added by TW Conv) ? ? CA REMOVAL OF TONSILS,<12 Y/O Tonsillectomy - (Added [...] file Gets together: Not on file Attends confucianist service: Not on file Active member of [...] and Chief Facial Plastic and Reconstructive Surgery [facility] 03/18/2019 AD WINDER documented in this encounter Plan of Treatment Not on file documented as of this encounter Visit Diagnoses Diagnosis Deviated nasal septum- Primary Refractory obstruction of nasal airway documented in this encounter Care Teams Steam Fitter Supervisor Relationship Specialty Start Date End Date Nunu Wilson MD [address] [place] [address] PCP - General 04/01/17 12/09/20 documented as of this encounter
--- OUTSIDE RECORDS SUMMARY | 2024-03-27 14:46 | XMS_ITS | Encounter Summary ---
Author Organization [facility] Address [address] [place] [address] Phone Care Team Providers Care Clerical Transcriber Name Role Phone Nunu Wilson MD Primary Care Provider + Encounter Details Date Type Department Care Team (Late st Contact Info) Description 04/06/2019 Telephone [place] [facility] ([facility] [address] [facility] Advanced Medicine 11th [place] [address] Erin Hoover Social History Tobacco Use Types Packs/Day Years Used Date Smoking Tobacco: Never Smokeless Tobacco: Never Comments Unknown Sex and Gender Information Value Date Recorded Sex Assigned at Not on file Legal Sex Female 11:02 AM PEDIATRIC OCCUPATIONAL THERAPIST Gender Identity Not on file Sexual Orientation Not on file documented as of this encounter Miscellaneous Notes * Telephone Encounter - Erin Hoover - 04/06/2019 9:21 AM CST left 2nd vm for pt to call and set up sx. By Erin Hoover ATRIC OCCUPATIONAL THERAPIST documented in this encounter Plan of Treatment Not on file documented as of this encounter Visit Diagnoses Not on filedocumented in this encounter Care Teams Clerical Transcriber Relationship Specialty Start Date End Date Nunu Wilson MD [address] [place] [address] PCP - General 04/01/17 12/09/20 documented as of this encounter
--- OUTSIDE RECORDS SUMMARY | 2024-03-27 14:46 | XMS_ITS | Encounter Summary ---
Author Organization [facility] School of [facility] Address [address] [place] [address] Phone Care Team Providers Care Police Sergeant Precinct Name Role Phone Nunu Wilson MD Primary Care Provider + Encounter Details Date Type Department Care Team (Late st Contact Info) Description 04/21/2019 Telephone [place] [facility] ([facility] [address] [facility] Advanced Medicine 11th [place] [address] [place] [address] Erin Hoover Social History Tobacco Use Types Packs/Day Years Used Date Smoking Tobacco: Never Smokeless Tobacco: Never Comments Unknown Sex and Gender Information Value Date Recorded Sex Assigned at Not on file Legal Sex Female 11:02 AM UNDER WATER ASSISTANT Gender Identity Not on file Sexual Orientation Not on file documented as of this encounter Miscellaneous Notes * Telephone Encounter - Erin Hoover - 04/21/2019 11:25 AM CST Left Message - left vm for pt to call and set up sx. By Erin Hoover R WATER ASSISTANT documented in this encounter Plan of Treatment Not on file documented as of this encounter Visit Diagnoses Not on filedocumented in this encounter Care Teams Police Sergeant Precinct Relationship Specialty Start Date End Date Nunu Wilson MD [address] [place] [address] PCP - General 04/01/17 12/09/20 documented as of this encounter
--- OUTSIDE RECORDS SUMMARY | 2024-03-27 14:46 | XMS_ITS | Encounter Summary ---
Author Organization [facility] School of [facility] Address [address] [place] [address] Phone Care Team Providers Care Plastic Boat Patcher Name Role Phone Nunu Wilson MD Primary Care Provider + Encounter Details Date Type Department Care Team (Late st Contact Info) Description 03/25/2019 Telephone [place] [facility] [address] [facility] Advanced Medicine 11th [place] [address] [place] [address] Erin Hoover Social History Tobacco Use Types Packs/Day Years Used Date Smoking Tobacco: Never Smokeless Tobacco: Never Comments Unknown Sex and Gender Information Value Date Recorded Sex Assigned at Not on file Legal Sex Female 11:02 AM LINER MAN Gender Identity Not on file Sexual Orientation Not on file documented as of this encounter Miscellaneous Notes * Telephone Encounter - Erin Hoover - 03/25/2019 11:20 AM CST Left Message - left vm for pt to call and set up photo review and sx. By Erin Hoover R MAN documented in this encounter Plan of Treatment Not on file documented as of this encounter Visit Diagnoses Not on filedocumented in this encounter Care Teams Plastic Boat Patcher Relationship Specialty Start Date End Date Nunu Wilson MD [address] [place] [address] PCP - General 04/01/17 12/09/20 documented as of this encounter
--- OUTSIDE RECORDS SUMMARY | 2024-03-27 14:46 | XMS_ITS | Encounter Summary ---
Author Organization [facility] Address [address] [place] [address] Care Team Providers Care General Warehouse Worker Name Role Phone Unavailable Primary Care Provider Unavailabl e Encounter Details Date Type Department Care Team (Latest Contact Info) Description 05/26/2016 4:17 PM HAT BRIM AND CROWN LAMINATING OPERATOR - 05/26/2016 11:59 PM HAT BRIM AND CROWN LAMINATING OPERATOR Hospital Encounter [facility] INTERIM [phone] [place] [address] [place] [address] Discharge Disposition: Discharge to home or self care Social History Tobacco Use Types Packs/Day Years Used Date Smoking Tobacco: Never Assessed Comments Unknown Sex and Gender Information Value Date Recorded Sex Assigned at Not on file Legal Sex Female 11:02 AM HAT BRIM AND CROWN LAMINATING OPERATOR Gender Identity Not on file Sexual Orientation Not on file documented as of this encounter Discharge Disposition Disposition Code Departure Means Destination Discharge to home or self care documented in this encounter Plan of Treatment Not on file documented as of this encounter Visit Diagnoses Not on filedocumented in this encounter
--- OUTSIDE RECORDS SUMMARY | 2024-03-27 14:46 | XMS_ITS | Encounter Summary ---
Author Organization [facility] Address [address] [facility] [address] [place] [address] Phone Care Team Providers Care House Mother Name Role Phone Nunu Wilson MD Primary Care Provider + Encounter Details Date Type Department Care Team (Late st Contact Info) Description 10/19/2020 Orders Only [facility] [address] [facility] 2[address] [place] [address] Abby Dotson MD [address] [facility] [phone] [place] [address] Social History Tobacco Use Types Packs/Day Years Used Date Smoking Tobacco: Never Smokeless Tobacco: Never Comments Unknown Sex and Gender Information Value Date Recorded Sex Assigned at Not on file Legal Sex Female 11:02 AM INSTRUMENTATION ENGINEERING TECHNICIAN Gender Identity Not on file Sexual [...] on filedocumented in this encounter Care Teams House Mother Relationship Specialty Start Date End Date Nunu Wilson MD [address] [place] [address] PCP - General 04/01/17 12/09/20 documented as of this encounter
--- OUTSIDE RECORDS SUMMARY | 2024-03-27 14:46 | XMS_ITS | Encounter Summary ---
Author Organization [facility] Address [address] [place] [address] Phone Care Team Providers Care Daycare Director Name Role Phone uNnu Wilson MD Primary Care Provider + Reason for Visit * Reason Onset Date Comments Colonoscopy 11/06/2020 Encounter Details Date Type Department Care Team (Late st Contact Info) Description 11/06/[address] [facility] 8th [place] [address] [place] [address] Natty Pinto B.A. Colonoscopy Social History Tobacco Use Types Packs/Day Years Used Date Smoking Tobacco: Never Smokeless Tobacco: Never Comments Unknown Sex and Gender Information Value Date Recorded Sex Assigned at Not on file Legal Sex Female 11:02 AM ASSURANCE ASSOCIATE Gender Identity Not on file Sexual Orientation Not on file documented as of this encounter Miscellaneous Notes * Telephone Encounter - Chyna Montgomery - 11/06/2020 10:16 AM CDT Cancelled 11/29/[address] Lori Dotson , rescheduled to 12/10/[address] Natividad Negron [address] [facility]. * Telephone Encounter - Natty Pinto B.A. [...] on filedocumented in this encounter Care Teams Daycare Director Relationship Specialty Start Date End Date Nunu Wilson MD [address] [place] [address] PCP - General 04/01/17 12/09/20 documented as of this encounter
--- OUTSIDE RECORDS SUMMARY | 2024-03-27 14:46 | XMS_ITS | Encounter Summary ---
Author Organization [facility] Address [address] [place] [address] Phone Care Team Providers Care Cardiographer Name Role Phone Nunu Wilson MD Primary Care Provider + Encounter Details Date Type Department Care Team (Late st Contact Info) Description 03/31/2019 Telephone [place] [facility] ([facility] [address] [facility] Advanced Medicine 11th [place] [address] [place] [address] Erin Hoover Social History Tobacco Use Types Packs/Day Years Used Date Smoking Tobacco: Never Smokeless Tobacco: Never Comments Unknown Sex and Gender Information Value Date Recorded Sex Assigned at Not on file Legal Sex Female 11:02 AM MINERAL ENGINEER Gender Identity Not on file Sexual Orientation Not on file documented as of this encounter Miscellaneous Notes * Telephone Encounter - Erin Hoover - 03/31/2019 11:07 AM CST Left Message - left vm for pt to call and set up sx. By Erin Hoover RAL ENGINEER documented in this encounter Plan of Treatment Not on file documented as of this encounter Visit Diagnoses Not on filedocumented in this encounter Care Teams Cardiographer Relationship Specialty Start Date End Date Nunu Wilson MD [address] [place] [address] PCP - General 04/01/17 12/09/20 documented as of this encounter
--- OUTSIDE RECORDS SUMMARY | 2024-03-27 14:46 | XMS_ITS | Encounter Summary ---
Author Organization [facility] Address [address] [place] [address] Phone Care Team Providers Care Supervisor Wall Mirror Department Name Role Phone Nunu Wilson MD Primary Care Provider + Encounter Details Date Type Department Care Team (Late st Contact Info) Description 04/26/2019 Telephone [place] [facility] ([facility] [address] [facility] Advanced Medicine [address]th [place] [address] [place] [address] Erin Hoover Social History Tobacco Use Types Packs/Day Years Used Date Smoking Tobacco: Never Smokeless Tobacco: Never Comments Unknown Sex and Gender Information Value Date Recorded Sex Assigned at Not on file Legal Sex Female 11:02 AM BALANCE STAFF STAKER Gender Identity Not on file Sexual Orientation Not on file documented as of this encounter Miscellaneous Notes * Telephone Encounter - Erin Hoover - 04/26/2019 10:06 AM CST tt pt mom, states they arent ready to set up sx. they have another DrAlysha to consult with next week, then they will make a decision as to who to proceed with. By Erin Hoover NCE STAFF STAKER documented in this encounter Plan of Treatment Not on file documented as of this encounter Visit Diagnoses Not on filedocumented in this encounter Care Teams Supervisor Wall Mirror Department Relationship Specialty Start Date End Date Nunu Wilson MD [address] [place] [address] PCP - General 04/01/17 12/09/20 documented as of this encounter
--- OUTSIDE RECORDS SUMMARY | 2024-03-27 14:46 | XMS_ITS | Encounter Summary ---
Author Organization [facility] Address [address] [facility] [address] [place] [address] Phone Care Team Providers Care Seed Cleaner Operator Name Role Phone Nunu Wilson MD Primary Care Provider + Encounter Details Date Type Department Care Team (Late st Contact Info) Description 11/14/2020 Orders Only [facility] Surgery [address] [place] [address] Kaleb Negron MD [address] [facility] [place] [id number] [place] [address] Social History Tobacco Use Types Packs/Day Years Used Date Smoking Tobacco: Never Smokeless Tobacco: Never Comments Unknown Sex and Gender Information Value Date Recorded Sex Assigned at Not on file Legal Sex Female 11:02 AM DIRECTOR HR COMMUNICATIONS Gender Identity Not on file Sexual Orientation [...] on filedocumented in this encounter Care Teams Seed Cleaner Operator Relationship Specialty Start Date End Date Didriksen, Nunu H., MD [address] [place] [address] PCP - General 04/01/17 12/09/20 documented as of this encounter
--- OUTSIDE RECORDS SUMMARY | 2024-03-27 14:46 | XMS_ITS | Encounter Summary ---
Author Organization [facility] Address [address] [place] [address] Phone Care Team Providers Care Perforator Operator Oil Well Name Role Phone Nunu Wilson MD Primary Care Provider + Encounter Details Date Type Department Care Team (Late st Contact Info) Description 12/06/2020 Telephone [facility] Surgery [facility] 8th [place] [address] [place] [phone] Micheline Edwards Social History Tobacco Use Types Packs/Day Years Used Date Smoking Tobacco: Never Smokeless Tobacco: Never Comments Unknown Sex and Gender Information Value Date Recorded Sex Assigned at Not on file Legal Sex Female 11:02 AM RUBBER MIXER Gender Identity Not on file Sexual Orientation [...] on filedocumented in this encounter Care Teams Perforator Operator Oil Well Relationship Specialty Start Date End Date Nunu Wilson MD [address] [place] [address] PCP - General 04/01/17 12/09/20 documented as of this encounter
--- OUTSIDE RECORDS SUMMARY | 2024-03-27 14:46 | XMS_ITS | Encounter Summary ---
Author Organization [facility] Care Team Providers Care Flight Communications Operator Name Role Phone Unavailable Primary Care Provider Unavailabl e Encounter Details Date Type Department Care Team (Latest Contact Info) Description 01/24/2016 9:15 AM CDT - 01/24/2016 11:59 PM CDT [facility] [place] [address] [place] [address] Abnormal findings on diagnostic imaging of other parts of musculoskeletal system Social History Tobacco Use Types Packs/Day Years Used Date Smoking Tobacco: Never Assessed Comments Unknown Sex and Gender Information Value Date Recorded Sex Assigned at Not on file Legal Sex Female 11:02 AM BATCH FREEZER OPERATOR Gender Identity Not on file Sexual [...] M.D. FINAL REPORT ACC# ??Date Time ??Exam [id number] Jan 24, 2016 09:34:00 [id number] Knee 1 or 2 views R EXAMINATION: ?Right knee 1 or 2 views HISTORY: ??Right knee pain FINDINGS: ?? A single merchant view of the right knee is obtained including the left knee in the [id number]. There are no prior studies available for [...] by: JAVIER OLIVAS M.D. on Jan?2015 ??9:55A [id number] Procedure Note Provider, MD Moises - 07/28/2016 JAVIER OLIVAS M.D. FINAL REPORT ACC# Date Time Exam [id number] Jan 24, 2016 09:34:00 [id number] Knee 1 or 2 views R EXAMINATION: Right knee 1 or 2 views HISTORY: Right knee pain FINDINGS: A single merchant view of the right knee is obtained including the left knee in the [id number]. There are no prior studies available for [...] OLIVAS M.D. on Jan 24 2016 9:55A [id number] us Historical Provider MD MCKEON XR PROCEDURES Final R esult documented in this encounter Visit Diagnoses Diagnosis Abnormal findings on diagnostic imaging of other parts of musculoskeletal system documented in this encounter
== END 2024-03-20 15:56 | disposition home or self-care (01) ==
PROVIDERS: Emergency Provider General Practice
DX: N76.0 Acute vaginitis (principal)
CPT/HCPCS: 81025; 87070; 87491; 87591; 87661; 99283; A9270